=== PATIENT | female | born 1950 | race Caucasian/White ===

== ENCOUNTER 2021-01-24 16:43 | Emergency (ER) | payer OTHER, MEDICARE, SELFPAY ==
--- NOTE | ~2021-01-24 | XR_ITS ---
EXAMINATION: X-RAY RIGHT WRIST AND RIGHT HAND CLINICAL INFORMATION: Status post fall. Pain. COMPARISON: No similar priors. TECHNIQUE: 3 views of the right wrist/hand were obtained. FINDINGS: There is a comminuted distal radial fracture extending into the intra-articular surface. On the lateral view, there is dorsal angulation of the distal fracture fragment and there is mild impaction. There is an additional minimally displaced fracture of the ulnar styloid process. Carpal rows are maintained. The scapholunate interval is within normal limits. No other acute fractures. There is diffuse soft tissue edema without unexpected radiopaque foreign bodies. XR/XR hand wrist RT IMPRESSION: Comminuted distal radial fracture with intra-articular extension, dorsal angulation and mild impaction. Ulnar styloid process fracture.
[2021-01-24 18:21] VITALS: BP 137/72; PULSE 77; RESP 16; O2SAT 97; BMI 28.3
--- NOTE | 2021-01-24 19:06 | ED.EXTPRO ---
HPI - Extremity Problem General Chief complaint: Extremity Problem Stated complaint: fall Time Seen by Provider: 01/24/21 19:38 Source: patient Mode of arrival: ambulatory Limitations: no limitations History of Present Illness HPI Narrative: 70-year-old female presents with right wrist and hand pain after falling on outstretched arm yesterday. States she went to go get the mail and slipped landing on her bottom and her right arm. Does not report any prodromal symptoms. MD Complaint: extremity pain, extremity swelling, joint swelling and joint paint Onset (ago): day(s) (1) Pain Consistency: constant Location: right and upper extremity Severity scale (1-10): 8 Quality: aching and constant Relieving factors: nothing Exacerbating factors: range of motion and palpation Associated symptoms: denies other symptoms Related Data Previous Rx's Medication Instructions Recorded oxycodone 5 mg tablet 5 mg PO Q8H PRN #10 tab 01/24/21 Allergies Allergy/AdvReac Type Severity Reaction Status Date / Time No Known Allergies Allergy Mild N/A Verified 01/24/21 19:03 Review of Systems Review of Systems: Constitutional: No Fever, No Chills ENT/Mouth: No Ear Pain, No Hoarseness, No sore throat Eyes: No Eye Pain, No Swelling, No Redness, No Foreign Body Cardiovascular: No Chest Pain, No SOB Respiratory: No Cough, No Dyspnea Gastrointestinal: No Nausea, No Vomiting, No Diarrhea, No abdominal Pain Genitourinary: No Dysuria, No Hematuria Musculoskeletal: positive right hand and wrist pain, No Myalgias, No Joint Swelling Skin: Positive hematoma to right hand, No Skin lacerations, No rash Neuro: No Weakness, No Numbness, No Paresthesias, No Loss of Consciousness, No Dizziness, No Headache Psych: No Anxiety/Panic, No Depression Heme/Lymph: no easy bruising, no Lymphadenopathy Endocrine: No Polyuria, No Polydipsia Yes all other systems are reviewed and are negative PMFSH Past Medical History Attestation statement: The following information was validated with the patient. Source: old records reviewed Medical History COPD (chronic obstructive pulmonary disease) Social History Social History Advance Directives: No Advance Directives Information Provided: No Physical Exam Vital Signs: Vital Signs: Last Vital Signs Temp 97.9 F 01/24/21 20:21 Pulse 75 01/24/21 20:21 Resp 20 01/24/21 20:21 BP 137/72 01/24/21 18:21 Pulse Ox 99 01/24/21 20:21 Body Mass Index 28.3 Appearance: Alert. Oriented X3. No acute distress. Nasal cannula O2 per baseline. Eyes: Pupils equal, round and reactive to light. Sclera nonicteric. ENT: Pharynx normal. Moist mucous membranes. Neck: Normal inspection. Neck supple. Full range of motion against resistance. No vertebral step-offs or pain noted. CVS: Normal heart rate and rhythm. Pulses normal. Respiratory: No respiratory distress. Breath sounds normal. No chest wall tenderness. Abdomen: Soft and nontender. Skin: Skin warm and dry. Normal skin color. Normal skin turgor. Extremities: Pelvis is stable. No pain or crepitus to the extremities. Full range of motion to all extremities except for the right hand. Decreased flexion and extension, decreased supination, normal pronation, brisk capillary refill and equal pulses to upper extremities. Hematoma on the dorsal aspect of the hand, positive snuffbox tenderness. Neuro: No motor deficit. No sensory deficit. Course Course Course Narrative: 70-year-old female presents with injury to to the right hand and wrist after a fall on outstretched hand. Physical exam is negative for all other findings with the exception of the right wrist. Will order x-rays. Patient is on 2.5 Coumadin daily for AFib X-rays indicate radial and ulnar fractures. Non reducible. Discussion with Orthopedics, plan is for patient to follow-up in the office and for sugar-tong splint. Patient continues with brisk capillary refill and is neurovascularly intact 30 minutes status post sugar tongs placement. Patient verbalized understanding of and agrees to plan of care discharge home. Consultations Consultation #1: [place] Time: 19:45 MDM - Extremity (Nontraumatic) MDM Narrative Medical decision making narrative: Fracture, dislocation, hematoma, contusion Medical Records Attestation: I reviewed the patient's medical records. Imaging Data Right hand and wrist x-ray: Attestation: I personally reviewed and interpreted this imaging study as follows: Radiologist's impression: EXAMINATION: X-RAY RIGHT WRIST AND RIGHT HAND CLINICAL INFORMATION: Status post fall. Pain.? COMPARISON: No similar priors.? TECHNIQUE: 3 views of the right wrist/hand were obtained.? FINDINGS: There is a comminuted distal radial fracture extending into the intra-articular surface. On the lateral view, there is dorsal angulation of the distal fracture fragment and there is mild impaction. There is an additional minimally displaced fracture of the ulnar styloid process. Carpal rows are maintained. The scapholunate interval is within normal limits. No other acute fractures. There is diffuse soft tissue edema without unexpected radiopaque foreign bodies.? XR/XR hand wrist RT IMPRESSION: Comminuted distal radial fracture with intra-articular extension, dorsal angulation and mild impaction. ? Ulnar styloid process fracture.? Procedures Orthopedic Splinting/Casting Injury #1: Side: right Upper Extremity Injury Location: wrist Upper Extremity Immobilizer: sugar tong splint Discharge Plan Discharge Clinical Impression: Fracture of wrist Patient Disposition: Home, Self-Care Instructions: Arm Fracture in Adults (ED), Wrist Fracture in Adults (ED) Additional Instructions: You were evaluated for right wrist pain and swelling after a fall on outstretched arm. You do have a wrist fracture. Please keep the sugar-tong splint in place until you see Orthopedics. Rest, ice and elevate the right arm to help reduce pain and swelling. Use Tylenol throughout the day for pain management. Prescribed oxycodone for pain management. Please use this medication cautiously as this medication is highly addictive and dangerous medication. Do not drive or operate machinery while taking this medication. This medication can cause drowsiness, increased risk for falls, cause constipation, and drowsiness. Thank you for choosing this emergency department for evaluation. Please follow-up with primary care physician as needed. Return to the emergency department for any new, concerning, or worsening symptoms. Prescriptions: New oxycodone 5 mg tablet 5 mg PO Q8H PRN (Reason: pain) Qty: 10 RF: 0 Referrals: Karen Toure PA-C [Phys[employer]] - 2 days (Radial and ulnar fracture)
[2021-01-24] MEDS: oxyCODONE HCl Immed Release 5 MG TABLET PO (19:58)
[2021-01-24] MEDS: Acetaminophen 325 MG TABLET 975 MG PO (19:59)
[2021-01-24 20:21] VITALS: PULSE 75; RESP 20; TEMP 36.6; O2SAT 99
== END 2021-01-24 20:32 | disposition home or self-care (01) ==
PROVIDERS: Emergency Provider Emergency Medicine; PCP Internal Medicine
DX: S52.571A Other intraarticular fracture of lower end of right radius, initial encounter for closed fracture (principal); S52.611A Displaced fracture of right ulna styloid process, initial encounter for closed fracture; J44.9 Chronic obstructive pulmonary disease, unspecified; I48.91 Unspecified atrial fibrillation; Z79.01 Long term (current) use of anticoagulants; W01.0XXA Fall on same level from slipping, tripping and stumbling without subsequent striking against object, initial encounter; Y93.9 Activity, unspecified; Y92.008 Other place in unspecified non-institutional (private) residence as the place of occurrence of the external cause; Y99.9 Unspecified external cause status
CPT/HCPCS: 29125; 73110; 73130; 99284

== ENCOUNTER 2021-01-28 10:28 | Outpatient (REF) | payer OTHER, MEDICARE, SELFPAY ==
--- NOTE | ~2021-01-28 | XR_ITS ---
EXAMINATION: XR WRIST, RIGHT CLINICAL INFORMATION: Right wrist pain. COMPARISON: Right hand and wrist radiographs dated 01/24/2021. TECHNIQUE: PA, lateral, and oblique views of the right wrist. FINDINGS: Redemonstration of a comminuted distal radial fracture in unchanged anatomic alignment. No significant new bone/callus formation. Nondisplaced ulnar styloid fracture, unchanged. No osseous erosion. No abnormal soft tissue calcification. XR/XR wrist RT min 3V IMPRESSION: Comminuted distal radial fracture and ulnar styloid fracture in unchanged alignment.
== END 2021-01-28 10:29 | disposition home or self-care (01) ==
LOC: HO.HOSX 10:28
PROVIDERS: Visit Provider Orthopaedic Surgery
DX: S52.501A Unspecified fracture of the lower end of right radius, initial encounter for closed fracture (principal)
CPT/HCPCS: 25600; 73110; 99202

== ENCOUNTER 2021-02-01 10:12 | Inpatient (IN) | payer OTHER, SELFPAY ==
[2021-02-01] VITALS (9 sets, daily range): BP systolic 102–146; BP diastolic 34–84; PULSE 65–93; RESP 14–25; TEMP 36.7–37.1; O2SAT 85–99; BMI 28.3
--- NOTE | ~2021-02-01 | XR_ITS ---
EXAMINATION: XR CHEST CLINICAL INFORMATION: Shortness of breath and wheezing COMPARISON: Chest x-ray June 18, 2018 TECHNIQUE: Frontal view of the chest was obtained. FINDINGS: Cardiac silhouette is normal in size. Patient is status post valvular replacement. Atherosclerotic disease of the aortic arch. The lungs are well aerated. Subtle patchy airspace opacities are noted within both lower lobes. No gross lobar consolidation is identified. No pleural effusion or pneumothorax. XR/XR chest 1V IMPRESSION: Radiographs suggest an acute process superimposed on chronic emphysematous changes. A viral infiltrate and mild fluid overload are within the differential. Clinical correlation recommended. Follow-up imaging recommended status post treatment to ensure resolution.
--- NOTE | 2021-02-01 10:21 | ECG_ITS ---
Test Reason : SHORT OF BREATH Blood Pressure : / mmHG Vent. Rate : 082 BPM Atrial Rate : 082 BPM P-R Int : 182 ms QRS Dur : 074 ms QT Int : 364 ms P-R-T Axes : 019 -18 054 degrees QTc Int : 425 ms Normal sinus rhythm Left axis deviation Otherwise normal ECG ST no longer elevated in Inferior leads Referred By: Jaylin Mak Electronically Signed By:PENELOPE MARTÍNEZ MD
[2021-02-01] MEDS: Albuterol Sulfate (0.083%) 2.5 MG/3 ML VIAL.NEB 10 MG INHALE (10:36)
[2021-02-01] MEDS: Magnesium Sulfate/H2O 2 GM/50 ML PIGGYBACK IV (10:40)
[2021-02-01] MEDS: methylPREDNISolone Sod Succ 125 MG/2 ML VIAL IVPUSH (10:40)
--- NOTE | 2021-02-01 10:45 | PC.NURSE ---
lugs - tight and exp wheezing alll lobes
--- NOTE | 2021-02-01 10:47 | ED_ITS ---
HPI - SOB/Dyspnea General Chief Complaint: Dyspnea Stated Complaint: copd Time Seen by Provider: 02/01/21 10:21 Source: patient, family and EMS Mode of arrival: EMS Limitations: no limitations History of Present Illness HPI Narrative: 70 y/o female with history of O2 dependent COPD on 2.5L NC, s/p mechanical aortic valve 2013 on Coumadin, history of GERD, depression who presents to the ED from home via EMS with 3-4 days of worsening SOB. She reports using her prescribed nebulizers and inhalers without any improvement. She has had a productive cough of trevino, blood tinged sputum. She has had no fever or chills, no N/V/D or chest pain. She is very dyspneic with exertion and has been increasing her O2 with any walking. When walking to the bathroom today she desaturated to the 70's according to her home pulse oximeter. She was unable to recover and called 911. On EMS arrival patent was audibly wheezing and had SpO2 92% on her baseline 2.5L. She was given albuterol en route to the ER. She reports history of intubation for COPD exacerbation a few year ago at [facility]. MD elicited complaint: shortness of breath and cough Pertinent past history: COPD Onset (ago): day(s) (3) Context: recent illness Timing: constant Severity: severe Exacerbating factors: exertion Relieving factors: oxygen and rest Known history of: COPD Associated symptoms: cough, wheezing, sputum production and chest congestion Treatment prior to arrival: oxygen and bronchodilator Related Data Home oxygen amount: 2 liters (2.5L) Allergies Allergy/AdvReac Type Severity Reaction Status Date / Time No Known Allergies Allergy Mild N/A Verified 01/28/21 10:35 Review of Systems Review of Systems: Constitutional: No Fever, No Chills ENT/Mouth: No sore throat, No Rhinorrhea, No Swallowing Difficulty Eyes: No Eye Pain, No Swelling, No Redness Cardiovascular: No Chest Pain, + SOB, No Orthopnea, No Edema Respiratory: + Cough, + Sputum, + Wheezing, + dyspnea, No gross hemoptysis Gastrointestinal: No Nausea, No Vomiting, No Diarrhea, No abdominal Pain Genitourinary: No Dysuria, No Urinary Frequency, No Hematuria Musculoskeletal: No joint pain, No Myalgias Skin: No Skin Lesions, No rash Neuro: + Weakness, No Numbness, No Dizziness, No Headache Psych: + Anxiety/Panic, No Depression Heme/Lymph: No Bruising, No Lymphadenopathy Endocrine: No Polyuria, No Polydipsia [facility] Past Medical History Medical History (Updated 02/01/21 @ 13:58 by TATI Gan) COPD (chronic obstructive pulmonary disease) High blood pressure High cholesterol Social History Social History (Updated 01/28/21 @ 10:39 by Cyndy Zepeda) Advance Directives: No Advance Directives Information Provided: No Current occupational status: disabled 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 Oriented X3. Eyes: Pupils equal, round and reactive to light. ENT: Pharynx normal. Neck: Normal inspection. Neck supple. CVS: Normal heart rate and rhythm. Pulses normal. Respiratory: Mild respiratory distress, RR low 20's. Breath sounds with diffuse inspiratory and expiratory wheezing, poor air entry, prolonged expiratory phase, congested cough. Abdomen: Soft and nontender. +BS x4 Skin: Skin warm and dry. Normal skin color. Normal skin turgor. No rashes. Extremities: No lower extremity edema. No calf tenderness. Neuro: Oriented X 3. No motor deficit. No sensory deficit. Course Course Course Narrative: 70 yo female with history of O2 dependent COPD, mechanical aortic valve on Coumadin who presents to the ER with SOB and wheezing x3 days. Reported hypoxia to 70s at home prior to EMS arrival. In the ER patient is wheezy with poor air entry. 10 mg albuterol ordered along with IV solumedrol 125 mg and 2 g Mg++. CXR, EKG, and lab workup ordered. Anticipate admission. Reevaluation(s) Reevaluation #1: Patient had continued wheezing and poor air entry after 1 hour long albuterol treatment, she continued to be slightly tachypneic. Additional DuoNeb was ordered. Chest x-ray showing acute on chronic emphysematous changes, possible viral infiltrate or mild fluid overload on differential. Her BNP is slightly elevated in the 300 range. Unknown ejection fraction, she denies being on diuretics at home. Will give a dose of IV Lasix now and reassess. Will also give her a DuoNeb treatment. If no improvement she may require BiPAP for work of breathing. She is awake and alert at this time, speaking in complete sentences but slightly tachypneic. Reevaluation #2: Patient is feeling better during DuoNeb treatment. Will hold off on BiPAP for now. Patient is to be admitted to the hospital for further management of acute COPD exacerbation as well as possible CHF. MDM - SOB/Dyspnea Differential Diagnosis Differential diagnosis: Likely acute exacerbation of chronic obstructive airways disease, congestive heart failure, pneumonia and pleural effusion Medical Records Attestation: I reviewed the patient's medical records. Lab Data Attestation: I reviewed the patient's lab results. Result diagrams: 02/01/21 11:14 02/01/21 11:14 Labs: Lab Results 02/01/21 02/01/21 02/01/21 Range/Units 11:13 11:13 11:14 WBC 6.9 (4.8-10.8) X10*3/uL RBC 3.82 L (4.20-5.50) X10*6/uL Hgb 10.6 L (12.0-16.0) g/dl Hct 33.5 L (37-47) % MCV 87.7 (80-98) fL MCH 27.7 (27.0-33.0) pg MCHC 31.6 (31.0-35.0) g/dl RDW 14.2 (11.0-16.0) % Plt Count 185 (160-400) X10*3/uL MPV 11.1 (9.4-12.3) fL Immature Gran % (Auto) 0.4 (0.0-0.4) % Neut % (Auto) 67.1 (45-73) % Lymph % (Auto) 23.4 (20-40) % [place] % (Auto) 7.5 (2-11) % Eos % (Auto) 1.2 (0-4) % Baso % (Auto) 0.4 (0-2) % Lymph # (Auto) 1.6 (1.2-4.9) X10*3/uL [place] # (Auto) 0.5 (0.1-1.2) X10*3/uL Eos # (Auto) 0.1 (0.0-0.4) X10*3/uL Baso # (Auto) 0.0 (0.0-0.2) X10*3/uL Abs Immat Gran (auto) 0.03 (0.00-0.03) X10*3/uL Absolute Neuts (auto) 4.6 (2.0-8.3) X10*3/uL Absolute Nucleated RBC 0.000 (0.0-0.012) X10*3/uL Nucleated RBC % (auto) 0.0 (0.0-0.2) /100WBC PT 57.1 H (9.9-13.0) SEC INR 4.9 H (0.9-1.1) APTT 59.6 H (24.1-38.0) SEC Sodium (135-145) mmol/L Potassium (3.3-5.1) mmol/L Chloride (96-108) mmol/L Carbon Dioxide (22-29) mmol/L Anion Gap (12-20) BUN (9-16) mg/dL Creatinine (0.5-1.4) mg/dL Estim Creat Clear Calc Estimated GFR Random Glucose (60-115) mg/dL Lactic Acid (0.5-2.0) mmol/L Calcium (8.4-10.2) mg/dL Magnesium (1.6-2.6) mg/dL Total Bilirubin (0.0-1.0) mg/dL Direct Bilirubin (0.0-0.5) mg/dL AST (5-31) U/L ALT (0-31) U/L Alkaline Phosphatase (39-117) U/L Troponin I High Sens 27.8 H* (<3.5-17.0) ng/L B-Natriuretic Peptide 362 H (<100) pg/mL Total Protein (6.5-8.0) g/dL Albumin (3.5-5.0) g/dL COVID-19 (ROB) (Negative) COVID-19 Clin Com 02/01/21 02/01/21 02/01/21 Range/Units 11:14 11:14 11:14 WBC (4.8-10.8) X10*3/uL RBC (4.20-5.50) X10*6/uL Hgb (12.0-16.0) g/dl Hct (37-47) % MCV (80-98) fL MCH (27.0-33.0) pg MCHC (31.0-35.0) g/dl RDW (11.0-16.0) % Plt Count (160-400) X10*3/uL MPV (9.4-12.3) fL Immature Gran % (Auto) (0.0-0.4) % Neut % (Auto) (45-73) % Lymph % (Auto) (20-40) % [place] % (Auto) (2-11) % Eos % (Auto) (0-4) % Baso % (Auto) (0-2) % Lymph # (Auto) (1.2-4.9) X10*3/uL [place] # (Auto) (0.1-1.2) X10*3/uL Eos # (Auto) (0.0-0.4) X10*3/uL Baso # (Auto) (0.0-0.2) X10*3/uL Abs Immat Gran (auto) (0.00-0.03) X10*3/uL Absolute Neuts (auto) (2.0-8.3) X10*3/uL Absolute Nucleated RBC (0.0-0.012) X10*3/uL Nucleated RBC % (auto) (0.0-0.2) /100WBC PT (9.9-13.0) SEC INR (0.9-1.1) APTT (24.1-38.0) SEC Sodium 141 (135-145) mmol/L Potassium 4.1 (3.3-5.1) mmol/L Chloride 103 (96-108) mmol/L Carbon Dioxide 32 H (22-29) mmol/L Anion Gap 10 L (12-20) BUN 14 (9-16) mg/dL Creatinine 0.59 (0.5-1.4) mg/dL Estim Creat Clear Calc 85.9 Estimated GFR > 60 Random Glucose 112 (60-115) mg/dL Lactic Acid 1.2 (0.5-2.0) mmol/L Calcium 8.6 (8.4-10.2) mg/dL Magnesium 2.8 H (1.6-2.6) mg/dL Total Bilirubin 0.5 (0.0-1.0) mg/dL Direct Bilirubin 0.3 (0.0-0.5) mg/dL AST 38 H (5-31) U/L ALT 47 H (0-31) U/L Alkaline Phosphatase 72 (39-117) U/L Troponin I High Sens (<3.5-17.0) ng/L B-Natriuretic Peptide Cancelled (<100) pg/mL Total Protein 5.9 L (6.5-8.0) g/dL Albumin 3.5 (3.5-5.0) g/dL COVID-19 (ROB) (Negative) COVID-19 Clin Com 02/01/21 Range/Units 11:16 WBC (4.8-10.8) X10*3/uL RBC (4.20-5.50) X10*6/uL Hgb (12.0-16.0) g/dl Hct (37-47) % MCV (80-98) fL MCH (27.0-33.0) pg MCHC (31.0-35.0) g/dl RDW (11.0-16.0) % Plt Count (160-400) X10*3/uL MPV (9.4-12.3) fL Immature Gran % (Auto) (0.0-0.4) % Neut % (Auto) (45-73) % Lymph % (Auto) (20-40) % [place] % (Auto) (2-11) % Eos % (Auto) (0-4) % Baso % (Auto) (0-2) % Lymph # (Auto) (1.2-4.9) X10*3/uL [place] # (Auto) (0.1-1.2) X10*3/uL Eos # (Auto) (0.0-0.4) X10*3/uL Baso # (Auto) (0.0-0.2) X10*3/uL Abs Immat Gran (auto) (0.00-0.03) X10*3/uL Absolute Neuts (auto) (2.0-8.3) X10*3/uL Absolute Nucleated RBC (0.0-0.012) X10*3/uL Nucleated RBC % (auto) (0.0-0.2) /100WBC PT (9.9-13.0) SEC INR (0.9-1.1) APTT (24.1-38.0) SEC Sodium (135-145) mmol/L Potassium (3.3-5.1) mmol/L Chloride (96-108) mmol/L Carbon Dioxide (22-29) mmol/L Anion Gap (12-20) BUN (9-16) mg/dL Creatinine (0.5-1.4) mg/dL Estim Creat Clear Calc Estimated GFR Random Glucose (60-115) mg/dL Lactic Acid (0.5-2.0) mmol/L Calcium (8.4-10.2) mg/dL Magnesium (1.6-2.6) mg/dL Total Bilirubin (0.0-1.0) mg/dL Direct Bilirubin (0.0-0.5) mg/dL AST (5-31) U/L ALT (0-31) U/L Alkaline Phosphatase (39-117) U/L Troponin I High Sens (<3.5-17.0) ng/L B-Natriuretic Peptide (<100) pg/mL Total Protein (6.5-8.0) g/dL Albumin (3.5-5.0) g/dL COVID-19 (ROB) Negative (Negative) COVID-19 Clin Com See Note ECG Data Attestation: I personally reviewed and interpreted this ECG as follows: ECG interpretation date: 02/01/21 Interpretation: normal sinus rhythm, HR 82 bpm, normal [place] interval, no ST segment elevations depressions Critical Care Time Critical Care Time Critical Care Time: Yes Total Critical Care Time: 45 Attestation: I have personally provided critical care time exclusive of time spent on separately billable procedures. Time includes review of lab data, radiology results, discussion with consultants, and monitoring for potential decompensation. Intervention performed as documented. Discharge Plan Discharge Patient Disposition: Admitted As Inpatient Prescriptions: No Action carvedilol 12.5 mg tablet 1 tab PO BID RF: 0 warfarin 2.5 mg tablet PO RF: 0 simvastatin 40 mg tablet 1 tab PO BEDTIME RF: 0 citalopram 20 mg tablet 1 tab PO DAILY RF: 0 nystatin 100,000 unit/gram cream topical RF: 0 fluticasone propion-salmeterol [Advair Diskus] 500-50 mcg/dose blister with device 1 puff inhalation BID RF: 0 omeprazole 20 mg capsule,delayed release(DR/EC) 1 cap PO DAILY RF: 0 Spiriva with HandiHaler 18 mcg capsule, w/inhalation device 1 cap inhalation DAILY RF: 0 Entresto 24-26 mg tablet 1 tab PO BID RF: 0 oxycodone 5 mg tablet 5 mg PO Q8H PRN (Reason: pain) Qty: 10 RF: 0
[2021-02-01 11:23] LABS: MANUAL DIFF FLAG NO
[2021-02-01 11:33] LABS: Basophils Percent Auto 0.4 % (0-2); Eosinophils Absolute Auto 0.1 X10*3/uL (0.0-0.4); Eosinophils Percent Auto 1.2 % (0-4); Hematocrit 33.5 % (37-47); Hemoglobin 10.6 g/dl (12.0-16.0); Imm Gran Abs Auto 0.03 X10*3/uL (0.00-0.03); Imm Gran Pct Auto 0.4 % (0.0-0.4); Lymphocytes Absolute Auto 1.6 X10*3/uL (1.2-4.9); Lymphocytes Percent Auto 23.4 % (20-40); Mean Corpuscular HGB Conc 31.6 g/dl (31.0-35.0); Mean Corpuscular Hemoglobin 27.7 pg (27.0-33.0); Mean Corpuscular Volume 87.7 fL (80-98); Mean Platelet Volume 11.1 fL (9.4-12.3); Monocytes Absolute Auto 0.5 X10*3/uL (0.1-1.2); Monocytes Percent Auto 7.5 % (2-11); Neutrophils Absolute Auto 4.6 X10*3/uL (2.0-8.3); Neutrophils Percent Auto 67.1 % (45-73); Platelet Count 185 X10*3/uL (160-400); Red Blood Count 3.82 X10*6/uL (4.20-5.50); Red Cell Distribution Width 14.2 % (11.0-16.0); White Blood Count 6.9 X10*3/uL (4.8-10.8)
[2021-02-01 11:44] LABS: Lactic Acid 1.2 mmol/L (0.5-2.0)
[2021-02-01 11:46] LABS: INTERNATIONAL NORM RATIO 4.9 (0.9-1.1); Prothrombin Time 57.1 SEC (9.9-13.0)
[2021-02-01 11:49] LABS: Partial Thromboplastin Time 59.6 SEC (24.1-38.0)
[2021-02-01 11:49] LABS: COVID-19 Test Negative (Negative); IDNOW Serial# 9DD0AD1C
[2021-02-01 11:50] LABS: Alanine Aminotransferase 47 U/L (0-31); Albumin Level 3.5 g/dL (3.5-5.0); Alkaline Phosphatase 72 U/L (39-117); Anion Gap 10 (12-20); Aspartate Amino Transferase 38 U/L (5-31); Bilirubin Direct 0.3 mg/dL (0.0-0.5); Bilirubin Total 0.5 mg/dL (0.0-1.0); Blood Urea Nitrogen 14 mg/dL (9-16); Calcium 8.6 mg/dL (8.4-10.2); Carbon Dioxide 32 mmol/L (22-29); Chloride 103 mmol/L (96-108); Creatinine Clr Calc Pharmacy 85.9; Estimated Glomerular Filt Rate > 60; Glucose Random 112 mg/dL (60-115); Magnesium 2.8 mg/dL (1.6-2.6); Potassium 4.1 mmol/L (3.3-5.1); Sodium 141 mmol/L (135-145); Total Protein 5.9 g/dL (6.5-8.0)
[2021-02-01] MEDS: cefEPime HCl 2 GM in 0.9 % Sodium Chloride 50 ML IV (11:57)
[2021-02-01 12:03] LABS: Troponin-I High Sensitivity 27.8 ng/L (<3.5-17.0)
[2021-02-01] MEDS: Albuterol/Iprat 2.5/0.5MG 3 ML AMPUL.NEB INHALE (12:20)
[2021-02-01 12:29] LABS: B Type Natriuretic Peptide 362 pg/mL (<100)
--- NOTE | 2021-02-01 14:18 | PHA.MEDREC ---
Pharmacy Consult ? Medication Reconciliation Pharmacy has completed the medication reconciliation. There are no remarkable issues for provider's attention. Barbara Whitaker, MarlenD
[2021-02-01] MEDS: Furosemide 20 MG/2 ML VIAL IVPUSH (14:30)
[2021-02-01 14:56] LABS: Procalcitonin 0.31 ng/mL
[2021-02-01 15:15] LABS: Appearance Urine CLEAR; Color Urine YELLOW; Glucose Urine UA NEG (NEG); Leukocyte Esterase Urine NEG (NEG); Nitrite Urine POS (NEG); Specific Gravity - Urine >= 1.030 (1.005-1.025); UACC Culture Trigger YES; Urine Blood 1+ (NEG); Urine Ketones 40 MG/DL (NEG); Urine Protein TRACE MG/DL (NEG-TRACE)
[2021-02-01 15:27] LABS: Bacteria Urine TRACE /LPF; Squamous Epithelial Cell Urine TRACE /LPF; WBC Urine 0-2 /HPF (0-4)
[2021-02-01 15:48] LABS: Troponin-I High Sensitivity 20.2 ng/L (<3.5-17.0)
[2021-02-01 15:58] LABS: ABG Base Excess 9.7 mmol/L; ABG HCO3 34 mmol/L (22-26); ABG pCO2 46 mmHg (32-45); ABG pCO2 TC 46 mmHg (32-45); ABG pH 7.47 (7.35-7.45); ABG pH TC 7.47 (7.35-7.45); ABG pO2 70 mmHg (83-108); ABG pO2 TC 71 (83-108)
[2021-02-01 16:02] LABS: ABG Refer to POC result
--- NOTE | 2021-02-01 16:38 | PM.IMHP ---
History of Present Illness Date of Service: 02/01/21 <Francoise Salcido NP - Last Filed: 02/02/21 07:30> Chief Complaint: Shortness of breath <Francoise Salcido NP - Last Filed: 02/02/21 07:30> 70 year old women presenting with increased shortness of breath, cough and wheezing. She has a history of COPD and wears 2 liters of oxygen at home. She denied fever, chills, chest pain, nausea or vomiting. She recently had had a fall and sustained a right radius fracture for which he has a cast on and is being treated non operatively. She was noted to be hypoxic at 85% on 3 liters nc. Her blood gas showed Pco2 of 46. Her BNP was noted to be mildly elevated at 362 with no signs of overt heart failure. CXR did not show a definite consolidation. She was treated with solumedrol, albuterol, magnesium and a dose of lasix in the ED. She will be admitted for further management of COPD exacerbation. <Francoise Salcido NP - Last Filed: 02/02/21 07:30> Review of Systems Review of Systems: Denies any recent fever chills or decrease in appetite respiratory see HPI cardiovascular denied chest pain gastrointestinal denies any dysphagia abdominal pain nausea vomiting or diarrhea genitourinary denies any dysuria frequency or hematuria musculoskeletal denies any joint pain or swelling neuropsych denies any weakness or seizures all other systems reviewed are negative <Francoise Salcido NP - Last Filed: 02/02/21 07:30> [facility] Medical History: Medical History COPD (chronic obstructive pulmonary disease) High blood pressure High cholesterol <Francoise Salcido NP - Last Filed: 02/02/21 07:30> Pertinent family history: no cardiac disease <Francoise Salcido NP - Last Filed: 02/02/21 07:30> Social History: Social History (Updated 01/28/21 @ 10:39 by Cyndy Zepeda) Household Members: Other Household Members Other:: Son Housing: House Do you presently have visiting nurse or other home services: No (Interested in getting home services) Alcohol intake: never Patient Tobacco Use Status: Former Tobacco user Quit Date: 01/24/2021 Tobacco use type: Cigarette service: No Current occupational status: disabled 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 <Francoise Salcido NP - Last Filed: 02/02/21 07:30> Meds Allergies/Adverse reactions: Allergies Allergy/AdvReac Type Severity Reaction Status Date / Time No Known Allergies Allergy Mild N/A Verified 01/28/21 10:35 <Francoise Salcido NP - Last Filed: 02/02/21 07:30> Active Medications: Current Medications Acetaminophen (Acetaminophen 325 Mg Tablet) 650 mg PO Q6H PRN PRN Reason: Pain, Mild (Pain Scale 1-3) Ondansetron HCl (Ondansetron Hcl 4 Mg/2 Ml Vial) 4 mg IVPUSH Q8H PRN PRN Reason: Nausea and Vomiting Pharmacy Consult (Consult Rx Perform Med Rec) 1 each MISCELLANE ONCE PRN PRN Reason: Consult order Sodium Chloride (0.9 % Sodium Chloride Flush 3 Ml Syringe) [facility] <Francoise Salcido NP - Last Filed: 02/02/21 07:30> Home medications: Home Medications Medication Instructions Recorded Confirmed Last Taken Type acetaminophen 325 mg tablet 650 mg PO Q6H PRN 02/01/21 02/01/21 Unknown History aspirin 81 mg chewable tablet 81 mg PO DAILY 02/01/21 02/01/21 02/01/21 History carvedilol 12.5 mg tablet 12.5 mg PO BID 02/01/21 02/01/21 02/01/21 History citalopram 20 mg tablet 20 mg PO DAILY 02/01/21 02/01/21 02/01/21 History fluticasone 500 mcg-salmeterol 50 1 inh INHALATION BID 02/01/21 02/01/21 02/01/21 History mcg/dose blistr powdr for inhalation (Advair Diskus) latanoprost 0.005 % eye drops 1 drp OPHTHALMIC (EYE) BEDTIME 02/01/21 02/01/21 01/31/21 History omeprazole 20 mg capsule,delayed 20 mg PO DAILY 02/01/21 02/01/21 02/01/21 History release sacubitril 24 mg-valsartan 26 mg 1 tab PO BID 02/01/21 02/01/21 02/01/21 History tablet (Entresto) simvastatin 40 mg tablet 40 mg PO DAILY 1002/01/21 02/01/21 History tiotropium bromide 18 mcg capsule 1 cap INHALATION DAILY 02/01/21 02/01/21 02/01/21 History with inhalation device (Spiriva with HandiHaler) <Francoise Salcido NP - Last Filed: 02/02/21 07:30> Physical Exam Vital Signs and Narrative: Vital Signs: Last Vital Signs Temp 98.7 F 02/01/21 14:26 Pulse 78 02/01/21 14:26 Resp 14 02/01/21 14:26 BP 118/61 02/01/21 14:26 Pulse Ox 91 L 02/01/21 14:26 Oxygen Flow Rate 3 02/01/21 10:23 Body Mass Index 28.3 <Francoise Salcido NP - Last Filed: 02/02/21 07:30> Appearing in no acute distress head is normocephalic atraumatic eyes pupils are PERRLA sclera is anicteric mouth throat mucous membranes are intact and moist neck is supple no lymphadenopathy, no JVD noted lung sounds exp wheezing heart regular rate rhythm, clear S1, S2 positive bowel sounds, abdomen is soft, nontender neuro patient is alert x3, no focal deficits <Francoise Salcido NP - Last Filed: 02/02/21 07:30> Results Labs CBC and Chem 7: : 02/02/21 06:02 02/02/21 06:02 <Francoise Salcido NP - Last Filed: 02/02/21 07:30> Labs: Laboratory Results - last 24 hr 02/01/21 02/01/21 02/01/21 11:13 11:13 11:14 MCV 87.7 MCH 27.7 MCHC 31.6 RDW 14.2 Plt Count 185 MPV 11.1 Immature Gran % (Auto) 0.4 Neut % (Auto) 67.1 Lymph % (Auto) 23.4 [place] % (Auto) 7.5 Eos % (Auto) 1.2 Baso % (Auto) 0.4 Lymph # (Auto) 1.6 [place] # (Auto) 0.5 Eos # (Auto) 0.1 Baso # (Auto) 0.0 Abs Immat Gran (auto) 0.03 Absolute Neuts (auto) 4.6 Absolute Nucleated RBC 0.000 Nucleated RBC % (auto) 0.0 PT 57.1 H INR 4.9 H APTT 59.6 H O2 Saturation ABG pH at Pt Temp ABG pH (Temp Correct) ABG pCO2 at Pt Temp ABG pCO2 (Temp Corrct ABG pO2 at Pt Temp ABG pO2 (Temp Correct ABG HCO3 ABG Base Excess (Actual) Anion Gap Estim Creat Clear Calc Estimated GFR Random Glucose Lactic Acid Calcium Magnesium Total Bilirubin Direct Bilirubin AST ALT Alkaline Phosphatase Troponin I High Sens 27.8 H* B-Natriuretic Peptide 362 H Total Protein Albumin Procalcitonin Urine Color Urine Appearance Urine pH Ur Specific [place] Urine Protein Urine Glucose (UA) Urine Ketones Urine Blood Urine Nitrite Ur Leukocyte Esterase Urine RBC Urine WBC Ur Squamous Epith Cells Urine Bacteria COVID-19 (ROB) COVID-19 Clin Com 02/01/21 02/01/21 02/01/21 11:14 11:14 11:14 MCV MCH MCHC RDW Plt Count MPV Immature Gran % (Auto) Neut % (Auto) Lymph % (Auto) [place] % (Auto) Eos % (Auto) Baso % (Auto) Lymph # (Auto) [place] # (Auto) Eos # (Auto) Baso # (Auto) Abs Immat Gran (auto) Absolute Neuts (auto) Absolute Nucleated RBC Nucleated RBC % (auto) PT INR APTT O2 Saturation ABG pH at Pt Temp ABG pH (Temp Correct) ABG pCO2 at Pt Temp ABG pCO2 (Temp Corrct ABG pO2 at Pt Temp ABG pO2 (Temp Correct ABG HCO3 ABG Base Excess (Actual) Anion Gap 10 L Estim Creat Clear Calc 85.9 Estimated GFR > 60 Random Glucose 112 Lactic Acid 1.2 Calcium 8.6 Magnesium 2.8 H Total Bilirubin 0.5 Direct Bilirubin 0.3 AST 38 H ALT 47 H Alkaline Phosphatase 72 Troponin I High Sens B-Natriuretic Peptide Cancelled Total Protein 5.9 L Albumin 3.5 Procalcitonin Urine Color Urine Appearance Urine pH Ur Specific [place] Urine Protein Urine Glucose (UA) Urine Ketones Urine Blood Urine Nitrite Ur Leukocyte Esterase Urine RBC Urine WBC Ur Squamous Epith Cells Urine Bacteria COVID-19 (ROB) COVID-19 Clin Com 02/01/21 02/01/21 02/01/21 11:14 11:16 15:05 MCV MCH MCHC RDW Plt Count MPV Immature Gran % (Auto) Neut % (Auto) Lymph % (Auto) [place] % (Auto) Eos % (Auto) Baso % (Auto) Lymph # (Auto) [place] # (Auto) Eos # (Auto) Baso # (Auto) Abs Immat Gran (auto) Absolute Neuts (auto) Absolute Nucleated RBC Nucleated RBC % (auto) PT INR APTT O2 Saturation ABG pH at Pt Temp ABG pH (Temp Correct) ABG pCO2 at Pt Temp ABG pCO2 (Temp Corrct ABG pO2 at Pt Temp ABG pO2 (Temp Correct ABG HCO3 ABG Base Excess (Actual) Anion Gap Estim Creat Clear Calc Estimated GFR Random Glucose Lactic Acid Calcium Magnesium Total Bilirubin Direct Bilirubin AST ALT Alkaline Phosphatase Troponin I High Sens B-Natriuretic Peptide Total Protein Albumin Procalcitonin 0.31 Urine Color YELLOW Urine Appearance CLEAR Urine pH 6.0 Ur Specific [place] >= 1.030 H Urine Protein TRACE Urine Glucose (UA) NEG Urine Ketones 40 Urine Blood 1+ H Urine Nitrite POS H Ur Leukocyte Esterase NEG Urine RBC 10-14 H Urine WBC 0-2 Ur Squamous Epith Cells TRACE Urine Bacteria TRACE COVID-19 (ROB) Negative COVID-19 Clin Com See Note 02/01/21 02/01/21 15:06 15:53 MCV MCH MCHC RDW Plt Count MPV Immature Gran % (Auto) Neut % (Auto) Lymph % (Auto) [place] % (Auto) Eos % (Auto) Baso % (Auto) Lymph # (Auto) [place] # (Auto) Eos # (Auto) Baso # (Auto) Abs Immat Gran (auto) Absolute Neuts (auto) Absolute Nucleated RBC Nucleated RBC % (auto) PT INR APTT O2 Saturation 94.0 ABG pH at Pt Temp 7.47 H ABG pH (Temp Correct) 7.47 H ABG pCO2 at Pt Temp 46 H ABG pCO2 (Temp Corrct 46 H ABG pO2 at Pt Temp 70 L ABG pO2 (Temp Correct 71 L ABG HCO3 34 H ABG Base Excess (Actual) 9.7 Anion Gap Estim Creat Clear Calc Estimated GFR Random Glucose Lactic Acid Calcium Magnesium Total Bilirubin Direct Bilirubin AST ALT Alkaline Phosphatase Troponin I High Sens 20.2 H* B-Natriuretic Peptide Total Protein Albumin Procalcitonin Urine Color Urine Appearance Urine pH Ur Specific [place] Urine Protein Urine Glucose (UA) Urine Ketones Urine Blood Urine Nitrite Ur Leukocyte Esterase Urine RBC Urine WBC Ur Squamous Epith Cells Urine Bacteria COVID-19 (ROB) COVID-19 Clin Com <Francoise Salcido NP - Last Filed: 02/02/21 07:30> Imaging Radiologist's Impressions: Impressions Chest X-Ray 02/01/21 10:21 IMPRESSION: Radiographs suggest an acute process superimposed on chronic emphysematous changes. A viral infiltrate and mild fluid overload are within the differential. Clinical correlation recommended. Follow-up imaging recommended status post treatment to ensure resolution. <Francoise Salcido NP - Last Filed: 02/02/21 07:30> Assessment and Plan (1) Acute exacerbation of chronic obstructive airways disease: Status: Acute <Francoise Salcido NP - Last Filed: 02/02/21 07:30> 70 year old women admitted with COPD exacerbation Acute on chronic hypoxic respiratory failure secondary to COPD exacerbation Solumedrol, duonebs Supplemental oxygen as needed robitussin for cough Afib. stable heart rate Continue carvedilol Hold warfarin due to supratherapeutic INR PT/INR daily Mental health Continue home medications CHF. No exacerbation continue entresto DVT prophylaxis with mechanical compression boots Attending Dr. Kincaid <Francoise Salcido NP - Last Filed: 02/02/21 07:30> 70 year old women admitted with COPD exacerbation Acute on chronic hypoxic respiratory failure secondary to COPD exacerbation Solumedrol, duonebs Supplemental oxygen as needed robitussin for cough Afib. stable heart rate Continue carvedilol Hold warfarin due to supratherapeutic INR PT/INR daily Mental health Continue home medications CHF. No exacerbation continue entresto DVT prophylaxis with mechanical compression boots Attending Dr. Kincaid I saw and examine patient and discussed physical finding, labs, medication and imaging studies with TRAVEL COORDINATOR and I agree with plan and disposition as above. --Albert Kincaid MD <Yannick Kincaid MD - Last Filed: 02/10/21 16:13> Quality Stroke Does the patient have a stroke diagnosis?: No <Francoise Salcido NP - Last Filed: 02/02/21 07:30> VTE Prior VTE?: No <Francoise Salcido NP - Last Filed: 02/02/21 07:30> VTE Risk Level:: Medical - moderate - high <Francoise Salcido NP - Last Filed: 02/02/21 07:30> VTE Device Contraindication: Treatment Not Indicated <Francoise Salcido NP - Last Filed: 02/02/21 07:30> VTE Drug Contraindication: N/A - Med Ordered <Francoise Salcido NP - Last Filed: 02/02/21 07:30>
[2021-02-01] MEDS: methylPREDNISolone Sod Succ 40 MG/ML VIAL IVPUSH (18:13)
[2021-02-01] MEDS: Albuterol Sulfate (0.083%) 2.5 MG/3 ML VIAL.NEB INHALE (20:13)
[2021-02-01] MEDS: Sacubitril/Valsartan 24/26 1 TAB TABLET PO (21:14)
[2021-02-01] MEDS: carvediloL 12.5 MG TABLET PO (21:14)
[2021-02-01] MEDS: Aspirin 81 MG TAB.CHEW PO (21:41)
[2021-02-01] MEDS: Atorvastatin Calcium 20 MG TABLET PO (21:42)
[2021-02-01] MEDS: Latanoprost 0.005 % Ophth Sol 2.5 ML DROPS 1 DROP EYE-BOTH (21:42)
[2021-02-02] VITALS (13 sets, daily range): BP systolic 108–138; BP diastolic 55–83; PULSE 75–86; RESP 16–18; TEMP 36–36.6; O2SAT 94–97
[2021-02-02] MEDS: methylPREDNISolone Sod Succ 40 MG/ML VIAL IVPUSH ×3 (01:02→16:27)
[2021-02-02] MEDS: 0.9 % Sodium Chloride Flush 3 ML SYRINGE IVFLUSH ×4 (01:04→20:57)
[2021-02-02] MEDS: Omeprazole 20 MG CAPSULE.DR PO (05:39)
[2021-02-02] MEDS: guaiFENesin DM 100/10/5 ML 5 ML SYRUP PO (06:07)
[2021-02-02 06:12] LABS: MANUAL DIFF FLAG NO
[2021-02-02 06:17] LABS: Hematocrit 33.6 % (37-47); Hemoglobin 10.5 g/dl (12.0-16.0); Imm Gran Abs Auto 0.06 X10*3/uL (0.00-0.03); Imm Gran Pct Auto 0.7 % (0.0-0.4); Lymphocytes Absolute Auto 0.7 X10*3/uL (1.2-4.9); Lymphocytes Percent Auto 9.1 % (20-40); Mean Corpuscular HGB Conc 31.3 g/dl (31.0-35.0); Mean Corpuscular Hemoglobin 27.1 pg (27.0-33.0); Mean Corpuscular Volume 86.8 fL (80-98); Monocytes Absolute Auto 0.1 X10*3/uL (0.1-1.2); Monocytes Percent Auto 1.2 % (2-11); Neutrophils Absolute Auto 7.2 X10*3/uL (2.0-8.3); Platelet Count 201 X10*3/uL (160-400); Red Blood Count 3.87 X10*6/uL (4.20-5.50); Red Cell Distribution Width 14.1 % (11.0-16.0); White Blood Count 8.1 X10*3/uL (4.8-10.8)
[2021-02-02 06:36] LABS: Anion Gap 11 (12-20); Blood Urea Nitrogen 16 mg/dL (9-16); Calcium 9.2 mg/dL (8.4-10.2); Carbon Dioxide 33 mmol/L (22-29); Chloride 101 mmol/L (96-108); Creatinine Clr Calc Pharmacy 79.1; Estimated Glomerular Filt Rate > 60; Glucose Random 177 mg/dL (60-115); Potassium 4.1 mmol/L (3.3-5.1); Sodium 141 mmol/L (135-145)
[2021-02-02 06:57] LABS: INTERNATIONAL NORM RATIO 3.7 (0.9-1.1); Prothrombin Time 43.5 SEC (9.9-13.0)
[2021-02-02 07:59] LABS: B Type Natriuretic Peptide 311 pg/mL (<100)
[2021-02-02] MEDS: Albuterol Sulfate (0.083%) 2.5 MG/3 ML VIAL.NEB INHALE ×4 (08:44→20:38)
[2021-02-02] MEDS: Fluticasone/Vilanterol 200/25 BLST.W.DEV 1 PUFF INHALE (08:44)
--- NOTE | 2021-02-02 09:13 | PM.IMPN ---
Progress Note: A&P (1) Acute and chronic respiratory failure: Status: Acute (2) Acute exacerbation of chronic obstructive airways disease: Status: Acute (3) Supratherapeutic INR: Status: Acute Assessment and Plan: 70 year old women admitted with COPD exacerbation Acute on chronic hypoxic respiratory failure secondary to COPD exacerbation. Improving No hypoxia Solumedrol, duonebs Supplemental oxygen as needed robitussin for cough Afib. stable heart rate Continue carvedilol Hold warfarin due to supratherapeutic INR PT/INR daily Supratherapeutic INR Hold warfarin Mental health Continue home medications CHF. No exacerbation continue entresto DVT prophylaxis with mechanical compression boots Attending Dr. Kincaid Subjective Subjective Date of Service: 02/02/21 Review of Systems Follow up acute respiratory failure secondary to COPD Breathing better today Some SOB with movement Physical Exam Vital Signs: Vital Signs: Last Vital Signs Temp 96.9 F 02/02/21 08:00 Pulse 75 02/02/21 08:46 Resp 18 02/02/21 08:00 BP 125/64 02/02/21 08:00 Pulse Ox 96 02/02/21 08:00 Oxygen Flow Rate 3 02/01/21 10:23 Body Mass Index 28.3 Appearing in no acute distress lung sounds diminshed, mild wheezing heart regular rate rhythm, clear S1, S2 positive bowel sounds, abdomen is soft, nontender neuro patient is alert x3, no focal deficits Objective Data Current Medications Acetaminophen (Acetaminophen 325 Mg Tablet) 650 mg PO Q6H PRN PRN Reason: Pain, Mild (Pain Scale 1-3) Albuterol Sulfate (Albuterol Sulfate (0.083%) 2.5 Mg/3 Ml Vial.Neb) 2.5 mg INHALE RQ4H WHILE AWAKE [facility] Last Admin: 02/02/21 08:44 Dose: 2.5 mg Documented by: Aspirin (Aspirin 81 Mg Tab.Chew) 81 mg PO BEDTIME [facility] Last Admin: 02/01/21 21:41 Dose: 81 mg Documented by: Atorvastatin Calcium (Atorvastatin Calcium 20 Mg Tablet) 20 mg PO BEDTIME [facility] Last Admin: 02/01/21 21:42 Dose: 20 mg Documented by: Carvedilol (Carvedilol 12.5 Mg Tablet) 12.5 mg PO BID [facility]; Protocol Last Admin: 02/01/21 21:14 Dose: 12.5 mg Documented by: Escitalopram Oxalate (Escitalopram Oxalate 10 Mg Tablet) 10 mg PO DAILY [facility] Fluticasone/Vilanterol (Fluticasone/Vilanterol 200/25 Blst.W.Dev) 1 puff INHALE RDAILY [facility] Last Admin: 02/02/21 08:44 Dose: 1 puff Documented by: Guaifenesin/Dextromethorphan (Guaifenesin Dm 100/10/5 Ml 5 Ml Syrup) 5 ml PO Q4H PRN PRN Reason: Cough Last Admin: 02/02/21 06:07 Dose: 5 ml Documented by: Latanoprost (Latanoprost 0.005 % Ophth [place] 2.5 Ml Drops) 1 drop EYE-BOTH BEDTIME [facility] Last Admin: 02/01/21 21:42 Dose: 1 drop Documented by: Methylprednisolone Sodium Succinate (Methylprednisolone Sod Succ 40 Mg/Ml Vial) 40 mg IVPUSH Q8H [facility] Last Admin: 02/02/21 01:02 Dose: 40 mg Documented by: Omeprazole (Omeprazole 20 Mg Capsule.) 20 mg PO DAILY@0630 [facility] Last Admin: 02/02/21 05:39 Dose: 20 mg Documented by: Ondansetron HCl (Ondansetron Hcl 4 Mg/2 Ml Vial) 4 mg IVPUSH Q8H PRN PRN Reason: Nausea and Vomiting Pharmacy Consult (Consult Rx Perform Med Rec) 1 each MISCELLANE ONCE PRN PRN Reason: Consult order Sacubitril/Valsartan (Sacubitril/Valsartan 1 Tab Tablet) 1 tab PO BID [facility]; Protocol Last Admin: 02/01/21 21:14 Dose: 1 tab Documented by: Sodium Chloride (0.9 % Sodium Chloride Flush 3 Ml Syringe) 3 ml IVFLUSH QSHIFT [facility] Last Admin: 02/02/21 01:04 Dose: 3 ml Documented by: Tiotropium [place] (Tiotropium [place] 18 Mcg Cap.W.Dev) 1 puff INHALE DAILY [facility] Last Admin: 02/02/21 08:44 Dose: 1 puff Documented by: Labs CBC & Chem 7: 02/02/21 06:02 02/02/21 06:02 Labs: Laboratory Results - last 24 hr 02/01/21 02/01/21 02/01/21 11:13 11:13 11:14 MCV 87.7 MCH 27.7 MCHC 31.6 RDW 14.2 Plt Count 185 MPV 11.1 Immature Gran % (Auto) 0.4 Neut % (Auto) 67.1 Lymph % (Auto) 23.4 [place] % (Auto) 7.5 Eos % (Auto) 1.2 Baso % (Auto) 0.4 Lymph # (Auto) 1.6 [place] # (Auto) 0.5 Eos # (Auto) 0.1 Baso # (Auto) 0.0 Abs Immat Gran (auto) 0.03 Absolute Neuts (auto) 4.6 Absolute Nucleated RBC 0.000 Nucleated RBC % (auto) 0.0 PT 57.1 H INR 4.9 H APTT 59.6 H O2 Saturation ABG pH at Pt Temp ABG pH (Temp Correct) ABG pCO2 at Pt Temp ABG pCO2 (Temp Corrct ABG pO2 at Pt Temp ABG pO2 (Temp Correct ABG HCO3 ABG Base Excess (Actual) Anion Gap Estim Creat Clear Calc Estimated GFR Random Glucose Lactic Acid Calcium Magnesium Total Bilirubin Direct Bilirubin AST ALT Alkaline Phosphatase Troponin I High Sens 27.8 H* B-Natriuretic Peptide 362 H Total Protein Albumin Procalcitonin Urine Color Urine Appearance Urine pH Ur Specific [place] Urine Protein Urine Glucose (UA) Urine Ketones Urine Blood Urine Nitrite Ur Leukocyte Esterase Urine RBC Urine WBC Ur Squamous Epith Cells Urine Bacteria COVID-19 (ROB) COVID-19 Clin Com 02/01/21 02/01/21 02/01/21 11:14 11:14 11:14 MCV MCH MCHC RDW Plt Count MPV Immature Gran % (Auto) Neut % (Auto) Lymph % (Auto) [place] % (Auto) Eos % (Auto) Baso % (Auto) Lymph # (Auto) [place] # (Auto) Eos # (Auto) Baso # (Auto) Abs Immat Gran (auto) Absolute Neuts (auto) Absolute Nucleated RBC Nucleated RBC % (auto) PT INR APTT O2 Saturation ABG pH at Pt Temp ABG pH (Temp Correct) ABG pCO2 at Pt Temp ABG pCO2 (Temp Corrct ABG pO2 at Pt Temp ABG pO2 (Temp Correct ABG HCO3 ABG Base Excess (Actual) Anion Gap 10 L Estim Creat Clear Calc 85.9 Estimated GFR > 60 Random Glucose 112 Lactic Acid 1.2 Calcium 8.6 Magnesium 2.8 H Total Bilirubin 0.5 Direct Bilirubin 0.3 AST 38 H ALT 47 H Alkaline Phosphatase 72 Troponin I High Sens B-Natriuretic Peptide Cancelled Total Protein 5.9 L Albumin 3.5 Procalcitonin Urine Color Urine Appearance Urine pH Ur Specific [place] Urine Protein Urine Glucose (UA) Urine Ketones Urine Blood Urine Nitrite Ur Leukocyte Esterase Urine RBC Urine WBC Ur Squamous Epith Cells Urine Bacteria COVID-19 (ROB) COVID-19 Clin Com 02/01/21 02/01/21 02/01/21 11:14 11:16 15:05 MCV MCH MCHC RDW Plt Count MPV Immature Gran % (Auto) Neut % (Auto) Lymph % (Auto) [place] % (Auto) Eos % (Auto) Baso % (Auto) Lymph # (Auto) [place] # (Auto) Eos # (Auto) Baso # (Auto) Abs Immat Gran (auto) Absolute Neuts (auto) Absolute Nucleated RBC Nucleated RBC % (auto) PT INR APTT O2 Saturation ABG pH at Pt Temp ABG pH (Temp Correct) ABG pCO2 at Pt Temp ABG pCO2 (Temp Corrct ABG pO2 at Pt Temp ABG pO2 (Temp Correct ABG HCO3 ABG Base Excess (Actual) Anion Gap Estim Creat Clear Calc Estimated GFR Random Glucose Lactic Acid Calcium Magnesium Total Bilirubin Direct Bilirubin AST ALT Alkaline Phosphatase Troponin I High Sens B-Natriuretic Peptide Total Protein Albumin Procalcitonin 0.31 Urine Color YELLOW Urine Appearance CLEAR Urine pH 6.0 Ur Specific [place] >= 1.030 H Urine Protein TRACE Urine Glucose (UA) NEG Urine Ketones 40 Urine Blood 1+ H Urine Nitrite POS H Ur Leukocyte Esterase NEG Urine RBC 10-14 H Urine WBC 0-2 Ur Squamous Epith Cells TRACE Urine Bacteria TRACE COVID-19 (ROB) Negative COVID-19 Clin Com See Note 02/01/21 02/01/21 02/02/21 15:06 15:53 06:02 MCV 86.8 MCH 27.1 MCHC 31.3 RDW 14.1 Plt Count 201 MPV 11.0 Immature Gran % (Auto) 0.7 H Neut % (Auto) 89.0 H Lymph % (Auto) 9.1 L [place] % (Auto) 1.2 L Eos % (Auto) 0.0 Baso % (Auto) 0.0 Lymph # (Auto) 0.7 L [place] # (Auto) 0.1 Eos # (Auto) 0.0 Baso # (Auto) 0.0 Abs Immat Gran (auto) 0.06 H Absolute Neuts (auto) 7.2 Absolute Nucleated RBC 0.000 Nucleated RBC % (auto) 0.0 PT INR APTT O2 Saturation 94.0 ABG pH at Pt Temp 7.47 H ABG pH (Temp Correct) 7.47 H ABG pCO2 at Pt Temp 46 H ABG pCO2 (Temp Corrct 46 H ABG pO2 at Pt Temp 70 L ABG pO2 (Temp Correct 71 L ABG HCO3 34 H ABG Base Excess (Actual) 9.7 Anion Gap Estim Creat Clear Calc Estimated GFR Random Glucose Lactic Acid Calcium Magnesium Total Bilirubin Direct Bilirubin AST ALT Alkaline Phosphatase Troponin I High Sens 20.2 H* B-Natriuretic Peptide Total Protein Albumin Procalcitonin Urine Color Urine Appearance Urine pH Ur Specific [place] Urine Protein Urine Glucose (UA) Urine Ketones Urine Blood Urine Nitrite Ur Leukocyte Esterase Urine RBC Urine WBC Ur Squamous Epith Cells Urine Bacteria COVID-19 (ROB) COVID-19 Clin Com 02/02/21 02/02/21 02/02/21 06:02 06:02 06:02 MCV MCH MCHC RDW Plt Count MPV Immature Gran % (Auto) Neut % (Auto) Lymph % (Auto) [place] % (Auto) Eos % (Auto) Baso % (Auto) Lymph # (Auto) [place] # (Auto) Eos # (Auto) Baso # (Auto) Abs Immat Gran (auto) Absolute Neuts (auto) Absolute Nucleated RBC Nucleated RBC % (auto) PT 43.5 H D INR 3.7 H APTT O2 Saturation ABG pH at Pt Temp ABG pH (Temp Correct) ABG pCO2 at Pt Temp ABG pCO2 (Temp Corrct ABG pO2 at Pt Temp ABG pO2 (Temp Correct ABG HCO3 ABG Base Excess (Actual) Anion Gap 11 L Estim Creat Clear Calc 79.1 Estimated GFR > 60 Random Glucose 177 H Lactic Acid Calcium 9.2 D Magnesium Total Bilirubin Direct Bilirubin AST ALT Alkaline Phosphatase Troponin I High Sens B-Natriuretic Peptide 311 H Total Protein Albumin Procalcitonin Urine Color Urine Appearance Urine pH Ur Specific [place] Urine Protein Urine Glucose (UA) Urine Ketones Urine Blood Urine Nitrite Ur Leukocyte Esterase Urine RBC Urine WBC Ur Squamous Epith Cells Urine Bacteria COVID-19 (ROB) COVID-19 Clin Com Microbiology Microbiology Results: Microbiology 02/01/21 15:18 Urine clean catch - Clean Catch Midstream Urine Culture - Final No growth. Quality Stroke Does the patient have a stroke diagnosis?: No VTE Prior VTE?: No VTE Risk Level:: Medical - moderate - high VTE Device Contraindication: Treatment Not Indicated VTE Drug Contraindication: N/A - Med Ordered
[2021-02-02] MEDS: carvediloL 12.5 MG TABLET PO ×2 (10:04→20:55)
[2021-02-02] MEDS: Escitalopram Oxalate 10 MG TABLET PO (10:05)
[2021-02-02] MEDS: Sacubitril/Valsartan 24/26 1 TAB TABLET PO (10:05)
--- NOTE | 2021-02-02 11:30 | MHC.CM.PN ---
PATIENT LIVES WITH HER SON. PATIENT HAS NO CANE OR WALKER BUT DOES HAVE OXYGEN AT HOME THROUGH [facility] HCP IS ON FILE AND VERIFIED. SHE HAS BEEN VACCINATED AGAINST COVID-19 WITH [employer] [facility] AND IS DUE FOR HER BOOSTER SHOT NEXT MONTH. SHE IS HOPING FOR VNA UPON DISCHARGE. CASE MANAGEMENT TO FOLLOW FOR POTENTIAL NEEDS. IMM 02/02 IN CHART
[2021-02-02] MEDS: Atorvastatin Calcium 20 MG TABLET PO (20:56)
[2021-02-02] MEDS: Aspirin 81 MG TAB.CHEW PO (20:56)
[2021-02-02] MEDS: Latanoprost 0.005 % Ophth Sol 2.5 ML DROPS 1 DROP EYE-BOTH (21:01)
[2021-02-03] VITALS (11 sets, daily range): BP systolic 103–109; BP diastolic 55–64; PULSE 68–81; RESP 16–18; TEMP 36.1–36.6; O2SAT 92–97
[2021-02-03] MEDS: methylPREDNISolone Sod Succ 40 MG/ML VIAL IVPUSH ×3 (02:52→17:00)
[2021-02-03] MEDS: Omeprazole 20 MG CAPSULE.DR PO (06:24)
[2021-02-03 06:59] LABS: INTERNATIONAL NORM RATIO 2.8 (0.9-1.1); Prothrombin Time 32.6 SEC (9.9-13.0)
[2021-02-03] MEDS: Albuterol Sulfate (0.083%) 2.5 MG/3 ML VIAL.NEB INHALE ×4 (08:42→20:35)
[2021-02-03] MEDS: Fluticasone/Vilanterol 200/25 BLST.W.DEV 1 PUFF INHALE (08:42)
[2021-02-03] MEDS: 0.9 % Sodium Chloride Flush 3 ML SYRINGE IVFLUSH ×2 (10:27→17:00)
[2021-02-03] MEDS: carvediloL 12.5 MG TABLET PO ×2 (10:27→19:58)
[2021-02-03] MEDS: Sacubitril/Valsartan 24/26 1 TAB TABLET PO ×2 (10:27→19:57)
[2021-02-03] MEDS: Escitalopram Oxalate 10 MG TABLET PO (10:28)
--- NOTE | 2021-02-03 11:11 | P.PNIM_ITS ---
Progress Note: A&P (1) Acute and chronic respiratory failure: Status: Acute (2) Acute exacerbation of chronic obstructive airways disease: Status: Acute Assessment and Plan: 70 year old women admitted with acute hypoxic respiratory failure secondary to COPD exacerbation Acute on chronic hypoxic respiratory failure secondary to COPD exacerbation. Improving but still wheezing No hypoxia Solumedrol, duonebs Supplemental oxygen as needed robitussin for cough Afib. stable heart rate Continue carvedilol Hold warfarin due to supratherapeutic INR PT/INR daily Supratherapeutic INR. Resolved continue warfarin Mental health Continue home medications CHF. No exacerbation continue entresto DVT prophylaxis with mechanical compression boots Attending Dr. Daley Subjective Subjective Date of Service: 02/03/21 Review of Systems follow-up acute on chronic hypoxic respiratory failure secondary to COPD Feels better with some shortness of breath with exertion Still wheezing Physical Exam Vital Signs: Vital Signs: Last Vital Signs Temp 97.4 F 02/03/21 07:45 Pulse 80 02/03/21 10:27 Resp 16 02/03/21 07:45 BP 105/64 02/03/21 10:27 Pulse Ox 92 02/03/21 07:45 Oxygen Flow Rate 3 02/01/21 10:23 Body Mass Index 28.3 Appearing in no acute distress lung sounds expiratory wheezing heart regular rate rhythm, clear S1, S2 positive bowel sounds, abdomen is soft, nontender neuro patient is alert x3, no focal deficits Objective Data Current Medications Acetaminophen (Acetaminophen 325 Mg Tablet) 650 mg PO Q6H PRN PRN Reason: Pain, Mild (Pain Scale 1-3) Albuterol Sulfate (Albuterol Sulfate (0.083%) 2.5 Mg/3 Ml Vial.Neb) 2.5 mg INHALE RQ4H WHILE AWAKE [facility] Last Admin: 02/03/21 08:42 Dose: 2.5 mg Documented by: Aspirin (Aspirin 81 Mg Tab.Chew) 81 mg PO BEDTIME [facility] Last Admin: 02/02/21 20:56 Dose: 81 mg Documented by: Atorvastatin Calcium (Atorvastatin Calcium 20 Mg Tablet) 20 mg PO BEDTIME [facility] Last Admin: 02/02/21 20:56 Dose: 20 mg Documented by: Carvedilol (Carvedilol 12.5 Mg Tablet) 12.5 mg PO BID [facility]; Protocol Last Admin: 02/03/21 10:27 Dose: 12.5 mg Documented by: Escitalopram Oxalate (Escitalopram Oxalate 10 Mg Tablet) 10 mg PO DAILY [facility] Last Admin: 02/03/21 10:28 Dose: 10 mg Documented by: Fluticasone/Vilanterol (Fluticasone/Vilanterol 200/25 Blst.W.Dev) 1 puff INHALE RDAILY [facility] Last Admin: 02/03/21 08:42 Dose: 1 puff Documented by: Guaifenesin/Dextromethorphan (Guaifenesin Dm 100/10/5 Ml 5 Ml Syrup) 5 ml PO Q4H PRN PRN Reason: Cough Last Admin: 02/02/21 06:07 Dose: 5 ml Documented by: Latanoprost (Latanoprost 0.005 % Ophth Sally 2.5 Ml Drops) 1 drop EYE-BOTH BEDTIME [facility] Last Admin: 02/02/21 21:01 Dose: 1 drop Documented by: Methylprednisolone Sodium Succinate (Methylprednisolone Sod Succ 40 Mg/Ml Vial) 40 mg IVPUSH Q8H [facility] Last Admin: 02/03/21 10:27 Dose: 40 mg Documented by: Omeprazole (Omeprazole 20 Mg Capsule.Dr) 20 mg PO DAILY@0630 [facility] Last Admin: 02/03/21 06:24 Dose: 20 mg Documented by: Ondansetron HCl (Ondansetron Hcl 4 Mg/2 Ml Vial) 4 mg IVPUSH Q8H PRN PRN Reason: Nausea and Vomiting Pharmacy Consult (Consult Rx Perform Med Rec) 1 each MISCELLANE ONCE PRN PRN Reason: Consult order Sacubitril/Valsartan (Sacubitril/Valsartan 1 Tab Tablet) 1 tab PO BID [facility]; Protocol Last Admin: 02/03/21 10:27 Dose: 1 tab Documented by: Sodium Chloride (0.9 % Sodium Chloride Flush 3 Ml Syringe) 3 ml IVFLUSH QSHIFT [facility] Last Admin: 02/03/21 10:27 Dose: 3 ml Documented by: Tiotropium [place] (Tiotropium [place] 18 Mcg Cap.W.Dev) 1 puff INHALE DAILY [facility] Last Admin: 02/03/21 08:42 Dose: 1 puff Documented by: Warfarin Sodium (Warfarin Sodium 2.5 Mg Tablet) 2.5 mg PO DAILY@1800 [facility] Labs CBC & Chem 7: 02/02/21 06:02 02/02/21 06:02 Labs: Laboratory Results - last 24 hr 02/03/21 06:00 PT 32.6 H D INR 2.8 H Microbiology Microbiology Results: Microbiology 02/01/21 11:28 Blood - Venous Blood Culture - Preliminary No growth after 24 hours. 02/01/21 11:13 Blood - Venous Blood Culture - Preliminary No growth after 24 hours. 02/01/21 15:18 Urine clean catch - Clean Catch Midstream Urine Culture - Final No growth. Quality Stroke Does the patient have a stroke diagnosis?: No VTE Prior VTE?: No VTE Risk Level:: Medical - moderate - high VTE Device Contraindication: Treatment Not Indicated VTE Drug Contraindication: N/A - Med Ordered
[2021-02-03] MEDS: Warfarin Sodium 2.5 MG TABLET PO (17:00)
[2021-02-03] MEDS: Aspirin 81 MG TAB.CHEW PO (19:58)
[2021-02-03] MEDS: Atorvastatin Calcium 20 MG TABLET PO (19:58)
[2021-02-03] MEDS: Latanoprost 0.005 % Ophth Sol 2.5 ML DROPS 1 DROP EYE-BOTH (20:00)
[2021-02-04] VITALS (11 sets, daily range): BP systolic 96–166; BP diastolic 56–65; PULSE 65–83; RESP 16–21; TEMP 36–36.6; O2SAT 92–96
[2021-02-04] MEDS: methylPREDNISolone Sod Succ 40 MG/ML VIAL IVPUSH ×2 (01:56→08:59)
[2021-02-04] MEDS: 0.9 % Sodium Chloride Flush 3 ML SYRINGE IVFLUSH ×3 (01:57→16:24)
[2021-02-04 06:24] LABS: INTERNATIONAL NORM RATIO 2.6 (0.9-1.1); Prothrombin Time 30.7 SEC (9.9-13.0)
[2021-02-04] MEDS: Omeprazole 20 MG CAPSULE.DR PO (06:30)
[2021-02-04] MEDS: Fluticasone/Vilanterol 200/25 BLST.W.DEV 1 PUFF INHALE (07:54)
[2021-02-04] MEDS: Albuterol Sulfate (0.083%) 2.5 MG/3 ML VIAL.NEB INHALE ×2 (07:54→19:35)
--- NOTE | 2021-02-04 08:48 | P.PNIM_ITS ---
Progress Note: A&P (1) Acute and chronic respiratory failure: Status: Acute (2) Acute exacerbation of chronic obstructive airways disease: Status: Acute (3) Afib: Status: Acute Assessment and Plan: 70 year old women admitted with acute hypoxic respiratory failure secondary to COPD exacerbation Acute on chronic hypoxic respiratory failure secondary to COPD exacerbation. Improving but still wheezing especially with ambulation No hypoxia Increase Solumedrol to 60 Q8h, duonebs Supplemental oxygen as needed robitussin for cough Afib. stable heart rate Continue carvedilol Hold warfarin due to supratherapeutic INR PT/INR daily Supratherapeutic INR.? Resolved continue warfarin Mental health Continue home medications CHF. No exacerbation continue entresto DVT prophylaxis with mechanical compression boots Attending Dr. Daley Subjective Subjective Date of Service: 02/04/21 Review of Systems Follow up COPD exacerbation Still wheezing especially with ambulation Physical Exam Vital Signs: Vital Signs: Last Vital Signs Temp 97.3 F 02/04/21 07:43 Pulse 77 02/04/21 07:55 Resp 16 02/04/21 07:43 BP 127/62 02/04/21 07:43 Pulse Ox 93 02/04/21 07:43 Oxygen Flow Rate 3 02/01/21 10:23 Body Mass Index 28.3 Appearing in no acute distress lung sounds exp wheezing heart regular rate rhythm, clear S1, S2 positive bowel sounds, abdomen is soft, nontender neuro patient is alert x3, no focal deficits Objective Data Current Medications Acetaminophen (Acetaminophen 325 Mg Tablet) 650 mg PO Q6H PRN PRN Reason: Pain, Mild (Pain Scale 1-3) Albuterol Sulfate (Albuterol Sulfate (0.083%) 2.5 Mg/3 Ml Vial.Neb) 2.5 mg INHALE RQ4H WHILE AWAKE REPLACED BY [facility] Last Admin: 02/04/21 07:54 Dose: 2.5 mg Documented by: Aspirin (Aspirin 81 Mg Tab.Chew) 81 mg PO BEDTIME REPLACED BY [facility] Last Admin: 02/03/21 19:58 Dose: 81 mg Documented by: Atorvastatin Calcium (Atorvastatin Calcium 20 Mg Tablet) 20 mg PO BEDTIME REPLACED BY [facility] Last Admin: 02/03/21 19:58 Dose: 20 mg Documented by: Carvedilol (Carvedilol 12.5 Mg Tablet) 12.5 mg PO BID [facility]PL[facility] BY [facility]; Protocol Last Admin: 02/03/21 19:58 Dose: 12.5 mg Documented by: Escitalopram Oxalate (Escitalopram Oxalate 10 Mg Tablet) 10 mg PO DAILY REPLACED BY [facility] Last Admin: 02/03/21 10:28 Dose: 10 mg Documented by: Fluticasone/Vilanterol (Fluticasone/Vilanterol 200/25 Blst.W.Dev) 1 puff INHALE RDAILY REPLACED BY [facility] Last Admin: 02/04/21 07:54 Dose: 1 puff Documented by: Guaifenesin/Dextromethorphan (Guaifenesin Dm 100/10/5 Ml 5 Ml Syrup) 5 ml PO Q4H PRN PRN Reason: Cough Last Admin: 02/02/21 06:07 Dose: 5 ml Documented by: Latanoprost (Latanoprost 0.005 % Ophth Sally 2.5 Ml Drops) 1 drop EYE-BOTH BEDTIME REPLACED BY [facility] Last Admin: 02/03/21 20:00 Dose: 1 drop Documented by: Methylprednisolone Sodium Succinate (Methylprednisolone Sod Succ 40 Mg/Ml Vial) 40 mg IVPUSH Q8H REPLACED BY [facility] Last Admin: 02/04/21 01:56 Dose: 40 mg Documented by: Omeprazole (Omeprazole 20 Mg Capsule.Dr) 20 mg PO DAILY@0630 REPLACED BY [facility] Last Admin: 02/04/21 06:30 Dose: 20 mg Documented by: Ondansetron HCl (Ondansetron Hcl 4 Mg/2 Ml Vial) 4 mg IVPUSH Q8H PRN PRN Reason: Nausea and Vomiting Pharmacy Consult (Consult Rx Perform Med Rec) 1 each MISCELLANE ONCE PRN PRN Reason: Consult order Sacubitril/Valsartan (Sacubitril/Valsartan 1 Tab Tablet) 1 tab PO BID REPLACED BY [facility]; Protocol Last Admin: 02/03/21 19:57 Dose: 1 tab Documented by: Sodium Chloride (0.9 % Sodium Chloride Flush 3 Ml Syringe) 3 ml IVFLUSH QSHIFT REPLACED BY [facility] Last Admin: 02/04/21 01:57 Dose: 3 ml Documented by: Tiotropium [place] (Tiotropium [place] 18 Mcg Cap.W.Dev) 1 puff INHALE DAILY REPLACED BY [facility] Last Admin: 02/04/21 07:55 Dose: 1 puff Documented by: Warfarin Sodium (Warfarin Sodium 2.5 Mg Tablet) 2.5 mg PO DAILY@1800 REPLACED BY [facility] Last Admin: 02/03/21 17:00 Dose: 2.5 mg Documented by: Labs CBC & Chem 7: 02/02/21 06:02 02/02/21 06:02 Labs: Laboratory Results - last 24 hr 02/04/21 06:03 PT 30.7 H INR 2.6 H Microbiology Microbiology Results: Microbiology 02/01/21 11:28 Blood - Venous Blood Culture - Preliminary No growth after 48 hours. 02/01/21 11:13 Blood - Venous Blood Culture - Preliminary No growth after 48 hours. 02/01/21 15:18 Urine clean catch - Clean Catch Midstream Urine Culture - Final No growth. Quality Stroke Does the patient have a stroke diagnosis?: No VTE Prior VTE?: No VTE Risk Level:: Medical - moderate - high VTE Device Contraindication: Treatment Not Indicated VTE Drug Contraindication: N/A - Med Ordered
[2021-02-04] MEDS: Escitalopram Oxalate 10 MG TABLET PO (08:57)
[2021-02-04] MEDS: Sacubitril/Valsartan 24/26 1 TAB TABLET PO ×2 (08:57→20:44)
[2021-02-04] MEDS: carvediloL 12.5 MG TABLET PO ×2 (08:58→20:44)
--- NOTE | 2021-02-04 11:32 | PC.NURSE ---
Skin assessment completed. Patients has rash under right breast, Interdry applied to area. Also has abrasion to left sims and right elbow, scabbed and superficial. Also has a cast on right arm for a broken wrist. No other skin issues noted at this time.
--- NOTE | 2021-02-04 11:38 | P.CDIC_ITS ---
CDI Concurrent Query Documentation Clarification: PHYSICIAN'S DOCUMENTATION REQUEST Date of Query: 02/04/21 1138 Patient Name: Ella Melgar Admit Date: 02/01/21 Dear Doctor, A review of the medical record indicates additional documentation may be needed. Please review below and update the documentation accordingly. Clinical Indicators: Risk Factors/Clinical Indicators/Treatments CHF: no exacerbation Lasix given BNP 362 h Patient denies any home lasix. No lower edema. COPD/CHF/PNA Please provide further specificity regarding the most likely type and acuity of CHF you are evaluating, treating, or monitoring. Examples include: Type: * Systolic * Diastolic * Combined Systolic/Diastolic * Other ? please specify * Unable to determine Acuity: * Acute * Chronic * Acute on chronic * Unable to determine CHF: Treating, rule out etc. Use of terms such as suspected, likely, concern for, or probable (associated with a specific diagnosis that is being evaluated, monitored, or treated as if it exists) are acceptable and can be coded in the inpatient setting, when documented at the time of discharge. Thank you, Chantale Eric [facility], CDIS Extension: [phone] Please use your independent medical judgment in providing your response. THIS QUERY IS PART OF THE PERMANENT MEDICAL RECORD Provider Response: Other Other Diagnosis: Chronic CHF, unable to determined type
--- NOTE | 2021-02-04 13:00 | MHC.CM.PN ---
PATIENT IS STILL WHEEZING. POSSIBLE RETURN TO HOME TOMORROW (02/05/21)
--- NOTE | 2021-02-04 14:07 | MHC.CM.PN ---
PATIENT AWARE OF POSSIBLE NEED FOR [facility] SERVICES [place]. [facility] IS CURRENTLY NOT ACCEPTING PATIENTS [facility] IS WILLING TO OFFER SERVICES STARTING WEDNESDAY. PATIENT AWARE AND IN AGREEMENT WITH PLAN.
[2021-02-04] MEDS: Warfarin Sodium 2.5 MG TABLET PO (16:24)
[2021-02-04] MEDS: methylPREDNISolone Sod Succ 40 MG/ML VIAL 60 MG IVPUSH (16:27)
[2021-02-04] MEDS: Atorvastatin Calcium 20 MG TABLET PO (20:44)
[2021-02-04] MEDS: Aspirin 81 MG TAB.CHEW PO (20:44)
[2021-02-04] MEDS: Latanoprost 0.005 % Ophth Sol 2.5 ML DROPS 1 DROP EYE-BOTH (20:45)
[2021-02-05] VITALS (11 sets, daily range): BP systolic 100–143; BP diastolic 60–82; PULSE 71–112; RESP 16–20; TEMP 35.6–36.6; O2SAT 91–98
[2021-02-05] MEDS: methylPREDNISolone Sod Succ 40 MG/ML VIAL 60 MG IVPUSH ×4 (00:40→23:50)
[2021-02-05] MEDS: Omeprazole 20 MG CAPSULE.DR PO (06:43)
[2021-02-05] MEDS: carvediloL 12.5 MG TABLET PO ×2 (07:45→21:51)
[2021-02-05] MEDS: Sacubitril/Valsartan 24/26 1 TAB TABLET PO ×2 (07:45→21:52)
[2021-02-05] MEDS: Escitalopram Oxalate 10 MG TABLET PO (07:46)
[2021-02-05] MEDS: 0.9 % Sodium Chloride Flush 3 ML SYRINGE IVFLUSH ×4 (07:46→21:52)
[2021-02-05] MEDS: Albuterol Sulfate (0.083%) 2.5 MG/3 ML VIAL.NEB INHALE ×4 (08:48→20:37)
[2021-02-05 09:30] LABS: INTERNATIONAL NORM RATIO 3.3 (0.9-1.1); Prothrombin Time 38.2 SEC (9.9-13.0)
--- NOTE | 2021-02-05 10:28 | P.PNIM_ITS ---
Subjective Subjective Date of Service: 02/05/21 Interval History: seen and examined worked up with PT and desaturated down to 87 with exertion took quiet some time to recover after this feeling sob and wheezy still Review of Systems General - no fevers or chills Cardiovascular - no chest pain Respiratory - +sob, wheezing Abdominal- no abdominal pain, nausea, vomiting, diarrhea Physical Exam Vital Signs: Vital Signs: Last Vital Signs Temp 97.5 F 02/05/21 09:55 Pulse 71 02/05/21 09:55 Resp 18 02/05/21 09:55 BP 143/82 H 02/05/21 09:55 Pulse Ox 96 02/05/21 09:55 Oxygen Flow Rate 3 02/01/21 10:23 Body Mass Index 28.3 Const: Other: General - no acute distress, appears comfortable Cardiovascular - regular rate and rhythm, S1-S2 Lungs - diffuse wheezing and accessory muscle use Abdomen - soft, nontender, no rebound or guarding Extremities - no edema bilaterally Neuro - awake and alert, no focal deficits Objective Data Active Medications Acetaminophen (Acetaminophen 325 Mg Tablet) 650 mg PO Q6H PRN PRN Reason: Pain, Mild (Pain Scale 1-3) Albuterol Sulfate (Albuterol Sulfate (0.083%) 2.5 Mg/3 Ml Vial.Neb) 2.5 mg INHALE RQ4H WHILE AWAKE [facility] Last Admin: 02/05/21 08:48 Dose: 2.5 mg Documented by: MODESTO Aspirin (Aspirin 81 Mg Tab.Chew) 81 mg PO BEDTIME [facility] Last Admin: 02/04/21 20:44 Dose: 81 mg Documented by: DA Atorvastatin Calcium (Atorvastatin Calcium 20 Mg Tablet) 20 mg PO BEDTIME [facility] Last Admin: 02/04/21 20:44 Dose: 20 mg Documented by: DA Carvedilol (Carvedilol 12.5 Mg Tablet) 12.5 mg PO BID [facility]; Protocol Last Admin: 02/05/21 07:45 Dose: 12.5 mg Documented by: SONIA Escitalopram Oxalate (Escitalopram Oxalate 10 Mg Tablet) 10 mg PO DAILY [facility] Last Admin: 02/05/21 07:46 Dose: 10 mg Documented by: SONIA Fluticasone/Vilanterol (Fluticasone/Vilanterol 200/25 Blst.W.Dev) 1 puff INHALE RDAILY [facility] Last Admin: 02/05/21 09:18 Dose: Not Given Documented by: MODESTO Non-Admin Reason: Med Not Available Guaifenesin/Dextromethorphan (Guaifenesin Dm 100/10/5 Ml 5 Ml Syrup) 5 ml PO Q4H PRN PRN Reason: Cough Last Admin: 02/02/21 06:07 Dose: 5 ml Documented by: EUGENIA Latanoprost (Latanoprost 0.005 % Ophth Sally 2.5 Ml Drops) 1 drop EYE-BOTH BEDTIME [facility] Last Admin: 02/04/21 20:45 Dose: 1 drop Documented by: DA Methylprednisolone Sodium Succinate (Methylprednisolone Sod Succ 40 Mg/Ml Vial) 60 mg IVPUSH Q8H [facility] Last Admin: 02/05/21 07:46 Dose: 60 mg Documented by: SONIA Omeprazole (Omeprazole 20 Mg Capsule.Dr) 20 mg PO DAILY@0630 [facility] Last Admin: 02/05/21 06:43 Dose: 20 mg Documented by: ASMITA Ondansetron HCl (Ondansetron Hcl 4 Mg/2 Ml Vial) 4 mg IVPUSH Q8H PRN PRN Reason: Nausea and Vomiting Pharmacy Consult (Consult Rx Perform Med Rec) 1 each MISCELLANE ONCE PRN PRN Reason: Consult order Sacubitril/Valsartan (Sacubitril/Valsartan 1 Tab Tablet) 1 tab PO BID [facility]; Protocol Last Admin: 02/05/21 07:45 Dose: 1 tab Documented by: SONIA Sodium Chloride (0.9 % Sodium Chloride Flush 3 Ml Syringe) 3 ml IVFLUSH QSHIFT [facility] Last Admin: 02/05/21 07:46 Dose: 3 ml Documented by: SONIA Tiotropium [place] (Tiotropium [place] 18 Mcg Cap.W.Dev) 1 puff INHALE DAILY [facility] Last Admin: 02/05/21 09:19 Dose: Not Given Documented by: MODESTO Non-Admin Reason: Med Not Available Warfarin Sodium (Warfarin Sodium 2.5 Mg Tablet) 2.5 mg PO DAILY@1800 [facility] Last Admin: 02/04/21 16:24 Dose: 2.5 mg Documented by: DA Labs CBC & Chem 7: 02/02/21 06:02 02/02/21 06:02 Labs: Laboratory Results - last 24 hr 02/05/21 08:51 PT 38.2 H INR 3.3 H Assessment and Plan (1) Acute and chronic respiratory failure: Status: Acute Assessment and Plan: 70 year old women admitted with acute hypoxic respiratory failure secondary to COPD exacerbation Acute on chronic hypoxic respiratory failure secondary to COPD exacerbation. desaturated to 87 with exertion WITH oxygen -- she is still no ready for d/c will continue steroids and updrafts add oral doxycycline Afib. stable heart rate Continue carvedilol INR 3.3 today -- hold coumadin, may need to decrease it (to 1.5-2mg daily, home dose 2.5mg) Mental health Continue home medications Chronic CHF, unspecified continue entresto, coreg Weakness pt eval Full Code DVT pptx, coumadin dispo: home (likely would benefit from STR, but she refuses) Quality Stroke Does the patient have a stroke diagnosis?: No VTE Prior VTE?: No VTE Risk Level:: Medical - moderate - high VTE Device Contraindication: Treatment Not Indicated VTE Drug Contraindication: N/A - Med Ordered
[2021-02-05] MEDS: Latanoprost 0.005 % Ophth Sol 2.5 ML DROPS 1 DROP EYE-BOTH (21:52)
[2021-02-05] MEDS: Atorvastatin Calcium 20 MG TABLET PO (21:52)
[2021-02-05] MEDS: Aspirin 81 MG TAB.CHEW PO (22:02)
[2021-02-06] VITALS: BP 91/54; PULSE 83; RESP 18; TEMP 36.1; O2SAT 93
[2021-02-06 03:36] VITALS: BP 102/66; PULSE 70; RESP 17; TEMP 36.1; O2SAT 92
[2021-02-06 05:16] LABS: INTERNATIONAL NORM RATIO 3.3 (0.9-1.1); Prothrombin Time 38.6 SEC (9.9-13.0)
[2021-02-06] MEDS: Omeprazole 20 MG CAPSULE.DR PO (05:58)
[2021-02-06 07:36] VITALS: BP 139/81; PULSE 69; RESP 18; TEMP 36.6; O2SAT 94
[2021-02-06] MEDS: Escitalopram Oxalate 10 MG TABLET PO (07:46)
[2021-02-06] MEDS: methylPREDNISolone Sod Succ 40 MG/ML VIAL 60 MG IVPUSH (07:46)
[2021-02-06] MEDS: carvediloL 12.5 MG TABLET PO (07:46)
[2021-02-06] MEDS: Sacubitril/Valsartan 24/26 1 TAB TABLET PO (07:46)
[2021-02-06] MEDS: 0.9 % Sodium Chloride Flush 3 ML SYRINGE IVFLUSH (07:51)
[2021-02-06] MEDS: Fluticasone/Vilanterol 200/25 BLST.W.DEV 1 PUFF INHALE (07:52)
[2021-02-06] MEDS: Albuterol Sulfate (0.083%) 2.5 MG/3 ML VIAL.NEB INHALE ×2 (07:52→11:04)
[2021-02-06 07:59] VITALS: PULSE 69; O2SAT 94
--- NOTE | 2021-02-06 09:56 | P.DS_ITS ---
DS: Providers Provider Date of Service: 02/06/21 Date of admission: 02/01/21 16:27 Primary care physician: Sumi Coy MD DS: Diagnosis Discharge Diagnosis (1) Acute and chronic respiratory failure: Status: Acute DS: Summary Hospital Course Hospital Course: HPI: 70 year old women presenting with increased shortness of breath, cough and wheezing. She has a history of COPD and wears 2 liters of oxygen at home. She denied fever, chills, chest pain, nausea or vomiting. She recently had had a fall and sustained a right radius fracture for which he has a cast on and is being treated non operatively. She was noted to be hypoxic at 85% on 3 liters nc. Her blood gas showed Pco2 of 46. Her BNP was noted to be mildly elevated at 362 with no signs of overt heart failure. CXR did not show a definite consolidation. She was treated with solumedrol, albuterol, magnesium and a dose of lasix in the ED. She will be admitted for further management of COPD exacerbation. Hospital Course: Patient presented with respiratory symptoms and was admitted for COPD exacerbation and acute on chronic respiratory failure with hypoxia due to COPD from continual smoking. She was treated with IV Solu-Medrol, scheduled and p.r.n. bronchodilators and doxycycline. Over the course of 5 days in the hospital patient had improvement in her symptoms. She will be discharged home on a short course of prednisone with taper and is to complete her doxycycline. She was also found to have elevated INR and her Coumadin of 2.5 mg daily has been decreased to 2 mg daily. She will have VNA arranged for medication management. Patient was also evaluated by Physical therapy and will be d ischarged home with PT. Time Spent with Patient Time attestation: Total time spent providing and/or coordinating discharge serv ices: Discharge coordination time: Greater than 30 minutes Quality: Stroke Does the patient have a stroke diagnosis?: No Physical Exam Vital Signs: Vital Signs: Last Vital Signs Temp 97.8 F 02/06/21 07:36 Pulse 69 02/06/21 07:59 Resp 18 02/06/21 07:36 BP 139/81 02/06/21 07:36 Pulse Ox 94 02/06/21 07:36 Oxygen Flow Rate 3 02/01/21 10:23 Body Mass Index 28.3 Const: Other: General - no acute distress, appears comfortable Cardiovascular - regular rate and rhythm, S1-S2 Lungs - no wheezing, no distress at rest Abdomen - soft, nontender, no rebound or guarding Extremities - no edema bilaterally Neuro - awake and alert, no focal deficits DS: Data Data Completed and Pending Labs on day of discharge: Laboratory Results - last 24 hr 02/06/21 04:43 PT 38.6 H INR 3.3 H Preliminary micro results at discharge 02/01/21 11:28 Blood Culture - Preliminary Blood - Venous No growth after 48 hours. 02/01/21 11:13 Blood Culture - Preliminary Blood - Venous No growth after 48 hours. Discharge Plan Discharge Patient Disposition: Home Health Service Discharge Diagnosis: COPD Referrals: Sumi Coy MD [Primary Care Provider] - 1 Week Discharge Medications: New doxycycline hyclate 100 mg Tablet 100 mg PO Q12H Qty: 10 RF: 0 warfarin 1 mg tablet 2 mg PO DAILY Qty: 60 RF: 0 prednisone 10 mg tablet See Taper mg PO DAILY Qty: 40 RF: 0 Continued carvedilol 12.5 mg Tablet 12.5 mg PO BID RF: 0 simvastatin 40 mg Tablet 40 mg PO DAILY RF: 0 citalopram 20 mg Tablet 20 mg PO DAILY RF: 0 fluticasone propion-salmeterol [Advair Diskus] 500-50 mcg/dose Blister With Device 1 inh INHALATION BID RF: 0 omeprazole 20 mg Capsule,Delayed Release(Dr/Ec) 20 mg PO DAILY RF: 0 Spiriva with HandiHaler 18 mcg capsule, w/inhalation device 1 cap inhalation DAILY RF: 0 Entresto 24-26 mg Tablet 1 tab PO BID RF: 0 latanoprost 0.005 % Drops 1 drp OPHTHALMIC (EYE) BEDTIME RF: 0 acetaminophen 325 mg Tablet 650 mg PO Q6H PRN (Reason: Pain) RF: 0 aspirin 81 mg Tablet,Chewable 81 mg PO DAILY RF: 0 Discontinued warfarin 2.5 mg Tablet 2.5 mg PO DAILY RF: 0 Discharge Orders: Discharge Order (Routine); Ordered 02/06/21 Ordered By: Jaylan Daley Diet: advance to usual diet Activity on Discharge: As tolerated Stand Alone Forms: Patient Portal Discharge page Care Plan Goals: To stay healthy and out of the hospital. Health Concerns: COPD Elevated INR Bronchitis Plan of Treatment: Take prednisone 40 mg daily for 4 days then 30 mg for 4 days then 20mg for 4 days and finally 10 mg for 4 days finish course of doxycycline Your INR has been elevated with her baseline dose of coumadin (2.5); instead take 2mg daily. VNA will check your INR for you. Do not smoke Assessment: 70-year-old female with a history of chronic respiratory failure and COPD admitted for COPD exacerbation. Was treated with systemic steroids and antibiotics with improvement. Will be discharged on a short prednisone taper and a course of doxycycline.
--- NOTE | 2021-02-06 10:10 | MHC.CM.PN ---
PATIENT IS RETURNING HOME WITH [facility]. SON TO PROVIDE TRANSPORT HOME. IMM 02/05 IN CHART
--- NOTE | 2021-02-06 10:12 | P.F2F_ITS ---
Service Date Service Date: 02/06/21 Encounter Date of encounter: 02/06/21 Reasons for Services Signs and symptoms assessed: Medication management Needs PT Needs to have INR monitored MD Overseeing Care: Sumi Coy Homebound: Leaving the home is medically contraindicated at this time without the asist of a device and/or another person due th the listed conditions above and below. Reason homebound: shortness of breath with minimal effort Homebound supporting statement: 70 yo with advanced COPD who is SOB with minimal exertion Certification: Based on the above findings, I certify that this patient is confined to the home and needs intermittent penitentiary care, physical therapy and/or speech therapy, or continues to need occupational therapy. The patient is under my care, and I have initiated the establishment of the plan of care. The patient will be followed by a physician who will periodically review the plan of care.
[2021-02-06 11:06] VITALS: PULSE 78; O2SAT 93
[2021-02-06 11:37] VITALS: BP 120/66; PULSE 75; RESP 18; TEMP 36.9; O2SAT 94
== END 2021-02-06 13:29 | disposition home health service (06) | DRG 190 ==
LOC: HO.ED 13:58 → HO.EDOVER 17:01 → HO.S3 23:11
PROVIDERS: Physician Assistant; Admitting Provider Nurse Practitioner Acute Care; Emergency Provider Emergency Medicine; PCP Internal Medicine; Visit Provider Family Medicine
DX: J44.1 Chronic obstructive pulmonary disease with (acute) exacerbation (principal); J96.20 Acute and chronic respiratory failure, unspecified whether with hypoxia or hypercapnia; J96.21 Acute and chronic respiratory failure with hypoxia; I48.91 Unspecified atrial fibrillation; R79.1 Abnormal coagulation profile; Z87.891 Personal history of nicotine dependence; Z20.822 Contact with and (suspected) exposure to COVID-19; Z79.01 Long term (current) use of anticoagulants; Z79.51 Long term (current) use of inhaled steroids; Z79.82 Long term (current) use of aspirin; Z79.899 Other long term (current) drug therapy
CPT/HCPCS: 36415; 71045; 80048; 80076; 81001; 82803; 83605; 83735; 83880; 84145; 84484; 85025; 85610; 85730; 87040; 87086; 87635; 93005; 94640; 94644; 97162; 99285; J0692; J1940; J2920; J2930; J3475

== ENCOUNTER → 2021-02-13 10:59 | Outpatient (BNVA) | payer OTHER, SELFPAY | PROVIDERS: PCP Internal Medicine; Visit Provider Internal Medicine | DX: J44.9 Chronic obstructive pulmonary disease, unspecified (principal); J44.1 Chronic obstructive pulmonary disease with (acute) exacerbation; R09.02 Hypoxemia | CPT/HCPCS: 99202 ==

== ENCOUNTER 2021-02-18 09:55 | Outpatient (REF) | payer OTHER, SELFPAY ==
--- NOTE | ~2021-02-18 | XR_ITS ---
EXAMINATION: XR WRIST, RIGHT CLINICAL INFORMATION: Pain. COMPARISON: Radiograph of the right wrist dated from 01/28/2021. TECHNIQUE: PA, lateral, and oblique views of the right wrist. FINDINGS: Comminuted distal radial fracture and ulnar styloid fracture with stable dorsal displacement/angulation of distal fracture fragments of the radius. No significant signs of healing. No new injuries. No abnormal soft tissue calcification. Mild degenerative changes in the first carpometacarpal joint and triscaphe space manifested by joint space narrowing and subcortical sclerosis. XR/XR wrist RT min 3V IMPRESSION: Unchanged appearance and alignment of a distal radial fracture and ulnar styloid fracture. No significant callus formation or signs of healing.
== END 2021-02-18 09:56 | disposition home or self-care (01) ==
LOC: HO.HOSX 09:55
PROVIDERS: Visit Provider Orthopaedic Surgery
DX: S52.571D Other intraarticular fracture of lower end of right radius, subsequent encounter for closed fracture with routine healing (principal); I48.91 Unspecified atrial fibrillation; Z95.2 Presence of prosthetic heart valve; Z79.01 Long term (current) use of anticoagulants
CPT/HCPCS: 73110; 99212

== ENCOUNTER → 2021-05-07 15:09 | Outpatient (BNVA) | payer MEDICARE, OTHER, SELFPAY | PROVIDERS: PCP Internal Medicine; Visit Provider Internal Medicine | DX: J44.9 Chronic obstructive pulmonary disease, unspecified (principal); J96.11 Chronic respiratory failure with hypoxia; Z86.16 Personal history of COVID-19; Z99.81 Dependence on supplemental oxygen | CPT/HCPCS: 99212 ==

== ENCOUNTER → 2021-06-30 13:33 | Outpatient (BNVA) | payer OTHER, MEDICARE, SELFPAY | PROVIDERS: PCP Internal Medicine; Visit Provider Internal Medicine | DX: J44.9 Chronic obstructive pulmonary disease, unspecified (principal); R09.02 Hypoxemia; Z86.16 Personal history of COVID-19; Z87.891 Personal history of nicotine dependence | CPT/HCPCS: 99212 ==

== ENCOUNTER 2021-07-31 13:46 | Outpatient (REF) | payer OTHER, MEDICARE, SELFPAY ==
--- NOTE | 2021-07-31 15:56 | PFT_ITS ---
FLOWS: FEV1 18% of predicted at 0.40 L. FVC 47% of predicted at 1.35 L. FEV1 to FVC ratio of 0.30. No bronchodilator response. LUNG VOLUMES: Total lung capacity 101% of predicted at 4.99 L. Residual volume 170% of predicted at 3.66 L. Slow vital capacity 48% of predicted at 1.34 L. Expiratory reserve volume 64% of predicted at 0.42 L. Diffusion capacity is very severely decreased. IMPRESSION: Very severe obstructive ventilatory defect with no bronchodilator response. Increased residual volume suggests air trapping. Decreased diffusion capacity suggests emphysema. Solis Thomson MD AP/MODL / [id number]
== END 2021-07-31 13:47 | disposition home or self-care (01) ==
LOC: HO.RESP 13:46
PROVIDERS: PCP Internal Medicine; Visit Provider Internal Medicine
DX: J44.9 Chronic obstructive pulmonary disease, unspecified (principal); R09.02 Hypoxemia; U09.9 Post COVID-19 condition, unspecified; G89.29 Other chronic pain
CPT/HCPCS: 94060; 94727; 94729; 99212

== ENCOUNTER 2021-08-01 11:30 | Inpatient (IN) | payer OTHER, SELFPAY ==
[2021-08-01] VITALS (10 sets, daily range): BP systolic 112–135; BP diastolic 62–74; PULSE 67–98; RESP 18–26; TEMP 36.6–37.1; O2SAT 90–99; BMI 34.2
--- NOTE | ~2021-08-01 | XR_ITS ---
EXAMINATION: PORTABLE CHEST 1 VIEW CLINICAL INFORMATION: sob . COMPARISON: 06/20/2021. TECHNIQUE: Portable frontal view of the chest was obtained. FINDINGS: Lungs well-expanded. Blunting of costophrenic angle suggests tiny bilateral effusion. There are increased interstitial markings seen. Some these are chronic but these are increased from the prior study suggesting a component of interstitial edema on chronic changes. Minimal basilar atelectasis present as well. No dense consolidation or pneumothorax. Patient status post sternotomy. No acute bony abnormality. XR/XR chest 1V IMPRESSION: Although there are chronic appearing changes, there are new tiny effusions and increased interstitial markings present suggesting a component of interstitial edema on chronic changes.
--- NOTE | ~2021-08-01 | CT_ITS ---
EXAMINATION: CT CHEST WITHOUT CONTRAST CLINICAL INFORMATION: Shortness of breath. COMPARISON: CXR from 06/30/2021 and 08/01/2021. TECHNIQUE: Multidetector volumetric CT imaging of the chest was done. Axial MIP volume rendering provided. Sagittal and coronal reformatted images were obtained. This CT examination was performed using dose optimization techniques as appropriate, variously including the following: *Automated exposure control *Adjustment of mA and/or kV according to patient size (this includes techniques or standardized protocols for targeted exams where dose is matched to indication/reason for exam; i.e. extremities or head) *Use of iterative reconstruction technique DLP: 241 mGy-cm DLP: 241 mGy-cm FINDINGS: LUNGS AND PLEURA: There is a thin strand of mucus along the left lateral wall of the trachea. There is wall calcification of the tracheobronchial tree, a relatively common finding in elderly patients. Severe centrilobular emphysema, diffuse thickening of bronchial fung and scattered endobronchial secretions. Also, there is smooth thickening of interlobular septa in lower lung zones. Mild hazy opacity of atelectasis in dependent aspect of each lung. No focal consolidation. No pneumothorax. A trace left pleural effusion is present. CARDIOVASCULAR: There is borderline enlargement of the left atrium. There is lipomatous hypertrophy of the interatrial septum. Aortic valve is replaced. Mitral valve annulus is calcified. Moderate atherosclerotic calcification of coronary arteries. Thoracic aorta atherosclerosis without aneurysm. The left and right pulmonary arteries are mildly enlarged; this could be a manifestation of pulmonary arterial hypertension. No pericardial effusion. MEDIASTINUM AND LOWER NECK: The esophagus is unremarkable. No mediastinal mass. Thyroid gland is atrophied. LYMPHATICS: No axillary or internal mammary lymphadenopathy. No pathologic sized hilar lymph nodes. Small lymph nodes are seen within the mediastinum. A precarinal lymph node is 1 cm short axis dimension. UPPER ABDOMEN: Unremarkable. SKELETAL AND CHEST WALL: Mild spondylosis of the thoracic spine. The sternotomy is healed. No suspicious bone lesion. CT/CT chest wo con IMPRESSION: * Chronic obstructive pulmonary disease. Findings include severe pulmonary emphysema, diffuse thickening of bronchial fung and scattered endobronchial secretions. * Atherosclerotic disease of coronary arteries and aorta without aneurysm, status post aortic valve replacement. The smooth thickening of interlobular septa suggests presence of mild pulmonary edema and trace left pleural effusion is present. * The left and right pulmonary arteries are mildly enlarged; this could be a manifestation of pulmonary arterial hypertension.
--- NOTE | 2021-08-01 11:44 | ECG_ITS ---
Test Reason : upper respiratory Blood Pressure : / mmHG Vent. Rate : 069 BPM Atrial Rate : 069 BPM P-R Int : 226 ms QRS Dur : 092 ms QT Int : 394 ms P-R-T Axes : 069 -27 052 degrees QTc Int : 422 ms Sinus rhythm with 1st degree A-V block Otherwise normal ECG When compared with ECG of 01-FEB-2021 10:35, [place] interval has increased Referred By: Amber Blank Electronically Signed By:Sohan Connolly
[2021-08-01] MEDS: methylPREDNISolone Sod Succ 125 MG/2 ML VIAL IVPUSH (11:57)
[2021-08-01] MEDS: Magnesium Sulfate/H2O 2 GM/50 ML PIGGYBACK IV (11:57)
--- NOTE | 2021-08-01 11:58 | ED.URI ---
HPI - URI/Sore Throat General Chief Complaint: Upper Respiratory Symptoms Stated Complaint: diff breathing Time Seen by Provider: 08/01/21 11:37 Source: patient and EMS Mode of arrival: EMS History of Present Illness HPI Narrative: 71-year-old female with a past medical history of COPD on home O2 2.5 L NC, s/p mechanical valve 2013 on Coumadin, GERD, depression, presenting to the ED via EMS c/o worsening SOB, exertional SOB and noted hypoxia on home O2 x today. States after ambulating O2 dropped into 70s & took about 10 minutes to go up to the 90s, reports baseline O2 is in low 90s. Reports nonproductive cough. Denies fever, chest pain, abdominal pain, pedal edema/calf pain, recent illness, sick contacts. Patient was given DuoNeb by EMS [employer]. MD elicited complaint: cough Pertinent past history: COPD Onset (ago): day(s) Related Data Home Medications Medication Instructions Recorded Confirmed acetaminophen 325 mg tablet 650 mg PO Q6H PRN 02/01/21 08/01/21 carvedilol 12.5 mg tablet 12.5 mg PO BID 02/01/21 08/01/21 fluticasone 500 mcg-salmeterol 50 1 inh INHALATION BID 02/01/21 08/01/21 mcg/dose blistr powdr for inhalation (Advair Diskus) latanoprost 0.005 % eye drops 1 drp OPHTHALMIC (EYE) BEDTIME 02/01/21 08/01/21 omeprazole 20 mg capsule,delayed 20 mg PO DAILY 02/01/21 08/01/21 release simvastatin 40 mg tablet 40 mg PO BEDTIME 02/01/21 08/01/21 tiotropium bromide 18 mcg capsule 1 cap INHALATION DAILY 02/01/21 08/01/21 with inhalation device (Spiriva with HandiHaler) ipratropium 20 mcg-albuterol 100 1 puff INHALATION QID 02/13/21 08/01/21 mcg/actuation mist for inhalation (Combivent Respimat) nystatin 100,000 unit/gram topical 1 appl TOPICAL BID 02/13/21 08/01/21 cream albuterol sulfate 2.5 mg INHALATION Q6H PRN ml 05/07/21 08/01/21 furosemide 20 mg tablet 20 mg PO DAILY 05/07/21 08/01/21 aspirin 81 mg tablet,delayed 81 mg PO BEDTIME 08/01/21 08/01/21 release warfarin 2.5 mg tablet 2.5 mg PO DAILY 08/01/21 08/01/21 Allergies Allergy/AdvReac Type Severity Reaction Status Date / Time No Known Allergies Allergy Mild N/A Verified 07/31/21 16:42 Review of Systems Review of Systems: Constitutional: No Fever, No Chills, No Fatigue, No Malaise ENT/Mouth:No Ear Pain, No Nasal Congestion, No Sinus Pain, No Hoarseness, No sore throat, No Rhinorrhea, No Swallowing Difficulty Eyes: No Eye Pain, No Swelling, No Redness, No Discharge Cardiovascular: No Chest Pain, + SOB, + Dyspnea on Exertion, No Orthopnea, No Edema, No Palpitations Respiratory: + Cough, No Sputum, + Wheezing, + Dyspnea Gastrointestinal: No Nausea, No Vomiting, No Diarrhea, No Constipation, No Abdominal pain Genitourinary: No Dysuria, No Urinary Frequency, No Hematuria, No Flank Pain, No Urinary Flow Changes Musculoskeletal: No joint pain, No Myalgias, No Joint Swelling Skin: No Skin Lesions, No rash Neuro: No Weakness, No Numbness, No Loss of Consciousness, No Dizziness, No Headache Yes all other systems are reviewed and are negative [facility] Past Medical History Attestation statement: The following information was validated with the patient. Medical History Afib COPD (chronic obstructive pulmonary disease) COPD (chronic obstructive pulmonary disease) COVID-19 High blood pressure High cholesterol Hypoxemia Social History Social History Household Members: Children Household Members Other:: Son Housing: House Do you presently have visiting nurse or other home services: Yes Alcohol intake: never Patient Tobacco Use Status: Former Tobacco user Quit Date: 02/06 Tobacco use type: Cigarette Use of substances other than those prescribed or required for medical reasons: No Have you been hit, kicked, punched, or otherwise hurt by someone within the past year? 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 Physical Exam Vital Signs: Vital Signs: Last Vital Signs Temp 98.7 F 08/01/21 16:56 Pulse 96 08/01/21 17:28 Resp 18 08/01/21 17:28 BP 135/74 08/01/21 16:56 Pulse Ox 93 08/01/21 16:56 Oxygen Flow Rate 4 08/01/21 11:36 BMI result Body Mass Index 34.2 Const: General: cooperative, healthy appearing, no acute distress, alert and awake Orientation/consciousness: patient oriented x3 Limitations: no limitations HEENT: Head: Yes normal to inspection and Yes atraumatic Ears: hearing grossly normal bilaterally General nose exam: Normal external nose present Face and sinus: Yes normal facial exam Eyes: General: appearance normal, both eyes and all related structures EOM: EOMs intact bilaterally Neck: Neck: Yes normal visual inspection and Yes no meningeal signs Resp: Effort & Inspection: no stridor and tachypneic Auscultation: wheezes expiratory wheezes, inspiratory wheezes and throughout and diminished lung sounds Cardio: Rate: regular rate Heart sounds: S1 normal heart sound present and S2 normal heart sound present GI: Inspection: Yes normal to inspection Palpation (GI): Soft to palpation, nontender, no guarding and not rigid : General: Yes no CVA tenderness Back/Spine/Pelvis: Back: no CVA tenderness Skin: Rashes: no rashes Wounds: no wounds Neuro: General: patient oriented x3 and no meningeal signs Gait exam (Neuro): Normal gait present Extrem: General: Yes normal to inspection, Yes no pedal edema and Yes no calf tenderness Course Course Course Narrative: -1337-- no leukocytosis. H&H stable. INR therapeutic. Lactic acid negative. Troponin 5.5 > will obtain 3 hour repeat. BNP chronically elevated at 208 XR chest 1V IMPRESSION: Although there are chronic appearing changes, there are new tiny effusions and increased interstitial markings present suggesting a component of interstitial edema on chronic changes. > 40 mg IV Lasix ordered -1342--on re-evaluation patient reports mild symptomatic improvement after DuoNeb. Is satting 92% on her baseline 2.5 L NC. Still with minimal air movement and diffuse expiratory wheeze. Additional DuoNeb ordered. -1436--labs otherwise unremarkable. Plan to admit for further management MDM - URI/Sore Throat MDM Narrative Medical decision making narrative: 71-year-old female with a past medical history of COPD on home O2 2.5 L NC, s/p mechanical valve 2013 on Coumadin, GERD, depression, presenting to the ED via EMS c/o worsening SOB, exertional SOB and noted hypoxia on home O2 x today. On exam vital signs stable, mildly tachypneic, decreased breath sounds and diffuse inspiratory/expiratory wheezing, no pedal edema/cough tenderness. Concern for COPD exacerbation vs viral illness. Rule out pneumonia. Symptoms atypical for ACS or PE and patient is anticoagulated on Coumadin. Low concern for severe sepsis at this time. Plan: EKG, labs, CXR, DuoNeb, Solu-Medrol, magnesium, anticipated admission Differential Diagnosis Differential diagnosis: Likely upper respiratory infection, viral infection, bronchitis and influenza Medical Records Attestation: I reviewed the patient's medical records. Lab Data Attestation: I reviewed the patient's lab results. Result diagrams: 08/01/21 12:37 08/01/21 12:37 Labs: Lab Results 08/01/21 08/01/21 08/01/21 Range/Units 12:37 12:37 12:37 WBC 7.4 (4.8-10.8) X10*3/uL RBC 4.38 (4.20-5.50) X10*6/uL Hgb 11.0 L (12.0-16.0) g/dl Hct 36.5 L (37.0-47.0) % MCV 83.3 (80.0-98.0) fL MCH 25.1 L (27.0-33.0) pg MCHC 30.1 L (31.0-35.0) g/dl RDW 13.9 (11.0-16.0) % Plt Count 284 (160-400) X10*3/uL MPV 11.6 (9.4-12.3) fL Immature Gran % (Auto) 0.4 (0.0-0.4) % Neut % (Auto) 56.2 (45-73) % Lymph % (Auto) 29.5 (20-40) % [place] % (Auto) 10.7 (2-11) % Eos % (Auto) 2.7 (0-4) % Baso % (Auto) 0.5 (0-2) % Lymph # (Auto) 2.2 (1.2-4.9) X10*3/uL [place] # (Auto) 0.8 (0.1-1.2) X10*3/uL Eos # (Auto) 0.2 (0.0-0.4) X10*3/uL Baso # (Auto) 0.0 (0.0-0.2) X10*3/uL Abs Immat Gran (auto) 0.03 (0.00-0.03) X10*3/uL Absolute Neuts (auto) 4.2 (2.0-8.3) x10*3/uL Absolute Nucleated RBC 0.000 (0.0-0.012) X10*3/uL Nucleated RBC % (auto) 0.0 (0.0-0.2) /100WBC PT 30.3 H (9.9-13.0) SEC INR 2.6 H (0.9-1.1) Sodium 140 (135-145) mmol/L Potassium 4.3 (3.3-5.1) mmol/L Chloride 95 L (96-108) mmol/L Carbon Dioxide 36 H (22-29) mmol/L Anion Gap 13 (12-20) BUN 12 (9-16) mg/dL Creatinine 0.65 (0.5-1.4) mg/dL Estim Creat Clear Calc 81.4 Estimated GFR > 60 Random Glucose 108 (60-115) mg/dL Lactic Acid (0.5-2.0) mmol/L Calcium 8.8 (8.4-10.2) mg/dL Magnesium 2.7 H (1.6-2.6) mg/dL Total Bilirubin 0.3 (0.0-1.0) mg/dL Direct Bilirubin 0.2 (0.0-0.5) mg/dL AST 19 D (5-31) U/L ALT 12 (0-31) U/L Alkaline Phosphatase 68 (39-117) U/L Troponin I High Sens (<3.5-17.0) ng/L B-Natriuretic Peptide (<100) pg/mL Total Protein 6.2 L (6.5-8.0) g/dL Albumin 3.6 (3.5-5.0) g/dL COVID-19 (ROB) (Negative) COVID-19 Clin Com Influenza Type A (FRANCOIS) (Negative) Influenza Type B (FRANCOIS) (Negative) Influenza A & B Note 08/01/21 08/01/21 08/01/21 Range/Units 12:37 12:37 12:37 WBC (4.8-10.8) X10*3/uL RBC (4.20-5.50) X10*6/uL Hgb (12.0-16.0) g/dl Hct (37.0-47.0) % MCV (80.0-98.0) fL MCH (27.0-33.0) pg MCHC (31.0-35.0) g/dl RDW (11.0-16.0) % Plt Count (160-400) X10*3/uL MPV (9.4-12.3) fL Immature Gran % (Auto) (0.0-0.4) % Neut % (Auto) (45-73) % Lymph % (Auto) (20-40) % [place] % (Auto) (2-11) % Eos % (Auto) (0-4) % Baso % (Auto) (0-2) % Lymph # (Auto) (1.2-4.9) X10*3/uL [place] # (Auto) (0.1-1.2) X10*3/uL Eos # (Auto) (0.0-0.4) X10*3/uL Baso # (Auto) (0.0-0.2) X10*3/uL Abs Immat Gran (auto) (0.00-0.03) X10*3/uL Absolute Neuts (auto) (2.0-8.3) x10*3/uL Absolute Nucleated RBC (0.0-0.012) X10*3/uL Nucleated RBC % (auto) (0.0-0.2) /100WBC PT (9.9-13.0) SEC INR (0.9-1.1) Sodium (135-145) mmol/L Potassium (3.3-5.1) mmol/L Chloride (96-108) mmol/L Carbon Dioxide (22-29) mmol/L Anion Gap (12-20) BUN (9-16) mg/dL Creatinine (0.5-1.4) mg/dL Estim Creat Clear Calc Estimated GFR Random Glucose (60-115) mg/dL Lactic Acid 0.8 (0.5-2.0) mmol/L Calcium (8.4-10.2) mg/dL Magnesium (1.6-2.6) mg/dL Total Bilirubin (0.0-1.0) mg/dL Direct Bilirubin (0.0-0.5) mg/dL AST (5-31) U/L ALT (0-31) U/L Alkaline Phosphatase (39-117) U/L Troponin I High Sens 5.5 (<3.5-17.0) ng/L B-Natriuretic Peptide 208 H (<100) pg/mL Total Protein (6.5-8.0) g/dL Albumin (3.5-5.0) g/dL COVID-19 (ROB) Negative (Negative) COVID-19 Clin Com See Note Influenza Type A (FRANCOIS) (Negative) Influenza Type B (FRANCOIS) (Negative) Influenza A & B Note 08/01/21 Range/Units 13:43 WBC (4.8-10.8) X10*3/uL RBC (4.20-5.50) X10*6/uL Hgb (12.0-16.0) g/dl Hct (37.0-47.0) % MCV (80.0-98.0) fL MCH (27.0-33.0) pg MCHC (31.0-35.0) g/dl RDW (11.0-16.0) % Plt Count (160-400) X10*3/uL MPV (9.4-12.3) fL Immature Gran % (Auto) (0.0-0.4) % Neut % (Auto) (45-73) % Lymph % (Auto) (20-40) % [place] % (Auto) (2-11) % Eos % (Auto) (0-4) % Baso % (Auto) (0-2) % Lymph # (Auto) (1.2-4.9) X10*3/uL [place] # (Auto) (0.1-1.2) X10*3/uL Eos # (Auto) (0.0-0.4) X10*3/uL Baso # (Auto) (0.0-0.2) X10*3/uL Abs Immat Gran (auto) (0.00-0.03) X10*3/uL Absolute Neuts (auto) (2.0-8.3) x10*3/uL Absolute Nucleated RBC (0.0-0.012) X10*3/uL Nucleated RBC % (auto) (0.0-0.2) /100WBC PT (9.9-13.0) SEC INR (0.9-1.1) Sodium (135-145) mmol/L Potassium (3.3-5.1) mmol/L Chloride (96-108) mmol/L Carbon Dioxide (22-29) mmol/L Anion Gap (12-20) BUN (9-16) mg/dL Creatinine (0.5-1.4) mg/dL Estim Creat Clear Calc Estimated GFR Random Glucose (60-115) mg/dL Lactic Acid (0.5-2.0) mmol/L Calcium (8.4-10.2) mg/dL Magnesium (1.6-2.6) mg/dL Total Bilirubin (0.0-1.0) mg/dL Direct Bilirubin (0.0-0.5) mg/dL AST (5-31) U/L ALT (0-31) U/L Alkaline Phosphatase (39-117) U/L Troponin I High Sens (<3.5-17.0) ng/L B-Natriuretic Peptide (<100) pg/mL Total Protein (6.5-8.0) g/dL Albumin (3.5-5.0) g/dL COVID-19 (ROB) (Negative) COVID-19 Clin Com Influenza Type A (FRANCOIS) Negative (Negative) Influenza Type B (FRANCOIS) Negative (Negative) Influenza A & B Note See Note Discharge Plan Discharge Clinical Impression: COPD (chronic obstructive pulmonary disease), Interstitial edema Patient Disposition: Admitted As Inpatient Interventions: Admission Worksheet (ED) Last Done: 08/01/21 17:28 Discharge Date/Time: 08/01/21 17:31
[2021-08-01] MEDS: Albuterol Sulfate (0.083%) 2.5 MG/3 ML VIAL.NEB 5 MG INHALE ×2 (12:01→13:54)
[2021-08-01] MEDS: Albuterol/Iprat 2.5/0.5MG 3 ML AMPUL.NEB INHALE ×4 (12:01→19:41)
[2021-08-01 12:45] LABS: MANUAL DIFF FLAG NO
[2021-08-01 12:48] LABS: Basophils Percent Auto 0.5 % (0-2); Eosinophils Absolute Auto 0.2 X10*3/uL (0.0-0.4); Eosinophils Percent Auto 2.7 % (0-4); Hematocrit 36.5 % (37.0-47.0); Imm Gran Abs Auto 0.03 X10*3/uL (0.00-0.03); Imm Gran Pct Auto 0.4 % (0.0-0.4); Lymphocytes Absolute Auto 2.2 X10*3/uL (1.2-4.9); Lymphocytes Percent Auto 29.5 % (20-40); Mean Corpuscular HGB Conc 30.1 g/dl (31.0-35.0); Mean Corpuscular Hemoglobin 25.1 pg (27.0-33.0); Mean Corpuscular Volume 83.3 fL (80.0-98.0); Mean Platelet Volume 11.6 fL (9.4-12.3); Monocytes Absolute Auto 0.8 X10*3/uL (0.1-1.2); Monocytes Percent Auto 10.7 % (2-11); Neutrophils Absolute Auto 4.2 x10*3/uL (2.0-8.3); Neutrophils Percent Auto 56.2 % (45-73); Platelet Count 284 X10*3/uL (160-400); Red Blood Count 4.38 X10*6/uL (4.20-5.50); Red Cell Distribution Width 13.9 % (11.0-16.0); White Blood Count 7.4 X10*3/uL (4.8-10.8)
[2021-08-01 12:59] LABS: INTERNATIONAL NORM RATIO 2.6 (0.9-1.1); Prothrombin Time 30.3 SEC (9.9-13.0)
[2021-08-01 13:03] LABS: COVID-19 Test Negative (Negative)
[2021-08-01 13:06] LABS: Lactic Acid 0.8 mmol/L (0.5-2.0)
[2021-08-01 13:12] LABS: B Type Natriuretic Peptide 208 pg/mL (<100); Troponin-I High Sensitivity 5.5 ng/L (<3.5-17.0)
--- NOTE | 2021-08-01 13:28 | PHA.MEDREC ---
Pharmacy Consult ? Medication Reconciliation Pharmacy has completed the medication reconciliation.
[2021-08-01 13:55] LABS: Alanine Aminotransferase 12 U/L (0-31); Albumin Level 3.6 g/dL (3.5-5.0); Alkaline Phosphatase 68 U/L (39-117); Anion Gap 13 (12-20); Aspartate Amino Transferase 19 U/L (5-31); Bilirubin Direct 0.2 mg/dL (0.0-0.5); Bilirubin Total 0.3 mg/dL (0.0-1.0); Blood Urea Nitrogen 12 mg/dL (9-16); Calcium 8.8 mg/dL (8.4-10.2); Carbon Dioxide 36 mmol/L (22-29); Chloride 95 mmol/L (96-108); Creatinine Clr Calc Pharmacy 81.4; Estimated Glomerular Filt Rate > 60; Glucose Random 108 mg/dL (60-115); Magnesium 2.7 mg/dL (1.6-2.6); Potassium 4.3 mmol/L (3.3-5.1); Sodium 140 mmol/L (135-145); Total Protein 6.2 g/dL (6.5-8.0)
[2021-08-01] MEDS: Furosemide 40 MG/4 ML VIAL IVPUSH (13:58)
--- NOTE | 2021-08-01 14:01 | PC.NURSE ---
breaathing much better sr on monitor, eating [employer], 'you only live once , not interested in healthier options
[2021-08-01 14:13] LABS: IDNOW Serial# 16C4AD1C; Influenza A Negative (Negative); Influenza B2 Negative (Negative)
--- NOTE | 2021-08-01 15:40 | P.HPHOSP_ITS ---
History of Present Illness Date of Service: 08/01/21 Attending physician on admission: Pam Padilla Chief Complaint: Shortness of breath 71-year-old female patient with past medical history significant for advanced COPD on home O2 2 L at rest and 2.5 L with activity, being followed by Dr. Anne lozano, status post COVID syndrome with chronic muscle pain, presented to [facility] with acute onset of shortness of breath, as per patient this morning she woke up felt lightheaded and dizzy went to the bathroom and while coming back noted to have significant drop in oxygen to 76%, DNA was at home they called EMS and transferred patient to [facility], where patient was noted to have mild hypoxia of 90%, , chest x-ray showed tiny bilateral pleural effusion and interstitial edema, BNP 208, CBC within normal range bicarb 36 magnesium 2.7, patient treated in the emergency room with IV Lasix 40 mg, IV Solu-Medrol updraft treatment and magnesium currently feeling a little better, patient denies chest pain, no palpitation, denies fever chills, no sick contacts, she had headache last night, and is unusual for her to get headaches, she denies lower extremity edema, she always sleep on couple pillows no change in last few days, she is not aware of history of heart failure, she has coronary artery disease is being followed by marketing operations associate from [facility], she quit smoking 7 months ago. Review of Systems Review of Systems: General no dizziness, no fever chills. CVS no chest pain, no palpitation. Respiratory no cough, +sob Gastrointestinal no nausea, no vomiting, no abdominal pain Yes all other systems are reviewed and are negative [facility] Medical History Afib COPD (chronic obstructive pulmonary disease) COPD (chronic obstructive pulmonary disease) COVID-19 High blood pressure High cholesterol Hypoxemia Pertinent family history: Both parents had COPD, 1 brother also has COPD or with history of smoking Social History Household Members: Children Household Members Other:: Son Housing: House Do you presently have visiting nurse or other home services: Yes Alcohol intake: never Patient Tobacco Use Status: Former Tobacco user Quit Date: 02/06 Tobacco use type: Cigarette Use of substances other than those prescribed or required for medical reasons: No Currently Displaying Signs/Symptoms of Drug Intoxication Withdrawal: No Have you been hit, kicked, punched, or otherwise hurt by someone within the past year? 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 Meds Allergies Allergy/AdvReac Type Severity Reaction Status Date / Time No Known Allergies Allergy Mild N/A Verified 07/31/21 16:42 Active Medications: Current Medications Acetaminophen (Acetaminophen 325 Mg Tablet) 650 mg PO Q6H PRN PRN Reason: Pain, Mild (Pain Scale 1-3) Albuterol Sulfate (Albuterol Sulfate (0.083%) 2.5 Mg/3 Ml Vial.Kwadwo) 2.5 mg INHALE RQ6H PRN PRN Reason: Shortness Of Breath Aspirin (Aspirin Enteric Coated 81 Mg Tablet.) 81 mg PO BEDTIME [facility] Carvedilol (Carvedilol 12.5 Mg Tablet) 12.5 mg PO BID [facility]; Protocol Fluticasone/Vilanterol (Fluticasone/Vilanterol 200/25 Blst.W.Dev) 1 puff INHALE DAILY [facility] Furosemide (Furosemide 20 Mg Tablet) 20 mg PO DAILY [facility]; Protocol Latanoprost (Latanoprost 0.005 % Ophth Sally 2.5 Ml Drops) 1 drop EYE-BOTH BEDTIME [facility] Nystatin (Nystatin Cream 15 Gm Tube) 1 appl TOPICAL BID [facility]; Protocol Omeprazole (Omeprazole 20 Mg Capsule.) 20 mg PO DAILY@0630 [facility] Ondansetron HCl (Ondansetron Hcl 4 Mg/2 Ml Vial) 4 mg IVPUSH Q8H PRN PRN Reason: Nausea and Vomiting Pharmacy Consult (Consult Rx Perform Med Rec) 1 each MISCELLANE ONCE PRN PRN Reason: Consult order Sodium Chloride (0.9 % Sodium Chloride Flush 3 Ml Syringe) 3 ml IVFLUSH QSHIFT [facility] Warfarin Sodium (Warfarin Sodium 2.5 Mg Tablet) 2.5 mg PO DAILY [facility] Home Medications Medication Instructions Recorded Confirmed Last Taken Type acetaminophen 325 mg tablet 650 mg PO Q6H PRN 02/01/21 08/01/21 Unknown History carvedilol 12.5 mg tablet 12.5 mg PO BID 02/01/21 08/01/21 08/01/21 History fluticasone 500 mcg-salmeterol 50 1 inh INHALATION BID 02/01/21 08/01/21 2 History mcg/dose blistr powdr for inhalation (Advair Diskus) latanoprost 0.005 % eye drops 1 drp OPHTHALMIC (EYE) BEDTIME 02/01/21 08/01/21 07/31/21 History omeprazole 20 mg capsule,delayed 20 mg PO DAILY 02/01/21 08/01/21 08/01/21 History release simvastatin 40 mg tablet 40 mg PO BEDTIME 02/01/21 08/01/21 08/01/21 History tiotropium bromide 18 mcg capsule 1 cap INHALATION DAILY 02/01/21 08/01/21 08/01/21 History with inhalation device (Spiriva with HandiHaler) ipratropium 20 mcg-albuterol 100 1 puff INHALATION QID 02/13/21 08/01/21 08/01/21 History mcg/actuation mist for inhalation (Combivent Respimat) nystatin 100,000 unit/gram topical 1 appl TOPICAL BID 02/13/21 08/01/21 Unknown History cream albuterol sulfate 2.5 mg INHALATION Q6H PRN ml 05/07/21 08/01/21 Unknown History furosemide 20 mg tablet 20 mg PO DAILY 05/07/21 08/01/21 08/01/21 History aspirin 81 mg tablet,delayed 81 mg PO BEDTIME 08/01/21 08/01/21 07/31/21 History release warfarin 2.5 mg tablet 2.5 mg PO DAILY 08/01/21 08/01/21 07/31/21 History Physical Exam Vital Signs and Narrative: Vital Signs: Last Vital Signs Temp 98 F 08/01/21 11:36 Pulse 81 08/01/21 14:06 Resp 18 08/01/21 14:06 BP 112/63 08/01/21 11:36 Pulse Ox 90 L 08/01/21 13:59 Oxygen Flow Rate 4 08/01/21 11:36 BMI result Body Mass Index 34.2 Const: Other: General awake alert x3, no acute distress. Anicteric sclera, people equal round reactive to light and accommodation Neck supple no JVD. CVS regular rate rhythm, Respiratory lungs diminished breath sound bilaterally, scattered rhonchi , no rales, no use of accessory muscles Gastrointestinal abdomen soft, nontender, bowel sounds audible,no guarding , no rigidity. Extremities no edema. Neuro nonfocal , speech clear. Skin no rash Psych appropriate affect Results Labs CBC and Chem 7: 08/01/21 12:37 08/01/21 12:37 Labs: Laboratory Results - last 24 hr 08/01/21 08/01/21 08/01/21 12:37 12:37 12:37 MCV 83.3 MCH 25.1 L MCHC 30.1 L RDW 13.9 Plt Count 284 MPV 11.6 Immature Gran % (Auto) 0.4 Neut % (Auto) 56.2 Lymph % (Auto) 29.5 Jenkins % (Auto) 10.7 Eos % (Auto) 2.7 Baso % (Auto) 0.5 Lymph # (Auto) 2.2 Jenkins # (Auto) 0.8 Eos # (Auto) 0.2 Baso # (Auto) 0.0 Abs Immat Gran (auto) 0.03 Absolute Neuts (auto) 4.2 Absolute Nucleated RBC 0.000 Nucleated RBC % (auto) 0.0 PT 30.3 H INR 2.6 H Anion Gap 13 Estim Creat Clear Calc 81.4 Estimated GFR > 60 Random Glucose 108 Lactic Acid Calcium 8.8 Magnesium 2.7 H Total Bilirubin 0.3 Direct Bilirubin 0.2 AST 19 D ALT 12 Alkaline Phosphatase 68 Troponin I High Sens B-Natriuretic Peptide Total Protein 6.2 L Albumin 3.6 COVID-19 (ROB) COVID-19 Clin Com Influenza Type A (FRANCOIS) Influenza Type B (FRANCOIS) Influenza A & B Note 08/01/21 08/01/21 08/01/21 12:37 12:37 12:37 MCV MCH MCHC RDW Plt Count MPV Immature Gran % (Auto) Neut % (Auto) Lymph % (Auto) Jenkins % (Auto) Eos % (Auto) Baso % (Auto) Lymph # (Auto) Jenkins # (Auto) Eos # (Auto) Baso # (Auto) Abs Immat Gran (auto) Absolute Neuts (auto) Absolute Nucleated RBC Nucleated RBC % (auto) PT INR Anion Gap Estim Creat Clear Calc Estimated GFR Random Glucose Lactic Acid 0.8 Calcium Magnesium Total Bilirubin Direct Bilirubin AST ALT Alkaline Phosphatase Troponin I High Sens 5.5 B-Natriuretic Peptide 208 H Total Protein Albumin COVID-19 (ROB) Negative COVID-19 Clin Com See Note Influenza Type A (FRANCOIS) Influenza Type B (FRANCOIS) Influenza A & B Note 08/01/21 13:43 MCV MCH MCHC RDW Plt Count MPV Immature Gran % (Auto) Neut % (Auto) Lymph % (Auto) Jenkins % (Auto) Eos % (Auto) Baso % (Auto) Lymph # (Auto) Jenkins # (Auto) Eos # (Auto) Baso # (Auto) Abs Immat Gran (auto) Absolute Neuts (auto) Absolute Nucleated RBC Nucleated RBC % (auto) PT INR Anion Gap Estim Creat Clear Calc Estimated GFR Random Glucose Lactic Acid Calcium Magnesium Total Bilirubin Direct Bilirubin AST ALT Alkaline Phosphatase Troponin I High Sens B-Natriuretic Peptide Total Protein Albumin COVID-19 (ROB) COVID-19 Clin Com Influenza Type A (FRANCOIS) Negative Influenza Type B (FRANCOIS) Negative Influenza A & B Note See Note Imaging Radiologist's Impressions: Impressions Chest X-Ray 08/01/21 12:05 IMPRESSION: Although there are chronic appearing changes, there are new tiny effusions and increased interstitial markings present suggesting a component of interstitial edema on chronic changes. Assessment and Plan (1) Interstitial edema: Status: Acute (2) COPD exacerbation: Status: Acute (3) Acute and chronic respiratory failure with hypoxia: Status: Acute Plan 71-year-old female with past medical history of mechanical aortic valve, coronary artery disease, CHF, COPD on home O2, history of recent COVID infection with post COVID syndrome, muscle weakness ambulates short distances otherwise requiring wheelchair evaluated recently by her slitter and rewinder and was doing fine up until this morning when developed lightheadedness dizziness and hypoxia will be admitted for continued treatment and evaluation for COPD exacerbation. Acute COPD exacerbation Admit to medical floor will place on scheduled and as needed DuoNeb, IV Solu- Medrol, IV azithromycin for possible bronchitis Continue supportive care with cough medications and analgesics History of COVID infection April [address] Sykes, has been weak since infection with walking short distances only otherwise uses wheelchair for long distances, on Advair b.i.d. Combivent Respimat q.i.d. and Spiriva at home with DuoNeb updraft q.6 hours as needed Will obtain pulmonary consult if not better Acute on chronic hypoxic respiratory failure Likely due to COPD exacerbation/mild acute CHF exacerbation,continue O2 support and gradually wean to home dose 2-2.5 L Mild acute systolic CHF exacerbation stable BNP, no leg edema, received 1 dose of IV Lasix in the ED will continue home dose of Lasix, follow clinical course. Mechanical aortic valve replacement Continue Coumadin INR therapeutic at 2.6 Coronary artery disease No chest pain, continue home medication aspirin, Coreg and statin, outpatient follow-up with primary marketing operations associate at [facility], EKG showed no ischemia Obesity recommended weight reduction and low-calorie diet Code status full DVT prophylaxis on Coumadin INR therapeutic Quality Stroke Does the patient have a stroke diagnosis?: No VTE Prior VTE?: No VTE Risk Level:: Medical - moderate - high VTE Device Contraindication: Treatment Not Indicated VTE Drug Contraindication: N/A - Med Ordered
[2021-08-01 16:48] LABS: Troponin-I High Sensitivity 5.2 ng/L (<3.5-17.0)
[2021-08-01] MEDS: Azithromycin 500 MG in 0.9 % Sodium Chloride 250 ML 125 MG IV (17:36)
[2021-08-01] MEDS: Warfarin Sodium 2.5 MG TABLET PO ×2 (17:36→17:51)
[2021-08-01] MEDS: 0.9 % Sodium Chloride Flush 3 ML SYRINGE IVFLUSH ×2 (17:37→22:41)
[2021-08-01] MEDS: guaiFENesin DM 100/10/5 ML 5 ML SYRUP 10 ML PO (17:55)
[2021-08-01] MEDS: Nystatin Cream 15 GM TUBE 1 APPL TOPICAL (20:11)
[2021-08-01] MEDS: Aspirin Enteric Coated 81 MG TABLET.DR PO (20:11)
[2021-08-01] MEDS: carvediloL 12.5 MG TABLET PO (20:11)
[2021-08-01] MEDS: Latanoprost 0.005 % Ophth Sol 2.5 ML DROPS 1 DROP EYE-BOTH (20:11)
[2021-08-01] MEDS: methylPREDNISolone Sod Succ 40 MG/ML VIAL IVPUSH (22:35)
[2021-08-02] VITALS (9 sets, daily range): BP systolic 111–123; BP diastolic 59–77; PULSE 67–912; RESP 18–20; TEMP 36.1–36.8; O2SAT 90–93
[2021-08-02] MEDS: methylPREDNISolone Sod Succ 40 MG/ML VIAL IVPUSH (05:44)
[2021-08-02] MEDS: Omeprazole 20 MG CAPSULE.DR PO (05:44)
[2021-08-02] MEDS: Albuterol/Iprat 2.5/0.5MG 3 ML AMPUL.NEB INHALE ×4 (08:12→20:01)
[2021-08-02 08:15] LABS: INTERNATIONAL NORM RATIO 3.5 (0.9-1.1); Prothrombin Time 41.4 SEC (9.9-13.0)
[2021-08-02] MEDS: Fluticasone/Vilanterol 200/25 BLST.W.DEV 1 PUFF INHALE (08:28)
[2021-08-02] MEDS: carvediloL 12.5 MG TABLET PO ×2 (09:49→20:30)
[2021-08-02] MEDS: Furosemide 20 MG TABLET PO (09:49)
[2021-08-02] MEDS: 0.9 % Sodium Chloride Flush 3 ML SYRINGE IVFLUSH ×3 (09:49→20:30)
[2021-08-02] MEDS: Atorvastatin Calcium 20 MG TABLET PO (09:49)
[2021-08-02] MEDS: Nystatin Cream 15 GM TUBE 1 APPL TOPICAL ×2 (09:50→20:30)
--- NOTE | 2021-08-02 10:08 | PHA.PROG ---
Admission Date/Time: August 01, 2021 15:22 Indication: BACTERMIA Weight in k kg Adjusted body weight in K [place] body weight in Kg: Obesity Dosing Indication % IBW: Serum Creatinine - Last 168 Hours 08/01/21 12:37 Creatinine 0.65 Estimated CrCl and GFR - Last 168 Hours 08/01/21 12:37 Estim Creat Clear Calc 81.4 Estimated GFR > 60 Vancomycin Loading Dose: 1500 mg Current Vancomycin Dosing Regimen:1250 mg q24 Vancomycin Monitoring using AUC goal of 400 - 600 range with trough as surrogate marker: Date and Time for next Vancomycin Level to be drawn:08/04@0800 Pharmacist Comments on Vancomycin Plan: predicted auc 403, trough 9.3 Vancomycin dosing will take advantage of [employer] as a clinical decision support tool that uses Bayesian modeling to calculate individual patient's pharmacokinetic parameters and forecast the patient's drug concentration time course with the target goal AUC 24 range of 400 - 600 mg/L/hr.
[2021-08-02] MEDS: vancomycin HCL 1,500 MG in 0.9 % Sodium Chloride 500 ML 333.33 MG IV (10:40)
--- NOTE | 2021-08-02 11:11 | P.PNIM_ITS ---
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 Anicteric sclera, people equal round reactive to light and accommodation Neck? supple no JVD. CVS? regular rate rhythm, good peripheral Respiratory lungs diminished breath sound, expiratory wheeze bilaterally, no rales, no use of accessory muscles Gastrointestinal abdomen soft, nontender, bowel sounds audible,no guarding , no rigidity. Extremities no edema. Neuro nonfocal , speech clear. Skin no rash Psych appropriate affect Objective Data Active Medications Acetaminophen (Acetaminophen 325 Mg Tablet) 650 mg PO Q6H PRN PRN Reason: Pain, Mild (Pain Scale 1-3) Albuterol Sulfate (Albuterol Sulfate (0.083%) 2.5 Mg/3 Ml Vial.Neb) 2.5 mg INHALE RQ6H PRN PRN Reason: Shortness Of Breath Albuterol/Ipratropium (Albuterol/Iprat 2.5/0.5mg 3 Ml Ampul.Neb) 3 ml INHALE RQ4H WHILE AWAKE [facility] Last Admin: 08/02/21 08:12 Dose: 3 ml Documented by: SE Aspirin (Aspirin Enteric Coated 81 Mg Tablet.) 81 mg PO BEDTIME [facility] Last Admin: 08/01/21 20:11 Dose: 81 mg Documented by: CLARITA Atorvastatin Calcium (Atorvastatin Calcium 20 Mg Tablet) 20 mg PO DAILY [facility] Last Admin: 08/02/21 09:49 Dose: 20 mg Documented by: GINA Carvedilol (Carvedilol 12.5 Mg Tablet) 12.5 mg PO BID [facility]; Protocol Last Admin: 08/02/21 09:49 Dose: 12.5 mg Documented by: GINA Fluticasone/Vilanterol (Fluticasone/Vilanterol 200/25 Blst.W.Dev) 1 puff INHALE DAILY [facility] Last Admin: 08/02/21 08:28 Dose: 1 puff Documented by: SE Furosemide (Furosemide 20 Mg Tablet) 20 mg PO DAILY [facility]; Protocol Last Admin: 08/02/21 09:49 Dose: 20 mg Documented by: GINA Guaifenesin/Dextromethorphan (Guaifenesin Dm 100/10/5 Ml 5 Ml Syrup) 10 ml PO Q6H PRN PRN Reason: cough Last Admin: 08/01/21 17:55 Dose: 10 ml Documented by: GEMMA Azithromycin 500 mg/ Sodium (Chloride) 250 mls @ 125 mls/hr IV Q24H [facility] Last Infusion: 08/02/21 09:54 Dose: 0 mls/hr Documented by: GINA Vancomycin HCl 1,500 mg/ (Sodium Chloride) 500 mls @ 333.333 mls/hr IV ONCE ONE Stop: 08/02/21 11:27 Last Admin: 08/02/21 10:40 Dose: 333.33 mls/hr Documented by: GINA Vancomycin HCl 1,250 mg/ (Sodium Chloride) 250 mls @ 166.667 mls/hr IV Q24H [facility] Latanoprost (Latanoprost 0.005 % Ophth Sally 2.5 Ml Drops) 1 drop EYE-BOTH BEDTIME [facility] Last Admin: 08/01/21 20:11 Dose: 1 drop Documented by: CLARITA Methylprednisolone Sodium Succinate (Methylprednisolone Sod Succ 125 Mg/2 Ml Vial) 60 mg IVPUSH Q8H [facility] Nystatin (Nystatin Cream 15 Gm Tube) 1 appl TOPICAL BID [facility]; Protocol Last Admin: 08/02/21 09:50 Dose: 1 appl Documented by: GINA Omeprazole (Omeprazole 20 Mg Capsule.) 20 mg PO DAILY@0630 [facility] Last Admin: 08/02/21 05:44 Dose: 20 mg Documented by: CLARITA Ondansetron HCl (Ondansetron Hcl 4 Mg/2 Ml Vial) 4 mg IVPUSH Q8H PRN PRN Reason: Nausea and Vomiting Pharmacy Consult (Consult Rx Perform Med Rec) 1 each MISCELLANE ONCE PRN PRN Reason: Consult order Pharmacy Consult (Consult Rx Vancomycin Dosing) 1 each MISCELLANE DAILY PRN PRN Reason: Consult order Sodium Chloride (0.9 % Sodium Chloride Flush 3 Ml Syringe) 3 ml IVFLUSH QSHIFT [facility] Last Admin: 08/02/21 09:49 Dose: 3 ml Documented by: GINA Labs CBC & Chem 7: 08/01/21 12:37 08/01/21 12:37 Labs: Laboratory Results - last 24 hr 08/01/21 08/01/21 08/01/21 12:37 12:37 12:37 MCV 83.3 MCH 25.1 L MCHC 30.1 L RDW 13.9 Plt Count 284 MPV 11.6 Immature Gran % (Auto) 0.4 Neut % (Auto) 56.2 Lymph % (Auto) 29.5 [place] % (Auto) 10.7 Eos % (Auto) 2.7 Baso % (Auto) 0.5 Lymph # (Auto) 2.2 [place] # (Auto) 0.8 Eos # (Auto) 0.2 Baso # (Auto) 0.0 Abs Immat Gran (auto) 0.03 Absolute Neuts (auto) 4.2 Absolute Nucleated RBC 0.000 Nucleated RBC % (auto) 0.0 PT 30.3 H INR 2.6 H Anion Gap 13 Estim Creat Clear Calc 81.4 Estimated GFR > 60 Random Glucose 108 Lactic Acid Calcium 8.8 Magnesium 2.7 H Total Bilirubin 0.3 Direct Bilirubin 0.2 AST 19 D ALT 12 Alkaline Phosphatase 68 Troponin I High Sens B-Natriuretic Peptide Total Protein 6.2 L Albumin 3.6 COVID-19 (ROB) COVID-19 Clin Com Influenza Type A (FRANCOIS) Influenza Type B (FRANCOIS) Influenza A & B Note 08/01/21 08/01/21 08/01/21 12:37 12:37 12:37 MCV MCH MCHC RDW Plt Count MPV Immature Gran % (Auto) Neut % (Auto) Lymph % (Auto) [place] % (Auto) Eos % (Auto) Baso % (Auto) Lymph # (Auto) [place] # (Auto) Eos # (Auto) Baso # (Auto) Abs Immat Gran (auto) Absolute Neuts (auto) Absolute Nucleated RBC Nucleated RBC % (auto) PT INR Anion Gap Estim Creat Clear Calc Estimated GFR Random Glucose Lactic Acid 0.8 Calcium Magnesium Total Bilirubin Direct Bilirubin AST ALT Alkaline Phosphatase Troponin I High Sens 5.5 B-Natriuretic Peptide 208 H Total Protein Albumin COVID-19 (ROB) Negative COVID-19 Clin Com See Note Influenza Type A (FRANCOIS) Influenza Type B (FRANCOIS) Influenza A & B Note 08/01/21 08/01/21 08/02/21 13:43 16:20 08:02 MCV MCH MCHC RDW Plt Count MPV Immature Gran % (Auto) Neut % (Auto) Lymph % (Auto) [place] % (Auto) Eos % (Auto) Baso % (Auto) Lymph # (Auto) [place] # (Auto) Eos # (Auto) Baso # (Auto) Abs Immat Gran (auto) Absolute Neuts (auto) Absolute Nucleated RBC Nucleated RBC % (auto) PT 41.4 H INR 3.5 H Anion Gap Estim Creat Clear Calc Estimated GFR Random Glucose Lactic Acid Calcium Magnesium Total Bilirubin Direct Bilirubin AST ALT Alkaline Phosphatase Troponin I High Sens 5.2 B-Natriuretic Peptide Total Protein Albumin COVID-19 (ROB) COVID-19 Clin Com Influenza Type A (FRANCOIS) Negative Influenza Type B (FRANCOIS) Negative Influenza A & B Note See Note Microbiology Microbiology Results: Microbiology 08/01/21 12:37 Blood Culture - Preliminary Blood - Venous Prelim: GPC Gram Stain only Assessment and Plan (1) Acute and chronic respiratory failure with hypoxia: Status: Acute (2) COPD exacerbation: Status: Acute (3) Interstitial edema: Status: Acute (4) Supratherapeutic INR: Status: Acute Plan 71-year-old female with past medical history of mechanical aortic valve, coronary artery disease, CHF, COPD on home O2, history of recent COVID infection with post COVID syndrome, muscle weakness ambulates short distances otherwise requiring wheelchair evaluated recently by her entry level lab technician and was doing fine up until this morning when developed lightheadedness dizziness and hypoxia will be admitted for continued treatment and evaluation for COPD exacerbation. Acute COPD exacerbation Persistent shortness of breath and bilateral wheeze, continue scheduled and as needed DuoNeb, IV Solu-Medrol, IV azithromycin for possible bronchitis Continue supportive care with cough medications and analgesics History of COVID infection April [address] Sykes, has been weak since infection with walking short distances only otherwise uses wheelchair for long distances, on Advair b.i.d. Combivent Respimat q.i.d. and Spiriva at home with DuoNeb updraft q.6 hours as needed pulmonary consult if not better Acute on chronic hypoxic respiratory failure Likely due to COPD exacerbation/mild acute CHF exacerbation,continue O2 support and gradually wean to home dose 2-2.5 L Mild acute systolic CHF exacerbation Resolved stable BNP, no leg edema, received 1 dose of IV Lasix in the ED, will continue home dose of Lasix, follow clinical course. Output not accurate/follow i/os Gram-positive bacteremia 1/2 blood culture positive for gram-positive cocci patient afebrile, normal WBC question contamination will treat with IV vanco follow final blood culture report Mechanical aortic valve replacement Hold Coumadin INR bumped to 3.5 follow PT INR closely INR goal 2-3 Coronary artery disease No chest pain, continue home medication aspirin, Coreg and statin, outpatient follow-up with primary fellmongering machine operator at [facility], EKG showed no ischemia Obesity recommended weight reduction and low-calorie diet Code status full DVT prophylaxis on Coumadin Quality Stroke Does the patient have a stroke diagnosis?: No VTE Prior VTE?: No VTE Risk Level:: Medical - moderate - high VTE Device Contraindication: Treatment Not Indicated VTE Drug Contraindication: N/A - Med Ordered
--- NOTE | 2021-08-02 12:36 | MHC.CM.PN ---
PT REPORTS SHE SHARES A HOME WITH HER SON AND HER DAUGHTER LIVES IN THE OTHER HALF OF THEIR TWO FAMILY HOME SHE REPORTS HER SON AND DAUGHTER ASSIST HER WITH HER CARE NEEDED, SHE HAS NO HOME SERVICES SHE REPORTS SHE HAS HOME OXYGEN PT HAS A HCP ON FILE AND CONFIRMS HER PCP IS GRISELDA MA SHE REPORTS SHE IS VACCINATED AGAINST COVID-19 WITH [employer] [place] IMM DELIVERED CURRENT DC PLAN IS HOME WITH RESUMPTION OF FAMILY SUPPORT FAMILY TO TRANSPORT
[2021-08-02] MEDS: methylPREDNISolone Sod Succ 125 MG/2 ML VIAL 60 MG IVPUSH ×2 (13:35→21:37)
[2021-08-02] MEDS: Azithromycin 500 MG in 0.9 % Sodium Chloride 250 ML 125 MG IV (16:58)
[2021-08-02] MEDS: Aspirin Enteric Coated 81 MG TABLET.DR PO (20:30)
[2021-08-02] MEDS: Latanoprost 0.005 % Ophth Sol 2.5 ML DROPS 1 DROP EYE-BOTH (20:31)
[2021-08-03] VITALS (9 sets, daily range): BP systolic 108–126; BP diastolic 56–68; PULSE 73–88; RESP 18–20; TEMP 36.2–36.8; O2SAT 90–95
[2021-08-03 05:38] LABS: INTERNATIONAL NORM RATIO 3.4 (0.9-1.1); Prothrombin Time 39.1 SEC (9.9-13.0)
[2021-08-03] MEDS: methylPREDNISolone Sod Succ 125 MG/2 ML VIAL 60 MG IVPUSH (05:57)
[2021-08-03] MEDS: Omeprazole 20 MG CAPSULE.DR PO (05:57)
[2021-08-03 07:28] LABS: Anion Gap 11 (12-20); Blood Urea Nitrogen 17 mg/dL (9-16); Calcium 9.2 mg/dL (8.4-10.2); Carbon Dioxide 36 mmol/L (22-29); Chloride 97 mmol/L (96-108); Creatinine Clr Calc Pharmacy 81.4; Estimated Glomerular Filt Rate > 60; Glucose Random 143 mg/dL (60-115); Potassium 4.2 mmol/L (3.3-5.1); Sodium 140 mmol/L (135-145)
[2021-08-03] MEDS: Albuterol/Iprat 2.5/0.5MG 3 ML AMPUL.NEB INHALE ×4 (07:51→19:50)
[2021-08-03] MEDS: Fluticasone/Vilanterol 200/25 BLST.W.DEV 1 PUFF INHALE (07:51)
--- NOTE | 2021-08-03 08:28 | HE.PHANOTE ---
OH CAMEJO CONTINUE CURRENT DOSE, TROUGH DUE TOMORROW @0800
[2021-08-03] MEDS: Furosemide 20 MG TABLET PO (09:25)
[2021-08-03] MEDS: Atorvastatin Calcium 20 MG TABLET PO (09:25)
[2021-08-03] MEDS: carvediloL 12.5 MG TABLET PO ×2 (09:25→20:04)
[2021-08-03] MEDS: Nystatin Cream 15 GM TUBE 1 APPL TOPICAL ×2 (09:26→20:06)
[2021-08-03] MEDS: 0.9 % Sodium Chloride Flush 3 ML SYRINGE IVFLUSH ×3 (09:26→20:04)
--- NOTE | 2021-08-03 12:33 | P.PNIM_ITS ---
Subjective Subjective Date of Service: 08/03/21 Interval History: Feeling better this morning remain short of breath with minimal activity, on 2.5 L of oxygen finger oximetry 90, denies fever chills, no other acute issues overnight. 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 Anicteric sclera, people equal round reactive to light and accommodation Neck? supple no JVD. CVS? regular rate rhythm, good peripheral Respiratory lungs diminished breath sound, occasional rhonchi, no rales, no use of accessory muscles Gastrointestinal abdomen soft, nontender, bowel sounds audible,no guarding , no rigidity. Extremities no edema. Neuro nonfocal , speech clear. Skin no rash Psych appropriate affect Objective Data Active Medications Acetaminophen (Acetaminophen 325 Mg Tablet) 650 mg PO Q6H PRN PRN Reason: Pain, Mild (Pain Scale 1-3) Albuterol Sulfate (Albuterol Sulfate (0.083%) 2.5 Mg/3 Ml Vial.Neb) 2.5 mg INHALE RQ6H PRN PRN Reason: Shortness Of Breath Albuterol/Ipratropium (Albuterol/Iprat 2.5/0.5mg 3 Ml Ampul.Neb) 3 ml INHALE RQ4H WHILE AWAKE [facility] Last Admin: 08/03/21 11:47 Dose: 3 ml Documented by: SE Aspirin (Aspirin Enteric Coated 81 Mg Tablet.) 81 mg PO BEDTIME [facility] Last Admin: 08/02/21 20:30 Dose: 81 mg Documented by: CLARITA Atorvastatin Calcium (Atorvastatin Calcium 20 Mg Tablet) 20 mg PO DAILY [facility] Last Admin: 08/03/21 09:25 Dose: 20 mg Documented by: GINA Carvedilol (Carvedilol 12.5 Mg Tablet) 12.5 mg PO BID [facility]; Protocol Last Admin: 08/03/21 09:25 Dose: 12.5 mg Documented by: GINA Fluticasone/Vilanterol (Fluticasone/Vilanterol 200/25 Blst.W.Dev) 1 puff INHALE DAILY [facility] Last Admin: 08/03/21 07:51 Dose: 1 puff Documented by: SE Furosemide (Furosemide 20 Mg Tablet) 20 mg PO DAILY [facility]; Protocol Last Admin: 08/03/21 09:25 Dose: 20 mg Documented by: GINA Guaifenesin/Dextromethorphan (Guaifenesin Dm 100/10/5 Ml 5 Ml Syrup) 10 ml PO Q6H PRN PRN Reason: Cough Azithromycin 500 mg/ Sodium (Chloride) 250 mls @ 125 mls/hr IV Q24H [facility] Last Infusion: 08/02/21 19:33 Dose: 0 mls/hr Documented by: CLARITA Latanoprost (Latanoprost 0.005 % Ophth Sally 2.5 Ml Drops) 1 drop EYE-BOTH BEDTIME [facility] Last Admin: 08/02/21 20:31 Dose: 1 drop Documented by: CLARITA Methylprednisolone Sodium Succinate (Methylprednisolone Sod Succ 40 Mg/Ml Vial) 40 mg IVPUSH Q8H [facility] Nystatin (Nystatin Cream 15 Gm Tube) 1 appl TOPICAL BID [facility]; Protocol Last Admin: 08/03/21 09:26 Dose: 1 appl Documented by: GINA Omeprazole (Omeprazole 20 Mg Capsule.) 20 mg PO DAILY@0630 [facility] Last Admin: 08/03/21 05:57 Dose: 20 mg Documented by: CLARITA Ondansetron HCl (Ondansetron Hcl 4 Mg/2 Ml Vial) 4 mg IVPUSH Q8H PRN PRN Reason: Nausea and Vomiting Pharmacy Consult (Consult Rx Perform Med Rec) 1 each MISCELLANE ONCE PRN PRN Reason: Consult order Pharmacy Consult (Consult Rx Vancomycin Dosing) 1 each MISCELLANE DAILY PRN PRN Reason: Consult order Sodium Chloride (0.9 % Sodium Chloride Flush 3 Ml Syringe) 3 ml IVFLUSH QSHIFT [facility] Last Admin: 08/03/21 09:26 Dose: 3 ml Documented by: HO.LYSZ Labs CBC & Chem 7: 08/01/21 12:37 08/03/21 04:34 Labs: Laboratory Results - last 24 hr 08/03/21 08/03/21 04:34 04:34 PT 39.1 H INR 3.4 H Anion Gap 11 L Estim Creat Clear Calc 81.4 Estimated GFR > 60 Random Glucose 143 H Calcium 9.2 Microbiology Microbiology Results: Microbiology 08/01/21 12:37 Blood Culture - Final Blood - Venous Coag negative Staphylococcus 08/01/21 13:43 Blood Culture - Preliminary Blood - Venous No growth after 24 hours. Assessment and Plan (1) Acute and chronic respiratory failure with hypoxia: Status: Acute (2) COPD exacerbation: Status: Acute (3) Interstitial edema: Status: Acute (4) Supratherapeutic INR: Status: Acute Plan 71-year-old female with past medical history of mechanical aortic valve, coronary artery disease, CHF, COPD on home O2, history of recent COVID infection with post COVID syndrome, muscle weakness ambulates short distances otherwise requiring wheelchair evaluated recently by her medical staff assistant and was doing fine up until this morning when developed lightheadedness dizziness and hypoxia will be admitted for continued treatment and evaluation for COPD exacerbation. Acute COPD exacerbation Persistent shortness of breath worse with activity, continue scheduled and as needed DuoNeb, wean IV Solu-Medrol, IV azithromycin day 3 for bronchitis Continue supportive care with cough medications and analgesics Obtain CT chest that showed mild pulmonary edema, severe emphysema, diffuse thickening of bronchial fung and scattered endobronchial secretion History of COVID infection April [address] Sykes, has been weak since infection with walking short distances only otherwise uses wheelchair for long distances, on Advair b.i.d. Combivent Respimat q.i.d. and Spiriva at home with DuoNeb updraft q.6 hours as needed Will give IV Lasix, add guafenesin. Acute on chronic hypoxic respiratory failure Likely due to COPD exacerbation/mild acute CHF exacerbation,continue O2 support and gradually wean to home dose 2-2.5 L Mild acute systolic CHF exacerbation CT chest suggestive of mild emphysema, will give IV Lasix and follow clinical course Output not accurate/follow i/os Gram-positive bacteremia Final culture grew coagulase-negative Staph unlikely pathogen will DC vancomycin Mechanical aortic valve replacement Hold Coumadin INR 3.4 follow PT INR closely INR goal 2-3 Coronary artery disease No chest pain, continue home medication aspirin, Coreg and statin, outpatient follow-up with primary desulfurizer operator at [facility], EKG showed no ischemia Obesity recommended weight reduction and low-calorie diet Code status full DVT prophylaxis on Coumadin Quality Stroke Does the patient have a stroke diagnosis?: No VTE Prior VTE?: No VTE Risk Level:: Medical - moderate - high VTE Device Contraindication: Treatment Not Indicated VTE Drug Contraindication: N/A - Med Ordered
[2021-08-03] MEDS: guaiFENesin LA 600 MG TAB.ER.12H PO ×2 (14:40→20:04)
[2021-08-03] MEDS: Azithromycin 500 MG in 0.9 % Sodium Chloride 250 ML 125 MG IV (14:40)
[2021-08-03] MEDS: methylPREDNISolone Sod Succ 40 MG/ML VIAL IVPUSH ×2 (14:40→21:48)
[2021-08-03] MEDS: Furosemide 20 MG/2 ML VIAL IVPUSH (17:27)
[2021-08-03] MEDS: Aspirin Enteric Coated 81 MG TABLET.DR PO (20:04)
[2021-08-03] MEDS: Latanoprost 0.005 % Ophth Sol 2.5 ML DROPS 1 DROP EYE-BOTH (20:06)
[2021-08-04] VITALS (10 sets, daily range): BP systolic 112–200; BP diastolic 60–77; PULSE 75–93; RESP 17–24; TEMP 36.4–37.1; O2SAT 89–96
[2021-08-04] MEDS: methylPREDNISolone Sod Succ 40 MG/ML VIAL IVPUSH ×3 (05:35→21:13)
[2021-08-04] MEDS: Omeprazole 20 MG CAPSULE.DR PO (05:35)
[2021-08-04 05:45] LABS: INTERNATIONAL NORM RATIO 2.5 (0.9-1.1); Prothrombin Time 28.5 SEC (9.9-13.0)
[2021-08-04 06:04] LABS: Anion Gap 13 (12-20); Blood Urea Nitrogen 23 mg/dL (9-16); Carbon Dioxide 38 mmol/L (22-29); Chloride 94 mmol/L (96-108); Creatinine Clr Calc Pharmacy 73.5; Estimated Glomerular Filt Rate > 60; Glucose Random 135 mg/dL (60-115); Potassium 4.6 mmol/L (3.3-5.1); Sodium 140 mmol/L (135-145)
[2021-08-04] MEDS: Albuterol/Iprat 2.5/0.5MG 3 ML AMPUL.NEB INHALE ×4 (07:40→19:58)
[2021-08-04] MEDS: Fluticasone/Vilanterol 200/25 BLST.W.DEV 1 PUFF INHALE (07:40)
[2021-08-04] MEDS: guaiFENesin LA 600 MG TAB.ER.12H PO (09:10)
[2021-08-04] MEDS: carvediloL 12.5 MG TABLET PO ×2 (09:10→21:12)
[2021-08-04] MEDS: Atorvastatin Calcium 20 MG TABLET PO (09:10)
[2021-08-04] MEDS: 0.9 % Sodium Chloride Flush 3 ML SYRINGE IVFLUSH ×3 (09:10→21:13)
[2021-08-04] MEDS: Nystatin Cream 15 GM TUBE 1 APPL TOPICAL ×2 (09:11→21:14)
[2021-08-04 09:38] LABS: VBG Base Excess 13.7 mmol/L; VBG HCO3 41 mmol/L (22-26); VBG pCO2 70 mmHg; VBG pH 7.38 (7.32-7.43); VBG pO2 44 mmHg
[2021-08-04 09:47] LABS: Venous Blood Gas Refer to POC result
--- NOTE | 2021-08-04 10:32 | P.CONPL_ITS ---
History of Present Illness History of Present Illness Consult date: 08/04/21 Requesting physician: Pam Padilla Reason for consult: dyspnea, cough, COPD and other (HYPOXEMIA) Chief complaint: shortness of breath Narrative: THIS 71 YEARS OLD FEMALE, IS A KNOWN CASE OF ADVANCED CHRONIC OBSTRUCTIVE PULMONARY DISEASE, STATUS POST COVID PNEUMONIA IN APRIL 2021, AND HAS RESIDUAL FIBROTIC CHANGES IN THE LOWER LOBES. SHE CONTINUES TO HAVE GENERAL WEAKNESS AND MUSCLE ACHES A LONG-HAUL COMPLICATION FROM COVID. SHE IS AT HOME ON MAXIMUM MEDICAL REGIMEN AND ALSO OXYGEN 2.5 L/MINUTES. SHE DOES MINIMAL WALKING WITH WALKER BUT MOSTLY STAYS IN THE CHAIR AND BED. SHE IS CHECKED BY THE VISITING NURSE ON A WEEKLY BASIS. SHE WAS SEEN BY ME IN THE OFFICE ON 07/31, FOR A ROUTINE FOLLOW-UP, AND NO CHANGES IN HER MEDICAL REGIMEN WERE MADE. SHE HAD NO FEVER CHILLS OR EXPECTORATION. ON 08/01, AT HOME, WHEN THE VISITING NURSE CAME TO CHECK HER, FOUND THAT HER O2 SATS FOR RELATIVELY LOW, AND SENT HER TO THE EMERGENCY ROOM. SHE HAS BEEN ADMITTED WITH POSSIBLE ACUTE EXACERBATION OF COPD AND ALSO POSSIBLE INCREASED CONGESTIVE HEART FAILURE. FOR PAST MEDICAL HISTORY, SEE [facility] . [facility] Past Medical History Medical History (Updated 08/04/21 @ 10:45 by Abiodun Sykes MD) Afib CHF exacerbation COPD (chronic obstructive pulmonary disease) COPD (chronic obstructive pulmonary disease) COVID-19 High blood pressure High cholesterol Hypoxemia Pulmonary fibrosis Social History Social History Household Members: Children Household Members Other:: Son Housing: House Do you presently have visiting nurse or other home services: Yes Alcohol intake: never Patient Tobacco Use Status: Former Tobacco user Quit Date: 02/06 Tobacco use type: Cigarette Use of substances other than those prescribed or required for medical reasons: No Currently Displaying Signs/Symptoms of Drug Intoxication Withdrawal: No Have you been hit, kicked, punched, or otherwise hurt by someone within the past year? 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 Meds Allergies Allergy/AdvReac Type Severity Reaction Status Date / Time No Known Allergies Allergy Mild N/A Verified 07/31/21 16:42 Active Medications: Current Medications Acetaminophen (Acetaminophen 325 Mg Tablet) 650 mg PO Q6H PRN PRN Reason: Pain, Mild (Pain Scale 1-3) Albuterol Sulfate (Albuterol Sulfate (0.083%) 2.5 Mg/3 Ml Vial.Neb) 2.5 mg INHALE RQ6H PRN PRN Reason: Shortness Of Breath Albuterol/Ipratropium (Albuterol/Iprat 2.5/0.5mg 3 Ml Ampul.Neb) 3 ml INHALE RQ4H WHILE AWAKE [facility] Last Admin: 08/04/21 07:40 Dose: 3 ml Documented by: Aspirin (Aspirin Enteric Coated 81 Mg Tablet.) 81 mg PO BEDTIME [facility] Last Admin: 08/03/21 20:04 Dose: 81 mg Documented by: Atorvastatin Calcium (Atorvastatin Calcium 20 Mg Tablet) 20 mg PO DAILY [facility] Last Admin: 08/04/21 09:10 Dose: 20 mg Documented by: Carvedilol (Carvedilol 12.5 Mg Tablet) 12.5 mg PO BID [facility]; Protocol Last Admin: 08/04/21 09:10 Dose: 12.5 mg Documented by: Fluticasone/Vilanterol (Fluticasone/Vilanterol 200/25 Blst.W.Dev) 1 puff INHALE DAILY [facility] Last Admin: 08/04/21 07:40 Dose: 1 puff Documented by: Guaifenesin (Guaifenesin La 600 Mg Tab.Er.12h) 1,200 mg PO BID [facility] Azithromycin 500 mg/ Sodium (Chloride) 250 mls @ 125 mls/hr IV Q24H [facility] Last Infusion: 08/03/21 16:54 Dose: Infused Documented by: Latanoprost (Latanoprost 0.005 % Ophth Sally 2.5 Ml Drops) 1 drop EYE-BOTH BEDTIME [facility] Last Admin: 08/03/21 20:06 Dose: 1 drop Documented by: Methylprednisolone Sodium Succinate (Methylprednisolone Sod Succ 40 Mg/Ml Vial) 40 mg IVPUSH Q8H [facility] Last Admin: 08/04/21 05:35 Dose: 40 mg Documented by: Nystatin (Nystatin Cream 15 Gm Tube) 1 appl TOPICAL BID [facility]; Protocol Last Admin: 08/04/21 09:11 Dose: 1 appl Documented by: Omeprazole (Omeprazole 20 Mg Capsule.Dr) 20 mg PO DAILY@0630 [facility] Last Admin: 08/04/21 05:35 Dose: 20 mg Documented by: Ondansetron HCl (Ondansetron Hcl 4 Mg/2 Ml Vial) 4 mg IVPUSH Q8H PRN PRN Reason: Nausea and Vomiting Pharmacy Consult (Consult Rx Perform Med Rec) 1 each MISCELLANE ONCE PRN PRN Reason: Consult order Pharmacy Consult (Consult Rx Vancomycin Dosing) 1 each MISCELLANE DAILY PRN PRN Reason: Consult order Sodium Chloride (0.9 % Sodium Chloride Flush 3 Ml Syringe) 3 ml IVFLUSH QSHIFT [facility] Last Admin: 08/04/21 09:10 Dose: 3 ml Documented by: Sodium Chloride (Sodium Chloride 0.65 % Nasal 44 Ml Sprbtl) 1 spray NOSTRIL-B Q1H PRN PRN Reason: Dryness Home Medications Medication Instructions Recorded Confirmed Last Taken Type acetaminophen 325 mg tablet 650 mg PO Q6H PRN 02/01/21 08/01/21 Unknown History carvedilol 12.5 mg tablet 12.5 mg PO BID 02/01/21 08/01/21 08/01/21 History fluticasone 500 mcg-salmeterol 50 1 inh INHALATION BID 02/01/21 08/01/21 08/01/21 History mcg/dose blistr powdr for inhalation (Advair Diskus) latanoprost 0.005 % eye drops 1 drp OPHTHALMIC (EYE) BEDTIME 02/01/21 08/01/21 07/31/21 History omeprazole 20 mg capsule,delayed 20 mg PO DAILY 02/01/21 08/01/21 08/01/21 History release simvastatin 40 mg tablet 40 mg PO BEDTIME 02/01/21 08/01/21 08/01/21 History tiotropium bromide 18 mcg capsule 1 cap INHALATION DAILY 02/01/21 08/01/21 08/01/21 History with inhalation device (Spiriva with HandiHaler) ipratropium 20 mcg-albuterol 100 1 puff INHALATION QID 02/13/21 08/01/21 08/01/21 History mcg/actuation mist for inhalation (Combivent Respimat) nystatin 100,000 unit/gram topical 1 appl TOPICAL BID 02/13/21 08/01/21 Unknown History cream albuterol sulfate 2.5 mg INHALATION Q6H PRN ml 05/07/21 08/01/21 Unknown History furosemide 20 mg tablet 20 mg PO DAILY 05/07/21 08/01/21 08/01/21 History aspirin 81 mg tablet,delayed 81 mg PO BEDTIME 08/01/21 08/01/21 07/31/21 History release warfarin 2.5 mg tablet 2.5 mg PO DAILY 08/01/21 08/01/21 07/31/21 History Physical Exam Vital Signs: Vital Signs: Last Vital Signs Temp 98 F 08/04/21 08:00 Pulse 85 08/04/21 08:00 Resp 20 08/04/21 08:00 BP 137/63 08/04/21 08:00 Pulse Ox 94 08/04/21 08:00 Oxygen Flow Rate 4 08/01/21 11:36 BMI result Body Mass Index 34.2 Const: General: comfortable (but weak ), no acute distress, alert and awake Orientation/consciousness: patient oriented x3 HEENT: Head: Yes normal to inspection General nose exam: No nasal polyps present and No nasal discharge present Face and sinus: Yes sinuses nontender Mouth: oropharynx normal Throat: Yes posterior oropharynx normal Eyes: General: appearance normal, both eyes and all related structures Neck: Neck: Yes normal visual inspection, Yes no lymphadenopathy, Yes trachea midline and Yes no JVD Thyroid: Thyroid normal Chest: Chest palpation & inspection: normal inspection of the chest (Midline scar from previous cardiac surgery, for valve replacement.) and normal palpation of entire chest wall Resp: Other: Percussion note resonant, no chest wall tenderness,, Breath sounds are distant, no wheezes are heard, She has coarse crepitations over both lower lobes especially on the left side. Cardio: Palpation: normal PMI Rate: regular rate Rhythm: abnormal rhythm (Atrial fibrillation) Heart sounds: no gallops and no murmurs GI: Palpation (GI): Soft to palpation, nontender, No hepatosplenomegaly present and no masses Auscultation: normal bowel sounds Back/Spine/Pelvis: Thoracic/Lumbar Spine: thoracic and lumbar spine normal to inspection Skin: General skin exam: no rashes or lesions noted Neuro: General: patient oriented x3, no focal motor deficits and Unable to assess gait Cranial nerves: Yes CN's II-XII intact bilaterally Cognition (Neuro): normal cognition Gait exam (Neuro): Unable to assess gait Motor exam (neuro): Other motor observations present (General muscular weakness) Extrem: General: Yes normal to inspection, Yes no clubbing, cyanosis or edema and Yes no calf tenderness Psych: Appearance: grossly normal and well kempt Speech and movement: Normal speech and movement present Results Laboratory Findings CBC and BMP: 08/01/21 12:37 08/04/21 05:16 ABG, PT/INR, D-dimer: PT/INR, D-dimer PT 28.5 SEC (9.9-13.0) H 08/04/21 05:16 INR 2.5 (0.9-1.1) H 08/04/21 05:16 Abnormal lab findings: Abnormal Labs 08/01/21 08/01/21 08/01/21 12:37 12:37 12:37 Hgb 11.0 L Hct 36.5 L MCH 25.1 L MCHC 30.1 L PT 30.3 H INR 2.6 H VBG HCO3 Chloride 95 L Carbon Dioxide 36 H Anion Gap BUN Random Glucose Magnesium 2.7 H B-Natriuretic Peptide Total Protein 6.2 L 08/01/21 08/02/21 08/03/21 12:37 08:02 04:34 Hgb Hct MCH MCHC PT 41.4 H 39.1 H INR 3.5 H 3.4 H VBG HCO3 Chloride Carbon Dioxide Anion Gap BUN Random Glucose Magnesium B-Natriuretic Peptide 208 H Total Protein 08/03/21 08/04/21 08/04/21 04:34 05:16 05:16 Hgb Hct MCH MCHC PT 28.5 H INR 2.5 H VBG HCO3 Chloride 94 L Carbon Dioxide 36 H 38 H Anion Gap 11 L BUN 17 H 23 H Random Glucose 143 H 135 H Magnesium B-Natriuretic Peptide Total Protein 08/04/21 09:30 Hgb Hct MCH MCHC PT INR VBG HCO3 41 H Chloride Carbon Dioxide Anion Gap BUN Random Glucose Magnesium B-Natriuretic Peptide Total Protein Microbiology: Microbiology 08/01/21 13:43 Blood - Venous Blood Culture - Preliminary No growth after 48 hours. 08/01/21 12:37 Blood - Venous Blood Culture - Final Coag negative Staphylococcus Diagnostic Findings Chest x-ray: report reviewed and image reviewed CT scan - chest: report reviewed and image reviewed Assessment and Plan (1) COPD exacerbation: Status: Acute (2) Acute and chronic respiratory failure with hypoxia: Status: Acute (3) Pulmonary fibrosis: Status: Acute (4) CHF exacerbation: Status: Acute Plan This 71 years old very pleasant female seems to have combination of an acute exa cerbation of COPD, and mild congestive heart failure. She has, prominent findings of bronchial thickening and fibrotic changes in the lower lobes, most likely residual from her COVID pneumonia in April 2021. Even at baseline, she is quite disabled, due to advanced pulmonary disease , and is O2 dependent. Recc . At this point she should be treated with IV Solu-Medrol for a few days then should be on prednisone taper. Gentle diuresis. Course of azithromycin, as has been started already. Continue her usual pulmonary regimen, including [id number] once a day , Spiriva HandiHaler 1 inhalation daily, DuoNeb updrafts ( to replace Combivent inhalations ) q. 6 hours while awake. Patient may need short-term placement in a rehab facility, if she does not recover well. Because of fibrotic changes in the lower lobes she may need to stay on a small dose prednisone( 10 mg ) for several weeks. Procedures Date of Service Date of Service: 08/04/21
--- NOTE | 2021-08-04 12:44 | HO.PM.IMPN ---
Subjective Subjective Date of Service: 08/04/21 Interval History: Noted to be short of breath this a.m. oxygenation dropped to 80s with ambulation, complaining of shortness of breath, no overnight episodes of fever chills, denies headache lightheadedness or dizziness, no chest pain, no palpitations. 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 supple no JVD. CVS? regular rate rhythm, good peripheral Respiratory lungs diminished breath sound, bilateral expiratory wheeze , no use of accessory muscles Gastrointestinal abdomen soft, nontender, bowel sounds audible,no guarding , no rigidity. Extremities no edema. Neuro nonfocal , speech clear. Skin no rash Psych appropriate affect Objective Data Active Medications Acetaminophen (Acetaminophen 325 Mg Tablet) 650 mg PO Q6H PRN PRN Reason: Pain, Mild (Pain Scale 1-3) Albuterol Sulfate (Albuterol Sulfate (0.083%) 2.5 Mg/3 Ml Vial.Neb) 2.5 mg INHALE RQ6H PRN PRN Reason: Shortness Of Breath Albuterol/Ipratropium (Albuterol/Iprat 2.5/0.5mg 3 Ml Ampul.Neb) 3 ml INHALE RQ4H WHILE AWAKE [facility] Last Admin: 08/04/21 11:14 Dose: 3 ml Documented by: PETEY Aspirin (Aspirin Enteric Coated 81 Mg Tablet.) 81 mg PO BEDTIME [facility] Last Admin: 08/03/21 20:04 Dose: 81 mg Documented by: SUGARILGogo Atorvastatin Calcium (Atorvastatin Calcium 20 Mg Tablet) 20 mg PO DAILY [facility] Last Admin: 08/04/21 09:10 Dose: 20 mg Documented by: GINA Carvedilol (Carvedilol 12.5 Mg Tablet) 12.5 mg PO BID [facility]; Protocol Last Admin: 08/04/21 09:10 Dose: 12.5 mg Documented by: GINA Fluticasone/Vilanterol (Fluticasone/Vilanterol 200/25 Blst.W.Dev) 1 puff INHALE DAILY [facility] Last Admin: 08/04/21 07:40 Dose: 1 puff Documented by: PETEY Guaifenesin (Guaifenesin La 600 Mg Tab.Er.12h) 1,200 mg PO BID [facility] Azithromycin 500 mg/ Sodium (Chloride) 250 mls @ 125 mls/hr IV Q24H [facility] Last Infusion: 08/03/21 16:54 Dose: 0 mls/hr Documented by: GINA Latanoprost (Latanoprost 0.005 % Ophth Sally 2.5 Ml Drops) 1 drop EYE-BOTH BEDTIME [facility] Last Admin: 08/03/21 20:06 Dose: 1 drop Documented by: REBECCA Methylprednisolone Sodium Succinate (Methylprednisolone Sod Succ 40 Mg/Ml Vial) 40 mg IVPUSH Q8H [facility] Last Admin: 08/04/21 05:35 Dose: 40 mg Documented by: REBECCA Nystatin (Nystatin Cream 15 Gm Tube) 1 appl TOPICAL BID [facility]; Protocol Last Admin: 08/04/21 09:11 Dose: 1 appl Documented by: GINA Omeprazole (Omeprazole 20 Mg Capsule.Dr) 20 mg PO DAILY@0630 [facility] Last Admin: 08/04/21 05:35 Dose: 20 mg Documented by: REBECCA Ondansetron HCl (Ondansetron Hcl 4 Mg/2 Ml Vial) 4 mg IVPUSH Q8H PRN PRN Reason: Nausea and Vomiting Pharmacy Consult (Consult Rx Perform Med Rec) 1 each MISCELLANE ONCE PRN PRN Reason: Consult order Pharmacy Consult (Consult Rx Vancomycin Dosing) 1 each MISCELLANE DAILY PRN PRN Reason: Consult order Sodium Chloride (0.9 % Sodium Chloride Flush 3 Ml Syringe) 3 ml IVFLUSH QSHIFT [facility] Last Admin: 08/04/21 09:10 Dose: 3 ml Documented by: GINA Sodium Chloride (Sodium Chloride 0.65 % Nasal 44 Ml Sprbtl) 1 spray NOSTRIL-B Q1H PRN PRN Reason: Dryness Labs CBC & Chem 7: 08/01/21 12:37 08/04/21 05:16 Labs: Laboratory Results - last 24 hr 08/04/21 08/04/21 08/04/21 05:16 05:16 09:30 PT 28.5 H INR 2.5 H VBG pH 7.38 VBG pCO2 70 VBG pO2 44 VBG HCO3 41 H VBG O2 Saturation 66.0 VBG Base Excess 13.7 Anion Gap 13 Estim Creat Clear Calc 73.5 Estimated GFR > 60 Random Glucose 135 H Calcium 9.0 Microbiology Microbiology Results: Microbiology 08/01/21 13:43 Blood Culture - Preliminary Blood - Venous No growth after 48 hours. Assessment and Plan (1) Acute and chronic respiratory failure with hypoxia: Status: Acute (2) COPD exacerbation: Status: Acute (3) Interstitial edema: Status: Acute (4) Supratherapeutic INR: Status: Acute Plan 71-year-old female with past medical history of mechanical aortic valve, coronary artery disease, CHF, COPD on home O2, history of recent COVID infection with post COVID syndrome, muscle weakness ambulates short distances otherwise requiring wheelchair evaluated recently by her religion teacher and was doing fine up until this morning when developed lightheadedness dizziness and hypoxia will be admitted for continued treatment and evaluation for COPD exacerbation. Acute COPD exacerbation Persistent shortness of breath,on scheduled and as needed DuoNeb, IV Solu-Medrol, IV azithromycin day [address] chest showed mild pulmonary edema, severe emphysema, diffuse thickening of bronchial fung and scattered endobronchial secretion History of COVID infection April [address] Sykes, has been weak since infection with walking short distances only otherwise uses wheelchair for long distances, on Advair b.i.d. Combivent Respimat q.i.d. and Spiriva at home with DuoNeb updraft q.6 hours as needed Will continue guafenesin, DC IV Lasix and transitioned to by mouth, encourage incentive spirometer Patient evaluated by Dr. Sykes he recommend to continue IV steroids times few days and then transition to by mouth prednisone taper small dose 10 mg for several weeks He recommend to resume Spiriva 1 inhalation daily and possible short-term placement in rehab if she does not recover well. Patient has VNA services at home. Acute on chronic hypoxic respiratory failure. Likely due to COPD exacerbation/mild acute CHF exacerbation,continue O2 support and gradually wean to home dose 2-2.5 L ABGs showed pH 7.38/pCO2 70/PO2 44/respiratory acidosis with compensation. At present patient is not in respiratory distress, finger oximetry 94%, case discussed with Dr. Sykes he recommend to use Diamox and follow clinical course Mild acute systolic CHF exacerbation CT chest suggestive of mild emphysema, on IV Lasix will transition to po lasix 20mg home dose Output -1.5L Gram-positive bacteremia Final culture grew coagulase-negative Staph unlikely pathogen. Mechanical aortic valve replacement Resume Coumadin INR improved to 2.5, INR goal 2-3 Coronary artery disease No chest pain, continue home medication aspirin, Coreg and statin, outpatient follow-up with primary outside machinist apprentice at [facility], EKG showed no ischemia Obesity recommended weight reduction and low-calorie diet Code status full DVT prophylaxis on Coumadin Quality Stroke Does the patient have a stroke diagnosis?: No VTE Prior VTE?: No VTE Risk Level:: Medical - moderate - high VTE Device Contraindication: Treatment Not Indicated VTE Drug Contraindication: N/A - Med Ordered
[2021-08-04] MEDS: Furosemide 20 MG TABLET PO (14:18)
[2021-08-04] MEDS: Sodium Chloride 0.65 % Nasal 44 ML SPRBTL 1 SPRAY NOSTRIL-B (14:18)
[2021-08-04] MEDS: acetaZOLAMIDE 250 MG TABLET 500 MG PO ×2 (14:18→21:12)
[2021-08-04] MEDS: Azithromycin 500 MG in 0.9 % Sodium Chloride 250 ML 125 MG IV (16:08)
[2021-08-04] MEDS: Warfarin Sodium 2.5 MG TABLET PO (18:19)
[2021-08-04] MEDS: guaiFENesin LA 600 MG TAB.ER.12H 1200 MG PO (21:12)
[2021-08-04] MEDS: Aspirin Enteric Coated 81 MG TABLET.DR PO (21:12)
[2021-08-04] MEDS: Latanoprost 0.005 % Ophth Sol 2.5 ML DROPS 1 DROP EYE-BOTH (21:14)
[2021-08-05] VITALS (11 sets, daily range): BP systolic 108–157; BP diastolic 60–74; PULSE 62–96; RESP 17–20; TEMP 36.1–36.6; O2SAT 90–99
[2021-08-05] MEDS: Omeprazole 20 MG CAPSULE.DR PO (05:43)
[2021-08-05] MEDS: methylPREDNISolone Sod Succ 40 MG/ML VIAL IVPUSH ×3 (05:43→20:58)
[2021-08-05 06:11] LABS: INTERNATIONAL NORM RATIO 1.9 (0.9-1.1); Prothrombin Time 21.8 SEC (9.9-13.0)
[2021-08-05 06:33] LABS: Anion Gap 10 (12-20); Blood Urea Nitrogen 22 mg/dL (9-16); Calcium 8.8 mg/dL (8.4-10.2); Carbon Dioxide 34 mmol/L (22-29); Chloride 102 mmol/L (96-108); Creatinine Clr Calc Pharmacy 73.5; Estimated Glomerular Filt Rate > 60; Glucose Random 128 mg/dL (60-115); Potassium 4.3 mmol/L (3.3-5.1); Sodium 142 mmol/L (135-145)
[2021-08-05] MEDS: Albuterol/Iprat 2.5/0.5MG 3 ML AMPUL.NEB INHALE ×4 (08:11→19:20)
[2021-08-05] MEDS: Fluticasone/Vilanterol 200/25 BLST.W.DEV 1 PUFF INHALE (08:12)
--- NOTE | 2021-08-05 08:12 | HO.PM.IMPN ---
Subjective Subjective Date of Service: 08/05/21 Interval History: copd execerbation Review of Systems Patient still shortness of breath with minimal exertion, talking in short sentences. Denies any chest pain or abdominal pain or nausea vomiting or fever or chills. Physical Exam Vital Signs: Vital Signs: Last Vital Signs Temp 97.8 F 08/05/21 08:00 Pulse 75 08/05/21 08:00 Resp 18 08/05/21 08:00 BP 132/74 08/05/21 08:00 Pulse Ox 92 08/05/21 08:00 Oxygen Flow Rate 4 08/01/21 11:36 BMI result Body Mass Index 34.2 Appearance: Alert.? Oriented X3.? still sob Eyes: Pupils equal, round and reactive to light.? Sclera nonicteric.? ENT: Pharynx normal.? Moist mucous membranes. cvs: rrr, [id number]. res: air entry diminshed , b/l wheezing abd: no rebound or guarding ,nt, bs present. ext pulses present , no cyanosis ,Gait well balanced well coordinated. neuro: axo3 , nonfocal. Objective Data Active Medications Acetaminophen (Acetaminophen 325 Mg Tablet) 650 mg PO Q6H PRN PRN Reason: Pain, Mild (Pain Scale 1-3) Acetazolamide (Acetazolamide 250 Mg Tablet) 500 mg PO BID [facility] Stop: 08/05/21 21:01 Last Admin: 08/04/21 21:12 Dose: 500 mg Documented by: REBECCA Albuterol Sulfate (Albuterol Sulfate (0.083%) 2.5 Mg/3 Ml Vial.Neb) 2.5 mg INHALE RQ6H PRN PRN Reason: Shortness Of Breath Albuterol/Ipratropium (Albuterol/Iprat 2.5/0.5mg 3 Ml Ampul.Neb) 3 ml INHALE RQ4H WHILE AWAKE [facility] Last Admin: 08/04/21 19:58 Dose: 3 ml Documented by: SUYAPA Aspirin (Aspirin Enteric Coated 81 Mg Tablet.) 81 mg PO BEDTIME [facility] Last Admin: 08/04/21 21:12 Dose: 81 mg Documented by: REBECCA Atorvastatin Calcium (Atorvastatin Calcium 20 Mg Tablet) 20 mg PO DAILY [facility] Last Admin: 08/04/21 09:10 Dose: 20 mg Documented by: HO.LYSZ Carvedilol (Carvedilol 12.5 Mg Tablet) 12.5 mg PO BID [facility]; Protocol Last Admin: 08/04/21 21:12 Dose: 12.5 mg Documented by: REBECCA Comments: MP=[id number] H=80 Fluticasone/Vilanterol (Fluticasone/Vilanterol 200/25 Blst.W.Dev) 1 puff INHALE DAILY [facility] Last Admin: 08/04/21 07:40 Dose: 1 puff Documented by: PETEY Furosemide (Furosemide 20 Mg Tablet) 20 mg PO DAILY [facility]; Protocol Last Admin: 08/04/21 14:18 Dose: 20 mg Documented by: GINA Guaifenesin (Guaifenesin La 600 Mg Tab.Er.12h) 1,200 mg PO BID [facility] Last Admin: 08/04/21 21:12 Dose: 1,200 mg Documented by: REBECCA Azithromycin 500 mg/ Sodium (Chloride) 250 mls @ 125 mls/hr IV Q24H [facility] Last Infusion: 08/04/21 18:13 Dose: 0 mls/hr Documented by: GINA Latanoprost (Latanoprost 0.005 % Ophth Sally 2.5 Ml Drops) 1 drop EYE-BOTH BEDTIME [facility] Last Admin: 08/04/21 21:14 Dose: 1 drop Documented by: REBECCA Methylprednisolone Sodium Succinate (Methylprednisolone Sod Succ 40 Mg/Ml Vial) 40 mg IVPUSH Q8H [facility] Last Admin: 08/05/21 05:43 Dose: 40 mg Documented by: REBECCA Nystatin (Nystatin Cream 15 Gm Tube) 1 appl TOPICAL BID [facility]; Protocol Last Admin: 08/04/21 21:14 Dose: 1 appl Documented by: REBECCA Omeprazole (Omeprazole 20 Mg Capsule.) 20 mg PO DAILY@0630 [facility] Last Admin: 08/05/21 05:43 Dose: 20 mg Documented by: REBECCA Ondansetron HCl (Ondansetron Hcl 4 Mg/2 Ml Vial) 4 mg IVPUSH Q8H PRN PRN Reason: Nausea and Vomiting Pharmacy Consult (Consult Rx Perform Med Rec) 1 each MISCELLANE ONCE PRN PRN Reason: Consult order Pharmacy Consult (Consult Rx Vancomycin Dosing) 1 each MISCELLANE DAILY PRN PRN Reason: Consult order Sodium Chloride (0.9 % Sodium Chloride Flush 3 Ml Syringe) 3 ml IVFLUSH QSHIFT [facility] Last Admin: 08/04/21 21:13 Dose: 3 ml Documented by: REBECCA Sodium Chloride (Sodium Chloride 0.65 % Nasal 44 Ml Sprbtl) 1 spray NOSTRIL-B Q1H PRN PRN Reason: Dryness Last Admin: 08/04/21 14:18 Dose: 1 spray Documented by: GINA Tiotropium [place] (Tiotropium [place] 18 Mcg Cap.W.Dev) 1 puff INHALE RDAILY [facility] Warfarin Sodium (Warfarin Sodium 3 Mg Tablet) 3 mg PO DAILY@1800 [facility] Labs CBC & Chem 7: 08/01/21 12:37 08/05/21 05:32 Labs: Laboratory Results - last 24 hr 08/04/21 08/05/21 08/05/21 09:30 05:32 05:32 PT 21.8 H INR 1.9 H VBG pH 7.38 VBG pCO2 70 VBG pO2 44 VBG HCO3 41 H VBG O2 Saturation 66.0 VBG Base Excess 13.7 Anion Gap 10 L Estim Creat Clear Calc 73.5 Estimated GFR > 60 Random Glucose 128 H Calcium 8.8 Assessment and Plan (1) Respiratory failure with hypoxia and hypercapnia: Status: Acute (2) CHF exacerbation: Status: Acute (3) COPD exacerbation: Status: Acute Plan 71-year-old female with past medical history of mechanical aortic valve, coronary artery disease, CHF, COPD on home O2, history of recent COVID infection with post COVID syndrome, muscle weakness ambulates short distances otherwise requiring wheelchair evaluated recently by her sandwich machine operator and was doing fine up until this morning when developed lightheadedness dizziness and hypoxia will be admitted for continued treatment and evaluation for COPD exacerbation. 1.Acute COPD exacerbation: Persistent shortness of breath with mimimal excersion , talking in short sentences. CT chest (on 08/03 )showed mild pulmonary edema, severe emphysema, diffuse thickening of bronchial fung and scattered endobronchial secretion History of COVID infection April [address] Sykes, has been weak since infection with walking short distances only otherwise uses wheelchair for long distances, on Advair b.i.d. Combivent Respimat q.i.d. and Spiriva at home with DuoNeb updraft q.6 hour, CARLOS frank IV Lasix and transitioned to by mouth, encourage incentive spirometer Pulm recomended -continue IV steroids ,on scheduled and as needed DuoNeb, IV Solu-Medrol, IV azithromycin day 5 for bronchitis possible short-term placement in rehab if she does not recover well. Patient has VNA services at home. 2.Acute on chronic hypoxic respiratory failure. Likely due to COPD exacerbation/mild acute CHF exacerbation,continue O2 support and gradually wean to home dose 2-2.5 L ABGs showed pH 7.38/pCO2 70/PO2 44/respiratory acidosis with compensation. At present patient is not in respiratory distress, finger oximetry 94%, case discussed with Dr. Sykes he recommend to use Diamox and follow clinical course 3.Mild acute systolic CHF exacerbation CT chest suggestive of mild emphysema, on IV Lasix will transition to po lasix 20mg home dose diursed well 4.Mechanical aortic valve replacement: INR goal 2-3, today inr is 1.9 adjusted warfrain to 3 mg daily. 5.Coronary artery disease:No chest pain, continue home medication aspirin, Coreg and statin, outpatient follow-up with primary internal audit consultant at [facility], EKG showed no ischemia Obesity recommended weight reduction and low-calorie diet need for inpatient: copd excerebation Quality Stroke Does the patient have a stroke diagnosis?: No VTE Prior VTE?: No VTE Risk Level:: Medical - moderate - high VTE Device Contraindication: Treatment Not Indicated VTE Drug Contraindication: N/A - Med Ordered
--- NOTE | 2021-08-05 09:26 | PM.PNPUL ---
Subjective Subjective Date of Service: 08/05/21 Principal diagnosis: copd/respiratory failure Interval history: This 71 years old female with advanced chronic obstructive pulmonary disease and post COVID pulmonary fibrosis, Admitted with acute on chronic respiratory failure, feels a little better today, but still short of breath, and weak. She has no fever or chills. Objective Data Labs CBC & Chem 7: 08/01/21 12:37 08/05/21 05:32 Labs: Laboratory Results - last 24 hr 08/04/21 08/05/21 08/05/21 09:30 05:32 05:32 PT 21.8 H INR 1.9 H VBG pH 7.38 VBG pCO2 70 VBG pO2 44 VBG HCO3 41 H VBG O2 Saturation 66.0 VBG Base Excess 13.7 Sodium 142 Potassium 4.3 Chloride 102 Carbon Dioxide 34 H Anion Gap 10 L BUN 22 H Creatinine 0.72 Estim Creat Clear Calc 73.5 Estimated GFR > 60 Random Glucose 128 H Calcium 8.8 ABG Attestation: I personally reviewed and interpreted this ABG as follows: Interpretation: Venous BGs PH 7.38, Pco2 70 Po2 40 Base Excess 13.7 Microbiology Microbiology Results: Microbiology 08/01/21 13:43 Blood - Venous Blood Culture - Preliminary No growth after 48 hours. 08/01/21 12:37 Blood - Venous Blood Culture - Final Coag negative Staphylococcus Review of Systems Constitutional: Reports fatigue and Reports weakness Eyes: Reports no additional eye complaints Reports system reviewed and no additional complaints, except as documented Cardiovascular: Denies chest pain, Denies irregular heart rhythm and Denies leg edema Respiratory: Reports as per HPI Gastrointestinal: Reports no additional gastrointestinal complaints Genitourinary: Reports no additional female genitourinary complaints Musculoskeletal: Reports muscle weakness Skin/Breast: Reports system reviewed and no additional complaints, except as docu Reports weakness Endocrine: Reports fatigue Physical Exam Vital Signs: Vital Signs: Last Vital Signs Temp 97.8 F 08/05/21 08:00 Pulse 92 08/05/21 08:12 Resp 20 08/05/21 08:12 BP 132/74 08/05/21 08:00 Pulse Ox 92 08/05/21 08:00 Oxygen Flow Rate 4 08/01/21 11:36 BMI result Body Mass Index 34.2 Const: General: comfortable, alert and awake; No no acute distress (mild) Orientation/consciousness: patient oriented x3 HEENT: Head: Yes normal to inspection General nose exam: No nasal polyps present and No nasal discharge present Face and sinus: Yes sinuses nontender Mouth: oropharynx normal Throat: Yes posterior oropharynx normal Eyes: General: appearance normal, both eyes and all related structures Neck: Neck: Yes normal visual inspection, Yes no lymphadenopathy, Yes trachea midline and Yes no JVD Thyroid: Thyroid normal Chest: Chest palpation & inspection: abnormal inspection of the chest (Has midline scar from previous surgery), normal palpation of entire chest wall and no tenderness Resp: Other: Percussion note resonant, breath sounds are distant, somewhat harsh over the lower lobes. Inspiratory crackles are heard over both lower lobes, no wheezes. Cardio: Palpation: normal PMI Rate: regular rate Rhythm: regular rhythm Heart sounds: no gallops and no murmurs GI: Palpation (GI): Soft to palpation, nontender, No hepatosplenomegaly present and no masses Auscultation: normal bowel sounds Back/Spine/Pelvis: Thoracic/Lumbar Spine: thoracic and lumbar spine normal to inspection and thoraco-lumbar ROM limited Skin: General skin exam: no rashes or lesions noted Neuro: General: patient oriented x3, No gait normal (Non ambulatory at this time due to general weakness) and no focal motor deficits Cranial nerves: Yes CN's II-XII intact bilaterally Extrem: General: Yes normal to inspection, Yes no clubbing, cyanosis or edema and Yes no calf tenderness Psych: Appearance: grossly normal and well kempt Speech and movement: Normal speech and movement present Procedures Date of Service Date of Service: 08/05/21 Assessment and Plan Assessment and plan (1) COPD exacerbation: Status: Acute (2) Respiratory failure with hypoxia and hypercapnia: Status: Acute (3) Pulmonary fibrosis: Problem details: Patient has dense interstitial markings throughout the both lungs with increased fibrotic changes over both bases. This represents post COVID fibrosis. Status: Acute (4) COVID-19: Problem details: Recent COVID-19 infection, treated at [facility] and recovered quickly. But she has been left with significant interstitial lung disease. Recent chest x-ray at [facility], showed patchy densities in the right lower lobe and lingula, most likely residual pneumonitis from COVID-19 infection. Status: Acute Plan For acute on chronic respiratory failure with significant CO2 retention, patient is started on Diamox. Today I instructed her to do deep breathing exercises with pursed lip technique. Use of BiPAP is considered but patient has history of non tolerance of BiPAP in the past. Will try to treated with conservative measures, pCO2 is 70 but it seems to be well compensated. Continue IV Solu-Medrol, IV Zithromax, and her other pulmonary regimen. Will monitor her blood gases closely. Time Spent With Patient Time: Total time spent is greater than 50% in coordination of care (as documented) at patient's floor/unit and/or counseling patient: Progress Note: Quality Stroke Does the patient have a stroke diagnosis?: No
[2021-08-05] MEDS: acetaZOLAMIDE 250 MG TABLET 500 MG PO ×2 (09:39→20:59)
[2021-08-05] MEDS: Atorvastatin Calcium 20 MG TABLET PO (09:40)
[2021-08-05] MEDS: guaiFENesin LA 600 MG TAB.ER.12H 1200 MG PO ×2 (09:40→20:59)
[2021-08-05] MEDS: Furosemide 20 MG TABLET PO (09:41)
[2021-08-05] MEDS: 0.9 % Sodium Chloride Flush 3 ML SYRINGE IVFLUSH ×3 (09:41→23:47)
[2021-08-05] MEDS: carvediloL 12.5 MG TABLET PO ×2 (09:41→20:59)
[2021-08-05] MEDS: Nystatin Cream 15 GM TUBE 1 APPL TOPICAL ×2 (09:42→21:00)
[2021-08-05] MEDS: Azithromycin 500 MG in 0.9 % Sodium Chloride 250 ML 125 MG IV (15:07)
[2021-08-05] MEDS: Warfarin Sodium 3 MG TABLET PO (17:57)
[2021-08-05] MEDS: Aspirin Enteric Coated 81 MG TABLET.DR PO (20:58)
[2021-08-05] MEDS: Latanoprost 0.005 % Ophth Sol 2.5 ML DROPS 1 DROP EYE-BOTH (21:00)
[2021-08-06] VITALS (10 sets, daily range): BP systolic 106–147; BP diastolic 61–80; PULSE 72–83; RESP 17–24; TEMP 36–36.4; O2SAT 92–96
[2021-08-06] MEDS: methylPREDNISolone Sod Succ 40 MG/ML VIAL IVPUSH ×2 (05:36→20:09)
[2021-08-06] MEDS: Omeprazole 20 MG CAPSULE.DR PO (05:36)
[2021-08-06 05:40] LABS: VBG Base Excess 6.3 mmol/L; VBG HCO3 32 mmol/L (22-26); VBG pCO2 56 mmHg; VBG pH 7.37 (7.32-7.43); VBG pO2 151 mmHg
[2021-08-06 05:45] LABS: Venous Blood Gas Refer to POC result
[2021-08-06 05:49] LABS: INTERNATIONAL NORM RATIO 2.7 (0.9-1.1); Prothrombin Time 31.7 SEC (9.9-13.0)
[2021-08-06] MEDS: Albuterol/Iprat 2.5/0.5MG 3 ML AMPUL.NEB INHALE ×4 (07:42→18:57)
[2021-08-06] MEDS: Fluticasone/Vilanterol 200/25 BLST.W.DEV 1 PUFF INHALE (07:43)
[2021-08-06] MEDS: carvediloL 12.5 MG TABLET PO ×2 (10:44→20:10)
[2021-08-06] MEDS: guaiFENesin LA 600 MG TAB.ER.12H 1200 MG PO ×2 (10:44→20:10)
[2021-08-06] MEDS: Atorvastatin Calcium 20 MG TABLET PO (10:46)
[2021-08-06] MEDS: 0.9 % Sodium Chloride Flush 3 ML SYRINGE IVFLUSH ×3 (10:46→23:43)
[2021-08-06] MEDS: Furosemide 20 MG TABLET PO (10:52)
[2021-08-06] MEDS: Nystatin Cream 15 GM TUBE 1 APPL TOPICAL ×2 (10:57→20:12)
--- NOTE | 2021-08-06 11:14 | P.PNIM_ITS ---
Subjective Subjective Date of Service: 08/06/21 Interval History: copd execerbation Review of Systems Patient still shortness of breath with minimal exertion, still talkin short sentences. Denies fever or chills Physical Exam Vital Signs: Vital Signs: Last Vital Signs Temp 96.8 F 08/06/21 11:09 Pulse 78 08/06/21 11:12 Resp 24 H 08/06/21 11:12 BP 147/80 H 08/06/21 11:09 Pulse Ox 92 08/06/21 11:09 Oxygen Flow Rate 4 08/01/21 11:36 BMI result Body Mass Index 34.2 Appearance: Alert.? Oriented X3.? still sob. cvs: rrr, [id number]. res: air entry diminshed , b/l wheezing abd: no rebound or guarding ,nt, bs present. ext pulses present , no cyanosis. neuro: axo3 , nonfocal. Objective Data Active Medications Acetaminophen (Acetaminophen 325 Mg Tablet) 650 mg PO Q6H PRN PRN Reason: Pain, Mild (Pain Scale 1-3) Albuterol Sulfate (Albuterol Sulfate (0.083%) 2.5 Mg/3 Ml Vial.Neb) 2.5 mg INHALE RQ6H PRN PRN Reason: Shortness Of Breath Albuterol/Ipratropium (Albuterol/Iprat 2.5/0.5mg 3 Ml Ampul.Neb) 3 ml INHALE RQ4H WHILE AWAKE [facility] Last Admin: 08/06/21 11:10 Dose: 3 ml Documented by: MODESTO Aspirin (Aspirin Enteric Coated 81 Mg Tablet.) 81 mg PO BEDTIME [facility] Last Admin: 08/05/21 20:58 Dose: 81 mg Documented by: SHIRA Atorvastatin Calcium (Atorvastatin Calcium 20 Mg Tablet) 20 mg PO DAILY [facility] Last Admin: 08/06/21 10:46 Dose: 20 mg Documented by: MICHELLE Carvedilol (Carvedilol 12.5 Mg Tablet) 12.5 mg PO BID [facility]; Protocol Last Admin: 08/06/21 10:44 Dose: 12.5 mg Documented by: MICHELLE Comments: 132/73, 80 Fluticasone/Vilanterol (Fluticasone/Vilanterol 200/25 Blst.W.Dev) 1 puff INHALE DAILY [facility] Last Admin: 08/06/21 07:43 Dose: 1 puff Documented by: PETEY Furosemide (Furosemide 20 Mg Tablet) 20 mg PO DAILY [facility]; Protocol Last Admin: 08/06/21 10:52 Dose: 20 mg Documented by: MICHELLE Comments: 132/73, 80 Guaifenesin (Guaifenesin La 600 Mg Tab.Er.12h) 1,200 mg PO BID [facility] Last Admin: 08/06/21 10:44 Dose: 1,200 mg Documented by: MICHELLE Azithromycin 500 mg/ Sodium (Chloride) 250 mls @ 125 mls/hr IV Q24H [facility] Last Infusion: 08/05/21 17:53 Dose: 0 mls/hr Documented by: SHIRA Latanoprost (Latanoprost 0.005 % Ophth Sally 2.5 Ml Drops) 1 drop EYE-BOTH BEDTIME [facility] Last Admin: 08/05/21 21:00 Dose: 1 drop Documented by: SHIRA Methylprednisolone Sodium Succinate (Methylprednisolone Sod Succ 40 Mg/Ml Vial) 40 mg IVPUSH BID [facility] Nystatin (Nystatin Cream 15 Gm Tube) 1 appl TOPICAL BID [facility]; Protocol Last Admin: 08/06/21 10:57 Dose: 1 appl Documented by: MICHELLE Comments: pt declined check of site; states it was put on earlier during morning care Omeprazole (Omeprazole 20 Mg Capsule.Dr) 20 mg PO DAILY@0630 [facility] Last Admin: 08/06/21 05:36 Dose: 20 mg Documented by: CLARITA Ondansetron HCl (Ondansetron Hcl 4 Mg/2 Ml Vial) 4 mg IVPUSH Q8H PRN PRN Reason: Nausea and Vomiting Pharmacy Consult (Consult Rx Perform Med Rec) 1 each MISCELLANE ONCE PRN PRN Reason: Consult order Pharmacy Consult (Consult Rx Vancomycin Dosing) 1 each MISCELLANE DAILY PRN PRN Reason: Consult order Sodium Chloride (0.9 % Sodium Chloride Flush 3 Ml Syringe) 3 ml IVFLUSH QSHIFT [facility] Last Admin: 08/06/21 10:46 Dose: 3 ml Documented by: MICHELLE Sodium Chloride (Sodium Chloride 0.65 % Nasal 44 Ml Sprbtl) 1 spray NOSTRIL-B Q1H PRN PRN Reason: Dryness Last Admin: 08/04/21 14:18 Dose: 1 spray Documented by: GINA Tiotropium [place] (Tiotropium [place] 18 Mcg Cap.W.Dev) 1 puff INHALE RDAILY [facility] Last Admin: 08/06/21 07:42 Dose: 1 puff Documented by: PETEY Warfarin Sodium (Warfarin Sodium 2.5 Mg Tablet) 2.5 mg PO DAILY@1800 [facility] Labs CBC & Chem 7: 08/01/21 12:37 08/05/21 05:32 Labs: Laboratory Results - last 24 hr 08/06/21 08/06/21 05:24 05:33 PT 31.7 H INR 2.7 H VBG pH 7.37 VBG pCO2 56 VBG pO2 151 VBG HCO3 32 H VBG O2 Saturation 99.0 VBG Base Excess 6.3 Assessment and Plan (1) Respiratory failure with hypoxia and hypercapnia: Status: Acute (2) COPD exacerbation: Status: Acute Plan 71-year-old female with past medical history of mechanical aortic valve, coronary artery disease, CHF, COPD on home O2, history of recent COVID infection with post COVID syndrome, muscle weakness ambulates short distances otherwise requiring wheelchair evaluated recently by her german tutor and was doing fine up until this morning when developed lightheadedness dizziness and hypoxia will be admitted for continued treatment and evaluation for COPD exacerbation. 1.Acute COPD exacerbation: Persistent shortness of breath with mimimal excersion , talking in short sentences. CT chest (on 08/03 )showed mild pulmonary edema, severe emphysema, diffuse thickening of bronchial fung and scattered endobronchial secretion History of COVID infection April [address] Sykes, has been weak since infection with walking short distances only otherwise uses wheelchair for long distances, on Advair b.i.d. Combivent Respimat q.i.d. and Spiriva at home with DuoNeb updraft q.6 hour, CARLOS frank IV Lasix and transitioned to by mouth, encourage incentive spirometer Pulm recomended -continue IV steroids ,on scheduled and as needed DuoNeb, IV Solu-Medrol, IV azithromycin day 5 for bronchitis ?possible short-term placement in rehab if she does not recover well. Patient has VNA services at home. 2.Acute on chronic hypoxic respiratory failure. Likely due to COPD exacerbation/mild acute CHF exacerbation,continue O2 support and gradually wean to home dose 2-2.5 L ABGs showed pH 7.38/pCO2 70/PO2 44/respiratory acidosis with compensation. At present patient is not in respiratory distress, finger oximetry 94%, case discussed with Dr. Sykes he recommend to use Diamox and follow clinical course 3.Mild acute systolic CHF exacerbation CT chest suggestive of mild emphysema, on IV Lasix will transition to po lasix 20mg home dose diursed well 4.Mechanical aortic valve replacement: INR goal 2-3, today inr is 1.9 adjusted warfrain to 3 mg daily. 5.Coronary artery disease:No chest pain, continue home medication aspirin, Coreg and statin, outpatient follow-up with primary electric motor repairman at [facility], EKG showed no ischemia Obesity recommended weight reduction and low-calorie diet need for inpatient: copd excerebation Quality Stroke Does the patient have a stroke diagnosis?: No VTE Prior VTE?: No VTE Risk Level:: Medical - moderate - high VTE Device Contraindication: Treatment Not Indicated VTE Drug Contraindication: N/A - Med Ordered
[2021-08-06] MEDS: Azithromycin 500 MG in 0.9 % Sodium Chloride 250 ML 125 MG IV (16:19)
[2021-08-06] MEDS: Warfarin Sodium 2.5 MG TABLET PO (17:35)
[2021-08-06] MEDS: Aspirin Enteric Coated 81 MG TABLET.DR PO (20:10)
[2021-08-06] MEDS: Latanoprost 0.005 % Ophth Sol 2.5 ML DROPS 1 DROP EYE-BOTH (20:11)
[2021-08-07 04:00] VITALS: BP 131/77; PULSE 70; RESP 18; TEMP 36.3; O2SAT 97
[2021-08-07] MEDS: Omeprazole 20 MG CAPSULE.DR PO (05:21)
[2021-08-07 06:36] LABS: INTERNATIONAL NORM RATIO 3.1 (0.9-1.1); Prothrombin Time 36.6 SEC (9.9-13.0)
[2021-08-07 07:43] VITALS: BP 111/63; PULSE 97; RESP 20; TEMP 36.3; O2SAT 100
[2021-08-07] MEDS: Albuterol/Iprat 2.5/0.5MG 3 ML AMPUL.NEB INHALE ×2 (07:51→11:18)
[2021-08-07] MEDS: Fluticasone/Vilanterol 200/25 BLST.W.DEV 1 PUFF INHALE (07:52)
[2021-08-07 07:56] VITALS: PULSE 97; RESP 22; O2SAT 100
[2021-08-07] MEDS: guaiFENesin LA 600 MG TAB.ER.12H 1200 MG PO (08:48)
[2021-08-07] MEDS: Atorvastatin Calcium 20 MG TABLET PO (08:48)
[2021-08-07] MEDS: carvediloL 12.5 MG TABLET PO (08:49)
[2021-08-07] MEDS: Furosemide 20 MG TABLET PO (08:49)
[2021-08-07] MEDS: 0.9 % Sodium Chloride Flush 3 ML SYRINGE IVFLUSH (08:50)
[2021-08-07] MEDS: Nystatin Cream 15 GM TUBE 1 APPL TOPICAL (09:06)
[2021-08-07] MEDS: methylPREDNISolone Sod Succ 40 MG/ML VIAL IVPUSH (09:07)
--- NOTE | 2021-08-07 09:34 | P.PNPL_ITS ---
Subjective Subjective Date of Service: 08/07/21 Principal diagnosis: copd/respiratory failure Interval history: This patient has definitely improved over the last few days, She is more alert and orientated, she has her usual shortness of breath but does not present to be in any distress. Objective Data Labs CBC & Chem 7: 08/01/21 12:37 08/05/21 05:32 Labs: Laboratory Results - last 24 hr 08/07/21 05:18 PT 36.6 H INR 3.1 H Microbiology Microbiology Results: Microbiology 08/01/21 13:43 Blood - Venous Blood Culture - Final No growth after 5 days. 08/01/21 12:37 Blood - Venous Blood Culture - Final Coag negative Staphylococcus Physical Exam Vital Signs: Vital Signs: Last Vital Signs Temp 97.3 F 08/07/21 07:43 Pulse 97 08/07/21 07:56 Resp 22 H 08/07/21 07:56 BP 111/63 08/07/21 07:43 Pulse Ox 100 08/07/21 07:43 Oxygen Flow Rate 4 08/01/21 11:36 BMI result Body Mass Index 34.2 Resp: Other: Her breath sounds remain distant, no wheezes are heard. She does have coarse crepitations over both lower lobes. Procedures Date of Service Date of Service: 08/07/21 Assessment and Plan Assessment and plan (1) COPD exacerbation: Status: Acute (2) Acute and chronic respiratory failure with hypoxia: Status: Acute (3) Pulmonary fibrosis: Problem details: Patient has dense interstitial markings throughout the both lungs with increased fibrotic changes over both bases. This represents post COVID fibrosis. Status: Acute (4) COVID-19: Problem details: Recent COVID-19 infection, treated at [facility] and recovered quickly. But she has been left with significant interstitial lung disease. Recent chest x-ray at [facility], showed patchy densities in the right lower lobe and lingula, most likely residual pneumonitis from COVID-19 infection. Status: Acute Plan The patient has definitely improved in the last few days. Venous blood gas shows pCO2 down to 56, Clinically she seems to be at her baseline, Recc . I think she can be discharged home to continue her regular treatment regimen. Complete prednisone taper, but at the tail and I think she should be left on prednisone 10 mg a day for several weeks. She has been instructed to do deep breathing exercises, with pursed lip technique and that has been helpful. She should be seen in the Pulmonary office in about 2 weeks for follow up. Time Spent With Patient Time: Total time spent is greater than 50% in coordination of care (as documented) at patient's floor/unit and/or counseling patient: Progress Note: Quality Stroke Does the patient have a stroke diagnosis?: No
[2021-08-07 11:19] VITALS: PULSE 71; RESP 20; O2SAT 94
--- NOTE | 2021-08-07 11:34 | P.F2F_ITS ---
Service Date Service Date: 08/07/21 Encounter Date of encounter: 08/07/21 Reasons for Services Signs and symptoms assessed: copd and chf xecerbation MD Overseeing Care: Sumi Coy Homebound: Leaving the home is medically contraindicated at this time without the asist of a device and/or another person due th the listed conditions above and below. Reason homebound: weakness related to hospital stay Homebound supporting statement: Patient multiple comorbidities including COPD and CHF, also generalized weak post hospital stay need help to go to appointments. Certification: Based on the above findings, I certify that this patient is confined to the home and needs intermittent half-way care, physical therapy and/or speech therapy, or continues to need occupational therapy. The patient is under my car e, and I have initiated the establishment of the plan of care. The patient will be followed by a physician who will periodically review the plan of care.
--- NOTE | 2021-08-07 11:35 | PM.DS ---
DS: Providers Provider Date of Service: 08/07/21 Date of admission: 08/01/21 15:22 Primary care physician: Sumi Coy MD Consults: 08/04/21 08:57 Consult to Pulmonology Routine Consulting Provider: Abiodun Sykes Reason for consultation: hypoxia Has provider been notified: No DS: Diagnosis Discharge Diagnosis (1) COPD exacerbation: Status: Acute (2) Acute and chronic respiratory failure with hypoxia: Status: Acute (3) Pulmonary fibrosis: Status: Acute (4) COVID-19: Status: Acute (5) Supratherapeutic INR: Status: Acute DS: Summary Hospital Course Hospital Course: 71-year-old female with past medical history of mechanical aortic valve, coronary artery disease, CHF, COPD on home O2, history of recent COVID infection with post COVID syndrome, muscle weakness ambulates short distances otherwise requiring wheelchair evaluated recently by her credit risk management director and was doing fine up until this morning when developed lightheadedness dizziness and hypoxia will be admitted for continued treatment and evaluation for COPD exacerbation. Hospital course: Patient came to the hospital because of acute respiratory failure secondary to COPD, possible systolic CHF exacerbation: Patient was started on nebs, steroids, antibiotics as well as IV diuretics and subsequently patient seems to be improving slowly now the her shortness of breath at baseline. Patient was offered pulmonary rehab but patient declined. Patient was switched to p.o. steroids and Lasix was adjusted to 40 mg daily, completed azithromycin . Patient needs to follow up outpatient knee with Pulmonary in 2 weeks. Mechanical aortic valve replacement: INR goal 2-3, today inr is 3.1 , will give warfarin 2 mg today instead of 2.5 mg, start back home does warfarin at home tomorrow and recheck INR in 2 days out patiently. Above management discussed with the patient and her daughter in detail length both understand and in agreement with the above plan, time spent 50 minutes and 50% time spent on counseling. Significant findings: As above. Procedures performed: None. Treatment and response: As above. Complications: None. Time Spent with Patient Time attestation: Total time spent providing and/or coordinating discharge services: Discharge coordination time: Greater than 30 minutes Quality: Safe Use of Opioids Does Pt have an Active Cancer Diagnosis on the Problem List?: No Quality: Stroke Does the patient have a stroke diagnosis?: No Physical Exam Vital Signs: Vital Signs: Last Vital Signs Temp 97.3 F 08/07/21 07:43 Pulse 71 08/07/21 11:19 Resp 20 08/07/21 11:19 BP 111/63 08/07/21 07:43 Pulse Ox 100 08/07/21 07:43 Oxygen Flow Rate 4 08/01/21 11:36 BMI result Body Mass Index 34.2 ?Appearance: Alert.? Oriented X3.? still sob. Eyes: Pupils equal, round and reactive to light.? Sclera nonicteric.? ENT: Pharynx normal.? Moist mucous membranes. cvs: rrr, [id number]. res: air entry diminshed , b/l wheezing abd: no rebound or guarding ,nt, bs present. ext pulses present , no cyanosis. neuro: axo3 , nonfocal. DS: Data Data Completed and Pending Labs on day of discharge: Laboratory Results - last 24 hr 08/07/21 05:18 PT 36.6 H INR 3.1 H Additional Comments Additional comments: ?CT/CT chest wo con IMPRESSION: *? Chronic obstructive pulmonary disease. Findings include severe pulmonary emphysema, diffuse thickening of bronchial fung and scattered endobronchial secretions. *? Atherosclerotic disease of coronary arteries and aorta without aneurysm, status post aortic valve replacement. The smooth thickening of interlobular septa suggests presence of mild pulmonary edema and trace left pleural effusion is present.? Discharge Plan Discharge Patient Disposition: Home Health Service Discharge Diagnosis: Acute hypoxemic respiratory failure secondary to COPD exacerbation, CHF exacerbation. Referrals: Sumi Coy MD [Primary Care Provider] - 1 Week Discharge Medications: New prednisone 20 mg tablet See Taper mg PO DAILY Qty: 66 0RF Taper: Prednisone 40 mg daily for 6 Days and 0 Hour 30 mg daily for 7 Days and 0 Hour 20 mg daily for 7 Days and 0 Hour 10 mg daily for 7 Days and 0 Hour Continued carvedilol 12.5 mg Tablet 12.5 mg PO BID 0RF simvastatin 40 mg Tablet 40 mg PO BEDTIME 0RF fluticasone propion-salmeterol [Advair Diskus] 500-50 mcg/dose Blister With Device 1 inh INHALATION BID 0RF omeprazole 20 mg Capsule,Delayed Release(Dr/Ec) 20 mg PO DAILY 0RF Spiriva with HandiHaler 18 mcg capsule, w/inhalation device 1 cap inhalation DAILY 0RF latanoprost 0.005 % Drops 1 drp OPHTHALMIC (EYE) BEDTIME 0RF acetaminophen 325 mg Tablet 650 mg PO Q6H PRN (Reason: Pain) 0RF warfarin 2.5 mg Tablet 2.5 mg PO DAILY 0RF aspirin 81 mg Tablet,Delayed Release (Dr/Ec) 81 mg PO BEDTIME 0RF nystatin 100,000 unit/gram cream 1 appl topical BID 0RF Combivent Respimat 20-100 mcg/actuation mist 1 puff inhalation QID 0RF albuterol sulfate 2.5 mg /3 mL (0.083 %) solution for nebulization 2.5 mg inhalation Q6H PRN (Reason: Shortness Of Breath) 0RF Changed furosemide 20 mg tablet 40 mg PO DAILY Qty: 60 0RF Discharge Orders: Discharge Order (Routine); Ordered 08/07/21 Ordered By: Lloyd Cantrell Diet: advance to usual diet Activity on Discharge: As tolerated Stand Alone Forms: Patient Portal Discharge page Other Ambulatory Orders: Prothrombin Time INR (Routine) Timeframe: 2 Days Facility: [facility] - Location: Laboratory Ordered By: Lloyd Cantrell Care Plan Goals: Patient came to the hospital because of acute respiratory failure secondary to COPD, CHF exacerbation: Patient was started on nebs, steroids, antibiotics as well as IV diuretics and subsequently patient seems to be improving slowly now the her shortness of breath at baseline. Patient was offered pulmonary rehab but patient declined. Patient was switched to p.o. steroids and Lasix was adjusted to 40 mg daily, completed azithromycin . Patient needs to follow up outpatient knee with Pulmonary in 2 weeks. Health Concerns: As above. Plan of Treatment: As above. Assessment: As above.
[2021-08-07 11:56] VITALS: BP 112/71; PULSE 80; RESP 20; TEMP 36.4; O2SAT 100
--- NOTE | 2021-08-07 13:46 | MHC.CM.PN ---
nurse welfare case worker note after several nursing referrals and [facility] FOR STAFFING SHORTAGE OR DOES NOT TAKE INS CONTRACT. [facility] LIASON CHECKED WITH HER DIGITAL PHOTOGRAPHIC PRINTER AND ACCEPTED PATIENT NURSING DIGITAL PHOTOGRAPHIC PRINTER WILL GO OUT AND SEE HER FOR NURAING ASSESSMENT , DIAGNOSIS SIGN SYMPTOM MANAGEMENT AND DEVELOPEMENT OF ACTION PLAN, AND MEDICATION RECONCIALTION, PATIENT- IS AWARE THAT THE VNA WILL START UNTIL WEDNESDAY , [facility] IS AWARE AND OK WITH THIS AND PATIENT IS AWARE OF THIS DISCHARGE PLAN HOME WITH NEW REFERRAL VNA TO [facility] FOR NURSING TO STrt wednesday self resumnption of her home oxygen pcp dr [facility]
== END 2021-08-07 14:56 | disposition home health service (06) | DRG 190 ==
LOC: HO.ED 15:05 → HO.EDOVER 15:57 → HO.S3 16:11
PROVIDERS: Internal Medicine; Physician Assistant; Admitting Provider Hospitalist; Emergency Provider Emergency Medicine; PCP Internal Medicine; Visit Provider Internal Medicine
DX: J44.1 Chronic obstructive pulmonary disease with (acute) exacerbation (principal); J96.21 Acute and chronic respiratory failure with hypoxia; I50.23 Acute on chronic systolic (congestive) heart failure; R78.81 Bacteremia; K21.9 Gastro-esophageal reflux disease without esophagitis; I25.10 Atherosclerotic heart disease of native coronary artery without angina pectoris; E66.9 Obesity, unspecified; Z68.34 Body mass index [BMI] 34.0-34.9, adult; F32.A Depression, unspecified; Z20.822 Contact with and (suspected) exposure to COVID-19; Z99.81 Dependence on supplemental oxygen; Z95.2 Presence of prosthetic heart valve; R79.1 Abnormal coagulation profile; J84.10 Pulmonary fibrosis, unspecified; U09.9 Post COVID-19 condition, unspecified; Z87.891 Personal history of nicotine dependence; Z79.01 Long term (current) use of anticoagulants; Z79.51 Long term (current) use of inhaled steroids; Z79.82 Long term (current) use of aspirin; Z79.899 Other long term (current) drug therapy
CPT/HCPCS: 36415; 71045; 71250; 80048; 80076; 82803; 83605; 83735; 83880; 84484; 85025; 85610; 87040; 87147; 87205; 87502; 87635; 93005; 94640; 94644; 94645; 94664; 96365; 96366; 96375; 99285; J0456; J1940; J2920; J2930; J3370; J3475

== ENCOUNTER 2021-10-02 11:44 | Outpatient (REF) | payer OTHER, SELFPAY ==
--- NOTE | ~2021-10-02 | XR_ITS ---
EXAMINATION: XR CHEST CLINICAL INFORMATION: Respiratory failure COMPARISON: Chest 08/01/2021 TECHNIQUE: 2 views of the chest were obtained. FINDINGS: The lungs are well-expanded and clear acute process. There are increased bilateral parahilar markings. There is no evidence of pleural effusion. The heart size is normal. There is aortic valve prosthesis in place. There are median sternotomy sutures from previous intervention. No gross bony abnormality seen. XR/XR chest 2V IMPRESSION: Slight increased bilateral parahilar interstitial markings question pneumonitis versus edema
[2021-10-02 12:19] LABS: Venous Blood Gas Refer to POC result
[2021-10-02 12:19] LABS: VBG Base Excess 14.5 mmol/L; VBG HCO3 43 mmol/L (22-26); VBG pCO2 72 mmHg; VBG pH 7.38 (7.32-7.43); VBG pO2 43 mmHg
== END 2021-10-02 11:45 | disposition home or self-care (01) ==
LOC: HO.XRAY 11:44
PROVIDERS: Visit Provider Internal Medicine
DX: J44.9 Chronic obstructive pulmonary disease, unspecified (principal); J84.10 Pulmonary fibrosis, unspecified; J96.91 Respiratory failure, unspecified with hypoxia; J96.92 Respiratory failure, unspecified with hypercapnia
CPT/HCPCS: 36415; 71046; 82803; 99212

== ENCOUNTER 2021-10-30 16:28 | Outpatient (REF) | payer OTHER, SELFPAY ==
[2021-10-30 16:55] LABS: Venous Blood Gas Refer to POC result
[2021-10-30 17:09] LABS: VBG HCO3 24 mmol/L (22-26); VBG pCO2 45 mmHg; VBG pH 7.34 (7.32-7.43); VBG pO2 51 mmHg
[2021-10-30 17:20] LABS: Anion Gap 11 (12-20); Carbon Dioxide 28 mmol/L (22-29); Chloride 106 mmol/L (96-108); Sodium 141 mmol/L (135-145)
== END 2021-10-30 16:29 | disposition home or self-care (01) ==
LOC: HO.LAB 16:28
PROVIDERS: Visit Provider Internal Medicine
DX: J44.9 Chronic obstructive pulmonary disease, unspecified (principal); J84.10 Pulmonary fibrosis, unspecified; J96.91 Respiratory failure, unspecified with hypoxia; J96.92 Respiratory failure, unspecified with hypercapnia; Z79.899 Other long term (current) drug therapy
CPT/HCPCS: 36415; 80051; 82803; 99212

== ENCOUNTER → 2022-01-05 14:37 | Outpatient (BNVA) | payer OTHER, SELFPAY | PROVIDERS: PCP Internal Medicine; Visit Provider Internal Medicine | DX: J44.9 Chronic obstructive pulmonary disease, unspecified (principal); J84.10 Pulmonary fibrosis, unspecified; J96.91 Respiratory failure, unspecified with hypoxia; J96.92 Respiratory failure, unspecified with hypercapnia | CPT/HCPCS: 99212 ==

== ENCOUNTER 2022-01-29 14:15 | Inpatient (IN) | payer OTHER, SELFPAY ==
[2022-01-29] VITALS (7 sets, daily range): BP systolic 102–140; BP diastolic 43–80; PULSE 78–89; RESP 20–30; TEMP 36.3–37.2; O2SAT 88–99; BMI 35.6; BMI 35.7
--- NOTE | ~2022-01-29 | XR_ITS ---
EXAMINATION: XR CHEST CLINICAL INFORMATION: Shortness of breath and chest pain COMPARISON: 10/02/2021 TECHNIQUE: 2 views of the chest were obtained. FINDINGS: Heart size borderline with slight distention of the pulmonary vessels. Bibasilar edema noted. Sternal wires present. XR/XR chest 2V IMPRESSION: Mild congestive failure.
--- NOTE | 2022-01-29 14:47 | ECG_ITS ---
Test Reason : CX PAIN Blood Pressure : / mmHG Vent. Rate : 082 BPM Atrial Rate : 082 BPM P-R Int : 218 ms QRS Dur : 084 ms QT Int : 386 ms P-R-T Axes : 068 -41 035 degrees QTc Int : 450 ms Sinus rhythm with 1st degree A-V block Left anterior fascicular block Possible Anterior infarct , age undetermined Abnormal ECG When compared with ECG of 01-AUG-2021 12:08, Borderline criteria for Anterior infarct are now Present Referred By: Anitra Jennings Electronically Signed By:PENELOPE MARTÍNEZ MD
--- NOTE | 2022-01-29 15:02 | ED_ITS ---
HPI - Chest Pain General Chief Complaint: Dyspnea Stated Complaint: INTERMITTENT CP Time Seen by Provider: 01/29/22 14:18 Source: patient Mode of arrival: EMS Limitations: no limitations History of Present Illness HPI narrative: patient is a 71-year-old female presents to the emergency department via EMS for evaluation of chest pain. Chest pain was of sudden onset overnight, caused her to wake from her sleep. It is described as sharp in nature to the left side of her chest. It comes on lasting about 20 seconds and self resolves and then returns every 20-30 minutes since initial onset. She denies any past history of Pain similar to this. She has baseline shortness of breath and wears O2 via nasal cannula at 3 L, she does state that today she feels more short of breath than normal. daughter is at bedside will also reports that she has been having increasing pedal edema over the past few weeks, she is currently taking Lasix 20 mg every other day, has appointment to see her rope cleaner later this week. furthermore daughter reports that she had difficulty with her stand pivot transfers today getting out of bed to the commode, feeling generally weak. denies fevers, chills, headache, dizziness, lightheadedness, neck pain, neck stiffness, palpitations, nausea, vomiting, abdominal pain, dysuria, urinary frequency, numbness or tingling of the extremities, generalized weakness. Related Data Home Medications Medication Instructions Recorded Confirmed acetaminophen 325 mg tablet 650 mg PO Q6H PRN Pain 02/01/21 10/02/21 carvedilol 12.5 mg tablet 12.5 mg PO BID 02/01/21 10/02/21 fluticasone 500 mcg-salmeterol 50 1 inh inhalation BID 02/01/21 10/02/21 mcg/dose blistr powdr for inhalation (Advair Diskus) latanoprost 0.005 % eye drops 1 drp ophthalmic (eye) BEDTIME 02/01/21 10/02/21 omeprazole 20 mg capsule,delayed 20 mg PO DAILY 02/01/21 10/02/21 release simvastatin 40 mg tablet 40 mg PO BEDTIME 02/01/21 10/02/21 tiotropium bromide 18 mcg capsule 1 cap inhalation DAILY 02/01/21 10/02/21 with inhalation device (Spiriva with HandiHaler) ipratropium 20 mcg-albuterol 100 1 puff inhalation QID 02/13/21 10/02/21 mcg/actuation mist for inhalation (Combivent Respimat) nystatin 100,000 unit/gram topical 1 appl topical BID 02/13/21 10/02/21 cream albuterol sulfate 2.5 mg/3 mL 2.5 mg inhalation Q6H PRN 05/07/21 10/02/21 (0.083 %) solution for nebulization Shortness Of Breath aspirin 81 mg tablet,delayed 81 mg PO BEDTIME 08/01/21 10/02/21 release warfarin 2.5 mg tablet 2.5 mg PO DAILY 08/01/21 10/02/21 citalopram 20 mg tablet 20 mg PO DAILY 10/02/21 10/02/21 ipratropium 20 mcg-albuterol 100 1 puff inhalation QID 01/29/22 mcg/actuation mist for inhalation (Combivent Respimat) Previous Rx's Medication Instructions Recorded furosemide 20 mg tablet 20 mg PO Q OTHER DAY EDEMA FEET 28 01/05/22 days #14 tabs acetazolamide 250 mg tablet 250 mg PO BID Resp. failure 30 01/28/22 days #60 tabs Allergies Allergy/AdvReac Type Severity Reaction Status Date / Time No Known Allergies Allergy Mild N/A Verified 01/05/22 16:51 Review of Systems Review of Systems: Constitutional : No Weight loss, No Fever, No Chills ENT/Mouth :? No sore throat, No Rhinorrhea Eyes: No Eye Pain, No Swelling Cardiovascular : pos Chest Pain, pos SOB, no Dyspnea on Exertion, No Orthopnea, pos Edema, No Palpitations Respiratory : No Cough, No Sputum Gastrointestinal : No Nausea, No Vomiting, No Diarrhea, No abdominal Pain, No Hematochezia, No Melena Genitourinary : No Dysuria, No Urinary Frequency Musculoskeletal : No joint pain, No Myalgias, No Joint Swelling Skin : No Skin Lesions, No rash Neuro : No Weakness, No Numbness, No Dizziness, No Headache Psych : No Anxiety/Panic, No Depression Heme/Lymph: No Bruising, No Lymphadenopathy Endocrine : No Polyuria, No Polydipsia Yes all other systems are reviewed and are negative [facility] Past Medical History Attestation statement: The following information was validated with the patient. Medical History Afib CHF exacerbation COPD (chronic obstructive pulmonary disease) COPD (chronic obstructive pulmonary disease) COVID-19 High blood pressure High cholesterol Hypoxemia Pulmonary fibrosis Respiratory failure with hypoxia and hypercapnia Social History Social History Household Members: Children Household Members Other:: Son Housing: House Do you presently have visiting nurse or other home services: Yes Alcohol intake: never Patient Tobacco Use Status: Former Tobacco user Quit Date: 02/06 Tobacco use type: Cigarette Advance Directives: No Advance Directives Information Provided: No service: No Current occupational status: disabled 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 No acute distress.?Normal affect. Eyes: Pupils equal, round and reactive to light.? ENT: Pharynx normal.?? Neck: Normal inspection.? Neck supple.?? CVS: Heart sounds normal. Normal heart rate and rhythm.? Pulses normal.?? Respiratory: No respiratory distress.? Lung sounds significantly diminished throughout, faint inspiratory wheezing is audible Abdomen: Soft and non-tender. Normoactive bowel sounds. ?? Skin: Skin warm and dry.? Normal skin color.? Extremities: 2+ bilateral pitting edema.? No calf ttp? Neuro: Moves all extremities spontaneously. Sensation intact bilaterally. CN II- XII intact. No focal neuro deficits. Course Course Course Narrative: patient is a 71-year-old female with a medical history acute respiratory failure with hypoxia hypercapnia, COPD, pulmonary fibrosis, congestive heart failure, atrial fibrillation on coumadin, hypercholesterolemia who presents emergency department today for evaluation of intermittent chest pain with increasing shortness of breath from baseline. Upon physical exam she is overall well-appearing, noted to be tachypneic with respiratory rate 26, no hypoxia on her baseline O2 via nasal cannula, she is afebrile, and without tachycardia. At this time does not have active chest pain. Will obtain CBC to evaluate for leukocytosis/ anemia, CMP and lipase to evaluate for abnormal electrolytes /abno rmal renal function/ abnormal hepatic/biliary function, BNP, EKG and troponin to evaluate for ischemia/ACS. Chest x-ray to evaluate for consolidation/ infiltrate/ mass/ pulmonary congestion and Urinalysis. Reevaluation(s) Reevaluation #1: Chest x-ray reveals slight distension pulmonary vessels with bibasilar edema, mild congestive failure. troponin is 9.8, EKG reveals sinus rhythm with first- degree AV block noted on prior EKGs, T-wave inversion in V1 and V2 noted previously, poor R-wave progression, will obtain delta troponin. CBC reveals a normocytic anemia, appears 2 points lower than baseline; hemoglobin 8.1 hematocrit 30.4, shes on anticoagulant. when asked, patient's daughter reports that she has noticed recently that she has been experiencing dark stools, denies any bright red blood, will obtain occult stool specimen. CMP is overall unremarkable. Lipase normal. BNP is 238 which appears consistent with her baseline. urinalysis reveals trace hematuria, large leukocyte esterase and concerning for urinary tract infection, which may explain the generalized weakness. While obtaining occult stool patient noted to be significantly orthopneic, lying down became very short of breath which family reports is baseline for her, noted O2 saturation to drop down into the 70s during this time, she did recover on 3 L via nasal cannula after a few minutes. Time: 16:52 Reevaluation #2: occult stool is negative. INR in therapeutic range from 2.7. Spoke with hospitalist service, Dr. Padilla, for admission given symptomatic anemia on Coumadin, and urinary tract infection. Time: 17:11 [facility] - Chest Pain Medical Records Data Attestation: I reviewed the patient's medical records. Lab Data Attestation: I reviewed the patient's lab results. Result diagrams: 01/29/22 15:42 01/29/22 15:42 Labs: Lab Results 01/29/22 01/29/22 01/29/22 Range/Units 15:42 15:42 15:42 WBC 7.2 (4.8-10.8) X10*3/uL RBC 4.21 (4.20-5.50) X10*6/uL Hgb 8.1 L D (12.0-16.0) g/dl Hct 30.4 L (37.0-47.0) % MCV 72.2 L (80.0-98.0) fL MCH 19.2 L (27.0-33.0) pg MCHC 26.6 L (31.0-35.0) g/dl RDW 18.2 H (11.0-16.0) % Plt Count 176 D (160-400) X10*3/uL MPV Not Reportable Immature Gran % (Auto) 0.4 (0.0-0.4) % Neut % (Auto) 71.8 (45-73) % Lymph % (Auto) 18.2 L (20-40) % [place] % (Auto) 7.7 (2-11) % Eos % (Auto) 1.2 (0-4) % Baso % (Auto) 0.7 (0-2) % Lymph # (Auto) 1.3 (1.2-4.9) X10*3/uL [place] # (Auto) 0.6 (0.1-1.2) X10*3/uL Eos # (Auto) 0.1 (0.0-0.4) X10*3/uL Baso # (Auto) 0.1 (0.0-0.2) X10*3/uL Abs Immat Gran (auto) 0.03 (0.00-0.03) X10*3/uL Absolute Neuts (auto) 5.2 (2.0-8.3) x10*3/uL Absolute Nucleated RBC 0.000 (0.0-0.012) X10*3/uL Nucleated RBC % (auto) 0.0 (0.0-0.2) /100WBC PT (10.0-13.1) SEC INR (0.9-1.1) Sodium 142 (135-145) mmol/L Potassium 3.7 (3.3-5.1) mmol/L Chloride 101 (96-108) mmol/L Carbon Dioxide 30 H (22-29) mmol/L Anion Gap 15 (12-20) BUN 13 (9-16) mg/dL Creatinine 0.65 (0.5-1.4) mg/dL Estim Creat Clear Calc 83.0 Estimated GFR > 60 Random Glucose 120 H (60-115) mg/dL Calcium 8.8 (8.4-10.2) mg/dL Magnesium 1.7 (1.6-2.6) mg/dL Total Bilirubin 0.5 (0.0-1.0) mg/dL AST 13 (5-31) U/L ALT 6 (0-31) U/L Alkaline Phosphatase 61 (39-117) U/L Troponin I High Sens (<3.5-17.0) ng/L B-Natriuretic Peptide 238 H (<100) pg/mL Total Protein 6.4 L (6.5-8.0) g/dL Albumin 3.9 (3.5-5.0) g/dL Lipase 31 (8-78) U/L Urine Color Urine Appearance Urine pH (5.0-9.0) Ur Specific S[place]ent (1.005-1.025) Urine Protein (Neg-Trace) mg/dL Urine Glucose (UA) (Negative) mg/dL Urine Ketones (Negative) mg/dL Urine Blood (Negative) Urine Nitrite (Negative) Ur Leukocyte Esterase (Negative) Urine RBC (0-2) /HPF Urine WBC (0-5) /HPF Ur Squamous Epith Cells (0-2) /HPF Urine Bacteria (None Seen) Hyaline Casts (0-2) /LPF Stool Occult Blood (NEGATIVE) COVID-19 (ROB) (Negative) COVID-19 Clin Com 01/29/22 01/29/22 01/29/22 Range/Units 15:42 15:42 16:16 WBC (4.8-10.8) X10*3/uL RBC (4.20-5.50) X10*6/uL Hgb (12.0-16.0) g/dl Hct (37.0-47.0) % MCV (80.0-98.0) fL MCH (27.0-33.0) pg MCHC (31.0-35.0) g/dl RDW (11.0-16.0) % Plt Count (160-400) X10*3/uL MPV Immature Gran % (Auto) (0.0-0.4) % Neut % (Auto) (45-73) % Lymph % (Auto) (20-40) % [place] % (Auto) (2-11) % Eos % (Auto) (0-4) % Baso % (Auto) (0-2) % Lymph # (Auto) (1.2-4.9) X10*3/uL [place] # (Auto) (0.1-1.2) X10*3/uL Eos # (Auto) (0.0-0.4) X10*3/uL Baso # (Auto) (0.0-0.2) X10*3/uL Abs Immat Gran (auto) (0.00-0.03) X10*3/uL Absolute Neuts (auto) (2.0-8.3) x10*3/uL Absolute Nucleated RBC (0.0-0.012) X10*3/uL Nucleated RBC % (auto) (0.0-0.2) /100WBC PT (10.0-13.1) SEC INR (0.9-1.1) Sodium (135-145) mmol/L Potassium (3.3-5.1) mmol/L Chloride (96-108) mmol/L Carbon Dioxide (22-29) mmol/L Anion Gap (12-20) BUN (9-16) mg/dL Creatinine (0.5-1.4) mg/dL Estim Creat Clear Calc Estimated GFR Random Glucose (60-115) mg/dL Calcium (8.4-10.2) mg/dL Magnesium (1.6-2.6) mg/dL Total Bilirubin (0.0-1.0) mg/dL AST (5-31) U/L ALT (0-31) U/L Alkaline Phosphatase (39-117) U/L Troponin I High Sens 9.8 D (<3.5-17.0) ng/L B-Natriuretic Peptide (<100) pg/mL Total Protein (6.5-8.0) g/dL Albumin (3.5-5.0) g/dL Lipase (8-78) U/L Urine Color Dark Yellow Urine Appearance Cloudy Urine pH 5.5 (5.0-9.0) Ur Specific S[place]ent 1.020 (1.005-1.025) Urine Protein 30 (1+) H (Neg-Trace) mg/dL Urine Glucose (UA) Negative (Negative) mg/dL Urine Ketones Negative (Negative) mg/dL Urine Blood Trace H (Negative) Urine Nitrite Positive H (Negative) Ur Leukocyte Esterase Large (3+) H (Negative) Urine RBC 11-20 H (0-2) /HPF Urine WBC >50 H (0-5) /HPF Ur Squamous Epith Cells 6-10 (0-2) /HPF Urine Bacteria 4+ (None Seen) Hyaline Casts 0-2 (0-2) /LPF Stool Occult Blood (NEGATIVE) COVID-19 (ROB) Negative (Negative) COVID-19 Clin Com See Note 01/29/22 01/29/22 Range/Units 16:52 17:45 WBC (4.8-10.8) X10*3/uL RBC (4.20-5.50) X10*6/uL Hgb (12.0-16.0) g/dl Hct (37.0-47.0) % MCV (80.0-98.0) fL MCH (27.0-33.0) pg MCHC (31.0-35.0) g/dl RDW (11.0-16.0) % Plt Count (160-400) X10*3/uL MPV Immature Gran % (Auto) (0.0-0.4) % Neut % (Auto) (45-73) % Lymph % (Auto) (20-40) % [place] % (Auto) (2-11) % Eos % (Auto) (0-4) % Baso % (Auto) (0-2) % Lymph # (Auto) (1.2-4.9) X10*3/uL [place] # (Auto) (0.1-1.2) X10*3/uL Eos # (Auto) (0.0-0.4) X10*3/uL Baso # (Auto) (0.0-0.2) X10*3/uL Abs Immat Gran (auto) (0.00-0.03) X10*3/uL Absolute Neuts (auto) (2.0-8.3) x10*3/uL Absolute Nucleated RBC (0.0-0.012) X10*3/uL Nucleated RBC % (auto) (0.0-0.2) /100WBC PT 31.7 H (10.0-13.1) SEC INR 2.7 H (0.9-1.1) Sodium (135-145) mmol/L Potassium (3.3-5.1) mmol/L Chloride (96-108) mmol/L Carbon Dioxide (22-29) mmol/L Anion Gap (12-20) BUN (9-16) mg/dL Creatinine (0.5-1.4) mg/dL Estim Creat Clear Calc Estimated GFR Random Glucose (60-115) mg/dL Calcium (8.4-10.2) mg/dL Magnesium (1.6-2.6) mg/dL Total Bilirubin (0.0-1.0) mg/dL AST (5-31) U/L ALT (0-31) U/L Alkaline Phosphatase (39-117) U/L Troponin I High Sens (<3.5-17.0) ng/L B-Natriuretic Peptide (<100) pg/mL Total Protein (6.5-8.0) g/dL Albumin (3.5-5.0) g/dL Lipase (8-78) U/L Urine Color Urine Appearance Urine pH (5.0-9.0) Ur Specific [place] (1.005-1.025) Urine Protein (Neg-Trace) mg/dL Urine Glucose (UA) (Negative) mg/dL Urine Ketones (Negative) mg/dL Urine Blood (Negative) Urine Nitrite (Negative) Ur Leukocyte Esterase (Negative) Urine RBC (0-2) /HPF Urine WBC (0-5) /HPF Ur Squamous Epith Cells (0-2) /HPF Urine Bacteria (None Seen) Hyaline Casts (0-2) /LPF Stool Occult Blood NEGATIVE (NEGATIVE) COVID-19 (ROB) (Negative) COVID-19 Clin Com Imaging Data Chest x-ray: Radiologist's impression: FINDINGS: Heart size borderline with slight distention of the pulmonary vessels. Bibasilar edema noted. Sternal wires present. XR/XR chest 2V IMPRESSION: Mild congestive failure. ECG Data ECG #1: Attestation: I personally reviewed and interpreted this ECG as follows: ECG interpretation date: 01/29/22 Prior ECG tracings: available for review Interpretation: Rate: 82 Rhythm:? sinus rhythm with first-degree AV block Palms:? left axis deviation Normal P waves.? prolonged DIRK; 218 Normal QRS complex.?? ST T wave :?? no ST elevation, no ST depression, T-wave inversion in V1 -V2 seen on prior EKGs qTC: 450 prior studies:? July 2021, June 2018 The study has been interpreted contemporaneously by me. Discharge Plan Discharge Clinical Impression: Anemia, Urinary tract infection, COPD (chronic obstructive pulmonary disease)
[2022-01-29] MEDS: Albuterol Sulfate 2.5 MG, Albuterol Sulfate (0.083%) 2.5 MG 5 MG INHALE (15:04)
[2022-01-29] MEDS: Albuterol/Iprat 2.5/0.5MG 3 ML AMPUL.NEB INHALE ×2 (15:04→19:28)
[2022-01-29 15:52] LABS: MANUAL DIFF FLAG NO
[2022-01-29 15:56] LABS: Basophils Absolute Auto 0.1 X10*3/uL (0.0-0.2); Basophils Percent Auto 0.7 % (0-2); Eosinophils Absolute Auto 0.1 X10*3/uL (0.0-0.4); Eosinophils Percent Auto 1.2 % (0-4); Hematocrit 30.4 % (37.0-47.0); Hemoglobin 8.1 g/dl (12.0-16.0); Imm Gran Abs Auto 0.03 X10*3/uL (0.00-0.03); Imm Gran Pct Auto 0.4 % (0.0-0.4); Lymphocytes Absolute Auto 1.3 X10*3/uL (1.2-4.9); Lymphocytes Percent Auto 18.2 % (20-40); Mean Corpuscular HGB Conc 26.6 g/dl (31.0-35.0); Mean Corpuscular Hemoglobin 19.2 pg (27.0-33.0); Mean Corpuscular Volume 72.2 fL (80.0-98.0); Monocytes Absolute Auto 0.6 X10*3/uL (0.1-1.2); Monocytes Percent Auto 7.7 % (2-11); Neutrophils Absolute Auto 5.2 x10*3/uL (2.0-8.3); Neutrophils Percent Auto 71.8 % (45-73); Platelet Count 176 X10*3/uL (160-400); Red Blood Count 4.21 X10*6/uL (4.20-5.50); Red Cell Distribution Width 18.2 % (11.0-16.0); White Blood Count 7.2 X10*3/uL (4.8-10.8)
[2022-01-29 16:15] LABS: COVID-19 Test Negative (Negative); IDNOW Serial# 16C4AD1C
[2022-01-29 16:20] LABS: Alanine Aminotransferase 6 U/L (0-31); Albumin Level 3.9 g/dL (3.5-5.0); Alkaline Phosphatase 61 U/L (39-117); Anion Gap 15 (12-20); Aspartate Amino Transferase 13 U/L (5-31); Bilirubin Total 0.5 mg/dL (0.0-1.0); Blood Urea Nitrogen 13 mg/dL (9-16); Calcium 8.8 mg/dL (8.4-10.2); Carbon Dioxide 30 mmol/L (22-29); Chloride 101 mmol/L (96-108); Estimated Glomerular Filt Rate > 60; Glucose Random 120 mg/dL (60-115); Lipase 31 U/L (8-78); Magnesium 1.7 mg/dL (1.6-2.6); Potassium 3.7 mmol/L (3.3-5.1); Sodium 142 mmol/L (135-145); Total Protein 6.4 g/dL (6.5-8.0)
[2022-01-29 16:23] LABS: Appearance Urine Cloudy; Color Urine Dark Yellow; Glucose Urine UA Negative (Negative); Leukocyte Esterase Urine Large (3+) (Negative); Nitrite Urine Positive (Negative); PH 5.5 (5.0-9.0); UMIC TRIGGER UACC YES; Urine Blood Trace (Negative); Urine Ketones Negative (Negative); Urine Protein 30 (1+) mg/dL (Neg-Trace)
[2022-01-29 16:28] LABS: Bacteria Urine 4+ (None Seen); Hyaline Casts Urine 0-2 /LPF (0-2); UACC Culture Trigger YES; WBC Urine >50 /HPF (0-5)
[2022-01-29 16:28] LABS: B Type Natriuretic Peptide 238 pg/mL (<100); Troponin-I High Sensitivity 9.8 ng/L (<3.5-17.0)
[2022-01-29 17:06] LABS: OBS Int Ctl Valid YES; OBS1 NEGATIVE (NEGATIVE)
[2022-01-29] MEDS: cefTRIAXone sodium 1 GM in 0.9 % Sodium Chloride 50 ML IV (17:15)
--- NOTE | 2022-01-29 18:00 | PM.IMHP ---
History of Present Illness Date of Service: 01/29/22 Attending physician on admission: Pam Padilla Chief Complaint: Chest pain 71-year-old female patient with past medical history significant for mechanical aortic valve, coronary artery disease, CHF, COPD on home O2, history of post COVID syndrome with muscle weakness, presented to [facility] due to symptoms of chest pain that started last night and woke her up from sleep localized to left side of the chest with no associated diaphoresis or shortness of breath symptom resolved by itself lasting for less than few minutes she had recurrent episodes overnight, she also noticed worsening shortness of breath from her baseline for last several weeks she higher Lasix dose was recently increased to 20 mg every day by her java designer patient is having difficulty with ambulation previously she would is stand pivot but was feeling weak today therefore was brought into [facility] for further evaluation patient denied any associated fever chills headache dizziness lightheadedness palpitations no nausea vomiting, no urinary symptoms of urgency frequency numbness or tingling , denies worsening generalized weakness, in the emergency room she was noted to have urinalysis positive for 4+ bacteria greater than 50 WBC chest x-ray consistent with mild CHF blood sugar was stable at 120 noted to have drop in hemoglobin to 8.1 as compared to prior study of 11, BNP 238, normal troponin, EKG showed no acute ischemia, patient treated in the emergency room with IV ceftriaxone and updraft treatment and now being admitted to [facility] with a diagnosis of acute congestive heart failure and UTI and for further workup for chest pain. 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, no dizziness CVS no chest pain, or palpitation GI no nausea, no vomiting, no diarrhea General no fever no chills Skin no rash Musculoskeletal no pain Yes all other systems are reviewed and are negative [facility] Medical History Afib CHF exacerbation COPD (chronic obstructive pulmonary disease) COPD (chronic obstructive pulmonary disease) COVID-19 High blood pressure High cholesterol Hypoxemia Pulmonary fibrosis Respiratory failure with hypoxia and hypercapnia Pertinent family history: Father of throat cancer mother is Social History Household Members: None Household Members Other:: daughter in other other side of duplex Housing: House Do you presently have visiting nurse or other home services: Yes Alcohol intake: never Patient Tobacco Use Status: Former Tobacco user Quit Date: 02/06 Tobacco use type: Cigarette Use of substances other than those prescribed or required for medical reasons: No Currently Displaying Signs/Symptoms of Drug Intoxication Withdrawal: No Do you feel safe in your current relationship?: No Current Relationship Advance Directives: No Advance Directives Information Provided: No Do you have thoughts of harming others: None Do you have a plan to hurt others: No Plan Recently lost weight without trying: Yes How much weight loss: 24-33 pounds Eating poorly because of decreased appetite: Yes Nutrition screen score: 6 Patient : No service: No Current occupational status: disabled 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 Home Medications Medication Instructions Recorded Confirmed Last Taken Type acetaminophen 325 mg tablet 650 mg PO Q6H PRN Pain 02/01/21 01/29/22 Unknown History carvedilol 12.5 mg tablet 12.5 mg PO BID 02/01/21 10/02/21 01/29/22 08:00 History fluticasone 500 mcg-salmeterol 50 1 inh inhalation BID 02/01/21 01/29/22 01/29/22 08:00 History mcg/dose blistr powdr for inhalation (Advair Diskus) latanoprost 0.005 % eye drops 1 drp ophthalmic (eye) BEDTIME 02/01/21 01/29/22 01/28/22 History omeprazole 20 mg capsule,delayed 20 mg PO DAILY@0630 02/01/21 01/29/22 01/29/22 History release simvastatin 40 mg tablet 40 mg PO BEDTIME 02/01/21 01/29/22 01/28/22 History tiotropium bromide 18 mcg capsule 1 cap inhalation DAILY 10/10/02/21 08/01/21 History with inhalation device (Spiriva with HandiHaler) nystatin 100,000 unit/gram topical 1 appl topical BID PRN Skin 02/13/21 01/29/22 Unknown History cream Irritation albuterol sulfate 2.5 mg/3 mL 2.5 mg inhalation Q6H PRN 05/07/21 01/29/22 Unknown History (0.083 %) solution for nebulization Shortness Of Breath aspirin 81 mg tablet,delayed 81 mg PO BEDTIME 08/01/21 01/29/22 01/28/22 History release warfarin 2.5 mg tablet 2.5 mg PO DAILY 08/01/21 10/02/21 07/31/21 History citalopram 20 mg tablet 20 mg PO DAILY 10/02/21 01/29/22 01/29/22 History furosemide 20 mg tablet 20 mg PO DAILY EDEMA FEET 01/29/22 01/29/22 01/29/22 08:00 History ipratropium 20 mcg-albuterol 100 1 puff inhalation QID 01/29/22 01/29/22 01/29/22 History mcg/actuation mist for inhalation (Combivent Respimat) Physical Exam Vital Signs and Narrative: Vital Signs: Last Vital Signs Temp 98.9 F 01/29/22 15:07 Pulse 82 01/29/22 16:33 Resp 24 H 01/29/22 16:33 BP 102/53 L 01/29/22 16:33 Pulse Ox 90 L 01/29/22 16:33 O2 Del Method 01/29/22 16:33 O2 Flow Rate 3 01/29/22 16:33 Oxygen Flow Rate 3 01/29/22 15:07 BMI result Body Mass Index 35.6 Const: Other: General awake aler t x3, in mild resp iratory distress A nicteric sclera, p upil equal round r eactive to light a nd accommodation N lauren? supple no JVD . CVS? regular rat e rhythm, good per ipheral Respirator y lungs bibasilr c rackles,no wheeze , no use of access ory muscles Gastro intestinal abdomen soft, nontender, bowel sounds audib le,no guarding , n o rigidity. Extrem ities b/l pitting edema. Neuro nonfo maria victoria , speech clear . Skin no rash Psy ch appropriate aff ect Results Labs CBC and Chem 7: 01/29/22 15:42 01/30/22 06:02 Labs: Laboratory Results - last 24 hr 01/29/22 01/29/22 01/29/22 15:42 15:42 15:42 MCV 72.2 L MCH 19.2 L MCHC 26.6 L RDW 18.2 H Plt Count 176 D MPV Not Reportable Immature Gran % (Auto) 0.4 Neut % (Auto) 71.8 Lymph % (Auto) 18.2 L [place] % (Auto) 7.7 Eos % (Auto) 1.2 Baso % (Auto) 0.7 Lymph # (Auto) 1.3 [place] # (Auto) 0.6 Eos # (Auto) 0.1 Baso # (Auto) 0.1 Abs Immat Gran (auto) 0.03 Absolute Neuts (auto) 5.2 Absolute Nucleated RBC 0.000 Nucleated RBC % (auto) 0.0 Anion Gap 15 Estim Creat Clear Calc 83.0 Estimated GFR > 60 Random Glucose 120 H Calcium 8.8 Magnesium 1.7 Total Bilirubin 0.5 AST 13 ALT 6 Alkaline Phosphatase 61 Troponin I High Sens B-Natriuretic Peptide 238 H Total Protein 6.4 L Albumin 3.9 Lipase 31 Urine Color Urine Appearance Urine pH Ur Specific [place] Urine Protein Urine Glucose (UA) Urine Ketones Urine Blood Urine Nitrite Ur Leukocyte Esterase Urine RBC Urine WBC Ur Squamous Epith Cells Urine Bacteria Hyaline Casts Stool Occult Blood COVID-19 (ROB) COVID-19 Clin Com 01/29/22 01/29/22 01/29/22 15:42 15:42 16:16 MCV MCH MCHC RDW Plt Count MPV Immature Gran % (Auto) Neut % (Auto) Lymph % (Auto) [place] % (Auto) Eos % (Auto) Baso % (Auto) Lymph # (Auto) [place] # (Auto) Eos # (Auto) Baso # (Auto) Abs Immat Gran (auto) Absolute Neuts (auto) Absolute Nucleated RBC Nucleated RBC % (auto) Anion Gap Estim Creat Clear Calc Estimated GFR Random Glucose Calcium Magnesium Total Bilirubin AST ALT Alkaline Phosphatase Troponin I High Sens 9.8 D B-Natriuretic Peptide Total Protein Albumin Lipase Urine Color Dark Yellow Urine Appearance Cloudy Urine pH 5.5 Ur Specific [place] 1.020 Urine Protein 30 (1+) H Urine Glucose (UA) Negative Urine Ketones Negative Urine Blood Trace H Urine Nitrite Positive H Ur Leukocyte Esterase Large (3+) H Urine RBC 11-20 H Urine WBC >50 H Ur Squamous Epith Cells 6-10 Urine Bacteria 4+ Hyaline Casts 0-2 Stool Occult Blood COVID-19 (ROB) Negative COVID-19 Clin Com See Note 01/29/22 16:52 MCV MCH MCHC RDW Plt Count MPV Immature Gran % (Auto) Neut % (Auto) Lymph % (Auto) [place] % (Auto) Eos % (Auto) Baso % (Auto) Lymph # (Auto) [place] # (Auto) Eos # (Auto) Baso # (Auto) Abs Immat Gran (auto) Absolute Neuts (auto) Absolute Nucleated RBC Nucleated RBC % (auto) Anion Gap Estim Creat Clear Calc Estimated GFR Random Glucose Calcium Magnesium Total Bilirubin AST ALT Alkaline Phosphatase Troponin I High Sens B-Natriuretic Peptide Total Protein Albumin Lipase Urine Color Urine Appearance Urine pH Ur Specific [place] Urine Protein Urine Glucose (UA) Urine Ketones Urine Blood Urine Nitrite Ur Leukocyte Esterase Urine RBC Urine WBC Ur Squamous Epith Cells Urine Bacteria Hyaline Casts Stool Occult Blood NEGATIVE COVID-19 (ROB) COVID-19 Clin Com Imaging Radiologist's Impressions: Impressions Chest X-Ray 01/29/22 14:57 IMPRESSION: Mild congestive failure. Assessment and Plan (1) Anemia: Qualifiers: Anemia type: unspecified type Qualified Code(s): D64.9 - Anemia, unspecified Status: Acute (2) Urinary tract infection: Status: Acute (3) CHF exacerbation: Status: Acute (4) Acute and chronic respiratory failure with hypoxia: Status: Acute Plan 71-year-old female with past medical history of mechanical aortic valve, coronary artery disease, CHF, COPD on home O2, history of post COVID syndrome, muscle weakness presented to [facility] with on and off symptoms of chest pain last night all symptoms have resolved at present patient is being admitted to [facility] with acute CHF exacerbation and UTI with acute on chronic hypoxic respiratory failure Acute on chronic hypoxic respiratory failure on 3 L of home oxygen, likely due to acute systolic CHF exacerbation Will treat patient with IV Lasix 20 b.i.d. continue oxygen 3 L keep finger oximetry in 90-92% Follow-up echocardiogram, follow strict I's and O's low-salt diet, monitor BMP and BNP while being diuresed Obtain echocardiogram Acute UTI urinalysis strongly positive will treat with IV ceftriaxone follow urine culture no evidence of sepsis Chest pain resolved troponin flat EKG with no acute ischemia, likely due to CHF will repeat troponin, continue tele monitoring, check echo for wall motion abnormality History of coronary artery disease continue home medication aspirin Coreg and statin patient is being [facility] at [facility] cardiology. History of advnace COPD o2 dependent continue home inhalers Acute on chronic anemia no acute blood loss noted Will check stool guaiac check iron studies, stool guaiac follow CBC Mechanical aortic valve replacement on Coumadin INR 2.7, INR goal 2-3 Obesity recommended weight reduction and low-calorie diet Code status full DVT prophylaxis on Coumadin INR therapeutic Patient will likely need 2 night inpatient hospitalization due to acute CHF exacerbation on IV Lasix require further workup and tele monitoring. Quality Stroke Does the patient have a stroke diagnosis?: No VTE Prior VTE?: No VTE Risk Level:: Medical - moderate - high VTE Device Contraindication: Treatment Not Indicated VTE Drug Contraindication: N/A - Med Ordered
[2022-01-29 18:02] LABS: INTERNATIONAL NORM RATIO 2.7 (0.9-1.1); Prothrombin Time 31.7 SEC (10.0-13.1)
--- NOTE | 2022-01-29 18:15 | PHA.MEDREC ---
Pharmacy Consult ? Medication Reconciliation Pharmacy has completed the medication reconciliation.
[2022-01-29 19:23] LABS: Troponin-I High Sensitivity 9.4 ng/L (<3.5-17.0)
[2022-01-29] MEDS: Furosemide 20 MG/2 ML VIAL IVPUSH (21:17)
[2022-01-29] MEDS: Atorvastatin Calcium 20 MG TABLET PO (21:17)
[2022-01-29] MEDS: Aspirin Enteric Coated 81 MG TABLET.DR PO (21:18)
[2022-01-29] MEDS: acetaZOLAMIDE 250 MG TABLET PO (21:18)
[2022-01-29] MEDS: 0.9 % Sodium Chloride Flush 3 ML SYRINGE IVFLUSH (21:19)
[2022-01-30] VITALS (10 sets, daily range): BP systolic 115–134; BP diastolic 58–65; PULSE 70–92; RESP 14–20; TEMP 36–36.6; O2SAT 91–98
[2022-01-30] MEDS: Omeprazole 20 MG CAPSULE.DR PO (05:53)
[2022-01-30 06:31] LABS: Anion Gap 12 (12-20); Blood Urea Nitrogen 12 mg/dL (9-16); Calcium 8.7 mg/dL (8.4-10.2); Carbon Dioxide 34 mmol/L (22-29); Chloride 101 mmol/L (96-108); Creatinine Clr Calc Pharmacy 90.2; Estimated Glomerular Filt Rate > 60; Glucose Random 115 mg/dL (60-115); Potassium 3.4 mmol/L (3.3-5.1); Sodium 144 mmol/L (135-145)
--- NOTE | 2022-01-30 07:00 | CA_ITS ---
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 The visually estimated ejection fraction is between 65-70%. - There is mildly decreased right ventricular systolic function. - By history, prosthetic aortic valve but not well visualized. 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 - There is severe mitral annular calcification. There is moderate mitral valve stenosis. - Moderate to severe pulmonary hypertension is present. Findings Procedure Information Contrast agent, definity, is being given per protocol without apparent complications. Left Ventricle Normal left ventricular cavity size. There is normal left ventricular wall thickness. The left ventricular systolic function is normal. The visually estimated ejection fraction is between 65-70%. There is no evidence of regional wall motion abnormalities. Diastolic function is indeterminate on the basis of available data. Right Ventricle Normal right ventricular cavity size. There is mildly decreased right ventricular systolic function. Atria The left atrium is severely dilated. The right atrium is normal in size. Aortic Valve The mean gradient is 35 mmHg. The aortic valve area is 1.03 cm2. There is no aortic valve regurgitation. By history, prosthetic aortic valve but not well visualized. Acceleration time 88-102 ms. Probably stenosis. Mitral Valve There is severe mitral annular calcification. There is trace mitral valve regurgitation. There is moderate mitral valve stenosis. Mean gradient across the mitral valve 11mmHg at 86/min. Pulmonic Valve The pulmonic valve is likely normal. Tricuspid Valve There is mild tricuspid valve regurgitation. The right ventricular systolic pressure is 64 mmHg. Moderate to severe pulmonary hypertension is present. Great Vessels The asc aorta is normal in size. Small plaque is seen in the sino tubular ridge. Venous The inferior vena cava is mildly dilated and collapses greater than 50% with inspiration. Pericardium/Pleural There is no evidence of pericardial effusion. Prior Study Comparison No prior study available for comparison. Measurements 2D Linear Measurements IVSd: 0.93 0.6-0.9/0.6-1.0 cm LVIDd: 4.85 3.9-5.3/4.2-5.9 cm LVIDd Index: 2.57 2.4-3.2/2.2-3.1 cm/m2 LVIDs: 3.44 2.0-3.6 cm LVPWd: 0.76 0.7-1.1 cm LA Diam: 3.50 2.7-3.8/3.0-4.0 cm LAIDs Index: 1.85 1.5-2.3 cm/m2 LV Mass: 172.27 67-162/88-224 g LV Mass Index: 91.15 43-95/49-115 g/m2 LVOT Diam: 2.20 3.0+(-)1.3 cm 2D Systolic Function EF 4C: 72.80 >55% EF 2C: 67.50 >55% EF BiP: 69.80 >55% Mitral Valve MV VTI: 0.60 MV Pk Sebastien: 2.31 MV Mn Sebastien: 1.55 MV Pk Grad: 21.00 MV Mn Grad: 11.00 MV Pk E: 1.75 MV PK A: 1.61 MV Decel Time: 235.00 E/A: 1.10 E'Lateral: 6.09 E'Medial: 4.46 E/E' Med: 39.20 E/E' Lat: 28.70 PHT: 69.00 MVA PHT: 3.19 MVA Continuity: 1.30 Decel Major: 7.42 Aortic Valve AoV Pk Sebastien: 4.02 AoV Mn Sebastien: 2.82 AoV VTI: 0.76 AoV Pk Grad: 65.00 Aov Mn Grad: 35.00 JENN Cont.VTI: 1.03 LVOT LVOT Pk Sebastien: 1.00 LVOT Mn Sebastien: 0.71 LVOT VTI: 0.21 LVOT Pk Grad: 4.00 LVOT Mn Grad: 3.00 LVOT Diam: 2.20 LVOT Area: 3.80 Diastolic Function MV Pk E: 1.75 MV Pk A: 1.61 E/A: 1.10 E'Medial: 4.46 E/E' Med: 39.20 E' Laterial: 6.09 E/E' Lat: 28.70 Right Ventricle TAPSE (mm): 14.10 TVS' Sebastien: 7.80 Tricuspid Valve TR Pk Sebastien: 3.73 TR Pk Grad: 56.00 RA Press: 8.00 RVSP: 64.00 Great Vessels Aorta Sinus of Valsalva: 3.20 2.0-3.5 cm Ao Asc: 3.60 2.1-3.4 cm Pulmonary Valve PV Pk Sebastien: 1.04 Peak PV Grad: 4.00 Updated in Other Vendor System with Status of Final Emmanuel Morrison MD electronically signed on 01/30/2022 3:33:35 PM with status of Final
[2022-01-30] MEDS: Albuterol/Iprat 2.5/0.5MG 3 ML AMPUL.NEB INHALE ×4 (07:34→19:19)
[2022-01-30] MEDS: Furosemide 20 MG/2 ML VIAL IVPUSH ×2 (08:17→21:47)
[2022-01-30] MEDS: 0.9 % Sodium Chloride Flush 3 ML SYRINGE IVFLUSH ×3 (08:18→21:48)
[2022-01-30] MEDS: Escitalopram Oxalate 10 MG TABLET PO (08:18)
[2022-01-30] MEDS: acetaZOLAMIDE 250 MG TABLET PO ×2 (08:22→21:48)
[2022-01-30 09:18] LABS: Hematocrit 30.6 % (37.0-47.0); Hemoglobin 7.9 g/dl (12.0-16.0); Mean Corpuscular HGB Conc 25.8 g/dl (31.0-35.0); Mean Corpuscular Volume 73.6 fL (80.0-98.0); Platelet Count 163 X10*3/uL (160-400); Red Blood Count 4.16 X10*6/uL (4.20-5.50); Red Cell Distribution Width 18.1 % (11.0-16.0); White Blood Count 6.2 X10*3/uL (4.8-10.8)
[2022-01-30 09:25] LABS: Iron 26 mcg/dL (30-160); Percent Iron Saturation 5 % (15-50); Total Iron Binding Capacity 478 mcg/dL (228-428); Unsaturated Iron Binding 452 ug/dL
--- NOTE | 2022-01-30 10:04 | MHC.CM.PN ---
met w/pt and dgnidhi who lives next door in a duplex pt had no previous servceis is jmuana vax x 3 has own ride hoe nad does not anticapate needing servceis when dcd
--- NOTE | 2022-01-30 10:07 | MHC.CM.PN ---
pt yunier es with his they are indepedendent had no servcis prior to admisson and do not anticapte needing servcis when dcd covid vax x4 pt receommending home with home pt which pt is refusing dc home no servceis
--- NOTE | 2022-01-30 10:34 | MHC.CLN ---
RE: CONSULT PT REPORTED -33# WT LOSS ON NURSING ADMISSION ASSESSMENT CURRENT WT 88.7KG (01/29/22) PREVIOUS WT 72.6KG (01/24/21) PT WITH 22% SIGNIFICANT WT GAIN X 1 YEAR BMI 35.7 INDICATES OBESE WT FOR HT NOTED +2 BLE EDEMA R/T CHF NO EVIDENCE OF WT LOSS AT THIS TIME MONITOR PO INTAKE CONTINUE CURRENT CARE PLAN
[2022-01-30] MEDS: Fluticasone/Vilanterol 200/25 BLST.W.DEV 1 PUFF INHALE (11:52)
--- NOTE | 2022-01-30 14:28 | HO.PM.IMPN ---
Subjective Subjective Date of Service: 01/30/22 Interval History: Being followed for acute congestive heart failure, patient feeling better this morning complaining of less shortness of breath denies chest pain, no palpitations, feels leg swelling has improved no other acute issues overnight denies fever chills, no headache no dizziness. Review of Systems Review of Systems: Yes all other systems are reviewed and are negative Physical Exam Vital Signs: Vital Signs: Last Vital Signs Temp 97.9 F 01/30/22 11:53 Pulse 82 01/30/22 11:56 Resp 18 01/30/22 11:56 BP 120/65 01/30/22 11:53 Pulse Ox 93 01/30/22 11:53 O2 Del Method 01/30/22 11:53 O2 Flow Rate 3 01/30/22 11:53 Oxygen Flow Rate 3 01/29/22 15:07 BMI result Body Mass Index 35.7 Const: Other: General awake alert x3, no acute distress, talking in full sentences Neck? no JVD. CVS? regular rate rhythm, good peripheral Respiratory lungs bibasilr crackles,no wheeze, no use of accessory muscles Gastrointestinal abdomen?soft, nontender,bowel sounds audible,no guarding , no rigidity. Extremities less b/l pitting edema. Neuro nonfocal , speech clear. Skin no rash Psych appropriate affect Objective Data Active Medications Acetaminophen (Acetaminophen 325 Mg Tablet) 650 mg PO Q6H PRN PRN Reason: Pain, Mild (Pain Scale 1-3) Acetazolamide (Acetazolamide 250 Mg Tablet) 250 mg PO BID [facility] Last Admin: 01/30/22 08:22 Dose: 250 mg Documented By: PAYTON Albuterol Sulfate (Albuterol Sulfate (0.083%) 2.5 Mg/3 Ml Vial.Neb) 2.5 mg INHALE Q6H PRN PRN Reason: Shortness Of Breath Albuterol/Ipratropium (Albuterol/Iprat 2.5/0.5mg 3 Ml Ampul.Neb) 3 ml INHALE RQID [facility] Last Admin: 01/30/22 11:51 Dose: 3 ml Documented By: ELIEZER Aspirin (Aspirin Enteric Coated 81 Mg Tablet.) 81 mg PO BEDTIME [facility] Last Admin: 01/29/22 21:18 Dose: 81 mg Documented By: GRAYSON Atorvastatin Calcium (Atorvastatin Calcium 20 Mg Tablet) 20 mg PO BEDTIME [facility] Last Admin: 01/29/22 21:17 Dose: 20 mg Documented By: GRAYSON Escitalopram Oxalate (Escitalopram Oxalate 10 Mg Tablet) 10 mg PO DAILY [facility] Last Admin: 01/30/22 08:18 Dose: 10 mg Documented By: PAYTON Fluticasone/Vilanterol (Fluticasone/Vilanterol 200/25 Blst.W.Dev) 1 puff INHALE RDAILY [facility] Last Admin: 01/30/22 11:52 Dose: 1 puff Documented By: ELIEZER Furosemide (Furosemide 20 Mg/2 Ml Vial) 20 mg IVPUSH Q12H [facility]; Protocol Last Admin: 01/30/22 08:17 Dose: 20 mg Documented By: PAYTON Latanoprost (Latanoprost 0.005 % Ophth Sally 2.5 Ml Drops) 1 drop EYE-BOTH BEDTIME [facility] Last Admin: 01/29/22 21:22 Dose: Not Given Documented By: GRAYSON Non-Admin Reason: Med Not Available Omeprazole (Omeprazole 20 Mg Capsule.Dr) 20 mg PO DAILY@0630 [facility] Last Admin: 01/30/22 05:53 Dose: 20 mg Documented By: GRAYSON Ondansetron HCl (Ondansetron Hcl 4 Mg/2 Ml Vial) 4 mg IVPUSH Q8H PRN PRN Reason: Nausea and Vomiting Sodium Chloride (0.9 % Sodium Chloride Flush 3 Ml Syringe) 3 ml IVFLUSH QSHIFT [facility] Last Admin: 01/30/22 08:18 Dose: 3 ml Documented By: PAYTON Labs CBC & Chem 7: 01/30/22 08:41 01/30/22 06:02 Labs: Laboratory Results - last 24 hr 01/29/22 01/29/22 01/29/22 15:42 15:42 15:42 MCV 72.2 L MCH 19.2 L MCHC 26.6 L RDW 18.2 H Plt Count 176 D MPV Not Reportable Immature Gran % (Auto) 0.4 Neut % (Auto) 71.8 Lymph % (Auto) 18.2 L [place] % (Auto) 7.7 Eos % (Auto) 1.2 Baso % (Auto) 0.7 Lymph # (Auto) 1.3 [place] # (Auto) 0.6 Eos # (Auto) 0.1 Baso # (Auto) 0.1 Abs Immat Gran (auto) 0.03 Absolute Neuts (auto) 5.2 Absolute Nucleated RBC 0.000 Nucleated RBC % (auto) 0.0 PT INR Anion Gap 15 Estim Creat Clear Calc 83.0 Estimated GFR > 60 Random Glucose 120 H Calcium 8.8 Magnesium 1.7 Iron TIBC % Saturation Unsat Iron Binding Total Bilirubin 0.5 AST 13 ALT 6 Alkaline Phosphatase 61 Troponin I High Sens B-Natriuretic Peptide 238 H Total Protein 6.4 L Albumin 3.9 Lipase 31 Urine Color Urine Appearance Urine pH Ur Specific [place] Urine Protein Urine Glucose (UA) Urine Ketones Urine Blood Urine Nitrite Ur Leukocyte Esterase Urine RBC Urine WBC Ur Squamous Epith Cells Urine Bacteria Hyaline Casts Stool Occult Blood COVID-19 (ROB) COVID-19 [employer] 01/29/22 01/29/22 01/29/22 15:42 15:42 16:16 MCV MCH MCHC RDW Plt Count MPV Immature Gran % (Auto) Neut % (Auto) Lymph % (Auto) [place] % (Auto) Eos % (Auto) Baso % (Auto) Lymph # (Auto) [place] # (Auto) Eos # (Auto) Baso # (Auto) Abs Immat Gran (auto) Absolute Neuts (auto) Absolute Nucleated RBC Nucleated RBC % (auto) PT INR Anion Gap Estim Creat Clear Calc Estimated GFR Random Glucose Calcium Magnesium Iron TIBC % Saturation Unsat Iron Binding Total Bilirubin AST ALT Alkaline Phosphatase Troponin I High Sens 9.8 D B-Natriuretic Peptide Total Protein Albumin Lipase Urine Color Dark Yellow Urine Appearance Cloudy Urine pH 5.5 Ur Specific [place] 1.020 Urine Protein 30 (1+) H Urine Glucose (UA) Negative Urine Ketones Negative Urine Blood Trace H Urine Nitrite Positive H Ur Leukocyte Esterase Large (3+) H Urine RBC 11-20 H Urine WBC >50 H Ur Squamous Epith Cells 6-10 Urine Bacteria 4+ Hyaline Casts 0-2 Stool Occult Blood COVID-19 (ROB) Negative COVID-19 [employer] See Note 01/29/22 01/29/22 01/29/22 16:52 17:45 18:54 MCV MCH MCHC RDW Plt Count MPV Immature Gran % (Auto) Neut % (Auto) Lymph % (Auto) [place] % (Auto) Eos % (Auto) Baso % (Auto) Lymph # (Auto) [place] # (Auto) Eos # (Auto) Baso # (Auto) Abs Immat Gran (auto) Absolute Neuts (auto) Absolute Nucleated RBC Nucleated RBC % (auto) PT 31.7 H INR 2.7 H Anion Gap Estim Creat Clear Calc Estimated GFR Random Glucose Calcium Magnesium Iron TIBC % Saturation Unsat Iron Binding Total Bilirubin AST ALT Alkaline Phosphatase Troponin I High Sens 9.4 B-Natriuretic Peptide Total Protein Albumin Lipase Urine Color Urine Appearance Urine pH Ur Specific [place] Urine Protein Urine Glucose (UA) Urine Ketones Urine Blood Urine Nitrite Ur Leukocyte Esterase Urine RBC Urine WBC Ur Squamous Epith Cells Urine Bacteria Hyaline Casts Stool Occult Blood NEGATIVE COVID-19 (ROB) COVID-19 [employer] 01/30/22 01/30/22 01/30/22 06:02 08:41 08:41 MCV 73.6 L MCH 19.0 L MCHC 25.8 L RDW 18.1 H Plt Count 163 MPV 11.0 Immature Gran % (Auto) Neut % (Auto) Lymph % (Auto) [place] % (Auto) Eos % (Auto) Baso % (Auto) Lymph # (Auto) [place] # (Auto) Eos # (Auto) Baso # (Auto) Abs Immat Gran (auto) Absolute Neuts (auto) Absolute Nucleated RBC 0.000 Nucleated RBC % (auto) 0.0 PT INR Anion Gap 12 Estim Creat Clear Calc 90.2 Estimated GFR > 60 Random Glucose 115 Calcium 8.7 Magnesium Iron 26 L TIBC 478 H % Saturation 5 L Unsat Iron Binding 452 Total Bilirubin AST ALT Alkaline Phosphatase Troponin I High Sens B-Natriuretic Peptide Total Protein Albumin Lipase Urine Color Urine Appearance Urine pH Ur Specific [place] Urine Protein Urine Glucose (UA) Urine Ketones Urine Blood Urine Nitrite Ur Leukocyte Esterase Urine RBC Urine WBC Ur Squamous Epith Cells Urine Bacteria Hyaline Casts Stool Occult Blood COVID-19 (ROB) COVID-19 [employer] Microbiology Microbiology Results: Microbiology 01/29/22 16:39 Urine Culture - Preliminary Urine clean catch - Urine estes top Gram negative jake Assessment and Plan (1) Anemia: Status: Acute (2) Urinary tract infection: Status: Acute (3) Acute and chronic respiratory failure with hypoxia: Status: Acute Plan 71-year-old female with past medical history of mechanical aortic valve, coronary artery disease, CHF, COPD on home O2, history of post COVID syndrome, muscle weakness presented to [facility] with on and off symptoms of chest pain last night all symptoms have resolved at present patient is being admitted to [facility] with acute CHF exacerbation and UTI with acute on chronic hypoxic respiratory failure Acute on chronic hypoxic respiratory failure on 2.5 L of home oxygen, likely due to acute systolic CHF exacerbation Patient feeling better this morning, continue IV Lasix 20 b.i.d. continue oxygen and gradually wean down to 2.5 L,keep finger oximetry in 90-92% Follow echocardiogram, strict I's and O's, low-salt diet, stable electrolytes and renal function, monitor BMP and BNP while being diuresed Acute UTI urinalysis strongly positive, urine culture growing Gram-negative jake , continue IV ceftriaxone follow final urine culture no evidence of sepsis Chest pain resolved troponin flat EKG with no acute ischemia, likely due to CHF , continue tele monitoring, check echo for wall motion abnormality History of coronary artery disease continue home medication aspirin Coreg and statin patient is being followed at [facility] cardiology. If noted to have abnormal echocardiogram will obtain cardiology consultation History of advance COPD o2 dependent continue home inhalers Acute on chronic anemia no acute blood loss noted, iron studies consistent with iron deficiency, stool guaiac negative Noted to have gradual decline in hematocrit since last year patient on Coumadin, will consult Gastroenterology. Will give IV iron low anemia also likely contributing to shortness of breath Mechanical aortic valve replacement on Coumadin INR? 2.7, INR goal 2-3 Obesity recommended weight reduction and low-calorie diet Code status full DVT prophylaxis on Coumadin INR therapeutic Patient will likely need 2 night inpatient hospitalization due to acute CHF exacerbation on IV Lasix require further workup and tele monitoring. Quality Stroke Does the patient have a stroke diagnosis?: No VTE Prior VTE?: No VTE Risk Level:: Medical - moderate - high VTE Device Contraindication: Treatment Not Indicated VTE Drug Contraindication: N/A - Med Ordered
--- NOTE | 2022-01-30 14:32 | PC.NURSE ---
Report received from overnight RN. streaming media specialist per JUN. pt having multiple incont episodes of urine, purewick in place now. pt with no c/o pain. call garcia within reach, safety precautions taken.
--- NOTE | 2022-01-30 15:09 | PM.GICN ---
History of Present Illness Data of Consult Service Date: 01/30/22 Requesting physician: Pam Padilla Primary Care Provider: Sumi Coy MD [facility] Reason for consult: Worsening LETITIA This is a 71-year-old female with past medical history of coronary artery disease, mechanical aortic valve on Coumadin, advanced COPD, post COVID fibrosis with chronic hypoxic and hypercapnic respiratory failure on home O2, who is currently admitted to the hospital for chest pain and acute on chronic hypoxic respiratory failure. Gastroenterology has been consulted for finding of worsening anemia. Patient states that at baseline, she does have shortness of breath, is limited in her daily tasks. Daughter helps with food in cleaning. Unable to go to the bathroom, she uses a bedside commode. Uses 2 L oxygen at baseline. Denies any gastrointestinal symptoms to include abdominal pain, nausea, vomiting changes in appetite, change in bowel habits. Denies any black or maroon stools or rectal bleeding. She denies any palpitations, lightheadedness. Shortness of breath feels a bit worse at present, but before this particular episode, was feeling at her baseline. Last colonoscopy was in 2013 at [facility] and was reportedly normal, and she was given a 10 year interval. She does not recall who performed it. She is on Coumadin for mechanical aortic valve. INR today was 2.7. Denies taking any NSAIDs. Currently getting an iron infusion. Review of Systems Review of Systems: Yes all other systems are reviewed and are negative [facility] Past Medical History Medical History Afib CHF exacerbation COPD (chronic obstructive pulmonary disease) COPD (chronic obstructive pulmonary disease) COVID-19 High blood pressure High cholesterol Hypoxemia Pulmonary fibrosis Respiratory failure with hypoxia and hypercapnia Social History Social History Household Members: None Household Members Other:: daughter in other other side of duplex Housing: House Do you presently have visiting nurse or other home services: Yes Alcohol intake: never Patient Tobacco Use Status: Former Tobacco user Quit Date: 02/06 Tobacco use type: Cigarette Use of substances other than those prescribed or required for medical reasons: No Currently Displaying Signs/Symptoms of Drug Intoxication Withdrawal: No Do you feel safe in your current relationship?: No Current Relationship Advance Directives: No Advance Directives Information Provided: No Do you have thoughts of harming others: None Do you have a plan to hurt others: No Plan Recently lost weight without trying: Yes How much weight loss: 24-33 pounds Eating poorly because of decreased appetite: Yes Nutrition screen score: 6 Patient : No service: No Current occupational status: disabled 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 Meds Allergies Allergy/AdvReac Type Severity Reaction Status Date / Time No Known Allergies Allergy Mild N/A Verified 01/05/22 16:51 Active Medications: Current Medications Acetaminophen (Acetaminophen 325 Mg Tablet) 650 mg PO Q6H PRN PRN Reason: Pain, Mild (Pain Scale 1-3) Acetazolamide (Acetazolamide 250 Mg Tablet) 250 mg PO BID [facility] Last Admin: 01/30/22 08:22 Dose: 250 mg Albuterol Sulfate (Albuterol Sulfate (0.083%) 2.5 Mg/3 Ml Vial.Neb) 2.5 mg INHALE Q6H PRN PRN Reason: Shortness Of Breath Albuterol/Ipratropium (Albuterol/Iprat 2.5/0.5mg 3 Ml Ampul.Neb) 3 ml INHALE RQID [facility] Last Admin: 01/30/22 11:51 Dose: 3 ml Aspirin (Aspirin Enteric Coated 81 Mg Tablet.Dr) 81 mg PO BEDTIME [facility] Last Admin: 01/29/22 21:18 Dose: 81 mg Atorvastatin Calcium (Atorvastatin Calcium 20 Mg Tablet) 20 mg PO BEDTIME [facility] Last Admin: 01/29/22 21:17 Dose: 20 mg Escitalopram Oxalate (Escitalopram Oxalate 10 Mg Tablet) 10 mg PO DAILY [facility] Last Admin: 01/30/22 08:18 Dose: 10 mg Fluticasone/Vilanterol (Fluticasone/Vilanterol 200/25 Blst.W.Dev) 1 puff INHALE RDAILY [facility] Last Admin: 01/30/22 11:52 Dose: 1 puff Furosemide (Furosemide 20 Mg/2 Ml Vial) 20 mg IVPUSH Q12H [facility]; Protocol Last Admin: 01/30/22 08:17 Dose: 20 mg Iron Sucrose 200 mg/ Sodium (Chloride) 110 mls @ 440 mls/hr IV DAILY [facility] Stop: 02/01/22 09:14 Latanoprost (Latanoprost 0.005 % Ophth Sally 2.5 Ml Drops) 1 drop EYE-BOTH BEDTIME [facility] Last Admin: 01/29/22 21:22 Dose: Not Given Omeprazole (Omeprazole 20 Mg Capsule.Dr) 20 mg PO DAILY@0630 [facility] Last Admin: 01/30/22 05:53 Dose: 20 mg Ondansetron HCl (Ondansetron Hcl 4 Mg/2 Ml Vial) 4 mg IVPUSH Q8H PRN PRN Reason: Nausea and Vomiting Sodium Chloride (0.9 % Sodium Chloride Flush 3 Ml Syringe) 3 ml IVFLUSH QSHIFT [facility] Last Admin: 01/30/22 08:18 Dose: 3 ml Home Medications Medication Instructions Recorded Confirmed Last Taken Type acetaminophen 325 mg tablet 650 mg PO Q6H PRN Pain 02/01/21 01/29/22 Unknown History carvedilol 12.5 mg tablet 12.5 mg PO BID 02/01/21 10/02/21 01/29/22 08:00 History fluticasone 500 mcg-salmeterol 50 1 inh inhalation BID 02/01/21 01/29/22 01/29/22 08:00 History mcg/dose blistr powdr for inhalation (Advair Diskus) latanoprost 0.005 % eye drops 1 drp ophthalmic (eye) BEDTIME 02/01/21 01/29/22 01/28/22 History omeprazole 20 mg capsule,delayed 20 mg PO DAILY@0630 02/01/21 01/29/22 01/29/22 History release simvastatin 40 mg tablet 40 mg PO BEDTIME 02/01/21 01/29/22 01/28/22 History tiotropium bromide 18 mcg capsule 1 cap inhalation DAILY 02/01/21 10/02/21 08/01/21 History with inhalation device (Spiriva with HandiHaler) nystatin 100,000 unit/gram topical 1 appl topical BID PRN Skin 02/13/21 01/29/22 Unknown History cream Irritation albuterol sulfate 2.5 mg/3 mL 2.5 mg inhalation Q6H PRN 05/07/21 01/29/22 Unknown History (0.083 %) solution for nebulization Shortness Of Breath aspirin 81 mg tablet,delayed 81 mg PO BEDTIME 08/01/21 01/29/22 01/28/22 History release warfarin 2.5 mg tablet 2.5 mg PO DAILY 04/10/02/21 07/31/21 History citalopram 20 mg tablet 20 mg PO DAILY 10/02/21 01/29/22 01/29/22 History furosemide 20 mg tablet 20 mg PO DAILY [facility] 01/29/22 01/29/22 01/29/22 08:00 History ipratropium 20 mcg-albuterol 100 1 puff inhalation QID 01/29/22 01/29/22 01/29/22 History mcg/actuation mist for inhalation (Combivent Respimat) Physical Exam Vital Signs: Vital Signs: Last Vital Signs Temp 97.9 F 01/30/22 11:53 Pulse 82 01/30/22 11:56 Resp 18 01/30/22 11:56 BP 120/65 01/30/22 11:53 Pulse Ox 93 01/30/22 11:53 O2 Del Method 01/30/22 11:53 O2 Flow Rate 3 01/30/22 11:53 Oxygen Flow Rate 3 01/29/22 15:07 BMI result Body Mass Index 35.7 Gen appear: In overt respiratory distress HEENT: No icterus, mild bitemporal wasting noted Chest: Bilateral wheezing and crackles CVS: S1/S2, mechanical clicking Abd: soft, nontender, nondistended Psych: Stable affect, answering questions appropriately Neuro: A/Ox3 noted to move all extremities spontaneously Ext: Macerated skin on feet Results Labs CBC & Chem 7: 01/30/22 08:41 01/30/22 06:02 Labs: Short CBC 01/29/22 01/30/22 Range/Units 15:42 08:41 WBC 7.2 6.2 (4.8-10.8) X10*3/uL Hgb 8.1 L D 7.9 L (12.0-16.0) g/dl Hct 30.4 L 30.6 L (37.0-47.0) % Plt Count 176 D 163 (160-400) X10*3/uL BMP 01/29/22 01/30/22 15:42 06:02 Sodium 142 144 Potassium 3.7 3.4 Chloride 101 101 Carbon Dioxide 30 H 34 H BUN 13 12 Creatinine 0.65 0.60 Calcium 8.8 8.7 Liver Function 01/29/22 Range/Units 15:42 Total Bilirubin 0.5 (0.0-1.0) mg/dL AST 13 (5-31) U/L ALT 6 (0-31) U/L Alkaline Phosphatase 61 (39-117) U/L Albumin 3.9 (3.5-5.0) g/dL Urine 01/29/22 Range/Units 16:16 Urine Color Dark Yellow Urine Appearance Cloudy Urine pH 5.5 (5.0-9.0) Ur Specific [place] 1.020 (1.005-1.025) Urine Protein 30 (1+) H (Neg-Trace) mg/dL Urine Glucose (UA) Negative (Negative) mg/dL Microbiology Microbiology Results: Microbiology 01/29/22 16:39 Urine clean catch - Urine estes top Urine Culture - Preliminary Gram negative jake Imaging Echocardiogram: Radiologist's impression: Echocardiogram report from today reviewed. EF 65-70%. 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 Moderate mitral valve stenosis. Moderate to severe pulmonary hypertension. Mildly decreased right ventricular function. Dilation of left atrium. Assessment and Plan (1) Acute on chronic anemia: Status: Acute (2) COPD exacerbation: Status: Acute (3) CHF exacerbation: Status: Acute (4) Acute and chronic respiratory failure with hypoxia: Status: Acute (5) Pulmonary hypertension: Status: Acute (6) H/O mechanical aortic valve replacement: Status: Acute Plan Has acute on chronic iron deficiency anemia. Will need to rule out occult GI bleed. Differentials include esophagitis/gastritis, PUD, AVM, large friable polyp, mass etc. Reviewed options with the patient that given absence of overt bleeding can cont management with iron supplementation and high dose PPI (to mitigate esophagitis/gastritis/duodenitis or PUD empirically) and pursue bidirectional endoscopy outpatient, or tentatively schedule it for early next week once her respiratory status has returned to baseline and INR has drifted down. She prefers to get this done while she is still here. Recommendations: - Maintain 2 peripheral IV access at all times - Monitor H/H and transfuse for Hb <7 - Start PPI 40mg BID PO - EGD/colonoscopy early next week (tentatively Wednesday) - Can cont low fiber diet for now. Please start clears on Wednesday evening. - Would not recommend reversing INR as she has a mechanical AV. Cont to hold coumadin. - Start IV heparin once INR 2 or less - Given significant cardiopulmonary comorbidities (CAD, mech AV, COPD with chronic hypoxic resp failure, post-covid pulm fibrosis, severe pulm HTN), would appreciate input from Cards/Pulm for jimena-procedure risk assesment and clearance. Reviewed with hospitalist. Procedures Date of Service Date of Service: 01/30/22
[2022-01-30] MEDS: Iron Sucrose Complex 200 MG in 0.9 % Sodium Chloride 100 ML 440 MG IV (15:56)
[2022-01-30 17:56] LABS: INTERNATIONAL NORM RATIO 2.2 (0.9-1.1)
[2022-01-30] MEDS: Atorvastatin Calcium 20 MG TABLET PO (21:48)
[2022-01-30] MEDS: Aspirin Enteric Coated 81 MG TABLET.DR PO (21:48)
[2022-01-30] MEDS: Latanoprost 0.005 % Ophth Sol 2.5 ML DROPS 1 DROP EYE-BOTH (23:19)
[2022-01-31] VITALS (8 sets, daily range): BP systolic 114–145; BP diastolic 60–76; PULSE 74–103; RESP 15–20; TEMP 36.3–37.1; O2SAT 92–99; BMI 34.5
[2022-01-31] MEDS: Potassium Chloride Packet 20 MEQ PACKET 40 MEQ PO (02:01)
[2022-01-31] MEDS: Magnesium Sulfate/H2O 2 GM/50 ML PIGGYBACK IV (02:01)
[2022-01-31] MEDS: Omeprazole 20 MG CAPSULE.DR PO (06:08)
[2022-01-31 06:57] LABS: B Type Natriuretic Peptide 336 pg/mL (<100)
[2022-01-31 07:06] LABS: Anion Gap 15 (12-20); Blood Urea Nitrogen 8 mg/dL (9-16); Calcium 9.2 mg/dL (8.4-10.2); Carbon Dioxide 36 mmol/L (22-29); Chloride 100 mmol/L (96-108); Creatinine Clr Calc Pharmacy 79.6; Estimated Glomerular Filt Rate > 60; Glucose Random 105 mg/dL (60-115); Potassium 4.6 mmol/L (3.3-5.1); Sodium 146 mmol/L (135-145)
[2022-01-31] MEDS: Albuterol/Iprat 2.5/0.5MG 3 ML AMPUL.NEB INHALE ×3 (07:39→15:07)
[2022-01-31] MEDS: Fluticasone/Vilanterol 200/25 BLST.W.DEV 1 PUFF INHALE (07:40)
[2022-01-31] MEDS: Iron Sucrose Complex 200 MG in 0.9 % Sodium Chloride 100 ML 440 MG IV (08:07)
[2022-01-31] MEDS: Escitalopram Oxalate 10 MG TABLET PO (08:08)
[2022-01-31] MEDS: Furosemide 20 MG/2 ML VIAL IVPUSH (08:08)
[2022-01-31] MEDS: acetaZOLAMIDE 250 MG TABLET PO (08:08)
[2022-01-31] MEDS: 0.9 % Sodium Chloride Flush 3 ML SYRINGE IVFLUSH ×2 (08:09→16:40)
--- NOTE | 2022-01-31 11:26 | PM.CNPUL ---
History of Present Illness History of Present Illness Consult date: 01/31/22 Chief complaint: chest pain/ shortness of breath Narrative: This is an inpatient pulmonary consultation. The patient is a 71-year-old female patient with past medical history significant for mechanical aortic valve, coronary artery disease, CHF, COPD on home O2, history of post COVID syndrome with muscle weakness, presented to [facility] due to symptoms of chest pain that started last night and woke her up from sleep localized to left side of the chest with no associated diaphoresis or shortness of breath symptom resolved by itself lasting for less than few minutes she had recurrent episodes overnight, she also noticed worsening shortness of breath from her baseline for last several weeks she higher Lasix dose was recently increased to 20 mg every day 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 patient is having difficulty with ambulation previously she would is stand pivot but was feeling weak today therefore was brought into [facility] for further evaluation patient denied any associated fever chills headache dizziness lightheadedness palpitations no nausea vomiting, no urinary symptoms of urgency frequency numbness or tingling , denies worsening generalized weakness, in the emergency room she was noted to have urinalysis positive for 4+ bacteria greater than 50 WBC chest x-ray consistent with mild CHF blood sugar was stable at 120 noted to have drop in hemoglobin to 8.1 as compared to prior study of 11, BNP 238, normal troponin, EKG showed no acute ischemia, patient treated in the emergency room with IV ceftriaxone and updraft treatment and now being admitted to [facility] with a diagnosis of acute congestive heart failure and UTI and for further workup for chest pain. 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 She responded well to the diuresis. We did review her most recent PFTs from 07/2021 demonstrating and FEV1 of 18% consitent with very severe COPD and a DLCO of on 10% predicted. The patient has an elevated PCO2 suggesting hypercarbic respiratory failure. Review of Systems Review of Systems: Constitutional : No Weight loss, No Fever, No Chills ENT/Mouth :? No sore throat, No Rhinorrhea Eyes: No Eye Pain, No Swelling Cardiovascular : pos Chest Pain, pos SOB, no Dyspnea on Exertion, No Orthopnea, pos Edema, No Palpitations Respiratory : No Cough, No Sputum Gastrointestinal : No Nausea, No Vomiting, No Diarrhea, No abdominal Pain, No Hematochezia, No Melena Genitourinary : No Dysuria, No Urinary Frequency Musculoskeletal : No joint pain, No Myalgias, No Joint Swelling Skin : No Skin Lesions, No rash Neuro : No Weakness, No Numbness, No Dizziness, No Headache Psych : No Anxiety/Panic, No Depression Heme/Lymph: No Bruising, No Lymphadenopathy Endocrine : No Polyuria, No Polydipsia Yes all other systems are reviewed and are negative [facility] Past Medical History Medical History Afib CHF exacerbation COPD (chronic obstructive pulmonary disease) COPD (chronic obstructive pulmonary disease) COVID-19 High blood pressure High cholesterol Hypoxemia Pulmonary fibrosis Respiratory failure with hypoxia and hypercapnia Social History Social History Household Members: None Household Members Other:: daughter in other other side of duplex Housing: House Do you presently have visiting nurse or other home services: Yes Alcohol intake: never Patient Tobacco Use Status: Former Tobacco user Quit Date: 02/06 Tobacco use type: Cigarette Use of substances other than those prescribed or required for medical reasons: No Currently Displaying Signs/Symptoms of Drug Intoxication Withdrawal: No Do you feel safe in your current relationship?: No Current Relationship Advance Directives: No Advance Directives Information Provided: No Do you have thoughts of harming others: None Do you have a plan to hurt others: No Plan Recently lost weight without trying: Yes How much weight loss: 24-33 pounds Eating poorly because of decreased appetite: Yes Nutrition screen score: 6 Patient : No service: No Current occupational status: disabled 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 Meds Allergies Allergy/AdvReac Type Severity Reaction Status Date / Time No Known Allergies Allergy Mild N/A Verified 01/05/22 16:51 Active Medications: Current Medications Acetaminophen (Acetaminophen 325 Mg Tablet) 650 mg PO Q6H PRN PRN Reason: Pain, Mild (Pain Scale 1-3) Acetazolamide (Acetazolamide 250 Mg Tablet) 250 mg PO BID [facility] Last Admin: 01/31/22 08:08 Dose: 250 mg Albuterol Sulfate (Albuterol Sulfate (0.083%) 2.5 Mg/3 Ml Vial.Neb) 2.5 mg INHALE Q6H PRN PRN Reason: Shortness Of Breath Albuterol/Ipratropium (Albuterol/Iprat 2.5/0.5mg 3 Ml Ampul.Kwadwo) 3 ml INHALE RQID [facility] Last Admin: 01/31/22 07:39 Dose: 3 ml Aspirin (Aspirin Enteric Coated 81 Mg Tablet.) 81 mg PO BEDTIME [facility] Last Admin: 01/30/22 21:48 Dose: 81 mg Atorvastatin Calcium (Atorvastatin Calcium 20 Mg Tablet) 20 mg PO BEDTIME [facility] Last Admin: 01/30/22 21:48 Dose: 20 mg Escitalopram Oxalate (Escitalopram Oxalate 10 Mg Tablet) 10 mg PO DAILY [facility] Last Admin: 01/31/22 08:08 Dose: 10 mg Fluticasone/Vilanterol (Fluticasone/Vilanterol 200/25 Blst.W.Dev) 1 puff INHALE RDAILY [facility] Last Admin: 01/31/22 07:40 Dose: 1 puff Furosemide (Furosemide 20 Mg/2 Ml Vial) 20 mg IVPUSH Q12H [facility]; Protocol Last Admin: 01/31/22 08:08 Dose: 20 mg Iron Sucrose 200 mg/ Sodium (Chloride) 110 mls @ 440 mls/hr IV DAILY [facility] Stop: 02/01/22 09:14 Last Infusion: 01/31/22 08:52 Dose: Infused Latanoprost (Latanoprost 0.005 % Ophth Sally 2.5 Ml Drops) 1 drop EYE-BOTH BEDTIME [facility] Last Admin: 01/30/22 23:19 Dose: 1 drop Omeprazole (Omeprazole 40 Mg Capsule.) 40 mg PO BID@0630,1630 [facility] Ondansetron HCl (Ondansetron Hcl 4 Mg/2 Ml Vial) 4 mg IVPUSH Q8H PRN PRN Reason: Nausea and Vomiting Sodium Chloride (0.9 % Sodium Chloride Flush 3 Ml Syringe) 3 ml IVFLUSH QSHIFT [facility] Last Admin: 01/31/22 08:09 Dose: 3 ml Home Medications Medication Instructions Recorded Confirmed Last Taken Type acetaminophen 325 mg tablet 650 mg PO Q6H PRN Pain 02/01/21 01/29/22 Unknown History carvedilol 12.5 mg tablet 12.5 mg PO BID 02/01/21 10/02/21 01/29/22 08:00 History fluticasone 500 mcg-salmeterol 50 1 inh inhalation BID 02/01/21 01/29/22 01/29/22 08:00 History mcg/dose blistr powdr for inhalation (Advair Diskus) latanoprost 0.005 % eye drops 1 drp ophthalmic (eye) BEDTIME 02/01/21 01/29/22 01/28/22 History omeprazole 20 mg capsule,delayed 20 mg PO DAILY@0630 02/01/21 01/29/22 01/29/22 History release simvastatin 40 mg tablet 40 mg PO BEDTIME 02/01/21 01/29/22 01/28/22 History tiotropium bromide 18 mcg capsule 1 cap inhalation DAILY 02/01/21 10/02/21 08/01/21 History with inhalation device (Spiriva with HandiHaler) nystatin 100,000 unit/gram topical 1 appl topical BID PRN Skin 02/13/21 01/29/22 Unknown History cream Irritation albuterol sulfate 2.5 mg/3 mL 2.5 mg inhalation Q6H PRN 05/07/21 01/29/22 Unknown History (0.083 %) solution for nebulization Shortness Of Breath aspirin 81 mg tablet,delayed 81 mg PO BEDTIME 08/01/21 01/29/22 01/28/22 History release warfarin 2.5 mg tablet 2.5 mg PO DAILY 08/01/21 10/02/21 07/31/21 History citalopram 20 mg tablet 20 mg PO DAILY 10/02/21 01/29/22 01/29/22 History furosemide 20 mg tablet 20 mg PO DAILY EDEMA FEET 01/29/22 01/29/22 01/29/22 08:00 History ipratropium 20 mcg-albuterol 100 1 puff inhalation QID 01/29/22 01/29/22 01/29/22 History mcg/actuation mist for inhalation (Combivent Respimat) Physical Exam Vital Signs: Vital Signs: Last Vital Signs Temp 97.3 F 01/31/22 07:04 Pulse 81 01/31/22 07:42 Resp 18 01/31/22 07:42 BP 140/67 H 01/31/22 07:04 Pulse Ox 94 01/31/22 07:04 O2 Del Method 01/31/22 07:04 O2 Flow Rate 4 01/31/22 07:04 Oxygen Flow Rate 3 01/29/22 15:07 BMI result Body Mass Index 35.7 Const: Other: General awake alert x3, no acute distress, talking in full sentences Neck? no JVD. CVS? regular rate rhythm, good peripheral Respiratory lungs bibasilr crackles,no wheeze, no use of accessory muscles Gastrointestinal abdomen?soft, nontender,bowel sounds audible,no guarding , no rigidity. Extremities less b/l pitting edema. no clubbing Neuro nonfocal , speech clear. Skin no rash Psych appropriate affect Results Laboratory Findings CBC and BMP: 01/30/22 08:41 01/31/22 05:59 ABG, PT/INR, D-dimer: PT/INR, D-dimer PT 26.0 SEC (10.0-13.1) H 01/30/22 17:38 INR 2.2 (0.9-1.1) H 01/30/22 17:38 Abnormal lab findings: Abnormal Labs 01/29/22 01/29/22 01/29/22 15:42 15:42 15:42 RBC Hgb 8.1 L D Hct 30.4 L MCV 72.2 L MCH 19.2 L MCHC 26.6 L RDW 18.2 H Lymph % (Auto) 18.2 L PT INR Sodium Carbon Dioxide 30 H BUN Random Glucose 120 H Iron TIBC % Saturation B-Natriuretic Peptide 238 H Total Protein 6.4 L Urine Protein Urine Blood Urine Nitrite Ur Leukocyte Esterase Urine RBC Urine WBC 01/29/22 01/29/22 01/30/22 16:16 17:45 06:02 RBC Hgb Hct MCV MCH MCHC RDW Lymph % (Auto) PT 31.7 H INR 2.7 H Sodium Carbon Dioxide 34 H BUN Random Glucose Iron TIBC % Saturation B-Natriuretic Peptide Total Protein Urine Protein 30 (1+) H Urine Blood Trace H Urine Nitrite Positive H Ur Leukocyte Esterase Large (3+) H Urine RBC 11-20 H Urine WBC >50 H 01/30/22 01/30/22 01/30/22 08:41 08:41 17:38 RBC 4.16 L Hgb 7.9 L Hct 30.6 L MCV 73.6 L MCH 19.0 L MCHC 25.8 L RDW 18.1 H Lymph % (Auto) PT 26.0 H INR 2.2 H Sodium Carbon Dioxide BUN Random Glucose Iron 26 L TIBC 478 H % Saturation 5 L B-Natriuretic Peptide Total Protein Urine Protein Urine Blood Urine Nitrite Ur Leukocyte Esterase Urine RBC Urine WBC 01/31/22 01/31/22 05:59 05:59 RBC Hgb Hct MCV MCH MCHC RDW Lymph % (Auto) PT INR Sodium 146 H Carbon Dioxide 36 H BUN 8 L Random Glucose Iron TIBC % Saturation B-Natriuretic Peptide 336 H Total Protein Urine Protein Urine Blood Urine Nitrite Ur Leukocyte Esterase Urine RBC Urine WBC Microbiology: Microbiology 01/29/22 16:39 Urine clean catch - Urine estes top Urine Culture - Final Escherichia coli Assessment and Plan (1) Pulmonary hypertension: Status: Acute WHO group 2,3 (2) Respiratory failure with hypoxia and hypercapnia: Status: Acute Due to her COPD (3) COPD (chronic obstructive pulmonary disease): Status: Acute Very severe with FEV1 18%predicted, likely with cor pulmonale (4) CHF exacerbation: Status: Acute (5) Pulmonary fibrosis: Status: Acute 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
--- NOTE | 2022-01-31 14:19 | P.CONCA_ITS ---
History of Present Illness History of Present Illness Date of Service: 01/31/22 Chief complaint: chest pain/ shortness of breath Narrative: This is a cardiology consultation regarding congestive heart failure. Patient has a history of mechanical aortic valve replacement from about 10 years ago. Stated coronary disease but unknown details. Otherwise, COPD on home oxygen, post COVID among others. She present to the hospital with some left-sided chest pain. She points to the area underneath the left breast. Off and on pain without any clear provoking or relieving factors. Seems nonspecific. Could be pleuritic. Less likely angina. Otherwise, her main concern is that she can barely breathe. She states that even walking very short distances makes her very short of breath. At most, she can go around 5-6 feet or so. That is the biggest concern. She states she cannot keep ongoing like that. Otherwise, echocardiogram was performed that was quite abnormal and hence we have been asked to see her. Family is also the bedside including her sister and daughter. Generally, she goes to [facility]. She apparently had an appointment with Dr. Waggoner last week but could attend that appointment as she was hospitalized here. Review of Systems Review of Systems: Yes all other systems are reviewed and are negative Constitutional: Constitutional: Reports as per HPI Eyes: Eyes: Reports as per HPI ENT: Reports as per HPI Cardiovascular: Cardiovascular: Reports as per HPI, Denies acrocyanosis, Denies cool extremities, Reports chest pain, Denies leg edema, Denies lightheadedness, Denies palpitations and Reports dyspnea Respiratory: Respiratory: Reports as per HPI, Reports no additional respiratory complaints and Reports dyspnea Gastrointestinal: Gastrointestinal: Reports as per HPI and Reports no additional gastrointestinal complaints Genitourinary: Genitourinary: Reports as per HPI Musculoskeletal: Musculoskeletal: Reports no additional musculoskeletal complaints and Reports as per HPI Integumentary/Breasts: Skin/Breast: Reports system reviewed and no additional complaints, except as docu Neurologic: Reports system reviewed and no additional complaints, except as documented and Reports as per HPI Psychiatric: Psychiatric: Reports no additional psychiatric complaints and Reports as per HPI Endocrine: Endocrine: Reports no additional endocrine complaints, Reports as per HPI and Denies palpitations Hematologic/Lymphatic: Hematologic/Lymphatic: Reports no additional hematologic/lymphatic complaints and Reports as per HPI Allergic/Immunologic: Allergic/Immunologic: Reports no additional allergic/immunologic complaints and Reports as per HPI [facility] Past Medical History Medical History Afib CHF exacerbation COPD (chronic obstructive pulmonary disease) COPD (chronic obstructive pulmonary disease) COVID-19 High blood pressure High cholesterol Hypoxemia Pulmonary fibrosis Respiratory failure with hypoxia and hypercapnia Family History Family History (Updated 01/31/22 @ 14:23 by Emmanuel Morrison MD) Father Throat cancer Social History Social History Household Members: None Household Members Other:: daughter in other other side of duplex Housing: House Do you presently have visiting nurse or other home services: Yes Alcohol intake: never Patient Tobacco Use Status: Former Tobacco user Quit Date: 02/06 Tobacco use type: Cigarette Use of substances other than those prescribed or required for medical reasons: No Currently Displaying Signs/Symptoms of Drug Intoxication Withdrawal: No Do you feel safe in your current relationship?: No Current Relationship Advance Directives: No Advance Directives Information Provided: No Do you have thoughts of harming others: None Do you have a plan to hurt others: No Plan Recently lost weight without trying: Yes How much weight loss: 24-33 pounds Eating poorly because of decreased appetite: Yes Nutrition screen score: 6 Patient : No service: No Current occupational status: disabled 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 Meds Allergies Allergy/AdvReac Type Severity Reaction Status Date / Time No Known Allergies Allergy Mild N/A Verified 01/05/22 16:51 Active Medications: Current Medications Acetaminophen (Acetaminophen 325 Mg Tablet) 650 mg PO Q6H PRN PRN Reason: Pain, Mild (Pain Scale 1-3) Acetazolamide (Acetazolamide 250 Mg Tablet) 250 mg PO BID [facility] Last Admin: 01/31/22 08:08 Dose: 250 mg Albuterol Sulfate (Albuterol Sulfate (0.083%) 2.5 Mg/3 Ml Vial.Neb) 2.5 mg INHALE Q6H PRN PRN Reason: Shortness Of Breath Albuterol/Ipratropium (Albuterol/Iprat 2.5/0.5mg 3 Ml Ampul.Neb) 3 ml INHALE RQID [facility] Last Admin: 01/31/22 11:37 Dose: 3 ml Aspirin (Aspirin Enteric Coated 81 Mg Tablet.) 81 mg PO BEDTIME [facility] Last Admin: 01/30/22 21:48 Dose: 81 mg Atorvastatin Calcium (Atorvastatin Calcium 20 Mg Tablet) 20 mg PO BEDTIME [facility] Last Admin: 01/30/22 21:48 Dose: 20 mg Escitalopram Oxalate (Escitalopram Oxalate 10 Mg Tablet) 10 mg PO DAILY [facility] Last Admin: 01/31/22 08:08 Dose: 10 mg Fluticasone/Vilanterol (Fluticasone/Vilanterol 200/25 Blst.W.Dev) 1 puff INHALE RDAILY [facility] Last Admin: 01/31/22 07:40 Dose: 1 puff Furosemide (Furosemide 20 Mg/2 Ml Vial) 20 mg IVPUSH Q12H [facility]; Protocol Last Admin: 01/31/22 08:08 Dose: 20 mg Iron Sucrose 200 mg/ Sodium (Chloride) 110 mls @ 440 mls/hr IV DAILY [facility] Stop: 02/01/22 09:14 Last Infusion: 01/31/22 08:52 Dose: Infused Latanoprost (Latanoprost 0.005 % Ophth Sally 2.5 Ml Drops) 1 drop EYE-BOTH BEDTIME [facility] Last Admin: 01/30/22 23:19 Dose: 1 drop Omeprazole (Omeprazole 40 Mg Capsule.Dr) 40 mg PO BID@0630,1630 [facility] Ondansetron HCl (Ondansetron Hcl 4 Mg/2 Ml Vial) 4 mg IVPUSH Q8H PRN PRN Reason: Nausea and Vomiting Sodium Chloride (0.9 % Sodium Chloride Flush 3 Ml Syringe) 3 ml IVFLUSH QSHIFT [facility] Last Admin: 01/31/22 08:09 Dose: 3 ml Home Medications Medication Instructions Recorded Confirmed Last Taken Type acetaminophen 325 mg tablet 650 mg PO Q6H PRN Pain 02/01/21 01/29/22 Unknown History carvedilol 12.5 mg tablet 12.5 mg PO BID 02/01/21 10/02/21 01/29/22 08:00 History fluticasone 500 mcg-salmeterol 50 1 inh inhalation BID 02/01/21 01/29/22 01/29/22 08:00 History mcg/dose blistr powdr for inhalation (Advair Diskus) latanoprost 0.005 % eye drops 1 drp ophthalmic (eye) BEDTIME 02/01/21 01/29/22 01/28/22 History omeprazole 20 mg capsule,delayed 20 mg PO DAILY@0630 02/01/21 01/29/22 01/29/22 History release simvastatin 40 mg tablet 40 mg PO BEDTIME 02/01/21 01/29/22 01/28/22 History tiotropium bromide 18 mcg capsule 1 cap inhalation DAILY 02/01/21 10/02/21 08/01/21 History with inhalation device (Spiriva with HandiHaler) nystatin 100,000 unit/gram topical 1 appl topical BID PRN Skin 02/13/21 01/29/22 Unknown History cream Irritation albuterol sulfate 2.5 mg/3 mL 2.5 mg inhalation Q6H PRN 05/07/21 01/29/22 Unknown History (0.083 %) solution for nebulization Shortness Of Breath aspirin 81 mg tablet,delayed 81 mg PO BEDTIME 08/01/21 01/29/22 01/28/22 History release warfarin 2.5 mg tablet 2.5 mg PO DAILY 08/01/21 10/02/21 07/31/21 History citalopram 20 mg tablet 20 mg PO DAILY 10/02/21 01/29/22 01/29/22 History furosemide 20 mg tablet 20 mg PO DAILY EDEMA FEET 01/29/22 01/29/22 01/29/22 08:00 History ipratropium 20 mcg-albuterol 100 1 puff inhalation QID 01/29/22 01/29/22 01/29/22 History mcg/actuation mist for inhalation (Combivent Respimat) Physical Exam Vital Signs: Vital Signs: Last Vital Signs Temp 98.7 F 01/31/22 11:53 Pulse 79 01/31/22 11:53 Resp 20 01/31/22 11:53 BP 145/76 H 01/31/22 11:53 Pulse Ox 97 01/31/22 11:53 O2 Del Method 01/31/22 11:53 O2 Flow Rate 4 01/31/22 11:53 Oxygen Flow Rate 3 01/29/22 15:07 BMI result Body Mass Index 35.7 Const: General: comfortable and no acute distress Orientation/consciousness: patient oriented x3 HEENT: Other: Unremarkable Head: Yes normal to inspection Neck: Neck: Yes normal visual inspection Chest: Chest palpation & inspection: normal inspection of the chest Resp: Auscultation: crackles bilateral at the base Cardio: Palpation: normal PMI Heart sounds: S1 normal heart sound present, S2 normal heart sound present, no gallops, Murmur heart sound present systolic III/, at the apex, at the left sternal border and at the right sternal border and no rubs GI: Palpation (GI): Soft to palpation Back/Spine/Pelvis: Other: unremarkable Skin: General skin exam: no rashes or lesions noted Neuro: General: patient oriented x3 Extrem: General: Yes normal to inspection Psych: Mental Status: mental status grossly normal Objective Labs and Meds Result diagrams: 01/30/22 08:41 01/31/22 05:59 Lab results: Laboratory Results - last 24 hr 01/30/22 01/31/22 01/31/22 17:38 05:59 05:59 PT 26.0 H INR 2.2 H Sodium 146 H Potassium 4.6 D Chloride 100 Carbon Dioxide 36 H Anion Gap 15 BUN 8 L Creatinine 0.68 Estim Creat Clear Calc 79.6 Estimated GFR > 60 Random Glucose 105 Calcium 9.2 B-Natriuretic Peptide 336 H ECG Interpretation: EKG with sinus rhythm, 82/Min; AL 280 milliseconds; left anterior fascicular block; cannot exclude old anterior infarct. Assessment and Plan (1) Acute on chronic diastolic (congestive) heart failure: Status: Acute (2) Prosthetic valve dysfunction: Status: Acute (3) Pulmonary hypertension: Status: Acute (4) COPD (chronic obstructive pulmonary disease): Status: Acute (5) Anemia: Qualifiers: Anemia type: unspecified type Qualified Code(s): D64.9 - Anemia, unspecified Status: Acute Plan Echocardiogram with LVEF 65-70%. Mean gradient across aortic valve was 35 mm Hg. 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 Mean gradient across the mitral valve was 11 mm Hg and thought to have moderate stenosis. RVSP was 64 mm Hg. Unremarkable high sensitivity troponins. Cardiac BNP slightly high at 336. Overall, difficult to say if her symptoms are from cardiac or from COPD or from some combination of both. More than likely it is multifactorial. However, difficult to delineate. Discussed about findings on echocardiogram with patient's daughter as well as sister at the bedside. They would actually like a complete evaluation. Hence suggestion would be to perform left and right heart diagnostic catheterization to assess further. May also need a ESPERANZA to assess the aortic/mitral valves. If indeed felt more cardiac in nature, then need to consider appropriateness of cardiac surgery as she will be fairly high risk. Patient's family would like to address all possibilities. Hence consider transfer to [facility] for the same. With regard anemia, etiology is not clear. She ideally needs endoscopy/colonoscopy but may need a diagnostic catheterization prior to that. Could consider blood transfusion to get hemoglobin slightly higher before catheterization. Discussed above in detail with the patient's family including sister and daughter. They agree with the plan. Procedures Date of Service Date of Service: 01/31/22
--- NOTE | 2022-01-31 15:33 | PM.DS ---
DS: Providers Provider Date of Service: 01/31/22 Date of admission: 01/29/22 17:47 Primary care physician: Sumi Coy MD Consults: 01/30/22 14:39 Consult to Gastroenterology Routine Consulting Provider: Jasmyn Botello Reason for consultation: iron def anemia on coumadin Has provider been notified: No 01/30/22 17:03 Consult to Cardiology Routine Consulting Provider: Emmanuel Morrison Reason for consultation: chf Has provider been notified: No 01/31/22 08:30 Consult to Pulmonology Routine Consulting Provider: Star Salcido Reason for consultation: pulm htn Has provider been notified: No DS: Diagnosis Discharge Diagnosis (1) Acute on chronic diastolic (congestive) heart failure: Status: Acute (2) Prosthetic valve dysfunction: Status: Acute (3) Pulmonary hypertension: Status: Acute (4) COPD (chronic obstructive pulmonary disease): Status: Acute (5) Anemia: Status: Acute DS: Summary Hospital Course Hospital Course: Date of Service: 01/29/22 Attending physician on admission: Pam Padilla Chief Complaint: Chest pain 71-year-old female patient with past medical history significant for mechanical aortic valve, coronary artery disease, CHF, COPD on home O2, history of post COVID syndrome with muscle weakness, presented to [facility] [place] due to symptoms of chest pain that started last night and woke her up from sleep localized to left side of the chest with no associated diaphoresis or shortness of breath symptom resolved by itself lasting for less than few minutes she had recurrent episodes overnight, she also noticed worsening shortness of breath from her baseline for last several weeks she higher Lasix dose was recently increased to 20 mg every day by 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 patient is having difficulty with ambulation previously she would is stand pivot but was feeling weak today therefore was brought into [facility] [place] for further evaluation patient denied any associated fever chills headache dizziness lightheadedness palpitations no nausea vomiting, no urinary symptoms of urgency frequency numbness or tingling , denies worsening generalized weakness, in the emergency room she was noted to have urinalysis positive for 4+ bacteria greater than 50 WBC chest x-ray consistent with mild CHF blood sugar was stable at 120 noted to have drop in hemoglobin to 8.1 as compared to prior study of 11, BNP 238, normal troponin, EKG showed no acute ischemia, patient treated in the emergency room with IV ceftriaxone and updraft treatment and now being admitted to [facility] [place] with a diagnosis of acute congestive heart failure and UTI and for further workup for chest pain. Hospital course 71-year-old female with past medical history of mechanical aortic valve, coronary artery disease, CHF, COPD on home O2, history of post COVID syndrome, muscle weakness presented to [facility] [place] with on and off symptoms of chest pain last night all symptoms have resolved at present patient is being admitted to [facility] [place] with acute CHF exacerbation and UTI with acute on chronic hypoxic respiratory failure Acute on chronic hypoxic respiratory failure on 2.5 L of home oxygen, likely multifactorial related to severe COPD , likely related to 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 with improvement of lower extremity edema and shortness of breath, patient evaluated by social work job titles and due to definite and you did diagnosis will require left and right heart diet catheterization therefore being discharged to [facility] will continue IV Lasix 20 b.i.d. oxygen support, continue low-salt diet , follow strict I's and O's, stable electrolytes and renal function, monitor BMP and BNP while being diuresed Acute UTI urinalysis strongly positive, urine culture grew E coli sensitive to ceftriaxone patient received 2 days of IV ceftriaxone will transition to by mouth Ceftin for 3 more days Chest pain resolved troponin flat EKG with no acute ischemia, will continue aspirin, Coreg and statin History of advance COPD o2 dependent continue home inhalers Acute on chronic anemia no acute blood loss noted, iron studies consistent with iron deficiency, stool guaiac negative,Noted to have gradual decline in hematocrit since last year, seen by Gastroenterology recommended to undergo upper and lower endoscopy, received 2 dosages of IV iron infusion , recommend follow-up with gastroenterology at [facility]. Mechanical aortic valve replacement was on Coumadin that was discontinued for possible endoscopy , placed on IV heparin drip. Obesity recommended weight reduction and low-calorie diet Time Spent with Patient Time attestation: Total time spent providing and/or coordinating discharge services: Discharge coordination time: Greater than 30 minutes Quality: Safe Use of Opioids Does Pt have an Active Cancer Diagnosis on the Problem List?: No Quality: Stroke Does the patient have a stroke diagnosis?: No Physical Exam Vital Signs: Vital Signs: Last Vital Signs Temp 97.9 F 01/31/22 15:19 Pulse 83 01/31/22 15:19 Resp 16 01/31/22 15:19 BP 135/66 01/31/22 15:19 Pulse Ox 99 01/31/22 15:19 O2 Del Method 01/31/22 15:19 O2 Flow Rate 4 01/31/22 15:19 Oxygen Flow Rate 3 01/29/22 15:07 BMI result Body Mass Index 35.7 Const: Other: General awake alert x3, no acute distress, talking in full sentences Neck? no JVD. CVS? regular rate rhythm, systolic murmur left sternal border and apex Respiratory lungs bibasilr crackles,no wheeze, no use of accessory muscles Gastrointestinal abdomen?soft, nontender,bowel sounds audible,no guarding , no rigidity. Extremities edema resolved. Neuro nonfocal , speech clear. 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 Acute on chronic respiratory failure Moderate mitral valve stenosis Acute UTI Iron deficiency anemia Severe COPD Referrals: Sumi Coy MD [Primary Care Provider] - 1 Week Discharge Medications: New ipratropium-albuterol 0.5 mg-3 mg(2.5 mg base)/3 mL Solution For Nebulization 3 ml inhalation RQID Qty: 90 0RF omeprazole 40 mg Capsule,Delayed Release(Dr/Ec) 40 mg PO BID@0630,1630 Qty: 60 0RF furosemide 10 mg/mL Solution 20 mg IVPUSH Q12H Qty: 1 0RF Protocol: Hold for SBP< HOLD for SBP < : 90 heparin(porcine) in 0.45% NaCl 25,000 unit/250 mL Parenteral Solution 25,000 unit continuous IV infusion .Q0M Qty: 6000 0RF heparin (porcine) 5,000 unit/mL Solution 7,100 unit IVPUSH PROTOCOL BOLUS PRN (Reason: 80 Unit/Kg - Heparin Protocol) Qty: 1 0RF heparin (porcine) 5,000 unit/mL Solution 3,500 unit IVPUSH PROTOCOL BOLUS PRN (Reason: 40 unit/kg - Heparin Protocol) Qty: 1 0RF Continued acetazolamide 250 mg tablet 250 mg PO BID 30 Days Qty: 60 3RF carvedilol 12.5 mg Tablet 12.5 mg PO BID simvastatin 40 mg Tablet 40 mg PO BEDTIME fluticasone propion-salmeterol [Advair Diskus] 500-50 mcg/dose Blister With Device 1 inh INHALATION BID Spiriva with HandiHaler 18 mcg capsule, w/inhalation device 1 cap inhalation DAILY latanoprost 0.005 % Drops 1 drp OPHTHALMIC (EYE) BEDTIME acetaminophen 325 mg Tablet 650 mg PO Q6H PRN (Reason: Pain) aspirin 81 mg Tablet,Delayed Release (Dr/Ec) 81 mg PO BEDTIME Combivent Respimat 20-100 mcg/actuation mist 1 puff inhalation QID nystatin 100,000 unit/gram cream 1 appl topical BID PRN (Reason: Skin Irritation) albuterol sulfate 2.5 mg /3 mL (0.083 %) solution for nebulization 2.5 mg inhalation Q6H PRN (Reason: Shortness Of Breath) citalopram 20 mg tablet 20 mg PO DAILY Discontinued omeprazole 20 mg Capsule,Delayed Release(Dr/Ec) 20 mg PO DAILY@0630 warfarin 2.5 mg Tablet 2.5 mg PO DAILY furosemide 20 mg tablet 20 mg PO DAILY Discharge Orders: Discharge Order (Routine); Ordered 01/31/22 Ordered By: Pam Padilla Diet: Low salt diet Activity on Discharge: Bedrest Stand Alone Forms: Patient Portal Discharge page Care Plan Goals: Continue IV Lasix 20 mg twice daily, on IV heparin drip, noted to have iron deficiency anemia therefore placed on Protonix 40 mg b.i.d. continue all other medications as prescribed Is being transferred to [facility] for cardiac catheterization Health Concerns: Continue all medications as prescribed Plan of Treatment: Follow-up with cardiology for cardiac catheterization Assessment: As above
[2022-01-31 16:24] LABS: INTERNATIONAL NORM RATIO 1.6 (0.9-1.1); Prothrombin Time 19.2 SEC (10.0-13.1)
[2022-01-31] MEDS: Omeprazole 40 MG CAPSULE.DR PO (16:40)
[2022-01-31 16:56] LABS: Partial Thromboplastin Time 36.1 SEC (26.0-36.4)
[2022-01-31] MEDS: Heparin Sodium,Porcine/1/2NS 25,000 UNIT/250 ML IV.SOLN 10 UNIT IVCONT (17:02)
[2022-01-31] MEDS: polyethylene glycoL 3350 17 GM POWD.PACK PO (17:02)
--- NOTE | 2022-01-31 18:23 | PC.NURSE ---
nurse to nurse report given to M6 Colby RN. awaiting ambulance transport
== END 2022-01-31 19:35 | disposition short-term general hospital (02) | DRG 314 ==
LOC: HO.ED 17:17 → HO.EDOVER 18:03 → HO.IMC 18:07
PROVIDERS: Nurse Practitioner Family; Admitting Provider Hospitalist; Emergency Provider Emergency Medicine; PCP Internal Medicine; Visit Provider Hospitalist
DX: T82.857A Stenosis of other cardiac prosthetic devices, implants and grafts, initial encounter (principal); I50.23 Acute on chronic systolic (congestive) heart failure; J96.21 Acute and chronic respiratory failure with hypoxia; N39.0 Urinary tract infection, site not specified; I11.0 Hypertensive heart disease with heart failure; E66.9 Obesity, unspecified; Z68.34 Body mass index [BMI] 34.0-34.9, adult; D50.0 Iron deficiency anemia secondary to blood loss (chronic); I27.22 Pulmonary hypertension due to left heart disease; I27.23 Pulmonary hypertension due to lung diseases and hypoxia; J84.10 Pulmonary fibrosis, unspecified; I25.10 Atherosclerotic heart disease of native coronary artery without angina pectoris; J43.9 Emphysema, unspecified; Z71.3 Dietary counseling and surveillance; I05.0 Rheumatic mitral stenosis; Z95.2 Presence of prosthetic heart valve; Z99.81 Dependence on supplemental oxygen; Z20.822 Contact with and (suspected) exposure to COVID-19; Z86.16 Personal history of COVID-19; Z87.891 Personal history of nicotine dependence; Z79.51 Long term (current) use of inhaled steroids; Z79.82 Long term (current) use of aspirin; Z79.899 Other long term (current) drug therapy
CPT/HCPCS: 36415; 71046; 80048; 80053; 81001; 82272; 83540; 83690; 83735; 83880; 84484; 85025; 85027; 85610; 85730; 87086; 87088; 87186; 87635; 93005; 93306; 94640; 99219; 99285; J0696; J1756; J1940; J3475; Q9957

== ENCOUNTER 2022-03-17 12:47 | Emergency (ER) | payer OTHER, SELFPAY ==
--- NOTE | ~2022-03-17 | XR_ITS ---
EXAMINATION: XR CHEST CLINICAL INFORMATION: Cough COMPARISON: Previous chest x-ray most recent January 2022 TECHNIQUE: 2 views of the chest were obtained. FINDINGS: The cardiac silhouette is upper normal in size but stable. There is a prosthetic aortic valve. There are increased central hilar markings. The lungs are otherwise clear. There is no pleural effusion or pneumothorax. There are degenerative changes of the spine. There are median sternotomy wires. XR/XR chest 2V IMPRESSION: Upper normal-size heart and increased central hilar markings questionable for pulmonary venous redistribution versus airways disease. Findings are similar to January 2022 exam.
--- NOTE | 2022-03-17 13:10 | ED_ITS ---
HPI - Back Pain/Injury General Chief Complaint: Back Pain/Injury Stated Complaint: R SIDE BACK PAIN,SEEN @ [facility] RECENTLY PER EMS Time Seen by Provider: 03/17/22 12:59 Source: patient and EMS Mode of arrival: EMS Limitations: no limitations History of Present Illness HPI Narrative: 71yoF c PMHx of mechanical aortic valve, coronary artery disease, CHF, COPD on home O2, history of post COVID syndrome with muscle weakness who was recently seen at [facility] on 03/15/2022 for back pain had an MRI which revealed compre ssion fractures of T12 and L1 and was sent home with Lidoderm patches presenting to the ER with complaints of persistent back pain he despite taking Motrin and Tylenol along with utilizing the Lidoderm patches. Reports that at home she normally sits in a chair and her commode is at bedside and her daughter lives next door who helps her. She also has a nurse that comes daily. She reports she has had physical therapy in the past and is not interested in physical therapy or short-term rehab at this time. Reports that she just needs something for her pain to the pain is driving her crazy. She denies any fevers, dizziness, headaches, neck pain/stiffness, trouble swallowing or breathing, ches t pain or worsening shortness of breath she reports she is at baseline with her oxygen level, palpitations, paresthesias, abdominal pain, flank pain, dysuria, hematuria, abnormal vaginal discharge, black or bloody stools, diarrhea constipation, lower extremity edema or calf tenderness, saddle anesthesias, urinary bowel incontinence or retention, history of cancer, history of IV drug use or recent falls or injury or any other symptoms complaints or concerns at this time. MD elicited complaint: back pain Pertinent past history: prior back pain Onset (ago): day(s) (For the past few days worse in the past 2 days) Timing: constant Severity: moderate Similar Symptoms Previously: No Quality: aching Location: lumbar spine Radiation: none Exacerbating factors: none Relieving factors: none Context: unknown Associated symptoms: denies other symptoms Treatments prior to arrival: other (See above) Work related injury: No Related Data Home Medications Medication Instructions Recorded Confirmed acetaminophen 325 mg tablet 650 mg PO Q6H PRN Pain 02/01/21 01/29/22 carvedilol 12.5 mg tablet 12.5 mg PO BID 02/01/21 10/02/21 latanoprost 0.005 % eye drops 1 drp ophthalmic (eye) BEDTIME 02/01/21 01/29/22 simvastatin 40 mg tablet 40 mg PO BEDTIME 02/01/21 01/29/22 tiotropium bromide 18 mcg capsule 1 cap inhalation DAILY 02/01/21 10/02/21 with inhalation device (Spiriva with HandiHaler) nystatin 100,000 unit/gram topical 1 appl topical BID PRN Skin 02/13/21 01/29/22 cream Irritation albuterol sulfate 2.5 mg/3 mL 2.5 mg inhalation Q6H PRN 05/07/21 01/29/22 (0.083 %) solution for nebulization Shortness Of Breath citalopram 20 mg tablet 20 mg PO DAILY 10/02/21 01/29/22 ipratropium 20 mcg-albuterol 100 1 puff inhalation QID 01/29/22 01/29/22 mcg/actuation mist for inhalation (Combivent Respimat) furosemide 40 mg tablet 40 mg PO DAILY 03/02/22 Previous Rx's Medication Instructions Recorded ipratropium 0.5 mg-albuterol 3 mg 3 ml inhalation RQID #90 mL 01/31/22 (2.5 mg base)/3 mL nebulization soln omeprazole 40 mg capsule,delayed 40 mg PO BID@0630,1630 #60 caps 01/31/22 release acetazolamide 250 mg tablet 250 mg PO BID Resp. failure 90 02/02/22 days #180 tabs cyclobenzaprine 10 mg tablet 10 mg PO Q8H #14 tabs 03/17/22 lidocaine 5 % topical patch 1 patch topical DAILY pain #15 ea 03/17/22 (Lidoderm) oxycodone 5 mg tablet 5 mg PO Q6H PRN pain #14 tabs 03/17/22 Allergies Allergy/AdvReac Type Severity Reaction Status Date / Time No Known Allergies Allergy Mild N/A Verified 03/02/22 15:24 Review of Systems Review of Systems: Constitutional : No trauma, No Weight loss, No Fever, No Chills, ENT/Mouth : No Hearing loss, No Ear Pain, No Nasal Congestion, No Sinus Pain, No Hoarseness, No sore throat, No Rhinorrhea, No Swallowing Difficulty Cardiovascular : No Chest Pain, No SOB Respiratory : No Cough, No Dyspnea Gastrointestinal : No Nausea, No Vomiting, No Diarrhea, No abdominal Pain, No Hematochezia, No Melena Genitourinary : No Dysuria, No Urinary Frequency, No Hematuria, No Urinary or Bowel Incontinence/retention Musculoskeletal : + Back pain, No neck pain, No joint stiffness, No joint swelling Skin : No Skin Lesions, No rash or signs of infection Neuro : No Weakness, No radiation, No Numbness, No Paresthesias, No headache, no loss of bowel or bladder incontinence, no saddle anesthesia, Focal weakness, No radiation Denies history of IV drug usage. Yes all other systems are reviewed and are negative PMFSH Past Medical History Attestation statement: The following information was validated with the patient. Source: old records reviewed and nursing notes reviewed Medical History Afib Anemia CHF exacerbation COPD (chronic obstructive pulmonary disease) COPD (chronic obstructive pulmonary disease) COPD (chronic obstructive pulmonary disease) COPD exacerbation COVID-19 High blood pressure High cholesterol Hypoxemia Pulmonary fibrosis Pulmonary hypertension Respiratory failure with hypoxia and hypercapnia Surgical History H/O mechanical aortic valve replacement Family History Family History Father Throat cancer Social History Social History Household Members: None Household Members Other:: daughter in other other side of [facility] Housing: House Do you presently have visiting nurse or other home services: Yes Alcohol intake: never Patient Tobacco Use Status: Former Tobacco user Quit Date: 02/06 Tobacco use type: Cigarette Advance Directives: No service: No Current occupational status: disabled 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 Blood pressure normal. Heart rate normal. Respiration rate normal. Temperature normal. Oxygen saturation normal with NC in place. Appearance: Alert. Oriented X3. No acute distress. Head: Normal external exam. Normocephalic. Atraumatic. Eyes: PERRLA. EOMI. Conjunctiva and sclera normal. Eyelids normal. ENT: Pharynx normal. Uvula midline. Moist mucous membranes. No trismus noted. No drooling noted. No muffled voice noted. Neck: Normal inspection. Neck supple. FROM. No adenopathy. Thyroid Normal. No meningeal signs. No neck mass noted. CVS: Normal heart rate and rhythm. Heart sound normal. No murmurs noted. Pulses normal throughout. Respiratory: No respiratory distress. Painless inspiration. Breath sounds normal. No wheezes/rales/rhonchi noted. Chest nontender. No accessory muscle usage noted or decreased air movement noted. Abdomen: Soft and nontender. Bowel sounds normal in all 4 quadrants. No distention noted. No organomegaly noted. No visible injury noted. Back: No CVA tenderness. Full range of motion noted. No obvious deformities, or edema. Mild para-spinal muscular tenderness from lumbar region to coccyx. Full ROM in back and lower extremities. 5/5 strength hip extension/flexion, abduction, adduction. Mild Lumbar pain with hip flexion against resistance. Straight leg raise test negative on right; Straight leg raise test negative on left. No rashes/lesion/induration/fluctuance or signs infection noted. Skin: Skin warm and dry. Normal skin color. Normal skin turgor. No ra shes/lesions/lacerations noted. Extremities: No lower extremity edema. Extremities exhibit normal range of motion. Extremities nontender. Neuro: Oriented X 3. No motor deficit. No sensory deficit. Patient has a normal steady gait. Course Course Course Narrative: 13:15pm Pt c likely muscular pain, but could be herniated disc or her recent spinal fracture she was diagnosed with at [facility] 2 days ago with her MRI. Neuro exam shows no deficits. Not c/w AAA/epidural abscess/dissection.No high risk Hx (Incont, fever, immunosupp, recent surgery/LP, coag, signif trauma, wt loss, puls mass, hx/o Ca, TB, or IVDU) to warrant a repeat MRI/CT today. Not c/w Pyelo/UTI/kidney stone. Not cauda equina syndrome. No additional imaging indicated at this time. DC c meds and f/u. Reevaluation(s) Reevaluation #1: - when I went to discharge the patient she reports that she forgot to mention that her home nurse sent her here to evaluate her lung she reports ?the nurse said that I have fluid in my lungs?. Patient reports she has been coughing. She denies any sputum production or any shortness of breath at this time. Her lung exam is clear to auscultation no rales or rhonchi noted. - will obtain labs including a chest x-ray, COVID/RSV/flu swab and re-evaluate. Time: 13:26 Reevaluation #2: Labs returned and revealed - patient mild anemia which is improved [place] a [place] [address]. - carbon dioxide 31 which is improving compared to prior. - random glucose 131 - otherwise all other labs are within normal limits - patient noted for COVID/RSV/flu. - CXR revealed Upper normal-size heart and increased central hilar markings questionable for pulmonary venous redistribution versus airways disease. Findings are similar to January 2022 exam. - BNP within normal limits. - patient reports she feels much better after the Flexeril and oxycodone. Therefore at this time will DC home with oxycodone and Flexeril and instructions to follow-up with her PCP and return if any new or worsening symptoms. Patient continues to decline physical therapy and short-term rehab. Daughter at bedside also agreeable to patient's plan and decision. Time: 15:33 Medications Administered Discontinued Medications Generic Name Dose Route Start Last Admin Trade Name Freq PRN Reason Stop Dose Admin Cyclobenzaprine HCl 10 mg 03/17/22 15:54 03/17/22 16:01 Cyclobenzaprine Hcl 10 Mg Tablet PO 03/17/22 15:55 10 mg ONCE ONE Administration Lidocaine 2 patch 03/17/22 13:20 03/17/22 14:14 Lidocaine 4 % Patch Adh..Patch TRANSDERMA 03/17/22 13:21 2 patch ONCE ONE Administration Protocol Oxycodone HCl 5 mg 03/17/22 15:54 03/17/22 16:02 Oxycodone Hcl Immed Release 5 Mg Tablet PO 03/17/22 15:55 5 mg ONCE ONE Administration Tramadol HCl 50 mg 03/17/22 13:08 03/17/22 14:11 Tramadol Hcl 50 Mg Tablet PO 03/17/22 13:09 50 mg ONCE ONE Administration MDM - Back Pain/Injury Medical Records Attestation: I reviewed the patient's medical records. Lab Data Attestation: I reviewed the patient's lab results. Result diagrams: 03/17/22 13:44 03/17/22 13:44 Labs: Lab Results 03/17/22 03/17/22 03/17/22 Range/Units 13:44 13:44 13:44 WBC 5.8 (4.8-10.8) X10*3/uL RBC 4.57 (4.20-5.50) X10*6/uL Hgb 11.0 L D (12.0-16.0) g/dl Hct 38.5 D (37.0-47.0) % MCV 84.2 (80.0-98.0) fL MCH 24.1 L (27.0-33.0) pg MCHC 28.6 L (31.0-35.0) g/dl RDW 23.9 H (11.0-16.0) % Plt Count 185 (160-400) X10*3/uL MPV 10.0 (9.4-12.3) fL Immature Gran % (Auto) 0.3 (0.0-0.4) % Neut % (Auto) 61.0 (45-73) % Lymph % (Auto) 28.3 (20-40) % [place] % (Auto) 7.1 (2-11) % Eos % (Auto) 2.6 (0-4) % Baso % (Auto) 0.7 (0-2) % Lymph # (Auto) 1.6 (1.2-4.9) X10*3/uL [place] # (Auto) 0.4 (0.1-1.2) X10*3/uL Eos # (Auto) 0.2 (0.0-0.4) X10*3/uL Baso # (Auto) 0.0 (0.0-0.2) X10*3/uL Abs Immat Gran (auto) 0.02 (0.00-0.03) X10*3/uL Absolute Neuts (auto) 3.5 (2.0-8.3) x10*3/uL Absolute Nucleated RBC 0.000 (0.0-0.012) X10*3/uL Nucleated RBC % (auto) 0.0 (0.0-0.2) /100WBC PT 25.7 H (10.0-13.1) SEC INR 2.2 H (0.9-1.1) Sodium 139 (135-145) mmol/L Potassium 3.4 D (3.3-5.1) mmol/L Chloride 98 (96-108) mmol/L Carbon Dioxide 31 H (22-29) mmol/L Anion Gap 13 (12-20) BUN 13 (9-16) mg/dL Creatinine 0.66 (0.5-1.4) mg/dL Estim Creat Clear Calc TNP Estimated GFR > 60 Random Glucose 131 H (60-115) mg/dL Calcium 8.8 (8.4-10.2) mg/dL Magnesium 1.9 (1.6-2.6) mg/dL Total Bilirubin 0.5 (0.0-1.0) mg/dL AST 17 (5-31) U/L ALT 12 (0-31) U/L Alkaline Phosphatase 73 (39-117) U/L B-Natriuretic Peptide (<100) pg/mL Total Protein 5.9 L (6.5-8.0) g/dL Albumin 3.6 (3.5-5.0) g/dL Influenza Type A (PCR) (Negative) Influenza Type B (PCR) (Negative) RSV RNA Qual (PCR) (Negative) SARS-CoV-2 RNA (RT-PCR) (Negative) 03/17/22 03/17/22 Range/Units 13:44 13:44 WBC (4.8-10.8) X10*3/uL RBC (4.20-5.50) X10*6/uL Hgb (12.0-16.0) g/dl Hct (37.0-47.0) % MCV (80.0-98.0) fL MCH (27.0-33.0) pg MCHC (31.0-35.0) g/dl RDW (11.0-16.0) % Plt Count (160-400) X10*3/uL MPV (9.4-12.3) fL Immature Gran % (Auto) (0.0-0.4) % Neut % (Auto) (45-73) % Lymph % (Auto) (20-40) % [place] % (Auto) (2-11) % Eos % (Auto) (0-4) % Baso % (Auto) (0-2) % Lymph # (Auto) (1.2-4.9) X10*3/uL [place] # (Auto) (0.1-1.2) X10*3/uL Eos # (Auto) (0.0-0.4) X10*3/uL Baso # (Auto) (0.0-0.2) X10*3/uL Abs Immat Gran (auto) (0.00-0.03) X10*3/uL Absolute Neuts (auto) (2.0-8.3) x10*3/uL Absolute Nucleated RBC (0.0-0.012) X10*3/uL Nucleated RBC % (auto) (0.0-0.2) /100WBC PT (10.0-13.1) SEC INR (0.9-1.1) Sodium (135-145) mmol/L Potassium (3.3-5.1) mmol/L Chloride (96-108) mmol/L Carbon Dioxide (22-29) mmol/L Anion Gap (12-20) BUN (9-16) mg/dL Creatinine (0.5-1.4) mg/dL Estim Creat Clear Calc Estimated GFR Random Glucose (60-115) mg/dL Calcium (8.4-10.2) mg/dL Magnesium (1.6-2.6) mg/dL Total Bilirubin (0.0-1.0) mg/dL AST (5-31) U/L ALT (0-31) U/L Alkaline Phosphatase (39-117) U/L B-Natriuretic Peptide 132 H (<100) pg/mL Total Protein (6.5-8.0) g/dL Albumin (3.5-5.0) g/dL Influenza Type A (PCR) NEGATIVE (Negative) Influenza Type B (PCR) NEGATIVE (Negative) RSV RNA Qual (PCR) NEGATIVE (Negative) SARS-CoV-2 RNA (RT-PCR) NEGATIVE (Negative) Imaging Data Chest x-ray: Attestation: I personally reviewed and interpreted this imaging study as follows: Radiologist's impression: FINDINGS: The cardiac silhouette is upper normal in size but stable. There is a prosthetic aortic valve. There are increased central hilar markings. The lungs are otherwise clear. There is no pleural effusion or pneumothorax. There are degenerative changes of the spine. There are median sternotomy wires. XR/XR chest 2V IMPRESSION: Upper normal-size heart and increased central hilar markings questionable for pulmonary venous redistribution versus airways disease. Findings are similar to January 2022 exam. Discharge Plan Discharge Clinical Impression: Back pain, T12 compression fracture, Closed L1 vertebral fracture Patient Disposition: Home, Self-Care Instructions: Vertebral Compression Fracture (ED), Lower Back Exercises (ED) Additional Instructions: Follow-up with her primary care provider. I did offer you physical therapy evaluation and possible short-term rehab although you did declined this at this time if you decide you do need possible short-term rehab or even physical therapy while you are at home please return and we can possibly set this up for you. Prescriptions: New lidocaine [Lidoderm] 5 % adhesive patch,medicated 1 patch topical DAILY Qty: 15 0RF Rx Instructions: leave on most painful area for up to 12 hrs. May be substituted cyclobenzaprine 10 mg tablet 10 mg PO Q8H Qty: 14 0RF oxycodone 5 mg tablet 5 mg PO Q6H PRN (Reason: pain) Qty: 14 0RF Rx Instructions: Partial Fill upon patient request. No Action acetazolamide 250 mg tablet 250 mg PO BID 90 Days Qty: 180 0RF carvedilol 12.5 mg Tablet 12.5 mg PO BID simvastatin 40 mg Tablet 40 mg PO BEDTIME Spiriva with HandiHaler 18 mcg capsule, w/inhalation device 1 cap inhalation DAILY latanoprost 0.005 % Drops 1 drp OPHTHALMIC (EYE) BEDTIME acetaminophen 325 mg Tablet 650 mg PO Q6H PRN (Reason: Pain) Combivent Respimat 20-100 mcg/actuation mist 1 puff inhalation QID ipratropium-albuterol 0.5 mg-3 mg(2.5 mg base)/3 mL Solution For Nebulization 3 ml inhalation RQID Qty: 90 0RF omeprazole 40 mg Capsule,Delayed Release(Dr/Ec) 40 mg PO BID@0630,1630 Qty: 60 0RF nystatin 100,000 unit/gram cream 1 appl topical BID PRN (Reason: Skin Irritation) albuterol sulfate 2.5 mg /3 mL (0.083 %) solution for nebulization 2.5 mg inhalation Q6H PRN (Reason: Shortness Of Breath) citalopram 20 mg tablet 20 mg PO DAILY furosemide 40 mg tablet 40 mg PO DAILY Referrals: Robin Cueto MD [Primary Care Provider] - 2 days Print Language: Guinean
[2022-03-17 13:20] VITALS: BP 114/70; PULSE 74; O2SAT 98
[2022-03-17 13:21] VITALS: BP 110/53; PULSE 71; RESP 18; TEMP 37.1; O2SAT 97
[2022-03-17 13:47] LABS: MANUAL DIFF FLAG NO
[2022-03-17 13:51] LABS: Basophils Percent Auto 0.7 % (0-2); Eosinophils Absolute Auto 0.2 X10*3/uL (0.0-0.4); Eosinophils Percent Auto 2.6 % (0-4); Hematocrit 38.5 % (37.0-47.0); Imm Gran Abs Auto 0.02 X10*3/uL (0.00-0.03); Imm Gran Pct Auto 0.3 % (0.0-0.4); Lymphocytes Absolute Auto 1.6 X10*3/uL (1.2-4.9); Lymphocytes Percent Auto 28.3 % (20-40); Mean Corpuscular HGB Conc 28.6 g/dl (31.0-35.0); Mean Corpuscular Hemoglobin 24.1 pg (27.0-33.0); Mean Corpuscular Volume 84.2 fL (80.0-98.0); Monocytes Absolute Auto 0.4 X10*3/uL (0.1-1.2); Monocytes Percent Auto 7.1 % (2-11); Neutrophils Absolute Auto 3.5 x10*3/uL (2.0-8.3); Platelet Count 185 X10*3/uL (160-400); Red Blood Count 4.57 X10*6/uL (4.20-5.50); Red Cell Distribution Width 23.9 % (11.0-16.0); White Blood Count 5.8 X10*3/uL (4.8-10.8)
[2022-03-17 14:03] LABS: INTERNATIONAL NORM RATIO 2.2 (0.9-1.1); Prothrombin Time 25.7 SEC (10.0-13.1)
[2022-03-17] MEDS: traMADoL HCL 50 MG TABLET PO (14:11)
[2022-03-17] MEDS: Lidocaine 4 % Patch ADH..PATCH 2 PATCH TRANSDERMA (14:14)
[2022-03-17 14:39] LABS: Influenza A PCR NEGATIVE (Negative); Influenza B PCR NEGATIVE (Negative); Resp Syncy Virus RNA Qual PCR NEGATIVE (Negative); SARS COV2 PCR INHOUSE NEGATIVE (Negative)
[2022-03-17 15:11] LABS: Alanine Aminotransferase 12 U/L (0-31); Albumin Level 3.6 g/dL (3.5-5.0); Alkaline Phosphatase 73 U/L (39-117); Anion Gap 13 (12-20); Aspartate Amino Transferase 17 U/L (5-31); Bilirubin Total 0.5 mg/dL (0.0-1.0); Blood Urea Nitrogen 13 mg/dL (9-16); Calcium 8.8 mg/dL (8.4-10.2); Carbon Dioxide 31 mmol/L (22-29); Chloride 98 mmol/L (96-108); Estimated Glomerular Filt Rate > 60; Glucose Random 131 mg/dL (60-115); Magnesium 1.9 mg/dL (1.6-2.6); Potassium 3.4 mmol/L (3.3-5.1); Sodium 139 mmol/L (135-145); Total Protein 5.9 g/dL (6.5-8.0)
[2022-03-17] MEDS: Cyclobenzaprine HCl 10 MG TABLET PO (16:01)
[2022-03-17] MEDS: oxyCODONE HCl Immed Release 5 MG TABLET PO (16:02)
[2022-03-17 16:09] LABS: B Type Natriuretic Peptide 132 pg/mL (<100)
--- NOTE | 2022-03-17 17:46 | PC.NURSE ---
madeline rodriguez is booked with [facility] in [place] for 1830 rn aware
== END 2022-03-17 19:24 | disposition home or self-care (01) ==
PROVIDERS: Physician Assistant Medical; Emergency Provider Emergency Medicine; PCP Internal Medicine
DX: M48.54XA Collapsed vertebra, not elsewhere classified, thoracic region, initial encounter for fracture (principal); M54.50 Low back pain, unspecified; M48.56XA Collapsed vertebra, not elsewhere classified, lumbar region, initial encounter for fracture; R06.02 Shortness of breath; Z79.899 Other long term (current) drug therapy; Z20.822 Contact with and (suspected) exposure to COVID-19
CPT/HCPCS: 0241U; 71046; 80053; 83735; 83880; 85025; 85610; 99283

== ENCOUNTER 2022-04-10 11:59 | Observation (INO) | payer OTHER, SELFPAY ==
[2022-04-10] VITALS (7 sets, daily range): BP systolic 111–142; BP diastolic 61–71; PULSE 80–87; RESP 16–20; TEMP 36.4–36.8; O2SAT 91–98; BMI 37.3
--- NOTE | 2022-04-10 12:21 | ECG_ITS ---
Test Reason : sob Blood Pressure : / mmHG Vent. Rate : 079 BPM Atrial Rate : 079 BPM P-R Int : 206 ms QRS Dur : 088 ms QT Int : 384 ms P-R-T Axes : 075 -45 047 degrees QTc Int : 440 ms Sinus rhythm with Premature atrial complexes Left axis deviation Abnormal ECG When compared with ECG of 29-JAN-2022 15:52, Premature atrial complexes are now Present Referred By: Audra Marcus Electronically Signed By:Sohan Connolly
[2022-04-10] MEDS: methylPREDNISolone Sod Succ 125 MG/2 ML VIAL IVPUSH (12:28)
--- NOTE | 2022-04-10 12:32 | ED.SOB ---
HPI - SOB/Dyspnea General Chief Complaint: Dyspnea Stated Complaint: SOB Time Seen by Provider: 04/10/22 12:09 Source: patient Mode of arrival: EMS History of Present Illness HPI Narrative: 71-year-old female with history of COPD as well as CHF presents via EMS for cough and worsening shortness of breath since yesterday, patient wears oxygen at home at 2.5 L and states that she has been producing a little bit more phlegm than usual. She denies any lower extremity swelling and denies any GI or symptoms as well as denying any fever, chills, sore throat, headache or body aches. Related Data Home Medications Medication Instructions Recorded Confirmed acetaminophen 325 mg tablet 650 mg PO Q6H PRN Pain 02/01/21 01/29/22 carvedilol 12.5 mg tablet 12.5 mg PO BID 02/01/21 10/02/21 simvastatin 40 mg tablet 40 mg PO BEDTIME 02/01/21 01/29/22 tiotropium bromide 18 mcg capsule 1 cap inhalation DAILY 02/01/21 10/02/21 with inhalation device (Spiriva with HandiHaler) albuterol sulfate 2.5 mg/3 mL 2.5 mg inhalation Q6H PRN 05/07/21 01/29/22 (0.083 %) solution for nebulization Shortness Of Breath citalopram 20 mg tablet 20 mg PO DAILY 10/02/21 01/29/22 ipratropium 20 mcg-albuterol 100 1 puff inhalation QID 01/29/22 01/29/22 mcg/actuation mist for inhalation (Combivent Respimat) cyclobenzaprine 10 mg tablet tab PO 04/10/22 enoxaparin 80 mg/0.8 mL 80 mg subcut BID 04/10/22 subcutaneous syringe furosemide 20 mg tablet 1 tab PO DAILY 04/10/22 lidocaine 5 % topical patch 1 patch topical DAILY 04/10/22 nystatin 100,000 unit/gram topical 1 g topical BID 04/10/22 powder oxybutynin chloride 5 mg 1 tab PO DAILY 04/10/22 tablet,extended release 24 hr oxycodone 5 mg tablet 5 mg PO Q6H PRN pain 04/10/22 tramadol 50 mg tablet 50 mg PO Q8H PRN pain 04/10/22 warfarin 2.5 mg tablet mg PO 04/10/22 04/10/22 Previous Rx's Medication Instructions Recorded ipratropium 0.5 mg-albuterol 3 mg 3 ml inhalation RQID #90 mL 01/31/22 (2.5 mg base)/3 mL nebulization soln omeprazole 40 mg capsule,delayed 40 mg PO BID@0630,1630 #60 caps 01/31/22 release acetazolamide 250 mg tablet 250 mg PO BID Resp. failure 90 02/02/22 days #180 tabs Allergies Allergy/AdvReac Type Severity Reaction Status Date / Time No Known Allergies Allergy Mild N/A Verified 03/02/22 15:24 Review of Systems Review of Systems: Pertinent positives and negatives as stated in HPI 10 point review of systems is otherwise negative. [facility] Past Medical History Source: nursing notes reviewed Medical History Afib Anemia CHF exacerbation COPD (chronic obstructive pulmonary disease) COPD (chronic obstructive pulmonary disease) COPD (chronic obstructive pulmonary disease) COPD exacerbation COVID-19 High blood pressure High cholesterol Hypoxemia Pulmonary fibrosis Pulmonary hypertension Respiratory failure with hypoxia and hypercapnia Surgical History H/O mechanical aortic valve replacement Family History Family History Father Throat cancer Social History Social History Household Members: None Household Members Other:: daughter in other other side of duplex Housing: House Do you presently have visiting nurse or other home services: Yes Alcohol intake: never Patient Tobacco Use Status: Former Tobacco user Quit Date: 02/06 Tobacco use type: Cigarette Smoked in Last 30 Days: No Use of substances other than those prescribed or required for medical reasons: No Advance Directives: No Advance Directives Information Provided: No service: No Current occupational status: disabled 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 GENERAL: Elevated BMI, Well developed, well nourished, in no acute distress. HEAD: Normocephalic/atraumatic EYES: PERRLA, EOMI EARS: Ext canals without abnormality OROPHARYNX: no oral lesions noted, posterior pharynx clear LUNGS: Decreased breath sounds bilaterally with minimal expiratory wheeze noted, there is tachypnea and increased work of breathing. SpO2<98> on 2.5 L nasal cannula CARDIOVASCULAR: Regular rate and rhythm without noted murmurs, no JVD or lower extremity edema. ABDOMEN: Soft, non-tender, non-distended with bowel sounds. MUSCULOSKELETAL: No tenderness, deformities, or effusions noted on gross inspection. EXTREMITIES: No cyanosis, clubbing or edema. SKIN: Inspection of the skin reveals no rashes NEUROLOGIC: Alert and oriented x 4. Strength and sensation to light touch were grossly intact x 4. Course Course Course Narrative: Antibiotics, Lasix, 10 mg DuoNebs x2, steroids Medications Administered Discontinued Medications Generic Name Dose Route Start Last Admin Trade Name Freq PRN Reason Stop Dose Admin Albuterol Sulfate 7.5 mg/ 0 mg 04/10/22 12:21 04/10/22 13:21 Albuterol/Ipratropium 3 ml INHALE 04/10/22 12:22 0.5 each ONCE ONE Administration Furosemide 40 mg 04/10/22 13:38 04/10/22 13:57 Furosemide 40 Mg/4 Ml Vial IVPUSH 04/10/22 13:39 40 mg ONCE ONE Administration Protocol Piperacillin Sod/Tazobactam 50 mls @ 100 mls/hr 04/10/22 13:31 04/10/22 13:57 Sod 3.375 gm/ Sodium Chloride IV 04/10/22 14:00 100 mls/hr ONCE ONE Administration Methylprednisolone Sodium Succinate 125 mg 04/10/22 12:21 04/10/22 12:28 Methylprednisolone Sod Succ 125 Mg/2 Ml Vial IVPUSH 04/10/22 12:22 125 mg ONCE ONE Administration Medical Decision Making Medical Decision Making MDM Narrative: 71-year-old female with history and clinical presentation primarily consistent with respiratory exacerbation of underlying condition. Differential Diagnosis Differential Diagnoses: The differential diagnosis associated with the presentation includes Will rule out Viral infection, COPD exacerbation, CHF exacerbation, pneumonia Admission/Observation Consideration of admission/observation: Escalation of care including admission/observation considered I am considering admission. Consult Healthcare Provider Management of the patient was discussed with: Hospitalist Consult for admission for COPD and CHF exacerbation. Lab Data MDM Lab Attestation statement: I reviewed the patient's lab results. I interpreted all laboratory findings to suggest COPD as well as CHF exacerbation. I feel that COPD is the predominant feature. INR is supratherapeutic. Result Diagrams: 04/10/22 12:51 04/10/22 12:51 Labs: Lab Results 04/10/22 04/10/22 04/10/22 Range/Units 12:51 12:51 12:51 WBC 8.3 (4.8-10.8) X10*3/uL RBC 4.69 (4.20-5.50) X10*6/uL Hgb 11.8 L (12.0-16.0) g/dl Hct 40.8 (37.0-47.0) % MCV 87.0 (80.0-98.0) fL MCH 25.2 L (27.0-33.0) pg MCHC 28.9 L (31.0-35.0) g/dl RDW 20.4 H (11.0-16.0) % Plt Count 168 (160-400) X10*3/uL MPV Not Reportable Immature Gran % (Auto) 0.2 (0.0-0.4) % Neut % (Auto) 55.7 (45-73) % Lymph % (Auto) 28.9 (20-40) % Wharton % (Auto) 10.2 (2-11) % Eos % (Auto) 4.2 H (0-4) % Baso % (Auto) 0.8 (0-2) % Lymph # (Auto) 2.4 (1.2-4.9) X10*3/uL Wharton # (Auto) 0.9 (0.1-1.2) X10*3/uL Eos # (Auto) 0.4 (0.0-0.4) X10*3/uL Baso # (Auto) 0.1 (0.0-0.2) X10*3/uL Abs Immat Gran (auto) 0.02 (0.00-0.03) X10*3/uL Absolute Neuts (auto) 4.6 (2.0-8.3) x10*3/uL Absolute Nucleated RBC 0.000 (0.0-0.012) X10*3/uL Nucleated RBC % (auto) 0.0 (0.0-0.2) /100WBC PT (10.0-13.1) SEC INR (0.9-1.1) VBG pH (7.32-7.43) VBG pCO2 mmHg VBG pO2 mmHg VBG HCO3 (22-26) mmol/L VBG O2 Saturation % VBG Base Excess mmol/L Sodium 143 (135-145) mmol/L Potassium 3.6 (3.3-5.1) mmol/L Chloride 99 (96-108) mmol/L Carbon Dioxide 36 H (22-29) mmol/L Anion Gap 12 (12-20) BUN 11 (9-16) mg/dL Creatinine 0.65 (0.5-1.4) mg/dL Estim Creat Clear Calc 85.3 Estimated GFR > 60 Random Glucose 115 (60-115) mg/dL Lactic Acid (0.5-2.0) mmol/L Calcium 8.6 (8.4-10.2) mg/dL Total Bilirubin 0.5 (0.0-1.0) mg/dL AST 16 (5-31) U/L ALT 10 (0-31) U/L Alkaline Phosphatase 84 (39-117) U/L Troponin I High Sens (<3.5-17.0) ng/L B-Natriuretic Peptide 214 H (<100) pg/mL Total Protein 6.3 L (6.5-8.0) g/dL Albumin 3.8 (3.5-5.0) g/dL Urine Color Urine Appearance Urine pH (5.0-9.0) Ur Specific Winger (1.005-1.025) Urine Protein (Neg-Trace) mg/dL Urine Glucose (UA) (Negative) mg/dL Urine Ketones (Negative) mg/dL Urine Blood (Negative) Urine Nitrite (Negative) Ur Leukocyte Esterase (Negative) Urine RBC (0-2) /HPF Urine WBC (0-5) /HPF Ur Squamous Epith Cells (0-2) /HPF Urine Bacteria (None Seen) Hyaline Casts (0-2) /LPF COVID-19 (ROB) (Negative) COVID-19 Clin Com Influenza Type A (FRANCOIS) (Negative) Influenza Type B (FRANCOIS) (Negative) Influenza A & B Note 04/10/22 04/10/22 04/10/22 Range/Units 12:51 12:51 12:51 WBC (4.8-10.8) X10*3/uL RBC (4.20-5.50) X10*6/uL Hgb (12.0-16.0) g/dl Hct (37.0-47.0) % MCV (80.0-98.0) fL MCH (27.0-33.0) pg MCHC (31.0-35.0) g/dl RDW (11.0-16.0) % Plt Count (160-400) X10*3/uL MPV Immature Gran % (Auto) (0.0-0.4) % Neut % (Auto) (45-73) % Lymph % (Auto) (20-40) % Wharton % (Auto) (2-11) % Eos % (Auto) (0-4) % Baso % (Auto) (0-2) % Lymph # (Auto) (1.2-4.9) X10*3/uL Wharton # (Auto) (0.1-1.2) X10*3/uL Eos # (Auto) (0.0-0.4) X10*3/uL Baso # (Auto) (0.0-0.2) X10*3/uL Abs Immat Gran (auto) (0.00-0.03) X10*3/uL Absolute Neuts (auto) (2.0-8.3) x10*3/uL Absolute Nucleated RBC (0.0-0.012) X10*3/uL Nucleated RBC % (auto) (0.0-0.2) /100WBC PT 42.4 H (10.0-13.1) SEC INR 3.5 H (0.9-1.1) VBG pH (7.32-7.43) VBG pCO2 mmHg VBG pO2 mmHg VBG HCO3 (22-26) mmol/L VBG O2 Saturation % VBG Base Excess mmol/L Sodium (135-145) mmol/L Potassium (3.3-5.1) mmol/L Chloride (96-108) mmol/L Carbon Dioxide (22-29) mmol/L Anion Gap (12-20) BUN (9-16) mg/dL Creatinine (0.5-1.4) mg/dL Estim Creat Clear Calc Estimated GFR Random Glucose (60-115) mg/dL Lactic Acid 1.1 (0.5-2.0) mmol/L Calcium (8.4-10.2) mg/dL Total Bilirubin (0.0-1.0) mg/dL AST (5-31) U/L ALT (0-31) U/L Alkaline Phosphatase (39-117) U/L Troponin I High Sens 4.9 (<3.5-17.0) ng/L B-Natriuretic Peptide (<100) pg/mL Total Protein (6.5-8.0) g/dL Albumin (3.5-5.0) g/dL Urine Color Urine Appearance Urine pH (5.0-9.0) Ur Specific Winger (1.005-1.025) Urine Protein (Neg-Trace) mg/dL Urine Glucose (UA) (Negative) mg/dL Urine Ketones (Negative) mg/dL Urine Blood (Negative) Urine Nitrite (Negative) Ur Leukocyte Esterase (Negative) Urine RBC (0-2) /HPF Urine WBC (0-5) /HPF Ur Squamous Epith Cells (0-2) /HPF Urine Bacteria (None Seen) Hyaline Casts (0-2) /LPF COVID-19 (ROB) (Negative) COVID-19 Clin Com Influenza Type A (FRANCOIS) (Negative) Influenza Type B (FRANCOIS) (Negative) Influenza A & B Note 04/10/22 04/10/22 04/10/22 Range/Units 12:55 13:07 13:39 WBC (4.8-10.8) X10*3/uL RBC (4.20-5.50) X10*6/uL Hgb (12.0-16.0) g/dl Hct (37.0-47.0) % MCV (80.0-98.0) fL MCH (27.0-33.0) pg MCHC (31.0-35.0) g/dl RDW (11.0-16.0) % Plt Count (160-400) X10*3/uL MPV Immature Gran % (Auto) (0.0-0.4) % Neut % (Auto) (45-73) % Lymph % (Auto) (20-40) % Wharton % (Auto) (2-11) % Eos % (Auto) (0-4) % Baso % (Auto) (0-2) % Lymph # (Auto) (1.2-4.9) X10*3/uL Wharton # (Auto) (0.1-1.2) X10*3/uL Eos # (Auto) (0.0-0.4) X10*3/uL Baso # (Auto) (0.0-0.2) X10*3/uL Abs Immat Gran (auto) (0.00-0.03) X10*3/uL Absolute Neuts (auto) (2.0-8.3) x10*3/uL Absolute Nucleated RBC (0.0-0.012) X10*3/uL Nucleated RBC % (auto) (0.0-0.2) /100WBC PT (10.0-13.1) SEC INR (0.9-1.1) VBG pH 7.35 (7.32-7.43) VBG pCO2 68 mmHg VBG pO2 69 mmHg VBG HCO3 38 H (22-26) mmol/L VBG O2 Saturation 94.0 % VBG Base Excess 10.1 mmol/L Sodium (135-145) mmol/L Potassium (3.3-5.1) mmol/L Chloride (96-108) mmol/L Carbon Dioxide (22-29) mmol/L Anion Gap (12-20) BUN (9-16) mg/dL Creatinine (0.5-1.4) mg/dL Estim Creat Clear Calc Estimated GFR Random Glucose (60-115) mg/dL Lactic Acid (0.5-2.0) mmol/L Calcium (8.4-10.2) mg/dL Total Bilirubin (0.0-1.0) mg/dL AST (5-31) U/L ALT (0-31) U/L Alkaline Phosphatase (39-117) U/L Troponin I High Sens (<3.5-17.0) ng/L B-Natriuretic Peptide (<100) pg/mL Total Protein (6.5-8.0) g/dL Albumin (3.5-5.0) g/dL Urine Color Yellow Urine Appearance Clear Urine pH 5.5 (5.0-9.0) Ur Specific Winger 1.010 (1.005-1.025) Urine Protein Negative (Neg-Trace) mg/dL Urine Glucose (UA) Negative (Negative) mg/dL Urine Ketones Negative (Negative) mg/dL Urine Blood Negative (Negative) Urine Nitrite Negative (Negative) Ur Leukocyte Esterase Moderate (2+) H (Negative) Urine RBC 0-2 (0-2) /HPF Urine WBC 21-50 H (0-5) /HPF Ur Squamous Epith Cells 3-5 (0-2) /HPF Urine Bacteria None Seen (None Seen) Hyaline Casts 0-2 (0-2) /LPF COVID-19 (ROB) (Negative) COVID-19 Clin Com Influenza Type A (FRANCOIS) Negative (Negative) Influenza Type B (FRANCOIS) Negative (Negative) Influenza A & B Note See Note 04/10/22 Range/Units 13:39 WBC (4.8-10.8) X10*3/uL RBC (4.20-5.50) X10*6/uL Hgb (12.0-16.0) g/dl Hct (37.0-47.0) % MCV (80.0-98.0) fL MCH (27.0-33.0) pg MCHC (31.0-35.0) g/dl RDW (11.0-16.0) % Plt Count (160-400) X10*3/uL MPV Immature Gran % (Auto) (0.0-0.4) % Neut % (Auto) (45-73) % Lymph % (Auto) (20-40) % Wharton % (Auto) (2-11) % Eos % (Auto) (0-4) % Baso % (Auto) (0-2) % Lymph # (Auto) (1.2-4.9) X10*3/uL Wharton # (Auto) (0.1-1.2) X10*3/uL Eos # (Auto) (0.0-0.4) X10*3/uL Baso # (Auto) (0.0-0.2) X10*3/uL Abs Immat Gran (auto) (0.00-0.03) X10*3/uL Absolute Neuts (auto) (2.0-8.3) x10*3/uL Absolute Nucleated RBC (0.0-0.012) X10*3/uL Nucleated RBC % (auto) (0.0-0.2) /100WBC PT (10.0-13.1) SEC INR (0.9-1.1) VBG pH (7.32-7.43) VBG pCO2 mmHg VBG pO2 mmHg VBG HCO3 (22-26) mmol/L VBG O2 Saturation % VBG Base Excess mmol/L Sodium (135-145) mmol/L Potassium (3.3-5.1) mmol/L Chloride (96-108) mmol/L Carbon Dioxide (22-29) mmol/L Anion Gap (12-20) BUN (9-16) mg/dL Creatinine (0.5-1.4) mg/dL Estim Creat Clear Calc Estimated GFR Random Glucose (60-115) mg/dL Lactic Acid (0.5-2.0) mmol/L Calcium (8.4-10.2) mg/dL Total Bilirubin (0.0-1.0) mg/dL AST (5-31) U/L ALT (0-31) U/L Alkaline Phosphatase (39-117) U/L Troponin I High Sens (<3.5-17.0) ng/L B-Natriuretic Peptide (<100) pg/mL Total Protein (6.5-8.0) g/dL Albumin (3.5-5.0) g/dL Urine Color Urine Appearance Urine pH (5.0-9.0) Ur Specific Winger (1.005-1.025) Urine Protein (Neg-Trace) mg/dL Urine Glucose (UA) (Negative) mg/dL Urine Ketones (Negative) mg/dL Urine Blood (Negative) Urine Nitrite (Negative) Ur Leukocyte Esterase (Negative) Urine RBC (0-2) /HPF Urine WBC (0-5) /HPF Ur Squamous Epith Cells (0-2) /HPF Urine Bacteria (None Seen) Hyaline Casts (0-2) /LPF COVID-19 (ROB) Negative (Negative) COVID-19 Clin Com See Note Influenza Type A (FRANCOIS) (Negative) Influenza Type B (FRANCOIS) (Negative) Influenza A & B Note Independent Interpretation I performed an independent interpretation of an: EKG Interpretation: Sinus rhythm with first-degree AV block (baseline), HR-79, no STEMI, MI prolonged-206, QRS and QTC are within normal limits. Radiology Impression Radiologist Impression: My interpretation is in agreement with the radiologist's impression of imaging. External Record Review External record reviewed: Inpatient record, Outpatient record and Prior outpatient radiology Chronic Conditions Patient?s care impacted by: Other COPD, CHF Critical Care Time Critical Care Time Critical Care Time: Yes Total Critical Care Time: 60 Attestation: I personally attest to this time spent taking care of the patient. Discharge Plan Discharge Clinical Impression: COPD exacerbation, CHF exacerbation, Supratherapeutic INR, Dyspnea Patient Disposition: Admitted As Inpatient
--- NOTE | 2022-04-10 12:54 | MHC.EDTECH ---
EKG completed and signed by
[2022-04-10 13:01] LABS: MANUAL DIFF FLAG NO
[2022-04-10 13:08] LABS: INTERNATIONAL NORM RATIO 3.5 (0.9-1.1); Prothrombin Time 42.4 SEC (10.0-13.1)
[2022-04-10 13:11] LABS: Basophils Absolute Auto 0.1 X10*3/uL (0.0-0.2); Basophils Percent Auto 0.8 % (0-2); Eosinophils Absolute Auto 0.4 X10*3/uL (0.0-0.4); Eosinophils Percent Auto 4.2 % (0-4); Hematocrit 40.8 % (37.0-47.0); Hemoglobin 11.8 g/dl (12.0-16.0); Imm Gran Abs Auto 0.02 X10*3/uL (0.00-0.03); Imm Gran Pct Auto 0.2 % (0.0-0.4); Lymphocytes Absolute Auto 2.4 X10*3/uL (1.2-4.9); Lymphocytes Percent Auto 28.9 % (20-40); Mean Corpuscular HGB Conc 28.9 g/dl (31.0-35.0); Mean Corpuscular Hemoglobin 25.2 pg (27.0-33.0); Monocytes Absolute Auto 0.9 X10*3/uL (0.1-1.2); Monocytes Percent Auto 10.2 % (2-11); Neutrophils Absolute Auto 4.6 x10*3/uL (2.0-8.3); Neutrophils Percent Auto 55.7 % (45-73); Platelet Count 168 X10*3/uL (160-400); Red Blood Count 4.69 X10*6/uL (4.20-5.50); Red Cell Distribution Width 20.4 % (11.0-16.0); White Blood Count 8.3 X10*3/uL (4.8-10.8)
[2022-04-10 13:20] LABS: Lactic Acid 1.1 mmol/L (0.5-2.0)
[2022-04-10] MEDS: Albuterol Sulfate 7.5 MG, Albuterol/Iprat 2.5/0.5MG 3 ML 3 ML INHALE ×2 (13:21→16:01)
[2022-04-10 13:23] LABS: Appearance Urine Clear; Color Urine Yellow; Glucose Urine UA Negative (Negative); Leukocyte Esterase Urine Moderate (2+) (Negative); Nitrite Urine Negative (Negative); PH 5.5 (5.0-9.0); UMIC TRIGGER UACC YES; Urine Blood Negative (Negative); Urine Ketones Negative (Negative); Urine Protein Negative (Neg-Trace)
[2022-04-10 13:25] LABS: Bacteria Urine None Seen (None Seen); Hyaline Casts Urine 0-2 /LPF (0-2); RBC Urine 0-2 /HPF (0-2); UACC Culture Trigger YES; WBC Urine 21-50 /HPF (0-5)
[2022-04-10 13:25] LABS: Alanine Aminotransferase 10 U/L (0-31); Albumin Level 3.8 g/dL (3.5-5.0); Alkaline Phosphatase 84 U/L (39-117); Anion Gap 12 (12-20); Aspartate Amino Transferase 16 U/L (5-31); Bilirubin Total 0.5 mg/dL (0.0-1.0); Blood Urea Nitrogen 11 mg/dL (9-16); Calcium 8.6 mg/dL (8.4-10.2); Carbon Dioxide 36 mmol/L (22-29); Chloride 99 mmol/L (96-108); Creatinine Clr Calc Pharmacy 85.3; Estimated Glomerular Filt Rate > 60; Glucose Random 115 mg/dL (60-115); Potassium 3.6 mmol/L (3.3-5.1); Sodium 143 mmol/L (135-145); Total Protein 6.3 g/dL (6.5-8.0)
[2022-04-10 13:31] LABS: B Type Natriuretic Peptide 214 pg/mL (<100)
[2022-04-10 13:33] LABS: Troponin-I High Sensitivity 4.9 ng/L (<3.5-17.0)
[2022-04-10] MEDS: Piperacillin Sodium/Tazobactam 3.375 GM in 0.9 % Sodium Chloride 50 ML IV (13:57)
[2022-04-10] MEDS: Furosemide 40 MG/4 ML VIAL IVPUSH (13:57)
[2022-04-10 14:08] LABS: COVID-19 Test Negative (Negative); IDNOW Serial# 9DB6401D; IDNOW Serial# BCCEAD1C; Influenza A Negative (Negative); Influenza B2 Negative (Negative)
--- NOTE | 2022-04-10 15:03 | PM.IMHP ---
History of Present Illness Date of Service: 04/10/22 Chief Complaint: shortness of breath a 71 years old lady with PMH of mechanical AV, CAD, CHF, chronic hypoxic respiratory failure from COPD on home O2, obesity among others who presents to the hospital complaining of worsening shortness of breath, wheezing and productive cough for 1 day prior to admission. The patient reports that she has been using her medications as prescribed but noticed for the last day that she has been feeling more short of breath and tired with increased wheezes and having productive cough with clear sputum. Denies any fever, chills, chest pain, palpitation, nausea, vomiting, change in bowel habit or urinary symptoms. In the emergency she did not feel significant improvement after 3 rounds of nebulizer with decision to admit to the hospital for further treatment. Review of Systems Review of Systems: No fever, chills or weakness No chest pain, palpitation Reporting shortness of breath, increased productive cough and wheezes No abdominal pain, nausea or vomiting No urinary symptoms No any rash or wounds PMFSH Medical History Afib Anemia CHF exacerbation COPD (chronic obstructive pulmonary disease) COPD (chronic obstructive pulmonary disease) COPD (chronic obstructive pulmonary disease) COPD exacerbation COVID-19 High blood pressure High cholesterol Hypoxemia Pulmonary fibrosis Pulmonary hypertension Respiratory failure with hypoxia and hypercapnia Family History Father Throat cancer Surgical History H/O mechanical aortic valve replacement Social History Household Members: None Household Members Other:: daughter in other other side of duplex Housing: House Do you presently have visiting nurse or other home services: Yes Alcohol intake: never Patient Tobacco Use Status: Former Tobacco user Quit Date: 02/06 Tobacco use type: Cigarette Smoked in Last 30 Days: No Use of substances other than those prescribed or required for medical reasons: No Advance Directives: No Advance Directives Information Provided: No service: No Current occupational status: disabled 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 Meds Allergies Allergy/AdvReac Type Severity Reaction Status Date / Time No Known Allergies Allergy Mild N/A Verified 03/02/22 15:24 Active Medications: Current Medications Pharmacy Consult (Consult Rx Perform Med Rec) 1 each MISCELLANE ONCE PRN PRN Reason: Consult order Home Medications Medication Instructions Recorded Confirmed Last Taken Type acetaminophen 325 mg tablet 650 mg PO Q6H PRN Pain 02/01/21 04/10/22 Unknown History carvedilol 12.5 mg tablet 12.5 mg PO BID 02/01/21 04/10/22 01/29/22 08:00 History simvastatin 40 mg tablet 40 mg PO BEDTIME 02/01/21 04/10/22 01/28/22 History tiotropium bromide 18 mcg capsule 1 cap inhalation DAILY 02/01/21 04/10/22 08/01/21 History with inhalation device (Spiriva with HandiHaler) albuterol sulfate 2.5 mg/3 mL 2.5 mg inhalation Q6H PRN 05/07/21 04/10/22 Unknown History (0.083 %) solution for nebulization Shortness Of Breath citalopram 20 mg tablet 20 mg PO DAILY 10/02/21 04/10/22 01/29/22 History ipratropium 20 mcg-albuterol 100 1 puff inhalation QID 01/29/22 04/10/22 01/29/22 History mcg/actuation mist for inhalation (Combivent Respimat) aspirin 81 mg tablet,delayed 81 mg PO DAILY 04/10/22 04/10/22 Unknown History release enoxaparin 80 mg/0.8 mL 80 mg subcut BID 04/10/22 04/10/22 Unknown History subcutaneous syringe fluticasone 500 mcg-salmeterol 50 1 puff inhalation BID 04/10/22 04/10/22 Unknown History mcg/dose blistr powdr for inhalation (Katiuskaxela Inhub) furosemide 20 mg tablet 1 tab PO DAILY 04/10/22 04/10/22 Unknown History latanoprost 0.005 % eye drops, 1 drp ophthalmic (eye) QPM 04/10/22 04/10/22 Unknown History emulsion nystatin 100,000 unit/gram topical 1 g topical BID 04/10/22 04/10/22 Unknown History powder omeprazole 40 mg capsule,delayed 20 mg PO DAILY 04/10/22 04/10/22 Unknown History release oxybutynin chloride 5 mg 1 tab PO DAILY 04/10/22 04/10/22 Unknown History tablet,extended release 24 hr warfarin 2.5 mg tablet 2.5 - 5 mg PO DAILY 04/10/22 04/10/22 Unknown History Physical Exam Vital Signs and Narrative: Vital Signs: Last Vital Signs Temp 98.2 F 04/10/22 12:09 Pulse 83 04/10/22 13:58 Resp 17 04/10/22 13:23 BP 111/67 04/10/22 13:58 Pulse Ox 98 04/10/22 12:09 O2 Del Method 04/10/22 12:09 Oxygen Flow Rate 2 04/10/22 12:09 BMI result Body Mass Index 37.3 Const: Other: Constitutional : Awake, interactive= Neck : Normal inspection, Supple Cardiovascular : RRR, no JVP, no lower extremity edema Respiratory : significantly decreased bilateral air entry, no crackles, bilateral scattered wheezes, in mild respiratory distress Gastrointestinal: soft, lax, Normal bowel sounds, Non tender Skin : Warm, Dry Neurological : Alert & oriented x3, No focal deficit , CN 2-12 within normal Results Labs CBC and Chem 7: 04/10/22 12:51 04/10/22 12:51 Labs: Laboratory Results - last 24 hr 04/10/22 04/10/22 04/10/22 12:51 12:51 12:51 MCV 87.0 MCH 25.2 L MCHC 28.9 L RDW 20.4 H Plt Count 168 MPV Not Reportable Immature Gran % (Auto) 0.2 Neut % (Auto) 55.7 Lymph % (Auto) 28.9 [place] % (Auto) 10.2 Eos % (Auto) 4.2 H Baso % (Auto) 0.8 Lymph # (Auto) 2.4 [place] # (Auto) 0.9 Eos # (Auto) 0.4 Baso # (Auto) 0.1 Abs Immat Gran (auto) 0.02 Absolute Neuts (auto) 4.6 Absolute Nucleated RBC 0.000 Nucleated RBC % (auto) 0.0 PT INR VBG pH VBG pCO2 VBG pO2 VBG HCO3 VBG O2 Saturation VBG Base Excess Anion Gap 12 Estim Creat Clear Calc 85.3 Estimated GFR > 60 Random Glucose 115 Lactic Acid Calcium 8.6 Total Bilirubin 0.5 AST 16 ALT 10 Alkaline Phosphatase 84 Troponin I High Sens B-Natriuretic Peptide 214 H Total Protein 6.3 L Albumin 3.8 Urine Color Urine Appearance Urine pH Ur Specific [place] Urine Protein Urine Glucose (UA) Urine Ketones Urine Blood Urine Nitrite Ur Leukocyte Esterase Urine RBC Urine WBC Ur Squamous Epith Cells Urine Bacteria Hyaline Casts COVID-19 (ROB) COVID-19 Clin Com Influenza Type A (FRANCOIS) Influenza Type B (FRANCOIS) Influenza A & B Note 04/10/22 04/10/22 04/10/22 12:51 12:51 12:51 MCV MCH MCHC RDW Plt Count MPV Immature Gran % (Auto) Neut % (Auto) Lymph % (Auto) [place] % (Auto) Eos % (Auto) Baso % (Auto) Lymph # (Auto) [place] # (Auto) Eos # (Auto) Baso # (Auto) Abs Immat Gran (auto) Absolute Neuts (auto) Absolute Nucleated RBC Nucleated RBC % (auto) PT 42.4 H INR 3.5 H VBG pH VBG pCO2 VBG pO2 VBG HCO3 VBG O2 Saturation VBG Base Excess Anion Gap Estim Creat Clear Calc Estimated GFR Random Glucose Lactic Acid 1.1 Calcium Total Bilirubin AST ALT Alkaline Phosphatase Troponin I High Sens 4.9 B-Natriuretic Peptide Total Protein Albumin Urine Color Urine Appearance Urine pH Ur Specific [place] Urine Protein Urine Glucose (UA) Urine Ketones Urine Blood Urine Nitrite Ur Leukocyte Esterase Urine RBC Urine WBC Ur Squamous Epith Cells Urine Bacteria Hyaline Casts COVID-19 (ROB) COVID-19 Clin Com Influenza Type A (FRANCOIS) Influenza Type B (FRANCOIS) Influenza A & B Note 04/10/22 04/10/22 04/10/22 12:55 13:07 13:39 MCV MCH MCHC RDW Plt Count MPV Immature Gran % (Auto) Neut % (Auto) Lymph % (Auto) [place] % (Auto) Eos % (Auto) Baso % (Auto) Lymph # (Auto) [place] # (Auto) Eos # (Auto) Baso # (Auto) Abs Immat Gran (auto) Absolute Neuts (auto) Absolute Nucleated RBC Nucleated RBC % (auto) PT INR VBG pH 7.35 VBG pCO2 68 VBG pO2 69 VBG HCO3 38 H VBG O2 Saturation 94.0 VBG Base Excess 10.1 Anion Gap Estim Creat Clear Calc Estimated GFR Random Glucose Lactic Acid Calcium Total Bilirubin AST ALT Alkaline Phosphatase Troponin I High Sens B-Natriuretic Peptide Total Protein Albumin Urine Color Yellow Urine Appearance Clear Urine pH 5.5 Ur Specific [place] 1.010 Urine Protein Negative Urine Glucose (UA) Negative Urine Ketones Negative Urine Blood Negative Urine Nitrite Negative Ur Leukocyte Esterase Moderate (2+) H Urine RBC 0-2 Urine WBC 21-50 H Ur Squamous Epith Cells 3-5 Urine Bacteria None Seen Hyaline Casts 0-2 COVID-19 (ROB) COVID-19 Clin Com Influenza Type A (FRANCOIS) Negative Influenza Type B (FRANCOIS) Negative Influenza A & B Note See Note 04/10/22 13:39 MCV MCH MCHC RDW Plt Count MPV Immature Gran % (Auto) Neut % (Auto) Lymph % (Auto) [place] % (Auto) Eos % (Auto) Baso % (Auto) Lymph # (Auto) [place] # (Auto) Eos # (Auto) Baso # (Auto) Abs Immat Gran (auto) Absolute Neuts (auto) Absolute Nucleated RBC Nucleated RBC % (auto) PT INR VBG pH VBG pCO2 VBG pO2 VBG HCO3 VBG O2 Saturation VBG Base Excess Anion Gap Estim Creat Clear Calc Estimated GFR Random Glucose Lactic Acid Calcium Total Bilirubin AST ALT Alkaline Phosphatase Troponin I High Sens B-Natriuretic Peptide Total Protein Albumin Urine Color Urine Appearance Urine pH Ur Specific [place] Urine Protein Urine Glucose (UA) Urine Ketones Urine Blood Urine Nitrite Ur Leukocyte Esterase Urine RBC Urine WBC Ur Squamous Epith Cells Urine Bacteria Hyaline Casts COVID-19 (ROB) Negative COVID-19 Clin Com See Note Influenza Type A (FRANCOIS) Influenza Type B (FRANCOIS) Influenza A & B Note Imaging Radiologist's Impressions: Impressions Chest X-Ray 04/10/22 13:17 IMPRESSION: Chronic changes without significant interval change consistent with known COPD. No acute cardiopulmonary process. Assessment and Plan (1) COPD exacerbation: Status: Acute (2) CHF exacerbation: Status: Acute (3) Supratherapeutic INR: Status: Acute Plan a 71 years old lady with PMH of mechanical AV, CAD, CHF, chronic hypoxic respiratory failure from COPD on home O2, obesity among others who presents to the hospital complaining of worsening shortness of breath, wheezing and productive cough for 1 day prior to admission. Chronic hypoxic respiratory failure with acute COPD and dCHF exacerbation Increased wheezing, productive cough and dyspnea in rest BNP increase to 230s DuoNebs q.4 Albuterol p.r.n. IV Lasix Methylprednisone 40 q.12 Wean oxygen down as tolerated Mechanical aortic valve Supratherapeutic INR INR 3.5 Hold warfarin for today monitor INR CAD ASA, Carvedilol and statin DVT PPx warfarin Time Spent With Patient Time: Total time managing care of this patient today ____ minutes. Quality Stroke Does the patient have a stroke diagnosis?: No VTE Prior VTE?: No VTE Risk Level:: Medical - moderate - high VTE Device Contraindication: Treatment Not Indicated VTE Drug Contraindication: Treatment Not Indicated
--- NOTE | 2022-04-10 15:05 | PHA.MEDREC ---
Pharmacy Consult ? Medication Reconciliation Pharmacy has completed the medication reconciliation. Patient was with family member, family member had a list at time of interview
[2022-04-10] MEDS: 0.9 % Sodium Chloride Flush 3 ML SYRINGE IVFLUSH (15:51)
[2022-04-10] MEDS: Albuterol/Iprat 2.5/0.5MG 3 ML AMPUL.NEB INHALE ×2 (16:03→19:48)
[2022-04-10] MEDS: acetaZOLAMIDE 250 MG TABLET PO (22:35)
[2022-04-10] MEDS: carvediloL 12.5 MG TABLET PO (22:35)
[2022-04-10] MEDS: Atorvastatin Calcium 20 MG TABLET PO (22:35)
[2022-04-10] MEDS: Latanoprost 0.005 % Ophth Sol 2.5 ML DROPS 1 DROP EYE-BOTH (22:36)
[2022-04-10] MEDS: Nystatin Powder 15 GM BOTTLE 1 APPL TOPICAL (22:36)
--- NOTE | 2022-04-10 22:39 | PC.NURSE ---
Pt medicated as ordered. Nystatin powder applied underneath both breast. Pt tolerated well and aware of plan of care.
[2022-04-11 05:35] VITALS: BP 114/55; PULSE 80; RESP 14; TEMP 36.6; O2SAT 94
[2022-04-11 06:31] LABS: INTERNATIONAL NORM RATIO 3.8 (0.9-1.1)
[2022-04-11] MEDS: Omeprazole 20 MG CAPSULE.DR PO (06:35)
[2022-04-11 07:11] VITALS: BP 115/86; PULSE 86; RESP 26; O2SAT 97
[2022-04-11] MEDS: Furosemide 40 MG/4 ML VIAL IVPUSH (07:25)
[2022-04-11] MEDS: methylPREDNISolone Sod Succ 40 MG/ML VIAL IVPUSH (07:25)
[2022-04-11] MEDS: carvediloL 12.5 MG TABLET PO (07:25)
[2022-04-11] MEDS: Aspirin Enteric Coated 81 MG TABLET.DR PO (07:26)
[2022-04-11] MEDS: Escitalopram Oxalate 10 MG TABLET PO (07:26)
[2022-04-11] MEDS: 0.9 % Sodium Chloride Flush 3 ML SYRINGE IVFLUSH (07:42)
--- NOTE | 2022-04-11 08:43 | PC.NURSE ---
Report called to med surg, pt pending hospitalist disposition. Linens changed, pt repositioned.
[2022-04-11 09:34] VITALS: PULSE 86; RESP 22; O2SAT 98
[2022-04-11] MEDS: Albuterol/Iprat 2.5/0.5MG 3 ML AMPUL.NEB INHALE (09:34)
--- NOTE | 2022-04-11 10:11 | PM.DS ---
DS: Providers Provider Date of Service: 04/11/22 Date of admission: 04/10/22 14:58 Primary care physician: Robin Cueto MD DS: Diagnosis Discharge Diagnosis (1) COPD exacerbation: Status: Acute (2) CHF exacerbation: Status: Acute (3) Supratherapeutic INR: Status: Acute DS: Summary Hospital Course Hospital Course: admission note HPI ?a 71 years old lady with PMH of mechanical AV, CAD, CHF, chronic hypoxic respiratory failure from COPD on home O2, obesity among others who presents to the hospital complaining of worsening shortness of breath, wheezing and productive cough for 1 day prior to admission.? The patient reports that she has been using her medications as prescribed but noticed for the last day that she has been feeling more short of breath and tired with increased wheezes and having productive cough with clear sputum.? Denies any fever, chills, chest pain, palpitation, nausea, vomiting, change in bowel habit or urinary symptoms.? In the emergency she? did not feel significant improvement after 3 rounds of nebulizer with decision to admit to the hospital for further treatment. Hospital course Patient was admitted to the hospital for treatment of COPD, CHF exacerbation. Responded well to treatment of Lasix, steroids, bronchodilator nebulizers as her dyspnea resolved and she was able to breathe much better. She reports not doing much of physical activities at home as she is almost bed-bound and barely stand up just to walk to the commode. Maintaining his saturation mid 90 on 2.5 L of oxygen which is her baseline at home. INR was elevated and warfarin was held but repeated reading of 3.7 this morning. Patient was asked to hold warfarin for the next 2 days and recheck with warfarin clinic on Wednesday before restarting it. Hold warfarin for the next 2 days and restart by Wednesday, follow with warfarin clinic Continue prednisone for 4 more days Use your nebulizer every 3-4 hours at home for the next 5 days Cough medication as prescribed Time Spent with Patient Time attestation: Total time managing care of this patient today ____ minutes. Discharge coordination time: Less than 30 minutes Quality: Safe Use of Opioids Does Pt have an Active Cancer Diagnosis on the Problem List?: No Quality: Stroke Does the patient have a stroke diagnosis?: No Physical Exam Vital Signs: Vital Signs: Last Vital Signs Temp 97.8 F 04/11/22 05:35 Pulse 86 04/11/22 09:34 Resp 22 H 04/11/22 09:34 BP 115/86 04/11/22 07:11 Pulse Ox 97 04/11/22 07:11 O2 Del Method 04/11/22 07:11 O2 Flow Rate 3 04/11/22 07:11 Oxygen Flow Rate 2 04/10/22 12:09 BMI result Body Mass Index 37.3 Const: Other: Constitutional : Awake, interactive Neck : Normal inspection, Supple Cardiovascular : RRR, no JVP, no lower extremity edema Respiratory : decreased But failure bilateral air entry, no crackles, bilateral scattered wheezes, not in respiratory distress Gastrointestinal: soft, lax, Normal bowel sounds, Non tender Skin : Warm, Dry Neurological : Alert & oriented x3, No focal deficit , CN 2-12 within normal DS: Data Data Completed and Pending Labs on day of discharge: Laboratory Results - last 24 hr 04/10/22 04/10/22 04/10/22 12:51 12:51 12:51 WBC 8.3 RBC 4.69 Hgb 11.8 L Hct 40.8 MCV 87.0 MCH 25.2 L MCHC 28.9 L RDW 20.4 H Plt Count 168 MPV Not Reportable Immature Gran % (Auto) 0.2 Neut % (Auto) 55.7 Lymph % (Auto) 28.9 [place] % (Auto) 10.2 Eos % (Auto) 4.2 H Baso % (Auto) 0.8 Lymph # (Auto) 2.4 [place] # (Auto) 0.9 Eos # (Auto) 0.4 Baso # (Auto) 0.1 Abs Immat Gran (auto) 0.02 Absolute Neuts (auto) 4.6 Absolute Nucleated RBC 0.000 Nucleated RBC % (auto) 0.0 PT INR VBG pH VBG pCO2 VBG pO2 VBG HCO3 VBG O2 Saturation VBG Base Excess Sodium 143 Potassium 3.6 Chloride 99 Carbon Dioxide 36 H Anion Gap 12 BUN 11 Creatinine 0.65 Estim Creat Clear Calc 85.3 Estimated GFR > 60 Random Glucose 115 Lactic Acid Calcium 8.6 Total Bilirubin 0.5 AST 16 ALT 10 Alkaline Phosphatase 84 Troponin I High Sens B-Natriuretic Peptide 214 H Total Protein 6.3 L Albumin 3.8 Urine Color Urine Appearance Urine pH Ur Specific [place] Urine Protein Urine Glucose (UA) Urine Ketones Urine Blood Urine Nitrite Ur Leukocyte Esterase Urine RBC Urine WBC Ur Squamous Epith Cells Urine Bacteria Hyaline Casts COVID-19 (ROB) COVID-19 Clin Com Influenza Type A (FRANCOIS) Influenza Type B (FRANCOIS) Influenza A & B Note 04/10/22 04/10/22 04/10/22 12:51 12:51 12:51 WBC RBC Hgb Hct MCV MCH MCHC RDW Plt Count MPV Immature Gran % (Auto) Neut % (Auto) Lymph % (Auto) [place] % (Auto) Eos % (Auto) Baso % (Auto) Lymph # (Auto) [place] # (Auto) Eos # (Auto) Baso # (Auto) Abs Immat Gran (auto) Absolute Neuts (auto) Absolute Nucleated RBC Nucleated RBC % (auto) PT 42.4 H INR 3.5 H VBG pH VBG pCO2 VBG pO2 VBG HCO3 VBG O2 Saturation VBG Base Excess Sodium Potassium Chloride Carbon Dioxide Anion Gap BUN Creatinine Estim Creat Clear Calc Estimated GFR Random Glucose Lactic Acid 1.1 Calcium Total Bilirubin AST ALT Alkaline Phosphatase Troponin I High Sens 4.9 B-Natriuretic Peptide Total Protein Albumin Urine Color Urine Appearance Urine pH Ur Specific [place] Urine Protein Urine Glucose (UA) Urine Ketones Urine Blood Urine Nitrite Ur Leukocyte Esterase Urine RBC Urine WBC Ur Squamous Epith Cells Urine Bacteria Hyaline Casts COVID-19 (ROB) COVID-19 Clin Com Influenza Type A (FRANCOIS) Influenza Type B (FRANCOIS) Influenza A & B Note 04/10/22 04/10/22 04/10/22 12:55 13:07 13:39 WBC RBC Hgb Hct MCV MCH MCHC RDW Plt Count MPV Immature Gran % (Auto) Neut % (Auto) Lymph % (Auto) [place] % (Auto) Eos % (Auto) Baso % (Auto) Lymph # (Auto) [place] # (Auto) Eos # (Auto) Baso # (Auto) Abs Immat Gran (auto) Absolute Neuts (auto) Absolute Nucleated RBC Nucleated RBC % (auto) PT INR VBG pH 7.35 VBG pCO2 68 VBG pO2 69 VBG HCO3 38 H VBG O2 Saturation 94.0 VBG Base Excess 10.1 Sodium Potassium Chloride Carbon Dioxide Anion Gap BUN Creatinine Estim Creat Clear Calc Estimated GFR Random Glucose Lactic Acid Calcium Total Bilirubin AST ALT Alkaline Phosphatase Troponin I High Sens B-Natriuretic Peptide Total Protein Albumin Urine Color Yellow Urine Appearance Clear Urine pH 5.5 Ur Specific [place] 1.010 Urine Protein Negative Urine Glucose (UA) Negative Urine Ketones Negative Urine Blood Negative Urine Nitrite Negative Ur Leukocyte Esterase Moderate (2+) H Urine RBC 0-2 Urine WBC 21-50 H Ur Squamous Epith Cells 3-5 Urine Bacteria None Seen Hyaline Casts 0-2 COVID-19 (ROB) COVID-19 Clin Com Influenza Type A (FRANCOIS) Negative Influenza Type B (FRANCOIS) Negative Influenza A & B Note See Note 04/10/22 04/11/22 13:39 05:59 WBC RBC Hgb Hct MCV MCH MCHC RDW Plt Count MPV Immature Gran % (Auto) Neut % (Auto) Lymph % (Auto) [place] % (Auto) Eos % (Auto) Baso % (Auto) Lymph # (Auto) [place] # (Auto) Eos # (Auto) Baso # (Auto) Abs Immat Gran (auto) Absolute Neuts (auto) Absolute Nucleated RBC Nucleated RBC % (auto) PT 46.0 H INR 3.8 H VBG pH VBG pCO2 VBG pO2 VBG HCO3 VBG O2 Saturation VBG Base Excess Sodium Potassium Chloride Carbon Dioxide Anion Gap BUN Creatinine Estim Creat Clear Calc Estimated GFR Random Glucose Lactic Acid Calcium Total Bilirubin AST ALT Alkaline Phosphatase Troponin I High Sens B-Natriuretic Peptide Total Protein Albumin Urine Color Urine Appearance Urine pH Ur Specific [place] Urine Protein Urine Glucose (UA) Urine Ketones Urine Blood Urine Nitrite Ur Leukocyte Esterase Urine RBC Urine WBC Ur Squamous Epith Cells Urine Bacteria Hyaline Casts COVID-19 (ROB) Negative COVID-19 Clin Com See Note Influenza Type A (FRANCOIS) Influenza Type B (FRANCOIS) Influenza A & B Note Imaging Chest x-ray: Radiologist's impression: ITS Impressions Chest X-Ray 04/10/22 13:17 IMPRESSION: Chronic changes without significant interval change consistent with known COPD. No acute cardiopulmonary process. Discharge Plan Discharge Patient Disposition: Home, Self-Care Discharge Diagnosis: COPD exacerbation Referrals: Robin Cueto MD [Primary Care Provider] - 1 Week Discharge Medications: New prednisone 20 mg tablet 40 mg PO DAILY Qty: 8 0RF guaifenesin 600 mg tablet extended release 12hr 600 mg PO BID Qty: 14 0RF benzonatate 100 mg capsule 100 mg PO TID Qty: 20 0RF Continued acetazolamide 250 mg tablet 250 mg PO BID 90 Days Qty: 180 0RF carvedilol 12.5 mg Tablet 12.5 mg PO BID simvastatin 40 mg Tablet 40 mg PO BEDTIME Spiriva with HandiHaler 18 mcg capsule, w/inhalation device 1 cap inhalation DAILY acetaminophen 325 mg Tablet 650 mg PO Q6H PRN (Reason: Pain) Combivent Respimat 20-100 mcg/actuation mist 1 puff inhalation QID oxybutynin chloride 5 mg tablet extended release 24hr 1 tab PO DAILY furosemide 20 mg tablet 1 tab PO DAILY nystatin 100,000 unit/gram powder 1 g topical BID aspirin 81 mg Tablet,Delayed Release (Dr/Ec) 81 mg PO DAILY fluticasone propion-salmeterol [Wixela Inhub] 500-50 mcg/dose blister with device 1 puff inhalation BID enoxaparin 80 mg/0.8 mL syringe 80 mg subcut BID latanoprost 0.005 % Drops, Emulsion 1 drp OPHTHALMIC (EYE) QPM omeprazole 40 mg capsule,delayed release(DR/EC) 20 mg PO DAILY albuterol sulfate 2.5 mg /3 mL (0.083 %) solution for nebulization 2.5 mg inhalation Q6H PRN (Reason: Shortness Of Breath) citalopram 20 mg tablet 20 mg PO DAILY Held warfarin 2.5 mg tablet 2.5 - 5 mg PO DAILY Hold Instructions: Resume on 04/13/22. Recheck by Wednesday, Hold Wednesday & Wednesday Discharge Orders: Discharge Order (Routine); Ordered 04/11/22 Ordered By: Lotus [place] Diet: Low salt diet Activity on Discharge: As tolerated Stand Alone Forms: Patient Portal Discharge page Care Plan Goals: Read below Health Concerns: Read below Plan of Treatment: Read below Assessment: You it to the hospital for treatment of COPD exacerbation treated with steroids, nebulizers and IV Lasix with good response over the course of hospital stay as you maintained your oxygen level at your baseline home oxygen. Continue prednisone for 4 more days Use your nebulizer every 3-4 hours at home for the next 5 days Cough medication as prescribed
--- NOTE | 2022-04-11 10:38 | PC.NURSE ---
Pt being discharged, awaiting EMS transportation home.
--- NOTE | 2022-04-11 11:23 | MHC.CM.PN ---
PT TO DC HOME TODAY WITH NO SERVICES PT TO ARRANGE TRANSPORT
== END 2022-04-11 12:25 | disposition home or self-care (01) ==
LOC: HO.ED 13:42 → HO.EDOVER 15:05 → HO.S3 04-11 07:49
PROVIDERS: Admitting Provider Student in an Organized Health Care Education/Training Program; Emergency Provider Student in an Organized Health Care Education/Training Program; PCP Internal Medicine; Visit Provider Student in an Organized Health Care Education/Training Program
DX: J44.1 Chronic obstructive pulmonary disease with (acute) exacerbation (principal); R79.1 Abnormal coagulation profile; I50.9 Heart failure, unspecified; R06.02 Shortness of breath; Z20.822 Contact with and (suspected) exposure to COVID-19; Z79.899 Other long term (current) drug therapy
CPT/HCPCS: 36415; 71045; 80053; 81001; 82803; 83605; 83880; 84484; 85025; 85610; 87040; 87086; 87502; 87635; 93005; 94664; 96374; 96375; 96376; 99218; 99285; J1940; J2543; J2920; J2930